=== PATIENT | male | born 1945 | race Caucasian/White ===

== ENCOUNTER 2016-12-13 11:37 | Emergency (ER) | payer MEDICARE, OTHER ==
[~2016-12-13] VITALS: Ht 180.3 cm; Wt 103.0 kg
[~2016-12-13 11:37] MED LIST: ACHD5005 PO; ASCO-262 PO; ASCO1TAB36 PO; ASCO2000; ASP325T PO; ASP325TEC PO; ASP81TEC PO; ASPI-875 PO; ASPI-892; ASPI-983 PO; BPR150TCR; BUPR-168 PO; BUPR-45 PO; BUPR150T14 PO; BUPR150T20; C250T PO; CALC-660 PO; CALC1TAB PO; CALC1TAB97; CALC625T66 PO; CALCIUM CITRATE; CALCIUM CITRATE PO; CHOL2000; CHOL200012 PO; CHOL40002 PO; CINN1CAP PO; CINN500C2 PO; CINNAMON; CITRACAL; CLON1TAB3 PO; DCS100C; DCS100C PO; DESV100T; DESV100T PO; DILT-1 PO; DILT240C87; DIPH50LI PO; DOXY100T2 PO; ENAL20TA; ENAL20TA PO; ENAL20TA76 PO; FISH1200; FISH400C PO; FLT05NA16; FLUT16SP22; FNT100TD; GABA600T2; GABA600T2 PO; GBPN600T PO; HYDR-3583 PO; HYDR-3812 PO; HYDR-89 PO; HYDR1CAP2; HYDR1TAB66 PO; INSASP10V; INSU100V16 SQ; INSULIN PUMP; KRIL1CAP18 PO; LACT20SO2 PO; LACTULOSE; LUTE20TA PO; MELA10TA2 PO; MELA1TAB16 PO; METH500T5 PO; METO-354 PO; METO10TA3; MS15TCR PO; MULT-850 PO; MULT-963 PO; MULTIVITAMIN; NAPR-243 PO; NOVOLOG; OMEGA COMPLEX; OMEGA COMPLEX PO; OXYC-12 PO; OXYC-197 PO; PEG250PW PO; PNT40TEC PO; POLY119P; PYRI50CA PO; Pristiq PO; SENOKOT; SIMV80TA3 PO; THM100T; TRAZ150T42 PO; TRAZ50TA67; TRZ50T; VENL75TA6 PO; VITA1TAB30; VITAMIN B PO; VNL75T PO
--- OUTSIDE RECORDS SUMMARY | 2016-12-13 11:44 | XMS REPORT | Continuity of Care Document ---
Author Author [facility] Organization [facility] Address Unknown Phone Unavailable Allergies Active Description Code Type Severity Reaction Onset Reported/Identified Relationship to Patient Clinical Status Yes No Known Drug Allergies [id number] Drug Allergy Mild N/A 04/19/2009 Yes No Known Drug Allergies [id number] Drug Allergy Unknown N/ A 04/16/2016 Medications Problems Date Dx Coded Attending Type Code Diagnosis Diagnosed By 04/19/2016 NITO ALLISON DO Ot A41.01 SEPSIS DUE TO METHICILLIN SUSCEPTIBLE ST 04/19/2016 MARK ALLISON DOI Ot D64.9 ANEMIA, UNSPECIFIED 04/19/2016 MARK ALLISON DOI Ot E11.65 TYPE 2 DIABETES MELLITUS WITH HYPERGLYCE 04/19/2016 MARK ALLISON DOI Ot E86.0 DEHYDRATION 04/19/2016 KEEGAN PENNINGTON NITO Ot F03.90 UNSPECIFIED DEMENTIA WITHOUT BEHAVIORAL 04/19/2016 MARK ALLISON DOI Ot F32.9 MAJOR DEPRESSIVE DISORDER, SINGLE EPISOD 04/19/2016 KEEGAN PENNINGTON NITO Ot G47.33 OBSTRUCTIVE SLEEP APNEA (ADULT) (PEDIATR 04/19/2016 KEEGAN PENNINGTON NITO Ot I10 ESSENTIAL (PRIMARY) HYPERTENSION 04/19/2016 MARK ALLISON DOI Ot J15.211 PNEUMONIA DUE TO METHICILLIN SUSCEP STAP 04/19/2016 MARK ALLISON DOI Ot M19.90 UNSPECIFIED OSTEOARTHRITIS, UNSPECIFIED 04/19/2016 KEEGAN PENNINGTON NITO Ot N17.9 ACUTE KIDNEY FAILURE, UNSPECIFIED 04/19/2016 MARK ALLISON DOI Ot R09.02 HYPOXEMIA 04/19/2016 MARK ALLISON DOI Ot 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 04/19/2016 MARK ALLISON DOI Ot Z87.891 PERSONAL HISTORY OF NICOTINE DEPENDENCE 05/22/2016 EDEL GUTIERREZ MD Ot Z91.81 HISTORY OF FALLING 06/12/2016 EDEL GUTIERREZ MD Ot Z91.81 HISTORY OF FALLING 08/03/2016 GIOVANA MORTENSEN Ot E11.9 TYPE 2 DIABETES MELLITUS WITHOUT COMPLIC 08/03/2016 GIOVANA MORTENSEN Ot F03.90 UNSPECIFIED DEMENTIA WITHOUT BEHAVIORAL 08/03/2016 GIOVANA MORTENSEN Ot I10 ESSENTIAL (PRIMARY) HYPERTENSION 08/03/2016 GIOVANA MORTENSEN Ot S00.81XA ABRASION OF OTHER PART OF HEAD, INITIAL 08/03/2016 GIOVANA MORTENSEN Ot S42.035A NONDISP FX OF LATERAL END OF LEFT CLAVIC 08/03/2016 GIOVANA MORTENSEN Ot S49.92XA UNSP INJURY OF LEFT SHOULDER AND UPPER A 08/03/2016 GIOVANA MORTENSEN Ot S50.812A ABRASION OF LEFT FOREARM, INITIAL ENCOUN 08/03/2016 GIOVANA MORTENSEN Ot W01.0XXA FALL SAME LEV FROM SLIP/TRIP W/O STRIKE 08/03/2016 GIOVANA MORTENSEN Ot Y92.[address] IN [facility] NON-INSTITUT ( PRIVATE 08/03/2016 GIOVANA MORTENSEN Ot Y93.89 ACTIVITY, OTHER SPECIFIED 08/03/2016 GIOVANA MORTENSEN Ot Y99.8 OTHER EXTERNAL CAUSE STATUS 08/03/2016 GIOVANA MORTENSEN Ot 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 08/03/2016 GIOVANA MORTENSEN Ot Z79.82 JAIL (CURRENT) USE OF ASPIRIN 08/03/2016 GIOVANA MORTENSEN Ot Z79.899 OTHER TOOL DESIGN DRAFTSPERSON (CURRENT) DRUG THERAPY 08/05/2016 GIOVANA MORTENSEN Ot E11.9 TYPE 2 DIABETES MELLITUS WITHOUT COMPLIC 08/05/2016 GIOVANA MORTENSEN Ot F03.90 UNSPECIFIED DEMENTIA WITHOUT BEHAVIORAL 08/05/2016 GIOVANA MORTENSEN Ot I10 ESSENTIAL (PRIMARY) HYPERTENSION 08/05/2016 GIOVANA MORTENSEN Ot S00.81XA ABRASION OF OTHER PART OF HEAD, INITIAL 08/05/2016 GIOVANA MORTENSEN Ot S42.035A NONDISP FX OF LATERAL END OF LEFT CLAVIC 08/05/2016 GIOVANA MORTENSEN Ot S49.92XA UNSP INJURY OF LEFT SHOULDER AND UPPER A 08/05/2016 GIOVANA MORTENSEN Ot S50.812A ABRASION OF LEFT FOREARM, INITIAL ENCOUN 08/05/2016 GIOVANA MORTENSEN Ot W01.0XXA FALL SAME LEV FROM SLIP/TRIP W/O STRIKE 08/05/2016 GIOVANA MORTENSEN Ot Y92.[address] IN [facility] NON-INSTITUT ( PRIVATE 08/05/2016 GIOVANA MORTENSEN Ot Y93.89 ACTIVITY, OTHER SPECIFIED 08/05/2016 GIOVANA MORTENSEN Ot Y99.8 OTHER EXTERNAL CAUSE STATUS 08/05/2016 GIOVANA MORTENSEN Ot Z79.4 JAIL (CURRENT) USE OF INSULIN 08/05/2016 GIOVANA MORTENSEN Ot Z79.82 JAIL (CURRENT) USE OF ASPIRIN 08/05/2016 GIOVANA MORTENSEN Ot Z79.899 OTHER TOOL DESIGN DRAFTSPERSON (CURRENT) DRUG THERAPY Procedures Results Encounters ACCT No. Visit Date/Time Discharge Status Pt. Type Provider Facility Loc./Unit Complaint [id number] 08/03/2016 17:28:00 2015 19:02:00 DIS Emergency GIOVANA MORTENSEN [facility] ER FALL [id number] 06/12/2016 11:12:00 2015 13:18:00 DIS Outpatient EDEL GUTIERREZ MD [facility] REHAB DECONDITIONING AND FREQUENT FALLS [id number] 04/16/2016 12:03:00 2015 10:23:00 DIS Inpatient NITO ALLISON DO [facility] 4TH [id number] 02/09/2015 14:46:00 2014 23:59:59 CLS Outpatient RENEE GOETZ DO [facility] QUICK [id number] 01/09/2014 20:23:00 2013 06:30:00 DIS Outpatient [id number] 11/23/2013 12:44:00 2013 13:31:00 DIS Outpatient [id number] 10/10/2013 06:00:00 2012 12:00:00 DIS Inpatient [id number] 09/27/2013 08:51:00 2012 23:59:59 CLS Outpatient [id number] 03/23/2013 10:25:00 2012 15:51:00 DIS Outpatient [id number] 02/22/2013 10:00:00 2012 18:50:00 DIS Inpatient [id number] 12/13/2016 11:40:00 ACT Emergency GOLDIE SCHMID, MARCO ANTONIO Paredes [facility] ER UPPER BACK PAIN [id number] 04/16/2016 12:50:00 Document Registration
[2016-12-13] MEDS ORDERED: morphine INJ 10 MG/ML 1ML (SYR OR VIAL) IM STA ×2 (12:54→14:12)
[2016-12-13] MEDS ORDERED: KETOROLAC 30 MG/ML VIAL IM STA (12:54)
--- NOTE | 2016-12-13 13:10 | ED Back Pain ---
General Chief Complaint: Back Problems Stated Complaint: UPPER BACK PAIN Nursing Triage Note: AMBULATED TO ROOM 09 WITH A CANE. COMPLAINS OF LEFT MID BACK PAIN THAT STARTED LAST WEEK WHEN HE FELL ONTO THE CONCRETE FLOOR. FELT FINE AFTER BUT YESTERDAY WAS HELPING TO TURN A MATRESS AND HE SNEEZED AND FELT A HORRIBLE PAIN IN HIS BACK THAT WILL NOT GO AWAY. COMPLAINS OF SOA YESTERDAY. Nursing Sepsis Screen: No Definite Risk Source of Information: Patient, Family Exam Limitations: No Limitations History of Present Illness Time Seen by Provider: 12:50 Initial Comments Here with report of left upper back pain. Onset last week after falling while walking on a sidewalk [place]. He was able to catch himself somewhat but landed on the left shoulder. He was hurting for about 2 days but then was better. Last night he was assisting turning a mattress and sneezed when he was bent over and had no significant left upper back pain near the area of the shoulder blade that has persisted since. Does have a mild cough. Denies fever or chills. Denies nausea or vomiting. Denies other injury or concerns. He did not hit his head and he did not lose consciousness. Location: Paraspinous Muscles, T-Spine Timing/Duration: 12-24 Hours, 1 Week Severity: Moderate Pain/Injury Location: Chest Modifying Factors: Improves With Immobilization, Worse With Movement Associated Symptoms: muscle spasmsNo fever, No weakness Allergies and Home Medications Allergies Coded Allergies: No Known Drug Allergies (Unverified , 04/16/16) Home Medications Ascorbate Calcium/Bioflavonoid 1 Each Tablet 1,000 MG PO DAILY (Reported) Aspirin 81 Mg Tablet.dr 81 MG PO DAILY (Reported) Bupropion HCl 150 Mg Tablet.er 150 MG PO BID (Reported) Calcium Carbonate/Vitamin D3 1 Each Tablet 1 TAB PO DAILY (Reported) Cholecalciferol (Vitamin D3) 2,000 Unit Capsule 2,000 UNIT PO DAILY (Reported) Clonazepam 1 Mg Tablet 1 MG PO HS (Reported) Diphenhydramine HCl 50 Mg/30 Ml Liquid 50 MG PO HS (Reported) Docusate Sodium 100 Mg Cap 200 MG PO BID (Reported) TAKES 2 (100MG) CAPSULES TWICE DAILY Doxycycline Hyclate 100 Mg Tablet #10 100 MG PO BID@,17 Prescribed by: NITO ALLISON on 04/19/16 0923 Enalapril Maleate 20 Mg Tablet 20 MG PO BID (Reported) Fluticasone Propionate 16 Gm [place].susp 2 SPRAYS NA HS (Reported) Gabapentin 600 Mg Tablet 600 MG PO TID (Reported) Hydrocodone/Acetaminophen 1 Each Tablet 1-2 TAB PO Q6H PRN PRN PAIN (Reported) Insulin Aspart 100 Unit/1 Ml Susp SQ PER INSULIN PUMP (Reported) 7 CARBS FOR 1 INSULIN UNIT BASAL RATE 1.7 UNITS PER HOUR Krill/Om-3/Dha/Epa/Phospho/Ast 1 Each Capsule 1,000 MG PO DAILY (Reported) Lactulose 20 Gm/30 Ml Solution 3 TBS PO DAILY PRN PRN CONSTIPATION (Reported) Lutein 20 Mg Tablet 20 MG PO DAILY (Reported) Melatonin 10 Mg Tablet 10 MG PO HS (Reported) Methylcellulose 500 Mg Cplt 500 MG PO BID (Reported) Multivitamin 1 Each Tablet 1 TAB PO DAILY (Reported) Oxycodone HCl/Acetaminophen 1 Each Tablet #30 1 EACH PO Q4H PRN PRN PAIN Prescribed by: GIOVANA LUX on 08/03/16 183 Polyethylene Glycol 1 Ea Pack 17 GM PO DAILY PRN PRN CONSTIPATION (Reported) Venlafaxine HCl 75 Mg Tab 150 MG PO BID (Reported) TAKES 2 (75MG) TABLETS Constitutional: see HPINo chills, No fever Respiratory: coughNo short of breath Cardiovascular: chest painNo edema Gastrointestinal: No abdominal pain, No nausea, No vomiting Genitourinary: no symptoms reported Musculoskeletal: see HPI back pain joint pain (left shoulder) Skin: no symptoms reported All Other Systems Reviewed Negative Unless Noted: Yes Past Sqkkscw-Gfuwrp-Jiofat Hx Patient Social History Alcohol Use: Rarely Uses Recreational Drug Use: No Smoking Status: Former Smoker Former Smoker/When Quit: Nov 02, 1982 Recent Foreign Travel: No Contact w/Someone Who Travel: No Recent Infectious Disease Expo: No Recent Hopitalizations: Yes Immunizations Up To Date Tetanus Booster (TDap): Less than 5yrs Date of Pneumonia Vaccine: Nov 02, 2008 Date of Influenza Vaccine: Sep 02, 2013 Surgeries HX Surgeries: No (BILAT CARPAL TUNNEL, BILA KNEE REPLACE, COLON RESECTION, BILAT KNEE SCOPE, ) Surgeries: Orthopedic Respiratory Hx Respiratory Disorders: Yes (CPAP AT NOC) Respiratory Disorders: Sleep Apnea Cardiovascular Hx Cardiac Disorders: Yes Cardiac Disorders: Hypertension Neurological Hx Neurological Disorders: Yes (CONFUSION W/ ILLNESSES) Neurological Disorders: Dementia Reproductive System Hx Reproductive Disorders: Yes (ERECTILE DYSFUNCTION) Sexually Transmitted Disease: No Genitourinary Hx Genitourinary Disorders: No Gastrointestinal Hx Gastrointestinal Disorders: Yes (COLON RESSECTION) Musculoskeletal Hx Musculoskeletal Disorders: Yes (ARTHRITIS) Musculoskeletal Disorders: Back Injury Endocrine Hx Endocrine Disorders: Yes Endocrine Disorders: Diabetes, Insulin dep HEENT HX ENT Disorders: Yes HEENT Disorders: Cataract 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, Hearing Aide Left Cancer Hx Cancer: Yes Cancer: Skin Psychosocial Hx Psychiatric Problems: Yes Behavioral Health Disorders: Depression Integumentary HX Skin/Integumentary Disorder: Yes (SKIN REAL THIN/EASILY BRUISES) Blood Transfusions Hx Blood Disorders: No Reviewed Nursing Assessment Reviewed/Agree w Nursing PMH: Yes Family Medical History Significant Family History: No Pertinent Family Hx Family Medial History: Cancer 09 SISTER (BREAST) Hypertension 03 FATHER 03 MOTHER Parkinson's disease 03 MOTHER Seizure disorder 09 BROTHER Physical Exam Vital Signs Vital Sign - Last 12Hours 12/13/16 12:23 Temp 98.0 Pulse 92 Resp 16 B/P 122/65 Pulse Ox 92 Capillary Refill : Less Than 3 Seconds General Appearance: No Apparent Distress WD/WN Neck: Non Tender Supple Cardiovascular: Regular Rate, Rhythm No Murmur Respiratory: No Accessory Muscle Use Other (course sounds with breathing and cough.) Gastrointestinal: Non Tender Soft Extremity: Non Tender No Calf Tenderness Neurologic/Psychiatric: Alert Oriented x3 Skin: Normal Color Warm/Dry Progress/Results/Core Measures Results/Orders My Orders Orders-MARCO ANTONIO AMEZCUA MD Ribs/Unilateral With Chest (12/13/16 12:54) Ketorolac Injection (Toradol Injection) (12/13/16 12:54) Morphine Injection (Morphine Injection (12/13/16 12:54) Morphine Injection (Morphine Injection (12/13/16 14:12) Vital Signs/I&O Vital Sign - Last 12Hours 12/13/16 12:23 Temp 98.0 Pulse 92 Resp 16 B/P 122/65 Pulse Ox 92 Blood Pressure Mean: 84 Progress Note : Progress Note Seen and evaluated. X-ray of chest and left ribs. Toradol 30 mg IM and morphine 5 mg IM ordered. Monitor patient. 1355: I did discuss the case with Dr. Jacobo. Patient has some continued pain. We did note clavicle fracture and rib fractures. There appears to be at least 1 fracture in the area of concern of the seventh rib.. 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 There could be other fractures of the ribs in the area. All the findings were discussed with the patient. He does have some continued pain so we did repeat morphine [address] Jacobo's recommendation, I will prescribe Duragesic 25 g patches and he will follow-up with Dr. Jacobo on Thursday or Thursday. Patient family agree. Discharged home with return precautions. Patient family verbalized understanding instructions and agreement with plan. Diagnostic Imaging Diagonstic Imaging: Xray Plain Films/CT/US/NM/MRI: chest Comments [facility]. [place], [place] NAME: YOSVANY MOSLEY JR [facility] REC#: [id number] PT STATUS: REG ER : 1945 PHYSICIAN: MARCO ANTONIO AMEZCUA MD ADMIT DATE: 12/13/16/ER Draft Date of Exam:12/13/16 RIBS/UNILATERAL WITH CHEST INDICATION: Left mid back pain, started last week. Fell on concrete. Sneezing, felt horrible pain on the left. Shortness of air. EXAMINATION: Chest and rib series 12/13/2016. COMPARISON: Chest dated 08/03/2016. FINDINGS: Frontal chest with 3 views of the left ribs. There is a fracture of the distal aspect of the left clavicle stable with some callus formation noted at this time compared to previous imaging. There are left posterior lateral rib fractures in the upper chest stable. There is no pneumothorax, mild irregularity along the anterolateral aspect of the left likely seventh rib likely due to a nondisplaced acute fracture. The visualized upper abdomen demonstrates findings of marked constipation. IMPRESSION: 1. Chronic changes throughout the lungs with no acute infiltrates and no pneumothorax. 2. Fractures in the left clavicle and proximal left posterior ribs. 3. Suspected more acute appearing fracture along the anterolateral aspect of the left seventh rib nondisplaced in nature. Correlate for point tenderness, other findings as above. Dictated on workstation # [id number] Dict: 12/13/16 1329 Trans: 12/13/[address] [place] [address] [id number] Interpreted by: ANA MARTINEZ MD Departure Impression Impression: Primary Impression: Left rib fracture Qualified Code: S22.42XA - Multiple fractures of ribs, left side, initial encounter for closed fracture Additional Impression: Clavicle fracture, sternal end Qualified Code: S42.018K - Nondisplaced fracture of sternal end of left clavicle, subsequent encounter for fracture with nonunion Disposition: HOME, SELF-CARE Condition: Stable Departure-Patient Inst. Decision time for Depature: 14:21 Referrals: EDEL JACOBO MD (PCP/Family) Primary Care Physician Patient Instructions: Clavicle Fracture (DC), Rib Fracture (DC) Add. Discharge Instructions: All discharge instructions reviewed with patient and/or family. Voiced understanding. Continue home medications as directed. Use Duragesic patch as prescribed. Follow-up with Dr. Jacobo on Thursday or Thursday. Call his office Thursday morning for recheck. Return for worse pain, fever, vomiting, breathing problems or other concerns as needed. Use incentive spirometer several times per hour while awake. Scripts Fentanyl (Duragesic Patch 25MCG)1 Each Patch.[id number] Mcg TD Q72H #5 PATCH Ref 0 Prov:MARCO ANTONIO AMEZCUA MD 12/13/16 MARCO ANTONIO AMEZCUA MD Dec 13, 2016 13:10
--- NOTE | 2016-12-13 13:41 | Diagnostic Imaging Report ---
INDICATION: Left mid back pain, started last week. Fell on concrete. Sneezing, felt horrible pain on the left. Shortness of air. EXAMINATION: Chest and rib series 12/13/2016. COMPARISON: Chest dated 08/03/2016. FINDINGS: Frontal chest with 3 views of the left ribs. There is a fracture of the distal aspect of the left clavicle stable with some callus formation noted at this time compared to previous imaging. There are left posterior lateral rib fractures in the upper chest stable. There is no pneumothorax, mild irregularity along the anterolateral aspect of the left likely seventh rib likely due to a nondisplaced acute fracture. The visualized upper abdomen demonstrates findings of marked constipation. IMPRESSION: 1. Chronic changes throughout the lungs with no acute infiltrates and no pneumothorax. 2. Fractures in the left clavicle and proximal left posterior ribs. 3. Suspected more acute appearing fracture along the anterolateral aspect of the left seventh rib nondisplaced in nature. Correlate for point tenderness, other findings as above. Dictated by: Dictated on workstation # [id number]
[2016-12-13] MEDS ORDERED: FENT1PAT57 TD (14:24)
[2016-12-13 14:28] VITALS: BP 120/68
== END 2016-12-13 14:28 | disposition home or self-care (01) ==
LOC: EDUNIT# 11:37 → ER 11:40
DX: S22.42XA Multiple fractures of ribs, left side, initial encounter for closed fracture (principal); S42.022K Displaced fracture of shaft of left clavicle, subsequent encounter for fracture with nonunion; I10 Essential (primary) hypertension; E11.9 Type 2 diabetes mellitus without complications; Z79.82 Long term (current) use of aspirin; Z79.4 Long term (current) use of insulin; Z79.899 Other long term (current) drug therapy; W01.0XXA Fall on same level from slipping, tripping and stumbling without subsequent striking against object, initial encounter; Y92.480 Sidewalk as the place of occurrence of the external cause; Y99.8 Other external cause status
CPT/HCPCS: 71101; 96372; 99281

== ENCOUNTER 2017-01-30 10:36 | Inpatient (IN) | payer MEDICARE, OTHER ==
[~2017-01-30] VITALS: Ht 180.3 cm; Wt 98.9 kg
[~2017-01-30 10:36] MED LIST changes: +FENT1PAT57 TD
--- NOTE | 2017-01-30 10:57 | ED Abdominal Pain ---
General Stated Complaint: ABD PAIN Source of Information: Patient, Family Exam Limitations: No Limitations History of Present Illness Time Seen By Provider: 10:55 Initial Comments Brought to ER by his with reports of crampy left lower quadrant abdominal pain for 4 days. No nausea or vomiting. He did pass gas last night but has had no bowel movement for 4 days. History of resection and reanastomosis of the sigmoid/descending colon secondary to a fecalith that by the 's history sounds to have caused some sort of ischemic bowel wall in that region many years ago. Surgery was performed by Dr. Barnes. He is on hydrocodone for a back injury but typically has bowel movements everyday. No fevers or chills. Is also diabetic with insulin pump and states his sugars a been running slightly higher than average in the 200 range for the past few days Timing/Duration: 3-4 Days Severity/Quality: Moderate Location: LUQ, Suprapubic Radiation: No Radiation Activities at Onset: None Associated Symptoms: No Fever/Chills, No Nausea/Vomiting Allergies and Home Medications Allergies Coded Allergies: No Known Drug Allergies (Unverified , 04/16/16) Home Medications Ascorbate Calcium/Bioflavonoid 1 Each Tablet, 1,000 MG PO DAILY, (Reported) Aspirin 81 Mg Tablet.dr, 81 MG PO DAILY, (Reported) Bupropion HCl 150 Mg Tablet.er, 150 MG PO BID, (Reported) Calcium Carbonate/Vitamin D3 1 Each Tablet, 1 TAB PO DAILY, (Reported) Cholecalciferol (Vitamin D3) 2,000 Unit Capsule, 2,000 UNIT PO DAILY, (Reported) Clonazepam 1 Mg Tablet, 1 MG PO HS, (Reported) Diphenhydramine HCl 50 Mg/30 Ml Liquid, 50 MG PO HS, (Reported) Docusate Sodium 100 Mg Cap, 200 MG PO BID, (Reported) TAKES 2 (100MG) CAPSULES TWICE DAILY Doxycycline Hyclate 100 Mg Tablet, 100 MG PO BID@, #10 Prescribed by: NITO ALLISON on 04/19/16 0923 Enalapril Maleate 20 Mg Tablet, 20 MG PO BID, (Reported) Fentanyl 1 Each Patch.td72, 25 MCG TD Q72H, #5 Ref 0 Prescribed by: MARCO ANTONIO AMEZCUA on 12/13/16 1424 Fluticasone Propionate 16 Gm [place].susp, 2 SPRAYS NA HS, (Reported) Gabapentin 600 Mg Tablet, 600 MG PO TID, (Reported) Hydrocodone/Acetaminophen 1 Each Tablet, 1-2 TAB PO Q6H PRN for PAIN, (Reported) Insulin Aspart 100 Unit/1 Ml Susp, SQ PER INSULIN PUMP, (Reported) 7 CARBS FOR 1 INSULIN UNIT BASAL RATE 1.7 UNITS PER HOUR Krill/Om-3/Dha/Epa/Phospho/Ast 1 Each Capsule, 1,000 MG PO DAILY, (Reported) Lactulose 20 Gm/30 Ml Solution, 3 TBS PO DAILY PRN for CONSTIPATION, (Reported) Lutein 20 Mg Tablet, 20 MG PO DAILY, (Reported) Melatonin 10 Mg Tablet, 10 MG PO HS, (Reported) Methylcellulose 500 Mg Cplt, 500 MG PO BID, (Reported) Multivitamin 1 Each Tablet, 1 TAB PO DAILY, (Reported) Oxycodone HCl/Acetaminophen 1 Each Tablet, 1 EACH PO Q4H PRN for PAIN, #30 Ref 0 Prescribed by: GIOVANA LUX on 08/03/16 522 Polyethylene Glycol 1 Ea Pack, 17 GM PO DAILY PRN for CONSTIPATION, (Reported) Venlafaxine HCl 75 Mg Tab, 150 MG PO BID, (Reported) TAKES 2 (75MG) TABLETS Review of Systems Constitutional: see HPI EENTM: No Symptoms Reported Respiratory: No Symptoms Reported Cardiovascular: No Symptoms Reported Gastrointestinal: See HPI, Abdominal Pain, Constipated, Denies Diarrhea, Denies Nausea Genitourinary: No Symptoms Reported Musculoskeletal: no symptoms reported Skin: no symptoms reported Psychiatric/Neurological: No Symptoms Reported Endocrine: No Symptoms Reported Past Rgmwjwy-Oktkhu-Jzanax Hx Patient Social History Former Smoker/When Quit: Nov 02, 1982 Recent Foreign Travel: No Contact w/Someone Who Travel: No Recent Hopitalizations: Yes Immunizations Up To Date Tetanus Booster (TDap): Less than 5yrs Date of Pneumonia Vaccine: Nov 02, 2008 Date of Influenza Vaccine: Sep 02, 2013 Surgeries HX Surgeries: No (BILAT CARPAL TUNNEL, BILA KNEE REPLACE, COLON RESECTION, BILAT KNEE SCOPE, ) Surgeries: Orthopedic Respiratory Hx Respiratory Disorders: Yes (CPAP AT NOC) Respiratory Disorders: Sleep Apnea Cardiovascular Hx Cardiac Disorders: Yes Cardiac Disorders: Hypertension Neurological Hx Neurological Disorders: Yes (CONFUSION W/ ILLNESSES) Neurological Disorders: Dementia Reproductive System Hx Reproductive Disorders: Yes (ERECTILE DYSFUNCTION) Sexually Transmitted Disease: No Genitourinary Hx Genitourinary Disorders: No Gastrointestinal Hx Gastrointestinal Disorders: Yes (COLON RESSECTION) Musculoskeletal Hx Musculoskeletal Disorders: Yes (ARTHRITIS) Musculoskeletal Disorders: Back Injury Endocrine Hx Endocrine Disorders: Yes Endocrine Disorders: Diabetes, Insulin dep HEENT HX ENT Disorders: Yes HEENT Disorders: Cataract 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, Hearing Aide Left Cancer Hx Cancer: Yes Cancer: Skin Psychosocial Hx Psychiatric Problems: Yes Behavioral Health Disorders: Depression Integumentary HX Skin/Integumentary Disorder: Yes (SKIN REAL THIN/EASILY BRUISES) Blood Transfusions Hx Blood Disorders: No Family Medical History Significant Family History: No Pertinent Family Hx Family Medial History: Cancer 09 SISTER (BREAST) Hypertension 03 FATHER 03 MOTHER Parkinson's disease 03 MOTHER Seizure disorder 09 BROTHER Physical Exam Vital Signs VS - Last 72 Hours, by Label 01/30/17 10:59 Temp 98.6 Pulse 100 Resp 16 B/P (MAP) 128/84 Pulse Ox 98 O2 Delivery Room Air Capillary Refill : General Appearance: WD/WN, no apparent distress HEENT: PERRL/EOMI, normal ENT inspection Neck: non-tender, full range of motion Respiratory: no respiratory distress, no accessory muscle use Gastrointestinal: normal bowel sounds, soft, tenderness (left lower quadrant tenderness) Extremities: normal range of motion, non-tender Neurologic/Psychiatric: alert, normal mood/affect, oriented x 3 Skin: normal color, warm/dry Progress/Results/Core Measures Results/Orders Lab Results Laboratory Tests Test 01/30/17 10:54 01/30/17 12:30 Range/Units White Blood Count 13.8 H 4.3-11.0 10^3/uL Red Blood Count 4.23 L 4.35-5.85 10^6/uL Hemoglobin 13.4 13.3-17.7 G/DL Hematocrit 43 40-54 % Mean Corpuscular Volume 102 H 80-99 FL Mean Corpuscular Hemoglobin 32 25-34 PG Mean Corpuscular Hemoglobin Concent 31 L 32-36 G/DL Red Cell Distribution Width 15.9 H 10.0-14.5 % Platelet Count 289 130-400 10^3/uL Mean Platelet Volume 9.4 7.4-10.4 FL Neutrophils (%) (Auto) 47 42-75 % Lymphocytes (%) (Auto) 22 12-44 % Monocytes (%) (Auto) 17 H 0-12 % Eosinophils (%) (Auto) 11 H 0-10 % Basophils (%) (Auto) 2 0-10 % Neutrophils # (Auto) 6.5 1.8-7.8 X 10^3 Lymphocytes # (Auto) 3.1 1.0-4.0 X 10^3 Monocytes # (Auto) 2.4 H 0.0-1.0 X 10^3 Eosinophils # (Auto) 1.5 H 0.0-0.3 10^3/uL Basophils # (Auto) 0.3 H 0.0-0.1 10^3/uL Sodium Level 140 135-145 MMOL/L Potassium Level 4.5 3.6-5.0 MMOL/L Chloride Level 104 98-107 MMOL/L Carbon Dioxide Level 27 21-32 MMOL/L Anion Gap 9 5-14 MMOL/L Blood Urea Nitrogen 15 7-18 MG/DL Creatinine 1.10 0.60-1.30 MG/DL Estimat Glomerular Filtration Rate > 60 BUN/Creatinine Ratio 14 Glucose Level 162 H 70-105 MG/DL Calcium Level 9.8 8.5-10.1 MG/DL Total Bilirubin 0.6 0.1-1.0 MG/DL Aspartate Amino Transf (AST/SGOT) 13 5-34 U/L Alanine Aminotransferase (ALT/SGPT) 20 0-55 U/L Alkaline Phosphatase 95 40-136 U/L Total Protein 7.8 6.4-8.2 G/DL Albumin 4.2 3.2-4.5 G/DL Urine Color YELLOW Urine Clarity CLEAR Urine pH 6 5-9 Urine Specific [place] 1.010 L 1.016-1.022 Urine Protein NEGATIVE NEGATIVE Urine Glucose (UA) NEGATIVE NEGATIVE Urine Ketones NEGATIVE NEGATIVE Urine Nitrite NEGATIVE NEGATIVE Urine Bilirubin NEGATIVE NEGATIVE Urine Urobilinogen NORMAL NORMAL MG/DL Urine Leukocyte Esterase NEGATIVE NEGATIVE Urine RBC (Auto) NEGATIVE NEGATIVE Urine RBC 0-2 /HPF Urine WBC RARE /HPF Urine Squamous Epithelial Cells RARE /HPF Urine Crystals NONE /LPF Urine Bacteria NEGATIVE /HPF Urine Casts NONE /LPF Urine Mucus NEGATIVE /LPF Urine Culture Indicated NO My Orders Orders - MAGGIE TINEO CHIEF FUNDRAISING OFFICER Cbc With Automated Diff (01/30/17 10:48) Comprehensive Metabolic Panel (01/30/17 10:48) Ua Culture If Indicated (01/30/17 10:48) Saline Lock/Iv-Start (01/30/17 10:48) Ct Abdomen/Pelvis W (01/30/17 10:58) Medications Given in ED Current Medications Medications Dose Ordered Sig/Andrea Route Start Time Stop Time Status Last Admin Dose Admin Iohexol 100 ml ONCE ONCE IV 01/30/17 11:15 01/30/17 11:19 DC 01/30/17 11:51 100 ML Sodium Chloride 10 ml NEEDED PRN IV 01/30/17 11:15 01/30/17 11:51 10 ML Sodium Chloride 100 ml ONCE ONCE IV 01/30/17 11:15 01/30/17 11:19 DC 01/30/17 11:51 80 ML Vital Signs/I&O Vital Sign - Last 12Hours 01/30/17 10:59 Temp 98.6 Pulse 100 Resp 16 B/P (MAP) 128/84 Pulse Ox 98 O2 Delivery Room Air Diagnostic Imaging Diagonstic Imaging: CT Comments 1. Findings are consistent with high-grade obstruction of the colon at the anastomotic suture line in the rectosigmoid junction. No definite diverticulitis noted with diverticuli in the remaining sigmoid colon noted. 2. There are two small enhancing areas in the dome of the liver which appear to be stable when compared with previous exam consistent with hemangiomas. 3. Bilateral renal cysts which have increased in size and number since previous study. Dictated on workstation # [id number] Dict: 01/30/17 1205 Trans: 01/30/17 1244 [facility] [id number] Interpreted by: MORELIA BARRERA MD Electronically signed by: Departure Communication Time/Spoke to Admitting Phy: 14:09 Communication I discussed the case with Dr. Rasmussen. We will admit the patient to him, consult medicine. Soap suds enema, Cipro, Flagyl and clear liquid diet. Impression Impression: Primary Impression: Large bowel obstruction Disposition: ADMITTED INPATIENT Condition: Stable Decision to Admit Reason: Admit from ER (General) Decision to Admit/Date: Jan 30, 2017 Time/Decision to Admit Time: 12:53 Departure-Patient Inst. Referrals: EDEL GUTIERREZ MD (PCP/Family) Primary Care Physician MAGGIE TINEO APRN Jan 30, 2017 10:57
[2017-01-30] MEDS ORDERED: CATHETER FLUSH 10 ML SYR IV PRN (11:15)
[2017-01-30] MEDS ORDERED: NS 100 ML (IVPB) BAG IV ONE (11:15)
[2017-01-30] MEDS ORDERED: IOHEXOL 350 MG/ML 100 ML (OMNIPAQUE 350) VIAL IV ONE (11:15)
[2017-01-30 11:17] LABS: BASOPHILS # (AUTO) 0.3 10^3/uL (0.0-0.1); BASOPHILS % (AUTO) 2 % (0-10); EOSINOPHILS # (AUTO) 1.5 10^3/uL (0.0-0.3); EOSINOPHILS % (AUTO) 11 % (0-10); LYMPHOCYTES # (AUTO) 3.1 X 10^3 (1.0-4.0); LYMPHOCYTES % (AUTO) 22 % (12-44); MEAN CORPUSCULAR HEMOGLOBIN 32 PG (25-34); MEAN CORPUSCULAR HGB CONC 31 G/DL (32-36); MEAN CORPUSCULAR VOLUME 102 FL (80-99); MEAN PLATELET VOLUME 9.4 FL (7.4-10.4); MONOCYTES # (AUTO) 2.4 X 10^3 (0.0-1.0); MONOCYTES % (AUTO) 17 % (0-12); NEUTROPHILS # (AUTO) 6.5 X 10^3 (1.8-7.8); NEUTROPHILS % (AUTO) 47 % (42-75); PLATELET COUNT 289 10^3/uL (130-400); RED BLOOD COUNT 4.23 10^6/uL (4.35-5.85); RED CELL DISTRIBUTION WIDTH 15.9 % (10.0-14.5); WHITE BLOOD COUNT 13.8 10^3/uL (4.3-11.0)
[2017-01-30 11:32] LABS: ALANINE AMINOTRANSFERASE 20 U/L (0-55); ALBUMIN 4.2 G/DL (3.2-4.5); ANION GAP 9 MMOL/L (5-14); ASPARTATE AMINO TRANSFERASE 13 U/L (5-34); BILIRUBIN,TOTAL 0.6 MG/DL (0.1-1.0); BLOOD UREA NITROGEN 15 MG/DL (7-18); BUN/CREATININE RATIO 14; CALCIUM 9.8 MG/DL (8.5-10.1); CARBON DIOXIDE 27 MMOL/L (21-32); CHLORIDE 104 MMOL/L (98-107); GFR ESTIMATED > 60; GLUCOSE 162 MG/DL (70-105); POTASSIUM 4.5 MMOL/L (3.6-5.0); SODIUM 140 MMOL/L (135-145); TOTAL PROTEIN 7.8 G/DL (6.4-8.2)
[2017-01-30 12:35] LABS: BILIRUBIN,URINE NEGATIVE (NEGATIVE); KETONES,URINE NEGATIVE (NEGATIVE); LEUKOCYTE ESTERASE ,URINE NEGATIVE (NEGATIVE); NITRITE,URINE NEGATIVE (NEGATIVE); PH,URINE 6 (5-9); PROTEIN,URINE NEGATIVE (NEGATIVE); UROBILINOGEN,URINE NORMAL (NORMAL)
[2017-01-30 12:43] LABS: SQUAMOUS EPITHELIAL CELL,UR RARE /HPF; WBC,URINE RARE /HPF
--- NOTE | 2017-01-30 12:45 | Diagnostic Imaging Report ---
PROCEDURE: CT abdomen and pelvis with contrast. TECHNIQUE: Multiple contiguous axial images were obtained through the abdomen and pelvis after administration of intravenous contrast. INDICATION: Low abdominal pain x4 days. History of previous colon resection and appendectomy. Comparison with 11/08/2012. FINDINGS: There is a large amount of stool throughout the colon from the cecum to the anastomosis at the rectosigmoid junction. There is diverticulosis with no definite diverticulitis seen in the remaining sigmoid colon. There is no stool in the sigmoid colon or rectum. Small bowel is not distended. The stomach is not dilated. Liver shows two small area of increased enhancement in the right lobe superiorly along segment 8 and 4B. In retrospect, these were probably present on 11/08/2012 exam though due to the contrast timing were less prominent. No other liver lesions are seen. Gallbladder is absent. Bile ducts are not dilated. Pancreas is atrophic. Spleen appears normal. The adrenal glands are not enlarged. Kidneys show benign cyst on the right measuring 3.8 cm which has increased considerably since previous exam when it measured 1.8 cm. Additional smaller cyst inferiorly in the right kidney and the left kidney, which has only increased slightly in size. There is no hydronephrosis. No solid ureteral masses. No calculi. Aorta is well opacified and appear normal with mild atherosclerosis. There is no free air or free fluid. No intra-abdominal adenopathy of pathologic size. The lung bases are clear. IMPRESSION: 1. Findings are consistent with high-grade obstruction of the colon at the anastomotic suture line in the rectosigmoid junction. No definite diverticulitis noted with diverticuli in the remaining sigmoid colon noted. 2. There are two small enhancing areas in the dome of the liver which appear to be stable when compared with previous exam consistent with hemangiomas. 3. Bilateral renal cysts which have increased in size and number since previous study. Dictated by: Dictated on workstation # [id number]
[2017-01-30 14:45] VITALS: BP 125/80
[2017-01-30 15:25] VITALS: BP 125/80
[2017-01-30] MEDS ORDERED: ONDANSETRON 4 MG/2 ML (SDV) Z0FRAN IV PRN (15:30)
[2017-01-30] MEDS ORDERED: FLEET ENEMA ADULT 1 EA BTL PR NR (15:30)
[2017-01-30] MEDS: NS IV 1000 ML 1,000 ML IV SCH (15:40)
[2017-01-30] MEDS: metroNIDAZOLE 500MG/100ML IVPB 100 ML IV SCH ×2 (15:40→22:08)
[2017-01-30] MEDS ORDERED: HYDROcodone/APAP 7.5 MG/325 MG (LORTAB, LORCET PLUS) TABLET PO PRN (15:45)
[2017-01-30] MEDS ORDERED: fentaNYL INJECTION 100 MCG/2 ML AMP IVP PRN (15:45)
[2017-01-30] MEDS ORDERED: INSULIN VIAL ASPART for PUMP 100 UNIT/ML VIAL SQ SCH (16:00)
[2017-01-30] MEDS: CIPROFLOXACIN 400 MG/D5W 200 ML (PRE-MIX) IV SCH (16:29)
[2017-01-30] MEDS ORDERED: CINN500C2 PO (16:45)
[2017-01-30] MEDS ORDERED: CLON1TAB3 PO (16:45)
[2017-01-30] MEDS ORDERED: RX-HYDROCODONE/APAP 5/325 MG #4 TAB PK PO PRN (20:15)
[2017-01-30] MEDS ORDERED: HYDROcodone/APAP 5 MG/325 MG (LORTAB) TAB PO PRN (20:15)
[2017-01-30] MEDS ORDERED: LACTULOSE SYRUP 10GM/15ML (ENULOSE) 30ML UDC PO PRN (20:15)
[2017-01-30] MEDS ORDERED: inSUlin ASPART (NovoLOG) 1 UNIT/0.01 ML (CHARGE PER UNIT) SQ SCH (20:15)
[2017-01-30] MEDS ORDERED: POLYETHYLENE GLYCOL 17 GM PO PRN (20:15)
[2017-01-30] MEDS ORDERED: MELATONIN 3 MG TABLET PO PRN (20:30)
[2017-01-30] MEDS ORDERED: POLYETHYLENE GLYCOL 17 GM (MIRALAX) PACK PO PRN (20:30)
[2017-01-30] MEDS: GABAPENTIN 600 MG (NEURONTIN) TAB PO SCH (20:50)
[2017-01-30] MEDS: DOCUSATE SODIUM 100 MG (COLACE) CAP PO SCH (20:50)
[2017-01-30] MEDS: ENALAPRIL 10 MG (VASOTEC) TAB PO SCH (20:50)
[2017-01-30] MEDS: FLEET ENEMA ADULT 1 EA BTL PR SCH (20:51)
[2017-01-30] MEDS ORDERED: VENlafaxine 75 MG (EFFEXOR) TAB PO SCH (21:00)
[2017-01-30] MEDS ORDERED: FLUTICASONE NASAL SPRAY (FLONASE) 16 GM BTL NS SCH (21:00)
[2017-01-30] MEDS ORDERED: NON-FORMULARY MEDICATION 1 EA EA (Enalapril Maleate 20 MG) PO SCH (21:00)
[2017-01-30] MEDS ORDERED: NON-FORMULARY MEDICATION 1 EA EA (Melatonin 10 MG) PO SCH (21:00)
[2017-01-30] MEDS ORDERED: clonazePAM 1 MG (KlonoPIN) TAB PO SCH (21:00)
[2017-01-30] MEDS ORDERED: MELATONIN 3 MG TABLET PO SCH (21:00)
[2017-01-30] MEDS ORDERED: DIPHENHYDRAMINE HCL 50 MG PO SCH (21:00)
[2017-01-30 21:20] VITALS: BP 127/78
[2017-01-31] VITALS: BP 151/88
[2017-01-31 04:00] VITALS: BP 133/84
[2017-01-31] MEDS: NS IV 1000 ML 1,000 ML IV SCH ×2 (05:44→11:30)
[2017-01-31] MEDS: CIPROFLOXACIN 400 MG/D5W 200 ML (PRE-MIX) IV SCH (05:44)
[2017-01-31 06:00] LABS: BASOPHILS # (AUTO) 0.2 10^3/uL (0.0-0.1); BASOPHILS % (AUTO) 2 % (0-10); EOSINOPHILS # (AUTO) 1.1 10^3/uL (0.0-0.3); EOSINOPHILS % (AUTO) 11 % (0-10); LYMPHOCYTES # (AUTO) 3.1 X 10^3 (1.0-4.0); LYMPHOCYTES % (AUTO) 32 % (12-44); MEAN CORPUSCULAR HEMOGLOBIN 32 PG (25-34); MEAN CORPUSCULAR HGB CONC 31 G/DL (32-36); MEAN CORPUSCULAR VOLUME 102 FL (80-99); MEAN PLATELET VOLUME 9.6 FL (7.4-10.4); MONOCYTES # (AUTO) 1.5 X 10^3 (0.0-1.0); MONOCYTES % (AUTO) 15 % (0-12); NEUTROPHILS # (AUTO) 3.9 X 10^3 (1.8-7.8); NEUTROPHILS % (AUTO) 40 % (42-75); PLATELET COUNT 290 10^3/uL (130-400); RED BLOOD COUNT 4.11 10^6/uL (4.35-5.85); RED CELL DISTRIBUTION WIDTH 15.8 % (10.0-14.5); WHITE BLOOD COUNT 9.6 10^3/uL (4.3-11.0)
[2017-01-31 06:48] LABS: ANION GAP 10 MMOL/L (5-14); BLOOD UREA NITROGEN 11 MG/DL (7-18); BUN/CREATININE RATIO 11; CALCIUM 9.5 MG/DL (8.5-10.1); CARBON DIOXIDE 28 MMOL/L (21-32); CHLORIDE 105 MMOL/L (98-107); CREATININE SERUM 0.97 MG/DL (0.60-1.30); GFR ESTIMATED > 60; GLUCOSE 82 MG/DL (70-105); POTASSIUM 3.9 MMOL/L (3.6-5.0); SODIUM 143 MMOL/L (135-145)
[2017-01-31] MEDS: metroNIDAZOLE 500MG/100ML IVPB 100 ML IV SCH (06:53)
[2017-01-31] MEDS ORDERED: buPROPion SR 150 MG (WELLBUTRIN SR) TAB PO SCH (07:00)
[2017-01-31] MEDS ORDERED: VENlafaxine 75 MG (EFFEXOR) TAB PO SCH (07:00)
[2017-01-31 08:00] VITALS: BP 133/86
[2017-01-31] MEDS ORDERED: CALCIUM CARB + VIT D 600 MG (CALCARB + D) TAB PO SCH (08:00)
[2017-01-31] MEDS ORDERED: ASCORBIC ACID (VIT C) 500 MG TABLET PO SCH ×2 (08:00)
[2017-01-31] MEDS: GABAPENTIN 600 MG (NEURONTIN) TAB PO SCH ×2 (08:26→13:39)
[2017-01-31] MEDS: DOCUSATE SODIUM 100 MG (COLACE) CAP PO SCH (08:26)
[2017-01-31] MEDS: FLEET ENEMA ADULT 1 EA BTL PR SCH (08:27)
[2017-01-31] MEDS: ENALAPRIL 10 MG (VASOTEC) TAB PO SCH (08:30)
[2017-01-31] MEDS ORDERED: VITAMIN D3 1,000 UNITS (CHOLECALCIFEROL) TABLET PO SCH (09:00)
[2017-01-31] MEDS ORDERED: ASCORBATE CALCIUM PO SCH (09:00)
[2017-01-31] MEDS ORDERED: NON-FORMULARY MEDICATION 1 EA EA (Calcium Carbonate/Vitamin D3 (Caltrate 600 + D Tablet) 1 PO SCH (09:00)
[2017-01-31] MEDS ORDERED: NON-FORMULARY MEDICATION 1 EA EA (Lutein 20 MG) PO SCH (09:00)
[2017-01-31] MEDS ORDERED: BIOFLAVONOID PO SCH (09:00)
[2017-01-31] MEDS ORDERED: [UNRECOGNIZED DRUG - OTHER] PO SCH (09:00)
[2017-01-31] MEDS ORDERED: CHOLECALCIFEROL 2000 UNIT PO SCH (09:00)
--- NOTE | 2017-01-31 11:32 | Progress Note (SOAP) ---
Subjective Subjective/Events-last exam Patient seen with Dr. Rasmussen. Patient reports that he is doing well. No abdominal pain, N/V. Reports that he has been having BMs. Ambulating and tolerating diet. No fever/chills. Review of Systems General: No Chills, No Night Sweats Gastrointestinal: No: Abdominal Pain, Nausea, Vomiting Objective Exam Vital Signs Date Time Temp Pulse Resp B/P (MAP) Pulse Ox O2 Delivery O2 Flow Rate FiO2 01/31/17 08:00 97.7 85 18 133/86 97 NIV/CPAP 01/31/17 04:00 97.7 69 20 133/84 97 NIV/CPAP 01/31/17 00:00 98.6 82 18 151/88 97 NIV/CPAP 01/30/17 21:20 98.2 83 18 127/78 97 Room Air 01/30/17 15:25 98.1 83 20 125/80 96 Room Air 01/30/17 14:50 98.1 78 18 96 01/30/17 14:45 98.1 83 20 125/80 96 Room Air I & O 01/31/17 07:00 Intake Total 2850 ml Output Total 1400 ml Balance 1450 ml Capillary Refill : Less Than 3 Seconds General Appearance: No Apparent Distress, WD/WN HEENT: PERRL/EOMI Neck: Full Range of Motion, Normal Inspection, Non Tender, Supple Respiratory: Lungs Clear, Normal Breath Sounds, No Accessory Muscle Use, No Respiratory Distress Cardiovascular: Regular Rate, Rhythm, No Edema Gastrointestinal: normal bowel sounds, non tender, soft Extremity: Normal Capillary Refill, Normal Inspection, Normal Range of Motion, Non Tender, No Calf Tenderness, No Pedal Edema Neurologic/Psychiatric: Alert, Oriented x3 Skin: Normal Color, Warm/Dry Results Lab Laboratory Tests 01/30/17 12:30: Urine Color YELLOW, Urine Clarity CLEAR, Urine pH 6, Urine Specific [place] 1.010L, Urine Protein NEGATIVE, Urine Glucose (UA) NEGATIVE, Urine Ketones NEGATIVE, Urine Nitrite NEGATIVE, Urine Bilirubin NEGATIVE, Urine Urobilinogen NORMAL, Urine Leukocyte Esterase NEGATIVE, Urine RBC (Auto) NEGATIVE, Urine RBC 0-2, Urine WBC RARE, Urine Squamous Epithelial Cells RARE, Urine Crystals NONE, Urine Bacteria NEGATIVE, Urine Casts NONE, Urine Mucus NEGATIVE, Urine Culture Indicated NO 01/31/17 05:00: White Blood Count 9.6, Red Blood Count 4.11L, Hemoglobin 13.2L, Hematocrit 42, Mean Corpuscular Volume 102H, Mean Corpuscular Hemoglobin 32, Mean Corpuscular Hemoglobin Concent 31L, Red Cell Distribution Width 15.8H, Platelet Count 290, Mean Platelet Volume 9.6, Neutrophils (%) (Auto) 40L, Lymphocytes (%) (Auto) 32 , Monocytes (%) (Auto) 15H, Eosinophils (%) (Auto) 11H, Basophils (%) (Auto) 2, Neutrophils # (Auto) 3.9, Lymphocytes # (Auto) 3.1, Monocytes # (Auto) 1.5H, Eosinophils # (Auto) 1.1H, Basophils # (Auto) 0.2H, Sodium Level 143, Potassium Level 3.9, Chloride Level 105, Carbon Dioxide Level 28, Anion Gap 10, Blood Urea Nitrogen 11, Creatinine 0.97, Estimat Glomerular Filtration Rate > 60, BUN/ Creatinine Ratio 11, Glucose Level 82, Calcium Level 9.5 Assessment/Plan Assessment/Plan Assess & Plan/Chief Complaint partial large bowel obstruction secondary to anastomotic stricture exacerbated by severe constipation. Advance diet to DYS3. Will discharge soon. Clinical Quality Measures DVT/VTE Risk/Contraindication: Risk Factor Score Per Nursin RFS Level Per Nursing on Admit: 4+=Very High ALEXI MARTINEZ TURN OUT WORKER Jan 31, 2017 11:32 am
--- NOTE | 2017-01-31 12:31 | Discharge Inst-Surgical ---
D/C Lap Instructions-KIDO New, Converted, or Re-Newed RX: Other Follow Up with Dr. Jacobo 1 week for outpatient colonoscopy. Activity as tolerated No driving while on pain medications High Fiber Diet 25g or more per day Drink 64 fluid oz or more of fluids per day. Symptoms to Report: Fever over 101 degree F, Nausea/Vomiting If any problems/questions: Contact your physician or go to Emergency Room ALEXI MARTINEZ APRN Jan 31, 2017 12:31 pm
--- NOTE | 2017-02-04 11:36 | Physician Query-Final Dx ---
BETHANY WEISS 02/04/17 1136: Final Diagnosis Give Final Diagnosis Please give Final Diagnosis LILIAN BARRETT MD 02/04/17 1201: Final Diagnosis Give Final Diagnosis constipation with mild colonic stricture. BETHANY WEISS Feb 04, 2017 11:36 LILIAN BARRETT MD Feb 04, 2017 12:01
--- OUTSIDE RECORDS SUMMARY | 2017-02-22 08:05 | XMS REPORT | Continuity of Care Document ---
Author Author [facility] Organization [facility] Address Unknown Phone Unavailable Allergies Active Description Code Type Severity Reaction Onset Reported/Identified Relationship to Patient Clinical Status Yes No Known Drug Allergies [id number] Drug Allergy Mild N/A 04/19/2009 Yes No Known Drug Allergies [id number] Drug Allergy Unknown N/ A 01/30/2017 Medications Problems Date Dx Coded Attending Type [...] MARK ALLISON DOI Ot R09.02 HYPOXEMIA 04/19/2016 NITO ALLISON DO Ot Z79.4 CHARTERED ACCOUNTANT (CURRENT) USE OF INSULIN 04/19/2016 MARK ALLISON [...] GIOVANA MORTENSEN Ot Y92.[address] IN [facility] NON-INSTITUT ( PRIVATE 08/03/2016 GIOVANA MORTENSEN Ot Y93.89 ACTIVITY, OTHER SPECIFIED 08/03/2016 GIOVANA MORTENSEN Ot Y99.8 OTHER EXTERNAL CAUSE STATUS 08/03/2016 GIOVANA MORTENSEN Ot Z79.4 CHARTERED ACCOUNTANT (CURRENT) USE OF INSULIN 08/03/2016 GIOVANA MORTENSEN Ot Z79.82 NURSING HOME (CURRENT) USE OF ASPIRIN 08/03/2016 GIOVANA MORTENSEN Ot Z79.899 OTHER CHARTERED ACCOUNTANT (CURRENT) DRUG THERAPY 08/05/2016 GIOVANA MORTENSEN Ot [...] GIOVANA MORTENSEN Ot Y92.[address] IN [facility] NON-INSTITUT ( PRIVATE 08/05/2016 GIOVANA MORTENSEN Ot Y93.89 ACTIVITY, OTHER SPECIFIED 08/05/2016 GIOVANA MORTENSEN Ot Y99.8 OTHER EXTERNAL CAUSE STATUS 08/05/2016 GIOVANA MORTENSEN Ot Z79.4 NURSING HOME (CURRENT) USE OF INSULIN 08/05/2016 GIOVANA MORTENSEN Ot Z79.82 NURSING HOME (CURRENT) USE OF ASPIRIN 08/05/2016 GIOVANA MORTENSEN Ot Z79.899 OTHER CHARTERED ACCOUNTANT (CURRENT) DRUG THERAPY 12/13/2016 MARCO ANTONIO AMEZCUA MD, Ot E11.9 TYPE 2 DIABETES MELLITUS WITHOUT COMPLIC 12/13/2016 MARCO ANTONIO AMEZCUA MD, Ot I10 ESSENTIAL (PRIMARY) HYPERTENSION 12/13/2016 MARCO ANTONIO AMEZCUA MD, Ot S22.42XA MULTIPLE FRACTURES OF RIBS, LEFT SIDE, I 12/13/2016 MARCO ANTONIO AMEZCUA MD, Ot S29.9XXA UNSPECIFIED INJURY OF THORAX, INITIAL EN 12/13/2016 MARCO ANTONIO AMEZCUA MD, Ot S42.022K DISP FX OF SHAFT OF LEFT CLAVICLE, SUBS 12/13/2016 MARCO ANTONIO AMEZCUA MD, Ot W01.0XXA FALL SAME LEV FROM SLIP/TRIP W/O STRIKE 12/13/2016 MARCO ANTONIO AMEZCUA MD, Ot Y92.[address] OF OCCURRENCE OF T 12/13/2016 MARCO ANTONIO AMEZCUA MD, Ot Y99.8 OTHER EXTERNAL CAUSE STATUS 12/13/2016 MARCO ANTONIO AMEZCUA MD, Ot Z79.4 NURSING HOME (CURRENT) USE OF INSULIN 12/13/2016 MARCO ANTONIO AMEZCUA MD, Ot Z79.82 NURSING HOME (CURRENT) USE OF ASPIRIN 12/13/2016 MARCO ANTONIO AMEZCUA MD, Ot Z79.899 OTHER CHARTERED ACCOUNTANT (CURRENT) DRUG THERAPY 12/16/2016 MARCO ANTONIO AMEZCUA MD, Ot E11.9 TYPE 2 DIABETES MELLITUS WITHOUT COMPLIC 12/16/2016 MARCO ANTONIO AMEZCUA MD, Ot I10 ESSENTIAL (PRIMARY) HYPERTENSION 12/16/2016 MARCO ANTONIO AMEZCUA MD, Ot S22.42XA MULTIPLE FRACTURES OF RIBS, LEFT SIDE, I 12/16/2016 MARCO ANTONIO AMEZCUA MD, Ot S29.9XXA UNSPECIFIED INJURY OF THORAX, INITIAL EN 12/16/2016 MARCO ANTONIO AMEZCUA MD, Ot S42.022K DISP FX OF SHAFT OF LEFT CLAVICLE, SUBS 12/16/2016 MARCO ANTONIO AMEZCUA MD, Ot W01.0XXA FALL SAME LEV FROM SLIP/TRIP W/O STRIKE 12/16/2016 MARCO ANTONIO AMEZCUA MD, Ot Y92.[address] OF OCCURRENCE OF T 12/16/2016 MARCO ANTONIO AMEZCUA MD, Ot Y99.8 OTHER EXTERNAL CAUSE STATUS 12/16/2016 MARCO ANTONIO AMEZCUA MD, Ot Z79.4 CHARTERED ACCOUNTANT (CURRENT) USE OF INSULIN 12/16/2016 MARCO ANTONIO AMEZCUA MD, Ot Z79.82 CHARTERED ACCOUNTANT (CURRENT) USE OF ASPIRIN 12/16/2016 MARCO ANTONIO AMEZCUA MD, Ot Z79.899 OTHER CHARTERED ACCOUNTANT (CURRENT) DRUG THERAPY 01/31/2017 LILIAN BARRETT MD, Ot E11.9 TYPE 2 DIABETES MELLITUS WITHOUT COMPLIC 01/31/2017 LILIAN BARRETT MD, Ot F32.9 MAJOR DEPRESSIVE DISORDER, SINGLE EPISOD 01/31/2017 LILIAN BARRETT MD, Ot G47.30 SLEEP APNEA, UNSPECIFIED 01/31/2017 LILIAN BARRETT MD, Ot I10 ESSENTIAL (PRIMARY) HYPERTENSION 01/31/2017 LILIAN BARRETT MD, Ot K56.69 OTHER INTESTINAL OBSTRUCTION 01/31/2017 LILIAN BARRETT MD, Ot K91.3 POSTPROCEDURAL INTESTINAL OBSTRUCTION 01/31/2017 LILIAN BARRETT MD, Ot M19.90 UNSPECIFIED OSTEOARTHRITIS, UNSPECIFIED 01/31/2017 LILIAN BARRETT MD, Ot Z79.4 CHARTERED ACCOUNTANT (CURRENT) USE OF INSULIN 01/31/2017 LILIAN BARRETT MD, Ot Z87.891 PERSONAL HISTORY OF NICOTINE DEPENDENCE 01/31/2017 LILIAN BARRETT MD, Ot Z96.651 PRESENCE OF RIGHT ARTIFICIAL KNEE JOINT 01/31/2017 NENA SCHMID, LILIAN Ot Z96.652 PRESENCE OF LEFT ARTIFICIAL KNEE JOINT Procedures Results Test Result Range Complete blood count (CBC) with automated white blood cell (WBC) differential - 01/30/17 10:54 Blood leukocytes automated count (number/volume) 13.8 10*3/ uL 4.3-11.0 Blood erythrocytes automated count (number/volume) 4.23 10*6 /uL 4.35-5.85 Venous blood hemoglobin measurement (mass/volume) 13.4 g/dL 13.3-17.7 Blood hematocrit (volume fraction) 43 % 40-54 Automated erythrocyte mean corpuscular volume 102 [foz_us] 80-99 Automated erythrocyte mean corpuscular hemoglobin (mass per erythrocyte) 32 pg 25-34 Automated erythrocyte mean corpuscular hemoglobin concentration measurement ( mass/volume) 31 g/dL 32-36 Automated erythrocyte distribution width ratio 15.9 % 10.0-14.5 Automated blood platelet count (count/volume) 289 10*3/uL 130-400 Automated blood platelet mean volume measurement 9.4 [foz_us ] 7.4-10.4 Automated blood neutrophils/100 leukocytes 47 % 42-75 Automated blood lymphocytes/100 leukocytes 22 % 12-44 Blood monocytes/100 leukocytes 17 % 0-12 Automated blood eosinophils/100 leukocytes 11 % 0-10 Automated blood basophils/100 leukocytes 2 % 0-10 Blood neutrophils automated count (number/volume) 6.5 10*3 1.8-7.8 Blood lymphocytes automated count (number/volume) 3.1 10*3 1.0-4.0 Blood monocytes automated count (number/volume) 2.4 10*3 0.0-1.0 Automated eosinophil count 1.5 10*3/uL 0.0-0.3 Automated blood basophil count (count/volume) 0.3 10*3/uL 0.0-0.1 Comprehensive metabolic panel - 01/30/17 10:54 Serum or plasma sodium measurement (moles/volume) 140 mmol/ L 135-145 Serum or plasma potassium measurement (moles/volume) 4.5 mmol/L 3.6-5.0 Serum or plasma chloride measurement (moles/volume) 104 mmol /L 98-107 Carbon dioxide 27 mmol/L 21-32 Serum or plasma anion gap determination (moles/volume) 9 mmol/L 5-14 Serum or plasma urea nitrogen measurement (mass/volume) 15 mg/dL 7-18 Serum or plasma creatinine measurement (mass/volume) 1.10 mg /dL 0.60-1.30 Serum or plasma urea nitrogen/creatinine mass ratio 14 NRG Serum or plasma creatinine measurement with calculation of estimated glomerular filtration rate > NRG Serum or plasma glucose measurement (mass/volume) 162 mg/dL 70-105 Serum or plasma calcium measurement (mass/volume) 9.8 mg/dL 8.5-10.1 Serum or plasma total bilirubin measurement (mass/volume) 0.6 mg/dL 0.1-1.0 Serum or plasma alkaline phosphatase measurement (enzymatic activity/volume) 95 U/L 40-136 Serum or plasma aspartate aminotransferase measurement (enzymatic activity/ volume) 13 U/L 5-34 Serum or plasma alanine aminotransferase measurement (enzymatic activity/volume ) 20 U/L 0-55 Serum or plasma protein measurement (mass/volume) 7.8 g/dL 6.4-8.2 Serum or plasma albumin measurement (mass/volume) 4.2 g/dL 3.2-4.5 Complete urinalysis with reflex to culture - 01/30/17 12:30 Urine color determination YELLOW NRG Urine clarity determination CLEAR NRG Urine pH measurement by test strip 6 5- 9 Specific gravity of urine by test strip 1.010 1.016-1.022 Urine protein assay by test strip, semi-quantitative NEGATIVE NEGATIVE Urine glucose detection by automated test strip NEGATIVE NEGATIVE Erythrocytes detection in urine sediment by light microscopy NEGATIVE NEGATIVE Urine ketones detection by automated test strip NEGATIVE NEGATIVE Urine nitrite detection by test strip NEGATIVE NEGATIVE Urine total bilirubin detection by test strip NEGATIVE NEGATIVE Urine urobilinogen measurement by automated test strip (mass/volume) NORMAL NORMAL Urine leukocyte esterase detection by dipstick NEGATIVE NEGATIVE Automated urine sediment erythrocyte count by microscopy (number/high power field) [HPF] NRG Automated urine sediment leukocyte count by microscopy (number/high power field ) RARE NRG Bacteria detection in urine sediment by light microscopy NEGATIVE NRG Squamous epithelial cells detection in urine sediment by light microscopy RARE NRG Crystals detection in urine sediment by light microscopy NONE NRG Casts detection in urine sediment by light microscopy NONE NRG Mucus detection in urine sediment by light microscopy NEGATIVE NRG Complete urinalysis with reflex to culture NO NRG Complete blood count (CBC) with automated white blood cell (WBC) differential - 01/31/17 05:00 Blood leukocytes automated count (number/volume) 9.6 10*3/ uL 4.3-11.0 Blood erythrocytes automated count (number/volume) 4.11 10*6 /uL 4.35-5.85 Venous blood hemoglobin measurement (mass/volume) 13.2 g/dL 13.3-17.7 Blood hematocrit (volume fraction) 42 % 40-54 Automated erythrocyte mean corpuscular volume 102 [foz_us] 80-99 Automated erythrocyte mean corpuscular hemoglobin (mass per erythrocyte) 32 pg 25-34 Automated erythrocyte mean corpuscular hemoglobin concentration measurement ( mass/volume) 31 g/dL 32-36 Automated erythrocyte distribution width ratio 15.8 % 10.0-14.5 Automated blood platelet count (count/volume) 290 10*3/uL 130-400 Automated blood platelet mean volume measurement 9.6 [foz_us ] 7.4-10.4 Automated blood neutrophils/100 leukocytes 40 % 42-75 Automated blood lymphocytes/100 leukocytes 32 % 12-44 Blood monocytes/100 leukocytes 15 % 0-12 Automated blood eosinophils/100 leukocytes 11 % 0-10 Automated blood basophils/100 leukocytes 2 % 0-10 Blood neutrophils automated count (number/volume) 3.9 10*3 1.8-7.8 Blood lymphocytes automated count (number/volume) 3.1 10*3 1.0-4.0 Blood monocytes automated count (number/volume) 1.5 10*3 0.0-1.0 Automated eosinophil count 1.1 10*3/uL 0.0-0.3 Automated blood basophil count (count/volume) 0.2 10*3/uL 0.0-0.1 Whole blood basic metabolic panel - 01/31/17 05:00 Serum or plasma sodium measurement (moles/volume) 143 mmol/ L 135-145 Serum or plasma potassium measurement (moles/volume) 3.9 mmol/L 3.6-5.0 Serum or plasma chloride measurement (moles/volume) 105 mmol /L 98-107 Carbon dioxide 28 mmol/L 21-32 Serum or plasma anion gap determination (moles/volume) 10 mmol/L 5-14 Serum or plasma urea nitrogen measurement (mass/volume) 11 mg/dL 7-18 Serum or plasma creatinine measurement (mass/volume) 0.97 mg /dL 0.60-1.30 Serum or plasma urea nitrogen/creatinine mass ratio 11 NRG Serum or plasma creatinine measurement with calculation of estimated glomerular filtration rate > NRG Serum or plasma glucose measurement (mass/volume) 82 mg/dL 70-105 Serum or plasma calcium measurement (mass/volume) 9.5 mg/dL 8.5-10.1 Capillary blood glucose measurement by glucometer (mass/volume) - 02/20/17 07: 55 Capillary blood glucose measurement by glucometer (mass/volume) 230 mg/dL 70-110 Encounters ACCT No. Visit Date/Time Discharge Status Pt. Type Provider Facility Loc./Unit Complaint [id number] 01/30/2017 14:07:00 2016 14:15:00 DIS Inpatient NENA SCHMID, LILIAN [facility] 4TH LARGE BOWEL OBSTRUCTION [id number] 12/13/2016 11:40:00 2016 14:28:00 DIS Emergency MARCO ANTONIO AMEZCUA MD [facility] ER UPPER BACK PAIN [id number] 08/03/2016 17:28:00 2015 19:02:00 DIS Emergency GIOVANA MORTENSEN [facility] ER FALL [id number] 06/12/2016 11:12:00 2015 13:18:00 DIS Outpatient EDEL GUTIERREZ MD [facility] REHAB DECONDITIONING AND FREQUENT FALLS [id number] 04/16/2016 12:03:00 2015 10:23:00 DIS Inpatient NITO ALLISON DO [facility] 4TH [id number] 02/09/2015 14:46:00 2014 23:59:59 CLS Outpatient RENEE GOETZ DO [facility] QUICK [id number] 01/09/2014 20:23:00 2013 06:30:00 DIS Outpatient [id number] 11/23/2013 12:44:00 2013 13:31:00 DIS Outpatient [id number] 10/10/2013 06:00:00 2012 12:00:00 DIS Inpatient [id number] 09/27/2013 08:51:00 2012 23:59:59 CLS Outpatient [id number] 03/23/2013 10:25:00 2012 15:51:00 DIS Outpatient [id number] 02/22/2013 10:00:00 2012 18:50:00 DIS Inpatient [id number] 02/20/2017 08:02:00 Document Registration [id number] 04/16/2016 12:50:00 Document Registration
--- OUTSIDE RECORDS SUMMARY | 2017-02-22 08:06 | XMS REPORT | Continuity of Care Document ---
Author Author [facility] Organization [facility] Address Unknown Phone Unavailable Care Team Providers Care Whitesmith Name Role Phone KRISTITRANG CORDON III PP Insurance Providers Payer Name Policy Number Subscriber Name Relationship Comm Crossover Enter Ins Name [id number] Yosvany Mosley 01 Self / Same As Patient Wps Medicare [id number] Yosvany Mosley 01 Self / Same As Patient Advance Directives Directive Response Recorded Date Advance Directives Y 02/22/13 5:00pm Health Care Power of Payroll Tax Analyst N 02/22/13 5:00pm Organ Donor Y 02/22/13 5:00pm Problems No Known Problems or Medical conditions. Family History History Response Recorded Date/Time Hx Family Cancer Y grandmother leukemia 02/22/13 5:00pm Hx Family Breast Cancer Y sister 5:00pm Hx Family Colorectal Cancer grandfather 02/22/13 5:00pm Social History History Response Recorded Date/Time Alcohol Use Denies Use 02/22/13 5:00pm Recreational Drug Use N has been on narcotics for the past 3 years 02/22/13 5:00pm Recent Foreign Travel N 02/22/13 5:00pm Recent Infectious Disease Exposure N 5:00pm Hospitalization with Isolation Denies 8:00pm Allergies, Adverse Reactions, Alerts Allergen Type Severity Reaction Last Updated No Known Drug Allergies 04/19/09 Medications Medication Dose Units Route Sig Qty Days Oxycodone Hcl/Acetaminophen (Percocet 5-325 Mg Tablet) 1 - 2 Tab PO q 4hr prn 90 Aspirin (Aspirin 325 Mg Tab) 650 Mg PO BID Morphine Sulfate (Ms Contin 15 Mg) 1 Each PO Q12HR 30 Insulin Aspart (Novolog) Methylcellulose (Citrucel Caplet) 500 Mg PO BID Multivitamin (Multi-Vitamin Daily) 1 Tab PO DAILY [Vitamin B 100MG] 100 Mg PO HS [Calcium Citrate 630] 630 Mg PO HS Ascorbate Calcium (Vitamin C) 3000 Mg PO DAILY Bupropion Hcl (Bupropion Hcl Er) 150 Mg PO BID Melatonin/Pyridoxine Hcl (B6) (Melatonin 5 Mg Tablet) 10 Mg PO HS Fluticasone Propionate (Flonase 0.05% Nasal [place]) 2 Sprays NSEACH HS Lactulose 3 Tbs PO DAILY PRN Polyethylene Glycol (Miralax Pkt) 17 Gm PO DAILY PRN Cholecalciferol (Vitamin D3) (Vitamin D3) 4000 Unit PO DAILY Docusate Sodium (Colace Cap) 200 Mg PO BID Venlafaxine HCl (Effexor Tab) 150 Mg PO DAILY Clonazepam 1 Mg PO HS Gabapentin (Neurontin) 600 Mg PO TID Enalapril Maleate (Vasotec) 20 Mg PO BID Hydrocodone Bit/Acetaminophen (Hydrocodon-Acetaminophen 5-500) 1 Tab PO Q4H PRN Aspirin (Aspirin Ec 81 Mg) 81 Mg PO HS Fish Oil/Borage/Flax/Om3,6,9#1 ([place] 3-6-9 Complex Softgel) 1 Tab PO HS [[place] Complex] 1 Tab PO HS Hydrocodone Bit/Acetaminophen (Hydrocodon-Acetaminophen 5-325) 1 - 2 Each PO Q6H PRN 14 Pantoprazole Sodium (Protonix) 1 Tab PO DAILY 30 Cinnamon Bark/Chromium Picolin (Cinnamon Plus Chromium Capsule) 1 Each PO HS Pyridoxine Hcl (Vitamin B-6) 100 Mg PO HS Calcium Citrate/Vitamin D3 (Calcium Cit-Vit D 315-200 Tab) 2 Each PO HS Ascorbic Acid (Vitamin C) 3000 Mg PO DAILY Calcium Polycarbophil (Fiber-Tabs) 625 Mg PO BID Multivitamins W-Minerals/Lut (Centrum Silver Ultra Men's Tab) 1 Each PO DAILY Insulin Pump Metoclopramide HCl (Reglan 10 Mg Tab) 1 Each PO ACHS PRN [Pristiq] 150 Mg PO DAILY Hydrocodone Bit/Acetaminophen (Hydrocodon-Acetaminophen 5-325) 1 Each PO q4 Trazodone Hcl 75 Mg PO HS Venlafaxine Hcl 75 Mg PO HS Simvastatin 80 Mg PO DAILY Gabapentin (Neurontin) 600 Mg PO DAILY@09,13,21 Acetaminophen/Hydrocodone Bitart (Lorcet Plus 7.5-650 Mg) 1 - 2 Each PO Q4-6HR PRN 40 Desvenlafaxine Succinate (Pristiq) 100 Mg PO DAILY Fluticasone Propionate (Flonase 0.05% Nasal [place]) Aspirin (Ecotrin) Ascorbic Acid (Vitamin C) Cholecalciferol (Vitamin D) Docusate Sodium (Colace) Diltiazem HCl (Dilacor Xr) 240 Mg PO DAILY Bupropion Hcl (Bupropion Hcl Sr) Desvenlafaxine Succinate (Pristiq) 100 Mg PO DAILY Gabapentin (Neurontin) Immunizations Name Given Type Date of Pneumonia Vaccine 11/02/11 H Date of Influenza Vaccine 07/05/12 H Response Recorded Date/Time Status not known Unknown Results Test Date Result Interp. Ref. Range Activated Partial Thromboplast Time February 16, 2013 10:30am 30 SEC N 24-35 Alanine Aminotransferase (ALT/SGPT) December 14, 2012 5: 08pm 47 U/L N 30-65 Albumin December 14, 2012 5:08pm 3.9 G/ DL N 3.4-5.0 Alkaline Phosphatase December 14, 2012 5:08pm 116 U/L N 50-136 Amylase Level November 08, 2012 7:15am 83 U/L N 25-115 Anisocytosis July 29, 2009 6:10am SLIGHT - Aspartate Amino Transf (AST/SGOT) December 14, 2012 5:08pm 12 U/L L 15-37 BUN/Creatinine Ratio February 24, 2013 5:45am 7 - Band Neutrophils November 08, 2012 7:15am 2 % - Basophils # (Auto) February 15, 2013 11:06am 0.1 10^3/uL N 0.0-0.1 Basophils % (Manual) November 08, 2012 7:15am 0 % - Basophils (%) (Auto) February 15, 2013 11:06am 1 % N 0-10 Blood Urea Nitrogen February 24, 2013 5:45am 10 MG/DL N 7-18 C-Reactive Protein February 15, 2013 11:06am 0.8 MG/DL N 0.2-0.9 Calcium Level February 24, 2013 5:45am 8.3 MG/DL L 8.5-10.1 Carbon Dioxide Level February 24, 2013 5:45am 30 MMOL/L N 21-32 Carcinoembryonic Antigen July 25, 2009 6:30am 1.3 NG/ML - Chloride Level February 24, 2013 5:45am 98 MMOL/L L 101-110 Cholesterol Level April 15, 2012 9:30am 166 MG/DL N -200 Creatine Kinase MB July 30, 2009 10:55am 3.2 NG/ML N 0.0-3.6 Creatine Kinase MB Relative Index July 30, 2009 10: 55am 2.5 % N 0.0-2.5 Creatinine February 24, 2013 5:45am 1.4 MG/ DL H 0.6-1.3 Eosinophils # (Auto) February 15, 2013 11:06am 0.4 10^3/uL H 0.0-0.3 Eosinophils % (Manual) November 08, 2012 7:15am 1 % - Eosinophils (%) (Auto) February 15, 2013 11:06am 4 % N 0-10 Erythrocyte Sedimentation Rate February 15, 2013 11:06am 14 MM/HR N 0-30 Glucose Level February 24, 2013 5:45am 234 MG/DL H 74-106 HDL Cholesterol April 15, 2012 9:30am 58 MG/DL N 35-60 Hematocrit February 24, 2013 5:45am 35 % L 40-54 Hemoglobin February 24, 2013 5:45am 11.3 G/ DL L 13.3-17.7 Hemoglobin A1c April 15, 2012 9:30am 6.4 % H 4.5-6.2 LDL Cholesterol April 15, 2012 9:30am 96 MG/DL N 0-129 Lipase December 14, 2012 5:08pm 72 U/L L 73-393 Lymphocytes # (Auto) February 15, 2013 11:06am 3.0 X 10^3 N 1.0-4.0 Lymphocytes % (Manual) November 08, 2012 7:15am 17 % - Lymphocytes (%) (Auto) February 15, 2013 11:06am 33 % N 12-44 Magnesium Level March 03, 2010 6:42am 2.2 MG/DL N 1.8-2.4 Mean Corpuscular Hemoglobin February 24, 2013 5:45am 30 PG N 25-34 Mean Corpuscular Hemoglobin Concent February 24, 2013 5:45am 33 G/DL N 32-36 Mean Corpuscular Volume February 24, 2013 5:45am 93 FL N 80-99 Mean Platelet Volume February 24, 2013 5:45am 10.1 FL N 7.4-10.4 Microcytosis July 29, 2009 6:10am SLIGHT - Monocytes # (Auto) February 15, 2013 11:06am 1.0 X 10^3 N 0.0-1.0 Monocytes % (Manual) November 08, 2012 7:15am 4 % - Monocytes (%) (Auto) February 15, 2013 11:06am 11 % N 0-12 Neutrophils # (Auto) February 15, 2013 11:06am 4.8 X 10^3 N 1.8-7.8 Neutrophils % (Manual) November 08, 2012 7:15am 76 % - Neutrophils (%) (Auto) February 15, 2013 11:06am 52 % N 42-75 Phosphorus Level July 31, 2009 6:05am 3.1 MG/DL N 2.5-4.9 Platelet Count February 24, 2013 5:45am 240 10^3/uL N 130-400 Polychromasia July 29, 2009 6:10am SLIGHT - Potassium Level February 24, 2013 5:45am 4.0 MMOL/L N 3.6-5.0 Prealbumin July 27, 2009 6:00am 10.9 MG/DL L 18.0-35.7 Prostate Specific Antigen September 04, 2009 10:10am 3.85 H NG/ML - Prothromb Time International Ratio February 20, 2010 8:35am 0.9 N 0.8-1.4 Prothrombin Time February 16, 2013 10:30am 11.9 SEC L 12.2-14.7 Reactive Lymphocytes July 24, 2009 1:00pm 7 % - Red Blood Count February 24, 2013 5:45am 3.75 10^6/uL L 4.35-5.85 Red Cell Distribution Width February 24, 2013 5:45am 13.6 % N 10.0-14.5 Sodium Level February 24, 2013 5:45am 134 MMOL/L L 135-145 Thyroid Stimulating Hormone (TSH) April 02, 2009 4:03pm 2.15 UIU/ML N 0.34-5.60 Total Bilirubin December 14, 2012 5:08pm 0.4 MG/DL N 0.0-1.0 Total Protein December 14, 2012 5:08pm 8.6 G/DL H 6.4-8.2 Triglycerides Level April 15, 2012 9:30am 62 MG/DL N 30.0-150.0 Troponin I July 30, 2009 11:00pm 0.40 MG/ML H 0.00-0.10 Urine Bacteria February 25, 2013 2:45am NEGATIVE /HPF - Urine Bilirubin February 25, 2013 2:45am NEGATIVE - Urine Casts February 25, 2013 2:45am NONE / LPF - Urine Clarity February 25, 2013 2:45am CLEAR - Urine Color February 25, 2013 2:45am YELLOW - Urine Crystals February 25, 2013 2:45am NONE /LPF - Urine Culture Indicated February 25, 2013 2:45am NO - Urine Glucose (UA) February 25, 2013 2:45am 3+ H - Urine Ketones February 25, 2013 2:45am 3+ H - Urine Leukocyte Esterase February 25, 2013 2:45am NEGATIVE - Urine Mucus February 25, 2013 2:45am NEGATIVE /LPF - Urine Nitrite February 25, 2013 2:45am NEGATIVE - Urine Protein February 25, 2013 2:45am 1+ H - Urine RBC February 25, 2013 2:45am 5-10 / HPF H - Urine Specific [place] February 25, 2013 2:45am 1.015 L - Urine Squamous Epithelial Cells February 25, 2013 2:45am RARE /HPF - Urine Urobilinogen February 25, 2013 2:45am NORMAL MG/DL - Urine WBC February 25, 2013 2:45am NONE / HPF - Urine pH February 25, 2013 2:45am 5 - VLDL Cholesterol April 15, 2012 9:30am 12 MG/DL N 5-40 Vitamin D 25-Hydroxy September 18, 2008 9:40am 55 NG/ML - White Blood Count February 24, 2013 5:45am 17.6 10^3/uL H 4.3-11.0 Glucometer February 24, 2013 7:17am 318 MG/ DL H 70-110 Lab Scanned Report September 06, 2009 4:43pm Transfusion Reaction Form [id number] - Estimat Glomerular Filtration Rate February 16, 2013 10:30am 51 - Blood Morphology Comment November 08, 2012 7:15am NORMAL - Creatine Kinase July 30, 2009 11:00pm 90 mg/dl N 21-170 Cardiac Panel Pathologist Review July 30, 2009 10:55am SEE CARDIAC PATH REV - Urine RBC (Auto) February 25, 2013 2:45am 4 + H - INR Comment February 16, 2013 10:30am 0.9 N 0.8-1.4 Procedures Procedure Code Date CARPAL TUNNEL SURGERY 69270 02/04/06 REVISE ULNAR NERVE AT ELBOW 67280 MUSCLE BIOPSY 02/04/06 KNEE ARTHROSCOPY/SURGERY 75675 06/13/09 OPEN AND OTHER LEFT HEMICOLECTOMY 45.75 07/26/09 LG-TO-LG BOWEL ANASTOM 45.94 07/26/09 VENOUS CATHETERIZATION NEC 38.93 CLOSED ENDOSCOPIC BIOPSY OF LARGE INTESTINE 45.25 07/24/09 DIAGNOSTIC COLONOSCOPY 08140 10/05/09 TOTAL KNEE REPLACEMENT 81.54 02/27/10 KNEE ARTHROSCOPY/SURGERY 69439 03/19/11 ESOPHAGOGASTRODUODENOSCOPY [EGD] W/CLOSED BIOPSY 45.16 11/10/12 LAPAROSCOPIC CHOLECYSTECTOMY 34213 COLTEN OF KNEE REPLACEMENT, TIBIAL COMPONENT 00.81 02/22/13 COLTEN OF KNEE REPLACEMENT, FEMORAL COMPONENT 00.82 02/22/13 Blood Culture 02/25/13 MRSA Screen 02/16/13 Gram Stain 02/22/13 Encounters Encounter Location Date/Time Discharged Inpatient [facility] 10:00am Departed Emergency Room [facility] 10/14 4:18pm
--- OUTSIDE RECORDS SUMMARY | 2017-02-22 08:07 | XMS REPORT | Continuity of Care Document ---
Author Author [facility] Organization [facility] Address Unknown Phone Unavailable Care Team Providers Care Diesel Automotive Technician Name Role Phone KRISTITRANG CORDON III PP Insurance Providers Payer Name Policy Number Subscriber Name Relationship Comm Crossover Enter Ins Name [id number] Yosvany Mosley 01 Self / Same As Patient Wps Medicare [id number] Yosvany Mosley 01 Self / Same As Patient Advance Directives Directive Response Recorded Date Advance Directives Y 02/22/13 5:00pm Health Care Power of Property Assessment Monitor N 02/22/13 5:00pm Organ Donor Y 02/22/13 [...] PO HS Fluticasone Propionate (Flonase 0.05% Nasal [place]) 2 Sprays NSEACH HS Lactulose 3 Tbs [...] Mg) 81 Mg PO HS Fish Oil/Borage/Flax/Om3,6,9#1 ([place] 3-6-9 Complex Softgel) 1 Tab PO HS [[place] Complex] 1 Tab PO HS Hydrocodone Bit/Acetaminophen [...] PO DAILY Fluticasone Propionate (Flonase 0.05% Nasal [place]) Aspirin (Ecotrin) Ascorbic Acid (Vitamin C) Cholecalciferol [...] 5-10 / HPF H - Urine Specific [place] February 25, 2013 2:45am 1.015 L - [...] September 06, 2009 4:43pm Transfusion Reaction Form [id number] - Estimat Glomerular Filtration Rate February 16, [...] Procedures Procedure Code Date CARPAL TUNNEL SURGERY 27668 02/04/06 REVISE ULNAR NERVE AT ELBOW 44865 MUSCLE BIOPSY 02/04/06 KNEE ARTHROSCOPY/SURGERY 78102 06/13/09 OPEN AND OTHER LEFT HEMICOLECTOMY 45.75 07/26/09 LG-TO-LG BOWEL ANASTOM 45.94 07/26/09 VENOUS CATHETERIZATION NEC 38.93 CLOSED ENDOSCOPIC BIOPSY OF LARGE INTESTINE 45.25 07/24/09 DIAGNOSTIC COLONOSCOPY 21664 10/05/09 TOTAL KNEE REPLACEMENT 81.54 02/27/10 KNEE ARTHROSCOPY/SURGERY 41273 03/19/11 ESOPHAGOGASTRODUODENOSCOPY [EGD] W/CLOSED BIOPSY 45.16 11/10/12 LAPAROSCOPIC CHOLECYSTECTOMY 66753 COLTEN OF KNEE REPLACEMENT, TIBIAL COMPONENT 00.81 02/22/13 COLTEN OF KNEE REPLACEMENT, FEMORAL COMPONENT 00.82 02/22/13 Blood Culture 02/25/13 MRSA Screen 02/16/13 Gram Stain 02/22/13 Encounters Encounter Location Date/Time Discharged Inpatient [facility] 10:00am Departed Emergency Room [facility] 10/14 4:18pm
--- OUTSIDE RECORDS SUMMARY | 2017-02-22 08:43 | XMS REPORT | Continuity of Care Document ---
Author Author [facility] Organization [facility] Address Unknown Phone Unavailable Allergies Active Description Code Type Severity Reaction Onset Reported/Identified Relationship to Patient Clinical Status Yes No Known Drug Allergies [id number] Drug Allergy Mild N/A 04/19/2009 Yes No Known Drug Allergies [id number] Drug Allergy Unknown N/ A 01/30/2017 Medications [...] HYPOXEMIA 04/19/2016 NITO ALLISON DO Ot Z79.4 KNITTING TESTER (CURRENT) USE OF INSULIN 04/19/2016 MARK ALLISON [...] GIOVANA MORTENSEN Ot Y92.[address] [facility] ( PRIVATE 08/03/2016 GIOVANA MORTENSEN Ot Y93.89 ACTIVITY, OTHER SPECIFIED 08/03/2016 GIOVANA MORTENSEN Ot Y99.8 OTHER EXTERNAL CAUSE STATUS 08/03/2016 GIOVANA MORTENSEN Ot Z79.4 KNITTING TESTER (CURRENT) USE OF INSULIN 08/03/2016 GIOVANA MORTENSEN Ot Z79.82 CUSTODIAL (CURRENT) USE OF ASPIRIN 08/03/2016 GIOVANA MORTENSEN Ot Z79.899 OTHER KNITTING TESTER (CURRENT) DRUG THERAPY 08/05/2016 GIOVANA MORTENSEN Ot [...] GIOVANA MORTENSEN Ot Y92.[address] [facility] ( PRIVATE 08/05/2016 GIOVANA MORTENSEN Ot Y93.89 ACTIVITY, OTHER SPECIFIED 08/05/2016 GIOVANA MORTENSEN Ot Y99.8 OTHER EXTERNAL CAUSE STATUS 08/05/2016 GIOVANA MORTENSEN Ot Z79.4 CUSTODIAL (CURRENT) USE OF INSULIN 08/05/2016 GIOVANA MORTENSEN Ot Z79.82 CUSTODIAL (CURRENT) USE OF ASPIRIN 08/05/2016 GIOVANA MORTENSEN Ot Z79.899 OTHER KNITTING TESTER (CURRENT) DRUG THERAPY 12/13/2016 MARCO ANTONIO AMEZCUA [...] 12/13/2016 MARCO ANTONIO AMEZCUA MD, Ot Z79.4 CUSTODIAL (CURRENT) USE OF INSULIN 12/13/2016 MARCO ANTONIO AMEZCUA MD, Ot Z79.82 CUSTODIAL (CURRENT) USE OF ASPIRIN 12/13/2016 MARCO ANTONIO AMEZCUA MD, Ot Z79.899 OTHER KNITTING TESTER (CURRENT) DRUG THERAPY 12/16/2016 MARCO ANTONIO AMEZCUA [...] 12/16/2016 MARCO ANTONIO AMEZCUA MD, Ot Z79.4 KNITTING TESTER (CURRENT) USE OF INSULIN 12/16/2016 MARCO ANTONIO AMEZCUA MD, Ot Z79.82 KNITTING TESTER (CURRENT) USE OF ASPIRIN 12/16/2016 MARCO ANTONIO AMEZCUA MD, Ot Z79.899 OTHER KNITTING TESTER (CURRENT) DRUG THERAPY 01/31/2017 LILIAN BARRETT MD, [...] UNSPECIFIED 01/31/2017 LILIAN BARRETT MD, Ot Z79.4 KNITTING TESTER (CURRENT) USE OF INSULIN 01/31/2017 LILIAN BARRETT [...] Status Pt. Type Provider Facility Loc./Unit Complaint [id number] 01/30/2017 14:07:00 2016 14:15:00 DIS Inpatient NENA SCHMID, LILIAN [facility] 4TH LARGE BOWEL OBSTRUCTION [id number] 12/13/2016 11:40:00 2016 14:28:00 DIS Emergency MARCO ANTONIO AMEZCUA MD [facility] ER UPPER BACK PAIN [id number] 08/03/2016 17:28:00 2015 19:02:00 DIS Emergency GIOVANA MORTENSEN [facility] ER FALL [id number] 06/12/2016 11:12:00 2015 13:18:00 DIS Outpatient EDEL GUTIERREZ MD [facility] REHAB DECONDITIONING AND FREQUENT FALLS [id number] 04/16/2016 12:03:00 2015 10:23:00 DIS Inpatient NITO ALLISON DO [facility] 4TH [id number] 02/09/2015 14:46:00 2014 23:59:59 CLS Outpatient RENEE GOETZ DO [facility] QUICK [id number] 01/09/2014 20:23:00 2013 06:30:00 DIS Outpatient [id number] 11/23/2013 12:44:00 2013 13:31:00 DIS Outpatient [id number] 10/10/2013 06:00:00 2012 12:00:00 DIS Inpatient [id number] 09/27/2013 08:51:00 2012 23:59:59 CLS Outpatient [id number] 03/23/2013 10:25:00 2012 15:51:00 DIS Outpatient [id number] 02/22/2013 10:00:00 2012 18:50:00 DIS Inpatient [id number] 02/20/2017 08:02:00 Document Registration [id number] 04/16/2016 12:50:00 Document Registration
== END 2017-01-31 14:15 | disposition home or self-care (01) | DRG 395 ==
LOC: DELPENDDIS → EDUNIT# 10:36 → ER 10:39 → 4TH 14:07
PROVIDERS: ADMIT Surgery Pediatric Surgery; ATTEND Surgery Pediatric Surgery
DX: K91.3 Postprocedural intestinal obstruction (principal); E11.9 Type 2 diabetes mellitus without complications; I10 Essential (primary) hypertension; G47.30 Sleep apnea, unspecified; M19.90 Unspecified osteoarthritis, unspecified site; F32.9 Major depressive disorder, single episode, unspecified; Z79.4 Long term (current) use of insulin; Z87.891 Personal history of nicotine dependence; Z96.651 Presence of right artificial knee joint; Z96.652 Presence of left artificial knee joint
CPT/HCPCS: 36415; 74177; 80048; 80053; 81000; 85025

== ENCOUNTER 2017-02-17 05:43 | Outpatient (CLI) | payer MEDICARE, OTHER ==
[~2017-02-17] VITALS: Ht 180.3 cm; Wt 98.9 kg
== END 2017-02-17 12:12 ==
LOC: PREOP 05:43
PROVIDERS: ATTEND Internal Medicine
DX: Z01.818 Encounter for other preprocedural examination (principal); Z85.038 Personal history of other malignant neoplasm of large intestine

== ENCOUNTER 2017-02-20 07:27 | Day surgery (SDC) | payer MEDICARE, OTHER ==
[~2017-02-20] VITALS: Ht 180.3 cm; Wt 98.9 kg
[2017-02-20] MEDS ORDERED: 1/2 NS IV SOLUTION 1,000 ML IV STA (07:43)
[2017-02-20] MEDS ORDERED: LIDOCAINE JELLY 2% (XYLOCAINE) 5 ML TUBE MM PRN (07:45)
[2017-02-20] MEDS ORDERED: FLUMAZENIL (ROMAZICON) 0.1 MG/ML 5 ML VIAL INJ PRN (07:45)
[2017-02-20] MEDS ORDERED: NALOXONE 0.4 MG/ML 1 ML (NARCAN) VIAL IVP PRN (07:45)
--- NOTE | 2017-02-20 08:02 | HISTORY AND PHYSICAL ---
DATE OF ADMISSION: 02/20/2017 DICTATING PHYSICIAN: Dr. Jacobo Mr. Chacon is a 71-year-old white male who presented to the emergency room on the 30 of January reporting a 4 day history of left lower quadrant abdominal pain. He had not had a bowel movement for days at that time, but had been passing a small amount of gas. PAST MEDICAL HISTORY: Significant for left hemicolectomy for bowel obstruction due to diverticular disease and a thecal lift [place] [address] scanning in the emergency room revealed fecal impaction at the anastomotic site in the distal sigmoid colon. He was admitted for bowel cleansing which occurred. He has not had a colonoscopy since 2008. On MiraLAX his bowels have been moving and he denies current abdominal pain and has not noted any bright red blood per rectum. He has had several falls in the yard, one yesterday and one today. Yesterday it was gravel and he did have several skin tears on his right forearm very superficial. His is a nurse and she had cleaned them with soap and water and applied triple antibiotic and Band-Aids. He does have a history of long-standing poorly controlled type 2 diabetes mellitus. He is on insulin pump and does have known peripheral neuropathy. He has a history of depression. He has history of chronic insomnia. MEDICATIONS: On admission included: 1. 81 mg aspirin daily. 2. Bupropion 150 mg b.i.d. 3. 2000 units of vitamin D 3 daily. 4. Enalapril 20 mg b.i.d. 5. Gabapentin 600 mg t.i.d. 6. Venlafaxine 150 mg b.i.d. 7. His insulin is via insulin pump. 8. He is also taking lactulose 30 mL b.i.d. 9. Flonase nasal spray 2 sprays both sides daily. 10. He is on hydrocodone 1 to 2 tabs q.6 p.r.n. pain. 11. MiraLAX 17 grams daily. PAST SURGICAL HISTORY: Significant for: 1. Bilateral carpal tunnel release. 2. He has had bilateral knee replacements. 3. The above-mentioned colon resection. 4. He also wears CPAP at night for obstructive sleep apnea. SOCIAL HISTORY: He is retired and with no past drinking history. He has a past 20 pack-year smoking history but quit in 11/1982. PHYSICAL EXAMINATION: Reveals a white male, who appears to be in no acute distress VITAL SIGNS: His blood pressure was 118/70 without an orthostatic drop upon standing. Heart rate was 72 and regular. Weight at 229 pounds is stable. NECK: Revealed no JVD, adenopathy or bruits. CHEST: Clear. CV: Revealed a regular rate and rhythm without murmur, S3 or S4. ABDOMEN: Soft, supple without masses, organomegaly or tenderness. EXTREMITIES: Reveal trace edema without cyanosis or clubbing. He had several shallow skin tears without any surrounding erythema around the right elbow. No significant swelling was noted. There is normal range of motion of the right elbow. LABORATORY: His electronic medical record was reviewed including labs and x-ray evaluation. His discharge hemoglobin was 13.2 with an MCV 102. His white count was 9.6 thousand on discharge. On admission he was 13.8 thousand. Chemistry panel was unremarkable with a creatinine of 0.97 and a calcium level of 9.5. Normal electrolytes. ASSESSMENT: 1. For further evaluation of constipation and a past history of hemicolectomy for bowel obstruction, the patient is set-up for colonoscopy. Bowel prep with split dose Colyte was given and questions were answered. 2. Debility aggravated by peripheral neuropathy strongly advised to use cane, especially when he is in the yard on irregular surfaces. 3. Balance exercises were described in the office. Job ID: [id number] Dictated Date: 02/15/2017 07:29:00 Solid Waste Landfill Technician Date: 02/16/2017 12:13:24/kae
[2017-02-20 08:03] VITALS: BP 117/63
--- NOTE | 2017-02-20 08:09 | Pre-Op Note & Conscious Sedat ---
Pre-Operative Progress Note H&P Reviewed The H&P was reviewed, patient examined and no changes noted. Date H&P Reviewed: Feb 20, 2017 Time H&P Reviewed: 08:08 Conscious Sedation Pre-Proced ASA Class: 3 Airway Mallampati Classification: ([place] appropriate class) I. II. III, IV Lungs Heart ASA score ASA 1: a normal healthy patient ASA 2: a patient with a mild systemic disease (mid diabetes, controlled hypertension, obesity ASA 3: a patient with a severe systemic disease that limits activity (angina , COPD, prior Myocardial infarction) ASA 4: a patient with an incapacitating disease that is a constant threat to life (CHF, renal failure) ASA 5: a moribund patient not expected to survive 24 hrs. (ruptured aneurysm) ASA 6: a declared brain patient whose organs are being harvested. For emergent operations, add the letter E after the classification Grade 2 Sedation Plan: Analgesia, Amnesia, Plan communicated to team members, Discussed options with patient/fam, Discussed risks with patient/fam Note The patient is an appropriate candidate to undergo the planned procedure, sedation, and anesthesia. The patient immediately re-assessed prior to indication. EDEL GUTIERREZ MD Feb 20, 2017 08:09
[2017-02-20] MEDS ORDERED: LIDOCAINE JELLY 2% (XYLOCAINE) 5 ML TUBE ONE (08:21)
[2017-02-20] MEDS ORDERED: MIDAZOLAM 2 MG/2 ML (VERSED) VIAL ONE ×2 (08:21→09:04)
[2017-02-20] MEDS ORDERED: fentaNYL INJECTION 100 MCG/2 ML AMP ONE (08:21)
[2017-02-20] MEDS: fentaNYL INJECTION 100 MCG/2 ML AMP IVP PRN ×2 (09:00→09:07)
[2017-02-20] MEDS: MIDAZOLAM 2 MG/2 ML (VERSED) VIAL IVP PRN ×2 (09:03→09:05)
[2017-02-20 09:40] VITALS: BP 127/85
[2017-02-20 10:10] VITALS: BP 137/85
[2017-02-20 10:15] VITALS: BP 137/85
--- NOTE | 2017-02-20 15:40 | OPERATIVE REPORT ---
DATE OF SERVICE: PROCEDURE: Colonoscopy. Colonoscopy is performed for evaluation for constipation with a past history of bowel obstruction due to benign stricture status post left hemicolectomy. The patient was placed in the left lateral decubitus position. Prior to undergoing colonoscopy a genitorectal evaluation was performed. Anal sphincter tone was normal and the perianal reflex is intact. Normal evaluation of the digital inspection of the anal canal or rectal vault except for a moderately enlarged prostate. No nodularity was noted. No tenderness was reported. The colonoscope was then inserted into the rectum under direct visualization, advanced to the cecum. Careful inspection was made as the colonoscope was withdrawn. FINDINGS: There is no evidence of internal or external hemorrhoids. The rectum was unremarkable. The anastomotic margin is widely patent in the distal sigmoid colon. It appears that hemicolectomy has been performed. A few left-sided colon diverticula were present without evidence for diverticulitis. No evidence for neoplasia was noted throughout the remainder of the colon. No evidence for inflammation was noted. Caliber of the colon was slightly enlarged. The ileocecal valve was unremarkable. ASSESSMENT: There is no evidence for obstruction today with an intact anastomotic margin, widely patent. No evidence for neoplasia was noted. A few remaining diverticula were noted without evidence for diverticulitis in the left colon. Moderate BPH is noted on digital evaluation of the prostate without evidence for nodularity. Job ID: [id number] DocumentID: [id number] Dictated Date: 02/20/2017 13:03:46 Cow Tester Date: 02/20/2017 15:40:49 Dictated By: EDEL GUTIERREZ MD
== END 2017-02-20 10:20 | disposition home or self-care (01) ==
LOC: ENDO 07:27
PROVIDERS: ATTEND Internal Medicine
DX: K59.00 Constipation, unspecified (principal); K57.30 Diverticulosis of large intestine without perforation or abscess without bleeding; N40.0 Benign prostatic hyperplasia without lower urinary tract symptoms; E11.40 Type 2 diabetes mellitus with diabetic neuropathy, unspecified; Z79.4 Long term (current) use of insulin
CPT/HCPCS: 82962

== ENCOUNTER 2017-08-26 10:28 | Emergency (ER) | payer MEDICARE, OTHER ==
[~2017-08-26] VITALS: Ht 180.3 cm; Wt 95.3 kg
[2017-08-26] MEDS ORDERED: ONDANSETRON 4 MG/2 ML (SDV) Z0FRAN ONE (10:50)
[2017-08-26] MEDS ORDERED: ONDANSETRON 4 MG/2 ML (SDV) Z0FRAN IVP ONE (11:00)
[2017-08-26] MEDS ORDERED: NS IV 1000 ML 1,000 ML IV ONE (11:04)
--- NOTE | 2017-08-26 11:09 | ED GI ---
General Stated Complaint: DIARRHEA/VOMITING DIZZY LIGHTHEADED Source of Information: Patient, Family (son) Exam Limitations: No Limitations History of Present Illness Time Seen By Provider: 10:58 Initial Comments Patient presents to ER by private conveyance with a chief complaint of mild abdominal epigastric pain and nausea and vomiting starting yesterday progressive getting worse. He also has anorexia. No fevers, chills, rash, recent travel outside the state, sick contacts, blood in the vomitus. He has no diarrhea but he does have constipation and had a hard pellets this morning. No changes in his medications. Denies chest pain, shortness of breath, history of coronary disease. He is a diabetic and uses insulin. He denies dysuria or discharge. Patient is had his gallbladder out and he thinks she's had his appendix out as well. He had a partial colon resection secondary to a bowel obstruction many years ago. Allergies and Home Medications Allergies Coded Allergies: No Known Drug Allergies (Verified , 02/20/17) Home Medications Ascorbate Calcium/Bioflavonoid 1 Each Tablet, 1,000 MG PO DAILY, (Reported) Aspirin 81 Mg Tablet.dr, 81 MG PO DAILY, (Reported) Bupropion HCl 150 Mg Tablet.er, 150 MG PO BID, (Reported) Cinnamon Bark 500 Mg Capsule, 1,000 MG PO HS, (Reported) TAKES 2 (500 MG) CAPSULES Clonazepam 1 Mg Tablet, 1 MG PO HS, (Reported) Enalapril Maleate 20 Mg Tablet, 20 MG PO BID, (Reported) Fluticasone Propionate 16 Gm [place].susp, 2 SPRAYS NA HS, (Reported) Gabapentin 600 Mg Tablet, 600 MG PO TID, (Reported) Hydrocodone/Acetaminophen 1 Each Tablet, 1 TAB PO TID PRN for MODERATE PAIN, ( Reported) Insulin Aspart 100 Unit/1 Ml Susp, SQ PER INSULIN PUMP, (Reported) 7 CARBS FOR 1 INSULIN UNIT BASAL RATE 1.7 UNITS PER HOUR Melatonin 10 Mg Tablet, 10 MG PO HS, (Reported) Polyethylene Glycol 1 Ea Pack, 17 GM PO DAILY PRN for CONSTIPATION, (Reported) Venlafaxine HCl 75 Mg Tab, 150 MG PO BID, (Reported) TAKES 2 (75MG) TABLETS Review of Systems Constitutional: No chills, No diaphoresis, No fever, malaise EENTM: No Eye Pain, No Ear Pain Respiratory: Denies Cough, Denies Shortness of Air Cardiovascular: Denies Chest Pain, Denies Lightheadedness Gastrointestinal: See HPI, Denies Abdomen Distended, Abdominal Pain (epigastric ), Constipated, Denies Diarrhea, Nausea, Vomiting (nonbloody) Genitourinary: Denies Burning, Denies Discharge Musculoskeletal: No back pain, No joint pain Skin: No pruritus, No rash Psychiatric/Neurological: Denies Headache, Denies Numbness, Denies Paresthesia Past Jsurmnx-Ptyiwx-Vyjnvo Hx Patient Social History Alcohol Use: Denies Use Smoking Status: Current Everyday Smoker Type Used: Cigarettes Former Smoker, Quit: Nov 02, 1959 Recent Foreign Travel: No Contact w/Someone Who Travel: No Recent Hopitalizations: Yes Immunizations Up To Date Tetanus Booster (TDap): Less than 5yrs Date of Pneumonia Vaccine: Nov 02, 2008 Date of Influenza Vaccine: Jul 03, 2016 Seasonal Allergies Seasonal Allergies: No Surgeries History of Surgeries: No (BILAT CARPAL TUNNEL, BILA KNEE REPLACE, COLON RESECTION, BILAT KNEE SCOPE, ) Surgeries: Orthopedic Respiratory History of Respiratory Disorde: Yes (CPAP AT [facility]) Respiratory Disorders: Sleep Apnea Currently Using CPAP: Yes Currently Using BIPAP: No Cardiovascular History of Cardiac Disorders: Yes Cardiac Disorders: Hypertension Neurological History of Neurological Disord: Yes (CONFUSION W/ ILLNESSES) Neurological Disorders: Dementia Reproductive System Hx Reproductive Disorders: Yes Sexually Transmitted Disease: No Genitourinary History of Genitourinary Disor: No Gastrointestinal History of Gastrointestinal Di: Yes (COLON RESSECTION) Gastrointestinal Disorders: Obstructive Bowel, Chronic Constipation Musculoskeletal History of Musculoskeletal Dis: Yes (ARTHRITIS) Musculoskeletal Disorders: Back Injury Endocrine History of Endocrine Disorders: Yes Endocrine Disorders: Diabetes, Insulin dep HEENT History of HEENT Disorders: Yes HEENT Disorders: Cataract 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, Hearing Aide Left Cancer History of Cancer: Yes Cancer: Skin Psychosocial History of Psychiatric Problem: Yes Behavioral Health Disorders: Depression Integumentary History of Skin or Integumenta: Yes (SKIN REAL THIN/EASILY BRUISES) Blood Transfusions History of Blood Disorders: No Family Medical History Significant Family History: No Pertinent Family Hx Family Medial History: Cancer 09 SISTER (BREAST) Hypertension 03 FATHER 03 MOTHER Parkinson's disease 03 MOTHER Seizure disorder 09 BROTHER Physical Exam Vital Signs VS - Last 72 Hours, by Label 08/26/17 11:00 Temp 97.3 Pulse 80 Resp 18 B/P (MAP) 142/83 Pulse Ox 95 Capillary Refill : General Appearance: WD/WN, moderate distress HEENT: PERRL/EOMI, other (dry oropharyngeal mucosa) Neck: non-tender, supple, normal inspection Respiratory: chest non-tender, lungs clear, normal breath sounds, no respiratory distress, no accessory muscle use, other (no coughs noted) Cardiovascular: normal peripheral pulses, regular rate, rhythm, no edema Gastrointestinal: normal bowel sounds, soft, No distended, No guarding, No rebound, tenderness (epigastric), hernia (umbilical), No mass Extremities: non-tender, normal inspection, no pedal edema, no calf tenderness , normal capillary refill Neurologic/Psychiatric: alert, normal mood/affect, oriented x 3 Skin: normal color, warm/dry Progress/Results/Core Measures Results/Orders Lab Results Laboratory Tests Test 08/26/17 11:00 08/26/17 13:10 Range/Units White Blood Count 10.0 4.3-11.0 10^3/uL Red Blood Count 4.48 4.35-5.85 10^6/uL Hemoglobin 14.1 13.3-17.7 G/DL Hematocrit 44 40-54 % Mean Corpuscular Volume 98 80-99 FL Mean Corpuscular Hemoglobin 32 25-34 PG Mean Corpuscular Hemoglobin Concent 32 32-36 G/DL Red Cell Distribution Width 14.6 H 10.0-14.5 % Platelet Count 411 H 130-400 10^3/uL Mean Platelet Volume 9.9 7.4-10.4 FL Neutrophils (%) (Auto) 58 42-75 % Lymphocytes (%) (Auto) 29 12-44 % Monocytes (%) (Auto) 5 0-12 % Eosinophils (%) (Auto) 5 0-10 % Basophils (%) (Auto) 3 0-10 % Neutrophils # (Auto) 5.8 1.8-7.8 X 10^3 Lymphocytes # (Auto) 2.9 1.0-4.0 X 10^3 Monocytes # (Auto) 0.5 0.0-1.0 X 10^3 Eosinophils # (Auto) 0.5 H 0.0-0.3 10^3/uL Basophils # (Auto) 0.3 H 0.0-0.1 10^3/uL Neutrophils % (Manual) 59 % Lymphocytes % (Manual) 27 % Monocytes % (Manual) 3 % Eosinophils % (Manual) 9 % Basophils % (Manual) 2 % Stomatocytes SLIGHT Sodium Level 139 135-145 MMOL/L Potassium Level 4.0 3.6-5.0 MMOL/L Chloride Level 103 98-107 MMOL/L Carbon Dioxide Level 25 21-32 MMOL/L Anion Gap 11 5-14 MMOL/L Blood Urea Nitrogen 12 7-18 MG/DL Creatinine 1.02 0.60-1.30 MG/DL Estimat Glomerular Filtration Rate > 60 BUN/Creatinine Ratio 12 Glucose Level 219 H 70-105 MG/DL Calcium Level 9.7 8.5-10.1 MG/DL Magnesium Level 1.9 1.8-2.4 MG/DL Total Bilirubin 0.6 0.1-1.0 MG/DL Aspartate Amino Transf (AST/SGOT) 10 5-34 U/L Alanine Aminotransferase (ALT/SGPT) 16 0-55 U/L Alkaline Phosphatase 89 40-136 U/L Total Protein 8.1 6.4-8.2 GM/DL Albumin 4.1 3.2-4.5 GM/DL Lipase < 4 L 8-78 U/L My Orders Orders - RODRIGUEZ DAVILA Ondansetron Injection (Zofran Injectio (08/26/17 11:00) Ondansetron Injection (Zofran Injectio (08/26/17 10:50) Ct Abdomen/Pelvis W (08/26/17 11:04) Saline Lock/Iv-Start (08/26/17 11:04) Cbc With Automated Diff (08/26/17 11:04) Comprehensive Metabolic Panel (08/26/17 11:04) Lactic Acid Analyzer (08/26/17 11:04) Lipase (08/26/17 11:04) Magnesium (08/26/17 11:04) Ua Culture If Indicated (08/26/17 11:04) Ns Iv 1000 Ml (Sodium Chloride 0.9%) (08/26/17 11:04) Manual Differential (08/26/17 11:00) Fentanyl Injection (Sublimaze Injection (08/26/17 11:30) Iohexol Injection (Omnipaque 350 Mg/Ml 1 (08/26/17 11:30) Ns (Ivpb) (Sodium Chloride 0.9% Ivpb Bag (08/26/17 11:30) Ns Iv 500 Ml (Sodium Chloride 0.9%) (08/26/17 12:09) Medications Given in ED Current Medications Medications Dose Ordered Sig/Andrea Route Start Time Stop Time Status Last Admin Dose Admin Fentanyl Citrate 25 mcg ONCE ONCE IVP 08/26/17 11:30 08/26/17 11:31 DC 08/26/17 11:27 25 MCG Iohexol 100 ml ONCE ONCE IV 08/26/17 11:30 08/26/17 11:31 DC 08/26/17 12:12 100 ML Ondansetron HCl 4 mg ONCE ONCE IVP 08/26/17 11:00 08/26/17 11:01 DC 08/26/17 11:05 4 MG Sodium Chloride 100 ml ONCE ONCE IV 08/26/17 11:30 08/26/17 11:31 DC 08/26/17 12:13 80 ML Sodium Chloride 500 ml @ 0 mls/hr Q0M ONCE IV 08/26/17 12:09 08/26/17 12:11 DC 08/26/17 13:10 0 MLS/HR Sodium Chloride 1,000 ml @ 0 mls/hr Q0M ONCE IV 08/26/17 11:04 08/26/17 11:07 DC 08/26/17 11:27 0 MLS/HR Vital Signs/I&O Vital Sign - Last 12Hours 08/26/17 11:00 Temp 97.3 Pulse 80 Resp 18 B/P (MAP) 142/83 Pulse Ox 95 Progress Note : Time: 13:27 Progress Note Patient is now nausea free and his pain is much improved. He feels much better after the fluid boluses and feels that he would be willing to go home and try outpatient antibiotic therapy for colitis. The infiltrate versus atelectasis seen on CT scan in the right base is mild and since he is not having a productive cough, white count or fever it is less likely to be pneumonia. Colitis however would explain all of his symptoms much better. We discussed this differential with the patient and will have him follow-up in one week with his primary care physician. We also discussed the incidental findings of liver nodules that were stable from previous CT, fat containing umbilical hernia and renal cysts. No further workup is merited at this time. Diagnostic Imaging Diagonstic Imaging: CT Plain Films/CT/US/NM/MRI: abdomen, pelvis (with) Comments Normal bowel gas pattern with mild colonic thickening around the area of anastomosis. Nodules unchanged seen in the liver. Renal cyst bilaterally without any stones seen. Small nonincarcerated fat-containing hernia of the umbilicus. Right lung base with small infiltrate versus atelectasis. NAME: YOSVANY MOSLEY JR [facility] REC#: [id number] PT STATUS: REG ER : 1945 PHYSICIAN: RODRIGUEZ DAVILA MD ADMIT DATE: 08/26/17/ER Draft Date of Exam:08/26/17 CT ABDOMEN/PELVIS W PROCEDURE: CT abdomen and pelvis with contrast. TECHNIQUE: Multiple contiguous axial images were obtained through the abdomen and pelvis after administration of intravenous contrast. INDICATION: Vomiting and diarrhea. History of prior colon resection and cholecystectomy. CONTRAST: 100 mL of Omnipaque 350 was administered intravenously. COMPARISON: 01/30/2017. FINDINGS: The lung bases demonstrate patchy groundglass opacification in the right lower lobe. This could relate to atelectasis or mild or atypical pneumonia. The liver demonstrates hyperenhancing nodules in the right dome up to 1.4 cm in size. They are isodense to the rest of the liver on the delayed phase images. These are nonspecific and could represent flash filling hemangiomas or vascular shunts. These appear unchanged from 01/30/2017. Cholecystectomy clips are seen. The spleen is not enlarged. The adrenal glands and pancreas appear unremarkable. The kidneys demonstrate symmetric enhancement and contrast excretion. Multiple bilateral simple cysts are seen. The urinary bladder is mildly dilated with lobulations of its contour seen. No bladder mass is identified. The abdominal aorta is normal in caliber. No agustin-aortic significantly enlarged lymph nodes are seen. The prostate is 5.3 cm in transverse dimension, enlarged and asymmetric being more prominent on the left side. This is similar to the previous exam. There is a ventral hernia in the upper abdomen to the right of the midline with the defect measuring 1.1 cm in transverse dimension. Also, a tiny fat-containing umbilical hernia is present. There is diverticulosis. No diverticulitis. There is no bowel obstruction. There is, however, a short segment of colon demonstrating prominent wall thickening around the colonic anastomosis in the mid descending colon level. No significant free fluid or fluid collection in the abdomen or pelvis is seen. Degenerative changes of the osseous structures and fusion changes at the SI joints are noted. IMPRESSION: 1. Colonic wall thickening in a short segment around the area of anastomosis in the descending colon is seen and may relate to colitis. 2. Small fat-containing upper abdominal ventral hernia to the right of the midline and a tiny fat-containing umbilical hernia is also seen. Dictated on workstation # [id number] Dict: 08/26/17 1232 Trans: 08/26/17 1310 [id number] Interpreted by: NANCY OLIVER MD Electronically signed by: Reviewed: Reviewed by Me Departure Impression Impression: Primary Impression: Colitis Disposition: 01 HOME, SELF-CARE Condition: Stable Departure-Patient Inst. Decision time for Depature: 13:30 Referrals: EDEL GUTIERREZ MD (PCP/Family) Primary Care Physician Patient Instructions: Viral Gastroenteritis, Adult (DC) Add. Discharge Instructions: You have what looks to be a colon infection around the site of your reanastomosis. If you have nausea you can take one tablet of Zofran and place under your tongue and allowed to absorb every 6 hours as needed. If you are having pain I recommend Tylenol 1000 mg every 8 hours as needed. Start the antibiotics as prescribed twice a day by mouth with something to drink or eat. Start with a clear liquid diet and slowly advance that diet day by day as you feel you can tolerate towards your normal diet. Plan to follow up with your primary care physician next week. If you begin to have new or worrisome symptoms such as fevers, intractable nausea and vomiting despite the Zofran or chest pain or shortness of breath you should return to the ER for further evaluation. Scripts Ondansetron (Ondansetron Odt) 4 Mg Tab.rapdis 4 MG PO Q6H Y for NAUSEA/VOMITING, #10 TAB 0 Refills Prov: RODRIGUEZ DAVILA 08/26/17 Metronidazole (Metronidazole) 500 Mg Tablet 500 MG PO BID for 7 Days, #14 TAB 0 Refills Prov: RODRIGUEZ DAVILA 08/26/17 Ciprofloxacin HCl (Ciprofloxacin HCl) 500 Mg Tablet 500 MG PO BID for 7 Days, #14 TAB 0 Refills Prov: RODRIGUEZ DAVILA 08/26/17 Copy Copies To 1: EDEL GUTIERREZ MD, TITUS J Aug 26, 2017 11:09
[2017-08-26 11:11] LABS: BASOPHILS # (AUTO) 0.3 10^3/uL (0.0-0.1); BASOPHILS % (AUTO) 3 % (0-10); EOSINOPHILS # (AUTO) 0.5 10^3/uL (0.0-0.3); EOSINOPHILS % (AUTO) 5 % (0-10); LYMPHOCYTES # (AUTO) 2.9 X 10^3 (1.0-4.0); LYMPHOCYTES % (AUTO) 29 % (12-44); MEAN CORPUSCULAR HEMOGLOBIN 32 PG (25-34); MEAN CORPUSCULAR HGB CONC 32 G/DL (32-36); MEAN CORPUSCULAR VOLUME 98 FL (80-99); MEAN PLATELET VOLUME 9.9 FL (7.4-10.4); MONOCYTES # (AUTO) 0.5 X 10^3 (0.0-1.0); MONOCYTES % (AUTO) 5 % (0-12); NEUTROPHILS # (AUTO) 5.8 X 10^3 (1.8-7.8); NEUTROPHILS % (AUTO) 58 % (42-75); PLATELET COUNT 411 10^3/uL (130-400); RED BLOOD COUNT 4.48 10^6/uL (4.35-5.85); RED CELL DISTRIBUTION WIDTH 14.6 % (10.0-14.5)
[2017-08-26 11:30] LABS: ALANINE AMINOTRANSFERASE 16 U/L (0-55); ALBUMIN 4.1 GM/DL (3.2-4.5); ANION GAP 11 MMOL/L (5-14); ASPARTATE AMINO TRANSFERASE 10 U/L (5-34); BILIRUBIN,TOTAL 0.6 MG/DL (0.1-1.0); BLOOD UREA NITROGEN 12 MG/DL (7-18); BUN/CREATININE RATIO 12; CALCIUM 9.7 MG/DL (8.5-10.1); CARBON DIOXIDE 25 MMOL/L (21-32); CHLORIDE 103 MMOL/L (98-107); CREATININE SERUM 1.02 MG/DL (0.60-1.30); GFR ESTIMATED > 60; GLUCOSE 219 MG/DL (70-105); LIPASE < 4 U/L (8-78); MAGNESIUM 1.9 MG/DL (1.8-2.4); SODIUM 139 MMOL/L (135-145); TOTAL PROTEIN 8.1 GM/DL (6.4-8.2)
[2017-08-26] MEDS ORDERED: NS 100 ML (IVPB) BAG IV ONE (11:30)
[2017-08-26] MEDS ORDERED: IOHEXOL 350 MG/ML 100 ML (OMNIPAQUE 350) VIAL IV ONE (11:30)
[2017-08-26] MEDS ORDERED: fentaNYL INJECTION 100 MCG/2 ML AMP IVP ONE (11:30)
[2017-08-26 11:32] LABS: BASOPHILS % (MANUAL) 2 %; EOSINOPHILS % (MANUAL) 9 %; LYMPHOCYTES % (MANUAL) 27 %; NEUTROPHILS % (MANUAL) 59 %; STOMATOCYTES SLIGHT
[2017-08-26] MEDS ORDERED: NS IV 500 ML 500 ML IV ONE (12:09)
--- NOTE | 2017-08-26 13:11 | Diagnostic Imaging Report ---
PROCEDURE: CT abdomen and pelvis with contrast. TECHNIQUE: Multiple contiguous axial images were obtained through the abdomen and pelvis after administration of intravenous contrast. INDICATION: Vomiting and diarrhea. History of prior colon resection and cholecystectomy. CONTRAST: 100 mL of Omnipaque 350 was administered intravenously. COMPARISON: 01/30/2017. FINDINGS: The lung bases demonstrate patchy groundglass opacification in the right lower lobe. This could relate to atelectasis or mild or atypical pneumonia. The liver demonstrates hyperenhancing nodules in the right dome up to 1.4 cm in size. They are isodense to the rest of the liver on the delayed phase images. These are nonspecific and could represent flash filling hemangiomas or vascular shunts. These appear unchanged from 01/30/2017. Cholecystectomy clips are seen. The spleen is not enlarged. The adrenal glands and pancreas appear unremarkable. The kidneys demonstrate symmetric enhancement and contrast excretion. Multiple bilateral simple cysts are seen. The urinary bladder is mildly dilated with lobulations of its contour seen. No bladder mass is identified. The abdominal aorta is normal in caliber. No agustin-aortic significantly enlarged lymph nodes are seen. The prostate is 5.3 cm in transverse dimension, enlarged and asymmetric being more prominent on the left side. This is similar to the previous exam. There is a ventral hernia in the upper abdomen to the right of the midline with the defect measuring 1.1 cm in transverse dimension. Also, a tiny fat-containing umbilical hernia is present. There is diverticulosis. No diverticulitis. There is no bowel obstruction. There is, however, a short segment of colon demonstrating prominent wall thickening around the colonic anastomosis in the mid descending colon level. No significant free fluid or fluid collection in the abdomen or pelvis is seen. Degenerative changes of the osseous structures and fusion changes at the SI joints are noted. IMPRESSION: 1. Colonic wall thickening in a short segment around the area of anastomosis in the descending colon is seen and may relate to colitis. 2. Small fat-containing upper abdominal ventral hernia to the right of the midline and a tiny fat-containing umbilical hernia is also seen. Dictated by: Dictated on workstation # [id number]
[2017-08-26 13:17] LABS: BILIRUBIN,URINE NEGATIVE (NEGATIVE); KETONES,URINE 1+ (NEGATIVE); LEUKOCYTE ESTERASE ,URINE 2+ (NEGATIVE); NITRITE,URINE NEGATIVE (NEGATIVE); PH,URINE 8 (5-9); PROTEIN,URINE 1+ (NEGATIVE); UROBILINOGEN,URINE 1 MG/DL (NORMAL)
[2017-08-26] MEDS ORDERED: CIPR500T4 PO (13:36)
[2017-08-26] MEDS ORDERED: ONDA4TAB11 PO (13:36)
[2017-08-26] MEDS ORDERED: METR500T21 PO (13:36)
[2017-08-26 14:03] VITALS: BP 142/83
== END 2017-08-26 14:09 | disposition home or self-care (01) ==
LOC: EDUNIT# 10:28 → ER 10:31
DX: K52.9 Noninfective gastroenteritis and colitis, unspecified (principal); F32.9 Major depressive disorder, single episode, unspecified; I10 Essential (primary) hypertension; G47.30 Sleep apnea, unspecified; E11.9 Type 2 diabetes mellitus without complications; F03.90 Unspecified dementia, unspecified severity, without behavioral disturbance, psychotic disturbance, mood disturbance, and anxiety; F17.210 Nicotine dependence, cigarettes, uncomplicated; Z79.82 Long term (current) use of aspirin; Z87.828 Personal history of other (healed) physical injury and trauma
CPT/HCPCS: 36415; 74177; 80053; 81000; 83690; 83735; 85007; 85027; 96361; 96374; 96375

== ENCOUNTER 2017-09-22 11:54 | Emergency (ER) | payer MEDICARE, OTHER ==
[~2017-09-22] VITALS: Ht 180.3 cm; Wt 95.3 kg
[~2017-09-22 11:54] MED LIST changes: +CIPR500T4 PO; +METR500T21 PO; +ONDA4TAB11 PO
[2017-09-22] MEDS ORDERED: LORazepam INJ 2 MG/ML (ATIVAN) VIAL IVP ONE (12:00)
[2017-09-22 12:31] LABS: BASOPHILS # (AUTO) 0.2 10^3/uL (0.0-0.1); BASOPHILS % (AUTO) 2 % (0-10); EOSINOPHILS # (AUTO) 0.5 10^3/uL (0.0-0.3); EOSINOPHILS % (AUTO) 4 % (0-10); LYMPHOCYTES # (AUTO) 1.8 X 10^3 (1.0-4.0); LYMPHOCYTES % (AUTO) 14 % (12-44); MEAN CORPUSCULAR HEMOGLOBIN 31 PG (25-34); MEAN CORPUSCULAR HGB CONC 32 G/DL (32-36); MEAN CORPUSCULAR VOLUME 99 FL (80-99); MONOCYTES # (AUTO) 0.5 X 10^3 (0.0-1.0); MONOCYTES % (AUTO) 4 % (0-12); NEUTROPHILS # (AUTO) 10.3 X 10^3 (1.8-7.8); NEUTROPHILS % (AUTO) 77 % (42-75); PLATELET COUNT 275 10^3/uL (130-400); RED BLOOD COUNT 4.46 10^6/uL (4.35-5.85); RED CELL DISTRIBUTION WIDTH 14.2 % (10.0-14.5); WHITE BLOOD COUNT 13.5 10^3/uL (4.3-11.0)
[2017-09-22 12:48] LABS: ALANINE AMINOTRANSFERASE 22 U/L (0-55); ALBUMIN 3.9 GM/DL (3.2-4.5); ANION GAP 19 MMOL/L (5-14); ASPARTATE AMINO TRANSFERASE 14 U/L (5-34); BILIRUBIN,TOTAL 0.9 MG/DL (0.1-1.0); BLOOD UREA NITROGEN 16 MG/DL (7-18); BUN/CREATININE RATIO 15; CALCIUM 9.4 MG/DL (8.5-10.1); CARBON DIOXIDE 16 MMOL/L (21-32); CHLORIDE 104 MMOL/L (98-107); CREATININE SERUM 1.05 MG/DL (0.60-1.30); GFR ESTIMATED > 60; GLUCOSE 310 MG/DL (70-105); POTASSIUM 4.2 MMOL/L (3.6-5.0); SODIUM 139 MMOL/L (135-145); TOTAL PROTEIN 7.6 GM/DL (6.4-8.2)
[2017-09-22 13:41] LABS: BILIRUBIN,URINE NEGATIVE (NEGATIVE); KETONES,URINE 3+ (NEGATIVE); LEUKOCYTE ESTERASE ,URINE NEGATIVE (NEGATIVE); NITRITE,URINE NEGATIVE (NEGATIVE); PH,URINE 7 (5-9); PROTEIN,URINE 1+ (NEGATIVE); UROBILINOGEN,URINE NORMAL (NORMAL)
[2017-09-22 13:50] LABS: SQUAMOUS EPITHELIAL CELL,UR RARE /HPF; WBC,URINE RARE /HPF
[2017-09-22] MEDS ORDERED: ALPR0.25 PO (14:00)
--- NOTE | 2017-09-22 14:01 | ED General ---
General Chief Complaint: General Problems/Pain Stated Complaint: AMS Nursing Triage Note: EMS called for patient 'not acting himself' patient reports is blood sugar was high today, patient reports he feels anxious and SOA, patient hyperventilating Nursing Sepsis Screen: No Definite Risk Source of Information: Patient Exam Limitations: No Limitations History of Present Illness Time Seen by Provider: 11:55 Initial Comments This 78-year-old gentleman presents to the emergency room via EMS with agitation and hyperventilation. His family reports that this happens when his blood sugars get high. He forgot to put his insulin pump on when he got out of the shower this morning if his blood sugars are consequently high. His blood sugar for EMS was 314 after 10 units of insulin. He had sinus tachycardia with no arrhythmias. Vital signs were otherwise normal. Patient denied any pain. He was alert and oriented but agitated and hyperventilating on arrival. Allergies and Home Medications Allergies Coded Allergies: No Known Drug Allergies (Verified , 02/20/17) Home Medications Alprazolam 0.25 Mg Tablet, 0.25 MG PO TID, #5 Prescribed by: NAKIA PARKINSON on 09/22/17 1400 Aspirin 81 Mg Tablet.dr, 81 MG PO DAILY, (Reported) Bupropion HCl 150 Mg Tablet.er, 150 MG PO BID, (Reported) Cinnamon Bark 500 Mg Capsule, 1,000 MG PO HS, (Reported) TAKES 2 (500 MG) CAPSULES Clonazepam 1 Mg Tablet, 1 MG PO HS, (Reported) Enalapril Maleate 20 Mg Tablet, 20 MG PO BID, (Reported) Fluticasone Propionate 16 Gm Bellerose.susp, 2 SPRAYS NA HS, (Reported) Gabapentin 600 Mg Tablet, 600 MG PO TID, (Reported) Hydrocodone/Acetaminophen 1 Each Tablet, 1 TAB PO TID PRN for MODERATE PAIN, ( Reported) Insulin Aspart 100 Unit/1 Ml Susp, SQ PER INSULIN PUMP, (Reported) 7 CARBS FOR 1 INSULIN UNIT BASAL RATE 1.7 UNITS PER HOUR Melatonin 10 Mg Tablet, 10 MG PO HS, (Reported) Polyethylene Glycol 1 Ea Pack, 17 GM PO DAILY PRN for CONSTIPATION, (Reported) Venlafaxine HCl 75 Mg Tab, 150 MG PO BID, (Reported) TAKES 2 (75MG) TABLETS Constitutional: see HPI EENTM: no symptoms reported Respiratory: no symptoms reported Cardiovascular: see HPI Gastrointestinal: no symptoms reported Genitourinary: no symptoms reported Musculoskeletal: no symptoms reported Skin: no symptoms reported Psychiatric/Neurological: See HPI Hematologic/Lymphatic: No Symptoms Reported Immunological/Allergic: no symptoms reported Past Joudysv-[id number] Hx Patient Social History Alcohol Use: Denies Use Recreational Drug Use: No Smoking Status: Former Smoker Type Used: Cigarettes Former Smoker, Quit: Nov 02, 1959 Recent Foreign Travel: No Contact w/Someone Who Travel: No Recent Infectious Disease Expo: No Recent Hopitalizations: No Physical Abuse: No Sexual Abuse: No Immunizations Up To Date Tetanus Booster (TDap): Less than 5yrs Date of Pneumonia Vaccine: Nov 02, 2008 Date of Influenza Vaccine: Jul 03, 2016 Seasonal Allergies Seasonal Allergies: No Surgeries History of Surgeries: Yes (BILAT CARPAL TUNNEL, BILA KNEE REPLACE, COLON RESECTION, BILAT KNEE SCOPE, ) Surgeries: Orthopedic Respiratory History of Respiratory Disorde: Yes (CPAP AT [facility]) Respiratory Disorders: Sleep Apnea Currently Using CPAP: Yes Currently Using BIPAP: No Cardiovascular History of Cardiac Disorders: Yes Cardiac Disorders: Hypertension Neurological History of Neurological Disord: Yes (CONFUSION W/ ILLNESSES) Neurological Disorders: Dementia Reproductive System Hx Reproductive Disorders: Yes Sexually Transmitted Disease: No Genitourinary History of Genitourinary Disor: No Gastrointestinal History of Gastrointestinal Di: Yes (COLON RESSECTION) Gastrointestinal Disorders: Obstructive Bowel, Chronic Constipation Musculoskeletal History of Musculoskeletal Dis: Yes (ARTHRITIS) Musculoskeletal Disorders: Back Injury Endocrine History of Endocrine Disorders: Yes Endocrine Disorders: Diabetes, Insulin dep HEENT History of HEENT Disorders: Yes HEENT Disorders: Cataract 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, Hearing Aide Left Cancer History of Cancer: Yes Cancer: Skin Psychosocial History of Psychiatric Problem: Yes Behavioral Health Disorders: Depression Suicide Risk Score: 0 Integumentary History of Skin or Integumenta: Yes (SKIN REAL THIN/EASILY BRUISES) Blood Transfusions History of Blood Disorders: No Family Medical History Significant Family History: No Pertinent Family Hx Family Medial History: Cancer 09 SISTER (BREAST) Hypertension 03 FATHER 03 MOTHER Parkinson's disease 03 MOTHER Seizure disorder 09 BROTHER Physical Exam Vital Signs Vital Sign - Last 12Hours 09/22/17 11:57 Pulse 97 Resp 33 B/P (MAP) 136/81 Pulse Ox 100 Capillary Refill : Less Than 3 Seconds General Appearance: WD/WN, Moderate Distress HEENT: PERRL/EOMI, Normal ENT Inspection, Pharynx Normal Neck: Normal Inspection Respiratory: Lungs Clear, Normal Breath Sounds, No Accessory Muscle Use, No Respiratory Distress Cardiovascular: No Edema, No Murmur, Tachycardia Gastrointestinal: Normal Bowel Sounds, Soft, Tenderness (minimal on the left lower quadrant) Extremity: Normal Inspection, No Pedal Edema Neurologic/Psychiatric: Alert, Oriented x3, No Motor/Sensory Deficits, leasing assistant II- XII Norm as Tested, Other (anxious, hyperventilating) Skin: Normal Color, Warm/Dry Progress/Results/Core Measures Suspected Sepsis Recent Fever Within 48 Hours: No Infection Criteria Present: None New/Unexplained Altered Menta: No Sepsis Screen: No Definite Risk Sepsis Diagnosis: SIRS Temperature: Pulse: 97 Respiratory Rate: 33 Laboratory Tests 09/22/17 12:20: White Blood Count 13.5H Blood Pressure 136 /81 Mean: 99 Laboratory Tests 09/22/17 12:20: Creatinine 1.05, Platelet Count 275, Total Bilirubin 0.9 Results/Orders Lab Results Laboratory Tests Test 09/22/17 12:20 09/22/17 13:25 Range/Units White Blood Count 13.5 H 4.3-11.0 10^3/uL Red Blood Count 4.46 4.35-5.85 10^6/uL Hemoglobin 14.0 13.3-17.7 G/DL Hematocrit 44 40-54 % Mean Corpuscular Volume 99 80-99 FL Mean Corpuscular Hemoglobin 31 25-34 PG Mean Corpuscular Hemoglobin Concent 32 32-36 G/DL Red Cell Distribution Width 14.2 10.0-14.5 % Platelet Count 275 130-400 10^3/uL Mean Platelet Volume 11.0 H 7.4-10.4 FL Neutrophils (%) (Auto) 77 H 42-75 % Lymphocytes (%) (Auto) 14 12-44 % Monocytes (%) (Auto) 4 0-12 % Eosinophils (%) (Auto) 4 0-10 % Basophils (%) (Auto) 2 0-10 % Neutrophils # (Auto) 10.3 H 1.8-7.8 X 10^3 Lymphocytes # (Auto) 1.8 1.0-4.0 X 10^3 Monocytes # (Auto) 0.5 0.0-1.0 X 10^3 Eosinophils # (Auto) 0.5 H 0.0-0.3 10^3/uL Basophils # (Auto) 0.2 H 0.0-0.1 10^3/uL Sodium Level 139 135-145 MMOL/L Potassium Level 4.2 3.6-5.0 MMOL/L Chloride Level 104 98-107 MMOL/L Carbon Dioxide Level 16 L 21-32 MMOL/L Anion Gap 19 H 5-14 MMOL/L Blood Urea Nitrogen 16 7-18 MG/DL Creatinine 1.05 0.60-1.30 MG/DL Estimat Glomerular Filtration Rate > 60 BUN/Creatinine Ratio 15 Glucose Level 310 H 70-105 MG/DL Calcium Level 9.4 8.5-10.1 MG/DL Total Bilirubin 0.9 0.1-1.0 MG/DL Aspartate Amino Transf (AST/SGOT) 14 5-34 U/L Alanine Aminotransferase (ALT/SGPT) 22 0-55 U/L Alkaline Phosphatase 76 40-136 U/L Total Protein 7.6 6.4-8.2 GM/DL Albumin 3.9 3.2-4.5 GM/DL Urine Color YELLOW Urine Clarity CLEAR Urine pH 7 5-9 Urine Specific [place] 1.010 L 1.016-1.022 Urine Protein 1+ H NEGATIVE Urine Glucose (UA) 4+ H NEGATIVE Urine Ketones 3+ H NEGATIVE Urine Nitrite NEGATIVE NEGATIVE Urine Bilirubin NEGATIVE NEGATIVE Urine Urobilinogen NORMAL NORMAL MG/DL Urine Leukocyte Esterase NEGATIVE NEGATIVE Urine RBC (Auto) NEGATIVE NEGATIVE Urine RBC NONE /HPF Urine WBC RARE /HPF Urine Squamous Epithelial Cells RARE /HPF Urine Crystals NONE /LPF Urine Bacteria TRACE /HPF Urine Casts NONE /LPF Urine Mucus NEGATIVE /LPF Urine Culture Indicated NO My Orders Orders - NAKIA ANTHONY MD Cbc With Automated Diff (09/22/17 11:59) Comprehensive Metabolic Panel (09/22/17 11:59) Ua Culture If Indicated (09/22/17 11:59) Saline Lock/Iv-Start (09/22/17 11:59) Lorazepam Injection (Ativan Injection) (09/22/17 12:00) Medications Given in ED Current Medications Medications Dose Ordered Sig/Andrea Route Start Time Stop Time Status Last Admin Dose Admin Lorazepam 0.5 mg ONCE ONCE IVP 09/22/17 12:00 09/22/17 12:01 DC 09/22/17 12:18 0.5 MG Vital Signs/I&O Vital Sign - Last 12Hours 09/22/17 11:57 Pulse 97 Resp 33 B/P (MAP) 136/81 Pulse Ox 100 Capillary Refill : Less Than 3 Seconds Blood Pressure Mean: 99 Progress Note : Progress Note Patient received 0.5 mg of Ativan by IV route for his anxiety. His demeanor then return to normal and he felt better. Patient also initially had a little bit of tenderness in the left lower quadrant. He had a significant bowel movement in the ER and pain had resolved on repeat examination. He was given a liter of IV fluids. Blood sugar was 310 on the blood draw. Patient had just received insulin prior to arrival. He will place his insulin pump upon returning home and give himself the appropriate bolus. He was advised to drink plenty of water. He did have a mild leukocytosis but no source was known. He is to follow-up with his primary care provider to have this evaluated further. Patient's family confirms that he is back to baseline prior to dismissal. A small prescription of Xanax was given to hopefully prevent further visits to the ER for anxiety attack. Departure Impression Impression: Primary Impression: Hyperventilation Additional Impressions: Agitation Hyperglycemia Leukocytosis Qualified Codes: D72.829 - Elevated white blood cell count, unspecified Disposition: HOME, SELF-CARE Condition: Improved Departure-Patient Inst. Decision time for Depature: 13:57 Referrals: EDEL GUTIERREZ MD (PCP/Family) Primary Care Physician Patient Instructions: Hyperventilation Add. Discharge Instructions: Follow-up with your primary care provider soon as possible. Monitor your blood sugars closely. If agitation and hyperventilation recur, use Xanax as prescribed. You should have your blood work rechecked to follow-up on the elevated white blood cell count you had in the emergency room. Return to the ER if symptoms worsen. All discharge instructions reviewed with patient and/or family. Voiced understanding. Scripts Alprazolam (Xanax) 0.25 Mg Tablet 0.25 MG PO TID, #5 TAB Prov: NAKIA ANTHONY MD 09/22/17 Copy Copies To 1: EDEL GUTIERREZ MD, JOSHUA T MD Sep 22, 2017 14:01
[2017-09-22 14:15] VITALS: BP 126/69
== END 2017-09-22 14:15 | disposition home or self-care (01) ==
LOC: EDUNIT# 11:54 → ER 11:55
DX: R06.4 Hyperventilation (principal); R45.1 Restlessness and agitation; E11.65 Type 2 diabetes mellitus with hyperglycemia; D72.829 Elevated white blood cell count, unspecified; G47.30 Sleep apnea, unspecified; I10 Essential (primary) hypertension; F03.90 Unspecified dementia, unspecified severity, without behavioral disturbance, psychotic disturbance, mood disturbance, and anxiety; M19.90 Unspecified osteoarthritis, unspecified site; F32.9 Major depressive disorder, single episode, unspecified; Z85.828 Personal history of other malignant neoplasm of skin; Z87.19 Personal history of other diseases of the digestive system; Z79.4 Long term (current) use of insulin; Z79.82 Long term (current) use of aspirin; Z87.891 Personal history of nicotine dependence; Z96.653 Presence of artificial knee joint, bilateral
CPT/HCPCS: 36415; 80053; 81000; 85025; 96374

== ENCOUNTER 2017-10-21 13:42 | Inpatient (IN) | payer MEDICARE, OTHER ==
[2017-10-21] VITALS (8 sets, daily range): BP systolic 89–103; BP diastolic 16–48
[~2017-10-21] VITALS: Ht 180.3 cm; Wt 99.8 kg
[~2017-10-21 13:42] MED LIST changes: +ALPR0.25 PO; -FLUT16SP22; +FLUT16SP22 NS
[2017-10-21] MEDS ORDERED: NS IV 1000 ML 1,000 ML IV ONE ×3 (13:52→15:59)
[2017-10-21] MEDS ORDERED: inSUlin (REGULAR) HUMAN 1 UNIT/0.01 ML (CHARGE PER UNIT) IV STA (13:52)
[2017-10-21] MEDS ORDERED: morphine INJ 10 MG/ML 1ML (SYR OR VIAL) IVP STA (13:54)
[2017-10-21 13:58] LABS: BASOPHILS # (AUTO) 0.4 10^3/uL (0.0-0.1); BASOPHILS % (AUTO) 2 % (0-10); EOSINOPHILS % (AUTO) 0 % (0-10); LYMPHOCYTES # (AUTO) 0.7 X 10^3 (1.0-4.0); LYMPHOCYTES % (AUTO) 4 % (12-44); MEAN CORPUSCULAR HEMOGLOBIN 32 PG (25-34); MEAN CORPUSCULAR HGB CONC 30 G/DL (32-36); MEAN CORPUSCULAR VOLUME 106 FL (80-99); MEAN PLATELET VOLUME 11.7 FL (7.4-10.4); MONOCYTES # (AUTO) 1.1 X 10^3 (0.0-1.0); MONOCYTES % (AUTO) 6 % (0-12); NEUTROPHILS % (AUTO) 88 % (42-75); PLATELET COUNT 354 10^3/uL (130-400); RED CELL DISTRIBUTION WIDTH 14.6 % (10.0-14.5); WHITE BLOOD COUNT 18.2 10^3/uL (4.3-11.0)
[2017-10-21] MEDS ORDERED: ASPIRIN 81 MG CHEW (CHILDREN'S ASA) PO ONE (14:00)
[2017-10-21] MEDS ORDERED: ONDANSETRON 4 MG/2 ML (SDV) Z0FRAN IVP ONE (14:00)
[2017-10-21 14:04] LABS: INR 1.2 (0.8-1.4); PROTHROMBIN TIME PATIENT 14.9 SEC (12.2-14.7)
[2017-10-21] MEDS ORDERED: CALCIUM GLUC. 10% 4.65 MEQ/10 ML VIAL IV ONE ×2 (14:15)
--- NOTE | 2017-10-21 14:20 | ED General ---
General Chief Complaint: Glucose Problems Stated Complaint: HYPERGLYCEMIA Source of Information: Patient Exam Limitations: Other (clinical condition) History of Present Illness Time Seen by Provider: 13:46 Initial Comments Here with report of blood sugar being high and altered mental status. EMS brought him here per patient's request as this is his typical hospital. Patient has history of diabetes. EMS noted blood sugar high with ketones. His a few months ago and he has had difficulty since. Patient states that he is hurting in the right shoulder and is moving about but otherwise doesn 't answer questions well. States that he feels anxious. Denies vomiting but is experiencing nausea. Son states the patient is experiencing significant anxiety and depression around the of each month since his mother a few months ago. Timing/Duration: 1-2 Days, Getting Worse Severity: Moderate Associated Systoms: Chest Pain, No Fever/Chills, No Shortness of Air, Weakness Allergies and Home Medications Allergies Coded Allergies: No Known Drug Allergies (Verified , 02/20/17) Home Medications Alprazolam 0.25 Mg Tablet, 0.25 MG PO TID, #5 Prescribed by: NAKIA PARKINSON on 09/22/17 1400 Aspirin 81 Mg Tablet.dr, 81 MG PO DAILY, (Reported) Bupropion HCl 150 Mg Tablet.er, 150 MG PO BID, (Reported) Cinnamon Bark 500 Mg Capsule, 1,000 MG PO HS, (Reported) TAKES 2 (500 MG) CAPSULES Clonazepam 1 Mg Tablet, 1 MG PO HS, (Reported) Enalapril Maleate 20 Mg Tablet, 20 MG PO BID, (Reported) Fluticasone Propionate 16 Gm [place].susp, 2 SPRAYS NA HS, (Reported) Gabapentin 600 Mg Tablet, 600 MG PO TID, (Reported) Hydrocodone/Acetaminophen 1 Each Tablet, 1 TAB PO TID PRN for MODERATE PAIN, ( Reported) Insulin Aspart 100 Unit/1 Ml Susp, SQ PER INSULIN PUMP, (Reported) 7 CARBS FOR 1 INSULIN UNIT BASAL RATE 1.7 UNITS PER HOUR Melatonin 10 Mg Tablet, 10 MG PO HS, (Reported) Polyethylene Glycol 1 Ea Pack, 17 GM PO DAILY PRN for CONSTIPATION, (Reported) Venlafaxine HCl 75 Mg Tab, 150 MG PO BID, (Reported) TAKES 2 (75MG) TABLETS Constitutional: see HPI, No chills, No fever EENTM: no symptoms reported Respiratory: No short of breath, No wheezing Cardiovascular: chest pain, No edema Gastrointestinal: No abdominal pain, nausea, No vomiting Genitourinary: no symptoms reported Musculoskeletal: joint pain, No muscle pain Skin: no symptoms reported Psychiatric/Neurological: Anxiety, Denies Tremors, Denies Weakness All Other Systems Reviewed Negative Unless Noted: Yes Past Wizgfar-Zazerh-Abfgve Hx Patient Social History Recreational Drug Use: No Smoking Status: Former Smoker Type Used: Cigarettes Former Smoker, Quit: Nov 02, 1959 Recent Hopitalizations: No Immunizations Up To Date Tetanus Booster (TDap): Less than 5yrs Date of Pneumonia Vaccine: Nov 02, 2008 Date of Influenza Vaccine: Jul 03, 2016 Seasonal Allergies Seasonal Allergies: No Surgeries History of Surgeries: Yes (BILAT CARPAL TUNNEL, BILA KNEE REPLACE, COLON RESECTION, BILAT KNEE SCOPE, ) Surgeries: Orthopedic Respiratory History of Respiratory Disorde: Yes (CPAP AT [facility]) Respiratory Disorders: Sleep Apnea Currently Using CPAP: Yes Currently Using BIPAP: No Cardiovascular History of Cardiac Disorders: Yes Cardiac Disorders: Hypertension Neurological History of Neurological Disord: Yes (CONFUSION W/ ILLNESSES) Neurological Disorders: Dementia Reproductive System Hx Reproductive Disorders: Yes Sexually Transmitted Disease: No Genitourinary History of Genitourinary Disor: No Gastrointestinal History of Gastrointestinal Di: Yes (COLON RESSECTION) Gastrointestinal Disorders: Obstructive Bowel, Chronic Constipation Musculoskeletal History of Musculoskeletal Dis: Yes (ARTHRITIS) Musculoskeletal Disorders: Back Injury Endocrine History of Endocrine Disorders: Yes Endocrine Disorders: Diabetes, Insulin dep HEENT History of HEENT Disorders: Yes HEENT Disorders: Cataract 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, Hearing Aide Left Cancer History of Cancer: Yes Cancer: Skin Psychosocial History of Psychiatric Problem: Yes Behavioral Health Disorders: Depression Integumentary History of Skin or Integumenta: Yes (SKIN REAL THIN/EASILY BRUISES) Blood Transfusions History of Blood Disorders: No Reviewed Nursing Assessment Reviewed/Agree w Nursing PMH: Yes Family Medical History Significant Family History: No Pertinent Family Hx Family Medial History: Cancer 09 SISTER (BREAST) Hypertension 03 FATHER 03 MOTHER Parkinson's disease 03 MOTHER Seizure disorder 09 BROTHER Physical Exam Vital Signs Vital Sign - Last 12Hours 10/21/17 14:37 Temp 98.1 Pulse 150 Resp 20 B/P (MAP) 100/45 (63) Pulse Ox 98 O2 Delivery Nasal Cannula O2 Flow Rate 2.00 Capillary Refill : General Appearance: No Apparent Distress, WD/WN HEENT: PERRL/EOMI, Pharynx Normal Neck: Non Tender, Supple Respiratory: Lungs Clear, Normal Breath Sounds Cardiovascular: Regular Rate, Rhythm, No Murmur Gastrointestinal: Non Tender, Soft Back: Normal Inspection, No CVA Tenderness, No Vertebral Tenderness Extremity: Normal Range of Motion, Non Tender Neurologic/Psychiatric: Depressed Affect, Other (moving about the bed and moaning. Is redirectable with verbal. Somewhat disoriented to time.) Skin: Normal Color, Warm/Dry Progress/Results/Core Measures Suspected Sepsis SIRS Temperature: Pulse: Respiratory Rate: Laboratory Tests 10/21/17 13:46: White Blood Count 18.2H Blood Pressure / Mean: Laboratory Tests 10/21/17 13:46: INR Comment 1.2, Platelet Count 354 10/21/17 14:14: Creatinine 2.46H, Total Bilirubin 0.6 10/21/17 16:30: Creatinine 2.34H Results/Orders Lab Results Laboratory Tests Test 10/21/17 13:46 10/21/17 14:14 10/21/17 14:53 10/21/17 15:10 Range/Units White Blood Count 18.2 H 4.3-11.0 10^3/uL Red Blood Count 3.80 L 4.35-5.85 10^6/uL Hemoglobin 12.0 L 13.3-17.7 G/DL Hematocrit 40 40-54 % Mean Corpuscular Volume 106 H 80-99 FL Mean Corpuscular Hemoglobin 32 25-34 PG Mean Corpuscular Hemoglobin Concent 30 L 32-36 G/DL Red Cell Distribution Width 14.6 H 10.0-14.5 % Platelet Count 354 130-400 10^3/uL Mean Platelet Volume 11.7 H 7.4-10.4 FL Neutrophils (%) (Auto) 88 H 42-75 % Lymphocytes (%) (Auto) 4 L 12-44 % Monocytes (%) (Auto) 6 0-12 % Eosinophils (%) (Auto) 0 0-10 % Basophils (%) (Auto) 2 0-10 % Neutrophils # (Auto) 16.0 H 1.8-7.8 X 10^3 Lymphocytes # (Auto) 0.7 L 1.0-4.0 X 10^3 Monocytes # (Auto) 1.1 H 0.0-1.0 X 10^3 Eosinophils # (Auto) 0.0 0.0-0.3 10^3/uL Basophils # (Auto) 0.4 H 0.0-0.1 10^3/uL Neutrophils % (Manual) 90 % Lymphocytes % (Manual) 3 % Monocytes % (Manual) 4 % Band Neutrophils 3 % Blood Morphology Comment NORMAL Prothrombin Time 14.9 H 12.2-14.7 SEC INR Comment 1.2 0.8-1.4 Activated Partial Thromboplast Time 27 24-35 SEC Glucometer > 600 *H > 600 *H 70-110 MG/DL Sodium Level 124 *L 135-145 MMOL/L Potassium Level 6.8 #*H 3.6-5.0 MMOL/L Chloride Level 87 L 98-107 MMOL/L Carbon Dioxide Level 7 *L 21-32 MMOL/L Anion Gap 30 H 5-14 MMOL/L Blood Urea Nitrogen 39 H 7-18 MG/DL Creatinine 2.46 H 0.60-1.30 MG/DL Estimat Glomerular Filtration Rate 26 BUN/Creatinine Ratio 16 Glucose Level 932 *H 70-105 MG/DL Calcium Level 8.5 8.5-10.1 MG/DL Magnesium Level 2.2 1.8-2.4 MG/DL Total Bilirubin 0.6 0.1-1.0 MG/DL Aspartate Amino Transf (AST/SGOT) 9 5-34 U/L Alanine Aminotransferase (ALT/SGPT) 18 0-55 U/L Alkaline Phosphatase 90 40-136 U/L Myoglobin 1101.3 H 10.0-92.0 NG/ML Troponin I < 0.30 <0.30 NG/ML Total Protein 6.7 6.4-8.2 GM/DL Albumin 3.7 3.2-4.5 GM/DL Amylase Level 55 25-125 U/L Lipase 95 H 8-78 U/L Blood Gas Puncture Site RT BRACH Blood Gas Patient Temperature 97.2 Arterial Blood pH 6.99 *L 7.37-7.43 Arterial Blood Partial Pressure CO2 15 *L 35-45 MMHG Arterial Blood Partial Pressure O2 132 H 79-93 MMHG Arterial Blood HCO3 4 *L 23-27 MMOL/L Arterial Blood Total CO2 4.1 L 21.0-31.0 MMOL/L Arterial Blood Oxygen Saturation 98 94-100 % Arterial Blood Base Excess -25.8 L -2.5-2.5 MMOL/L Adalberto Test YES-POS Blood Gas Ventilator Setting NO Blood Gas Inspired Oxygen 2L Test 10/21/17 15:45 10/21/17 16:30 Range/Units Urine Color YELLOW Urine Clarity CLEAR Urine pH 5 5-9 Urine Specific [place] 1.015 L 1.016-1.022 Urine Protein 2+ H NEGATIVE Urine Glucose (UA) 4+ H NEGATIVE Urine Ketones 4+ H NEGATIVE Urine Nitrite NEGATIVE NEGATIVE Urine Bilirubin NEGATIVE NEGATIVE Urine Urobilinogen NORMAL NORMAL MG/DL Urine Leukocyte Esterase NEGATIVE NEGATIVE Urine RBC (Auto) 1+ H NEGATIVE Urine RBC 0-2 /HPF Urine WBC NONE /HPF Urine Crystals PRESENT H /LPF Urine Amorphous Sediment FEW ADRIA URATES H /LPF Urine Bacteria NONE /HPF Urine Casts NONE /LPF Urine Mucus NEGATIVE /LPF Urine Culture Indicated NO Sodium Level 129 L 135-145 MMOL/L Potassium Level 5.6 H 3.6-5.0 MMOL/L Chloride Level 95 L 98-107 MMOL/L Carbon Dioxide Level 7 *L 21-32 MMOL/L Anion Gap 27 H 5-14 MMOL/L Blood Urea Nitrogen 39 H 7-18 MG/DL Creatinine 2.34 H 0.60-1.30 MG/DL Estimat Glomerular Filtration Rate 28 BUN/Creatinine Ratio 17 Glucose Level 681 *H 70-105 MG/DL Hemoglobin A1c 7.7 H 4.5-6.2 % Calcium Level 8.3 L 8.5-10.1 MG/DL My Orders Orders - MARCO ANTONIO AMEZCUA MD Cbc With Automated Diff (10/21/17 13:52) Magnesium (10/21/17 13:52) Chest 1 View, Ap/Pa Only (10/21/17 13:52) Ekg Tracing (10/21/17 13:52) Cardiac Profile 1 (10/21/17 13:52) Comprehensive Metabolic Panel (10/21/17 13:52) Myoglobin Serum (10/21/17 13:52) Protime With Inr (10/21/17 13:52) Partial Thromboplastin Time (10/21/17 13:52) O2 (10/21/17 13:52) Monitor-Rhythm Ecg Trace Only (10/21/17 13:52) Lipid Panel (10/22/17 06:00) Aspirin Chewable Tablet (Baby Aspirin Ch (10/21/17 14:00) Saline Lock/Iv-Start (10/21/17 13:52) Lipase (10/21/17 13:52) Amylase (10/21/17 13:52) Saline Lock/Iv-Start (10/21/17 13:52) Ns Iv 1000 Ml (Sodium Chloride 0.9%) (10/21/17 13:52) Insulin (Regular) Human (Humulin R (Per (10/21/17 13:52) Ua Culture If Indicated (10/21/17 13:54) Morphine Injection (Morphine Injection (10/21/17 13:54) Ondansetron Injection (Zofran Injectio (10/21/17 14:00) Manual Differential (10/21/17 13:46) Calcium Gluconate 10% Inj (Calcium Gluco (10/21/17 14:15) Calcium Gluconate 10% Inj (Calcium Gluco (10/21/17 14:15) Lorazepam Injection (Ativan Injection) (10/21/17 14:30) Ns Iv 1000 Ml (Sodium Chloride 0.9%) (10/21/17 14:59) Insulin Regular Tpn/Drip Only (Humulin R (10/21/17 15:00) Arterial Blood Gas (10/21/17 15:10) Catheter(Urinary) Insert & Ass 03,15 (10/21/17 15:16) Sodium Bicarbonate 8.4% Syr (Sodium Bica (10/21/17 15:30) Medications Given in ED Current Medications Medications Dose Ordered Sig/Andrea Route Start Time Stop Time Status Last Admin Dose Admin Aspirin 324 mg ONCE ONCE PO 10/21/17 14:00 10/21/17 14:01 DC 10/21/17 14:01 324 MG Calcium Gluconate 4.65 meq ONCE ONCE IV 10/21/17 14:15 10/21/17 14:16 DC 10/21/17 14:27 4.65 MEQ Calcium Gluconate 4.65 meq ONCE ONCE IV 10/21/17 14:15 10/21/17 14:16 DC 10/21/17 14:27 4.65 MEQ Lorazepam 1 mg ONCE ONCE IVP 10/21/17 14:30 10/21/17 14:31 DC 10/21/17 14:27 1 MG Ondansetron HCl 4 mg ONCE ONCE IVP 10/21/17 14:00 10/21/17 14:01 DC 10/21/17 14:04 4 MG Sodium Bicarbonate 50 meq ONCE ONCE IV 10/21/17 15:30 10/21/17 15:31 DC 10/21/17 15:56 50 MEQ Sodium Chloride 1,000 ml @ 0 mls/hr Q0M ONCE IV 10/21/17 13:52 10/21/17 13:54 DC 10/21/17 14:02 0 MLS/HR Sodium Chloride 1,000 ml @ 0 mls/hr Q0M ONCE IV 10/21/17 14:59 10/21/17 15:01 DC 10/21/17 15:06 0 MLS/HR Vital Signs/I&O Vital Sign - Last 12Hours 10/21/17 10/21/17 10/21/17 10/21/17 14:37 14:37 16:00 16:04 Temp 98.1 98.1 Pulse 150 107 105 Resp 20 15 20 B/P (MAP) 100/45 (63) 101/39 (59) Pulse Ox 98 100 100 100 O2 Delivery Nasal Cannula Nasal Cannula Nasal Cannula O2 Flow Rate 2.00 2.00 2.00 2.00 10/21/17 17:00 Pulse 97 Resp 19 B/P (MAP) 90/46 (61) Pulse Ox 100 O2 Delivery Nasal Cannula O2 Flow Rate 2.00 Capillary Refill : Progress Note : Progress Note Seen and evaluated. IV by EMS. Blood sugar high. Second IV established by ED staff. EMS normal saline 1 L bolus running. Repeat normal saline 1 L bolus. Labs, EKG, chest x-ray and UA ordered. Insulin 10 units IV ordered. EKG ordered for concerns of widening QRS. On EKG, QRS is significantly widened and it appears almost sine wave in appearance consistent with hyperkalemia. Labs are delayed due to hemolyzation. Due to EKG concerns, calcium gluconate 2 ampules given (4.65 mEq each). We'll continue to monitor. Pending lab assessment. Patient did receive Zofran 4 mg IV and morphine 4 mg IV for nausea and pain. 1425: Ativan 1 mg IV for persistent anxiety. 1500: Much better after Ativan. Blood sugar in the 900s. Creatinine is elevated in the mid twos with potassium elevated. This should come down nicely with insulin drip. Third liter of normal saline IV bolus ordered. We will initiate insulin drip and continued hydration with admission to the ICU. I did talk with his DPOA, Isa Patiño, and informed her that he would be staying. ICU admission, inpatient status, critical condition. 1510: Case discussed with Dr. Curry who accepts patient for admission. I also updated Dr. Jacobo. 1525: I did discuss the case with Dr. Lainez accepts patient in consult. Recommending sodium bicarbonate 1 amp IV. This was ordered. ECG Initial ECG Impression Date: Oct 21, 2017 Initial ECG Impression Time: 13:50 Initial ECG Rate: 75 Comment sinus rhythm with grossly widened QRS complex with peak T waves in the appearance of sinusoidal waveform concerning for hyperkalemia. Changed from previous of 24 November 2012. No evidence of ST elevation CO. Interpreted by me. Departure Impression Impression: Primary Impression: Diabetic ketoacidosis Qualified Codes: E11.10 - Type 2 diabetes mellitus with ketoacidosis without coma Additional Impressions: Acute renal failure Qualified Codes: N17.9 - Acute kidney failure, unspecified Hyperkalemia Dehydration Disposition: ADMITTED INPATIENT Condition: Critical Admissions Decision to Admit Reason: Admit from ER (General) Decision to Admit/Date: Oct 21, 2017 Time/Decision to Admit Time: 15:10 Departure-Patient Inst. Referrals: EDEL JACOBO MD (PCP/Family) Primary Care Physician MARCO ANTONIO AMEZCUA MD Oct 21, 2017 14:20
[2017-10-21 14:29] LABS: BAND NEUTROPHILS 3 %; LYMPHOCYTES % (MANUAL) 3 %; NEUTROPHILS % (MANUAL) 90 %
[2017-10-21] MEDS ORDERED: LORazepam INJ 2 MG/ML (ATIVAN) VIAL IVP ONE (14:30)
[2017-10-21 14:38] LABS: ALANINE AMINOTRANSFERASE 18 U/L (0-55); ALBUMIN 3.7 GM/DL (3.2-4.5); AMYLASE 55 U/L (25-125); ASPARTATE AMINO TRANSFERASE 9 U/L (5-34); BILIRUBIN,TOTAL 0.6 MG/DL (0.1-1.0); BLOOD UREA NITROGEN 39 MG/DL (7-18); BUN/CREATININE RATIO 16; CALCIUM 8.5 MG/DL (8.5-10.1); CHLORIDE 87 MMOL/L (98-107); CREATININE SERUM 2.46 MG/DL (0.60-1.30); GFR ESTIMATED 26; LIPASE 95 U/L (8-78); MAGNESIUM 2.2 MG/DL (1.8-2.4); TOTAL PROTEIN 6.7 GM/DL (6.4-8.2)
[2017-10-21 14:43] LABS: ANION GAP 30 MMOL/L (5-14); POTASSIUM 6.8 MMOL/L (3.6-5.0); SODIUM 124 MMOL/L (135-145)
[2017-10-21 14:44] LABS: CARBON DIOXIDE 7 MMOL/L (21-32); MYOGLOBIN SERUM 1101.3 NG/ML (10.0-92.0)
[2017-10-21 14:50] LABS: GLUCOSE 932 MG/DL (70-105)
--- NOTE | 2017-10-21 14:51 | Diagnostic Imaging Report ---
INDICATION: Altered mental status and elevated glucose. TECHNIQUE: A frontal chest was obtained at 2:41 PM. COMPARISON: 12/13/2016. FINDINGS: The heart is borderline in size. There is mild central vascular prominence. There are chronic appearing increased basilar markings. There is no acute consolidation, pneumothorax, or pleural fluid. IMPRESSION: Borderline heart size with mild central vascular prominence and chronic appearing increased markings. No acute consolidation or pleural fluid. Dictated by: Dictated on workstation # [id number]
[2017-10-21] MEDS ORDERED: inSUlin REGULAR TPN/DRIP ONLY 250 UNITS in NORMAL SALINE 250 ML IV SCH ×2 (15:00→16:00)
[2017-10-21 15:19] LABS: ABG BASE EXCESS -25.8 MMOL/L (-2.5-2.5); ABG OXYGEN SATURATION 98 % (94-100); ABG PO2 132 MMHG (79-93); ABG TCO2 4.1 MMOL/L (21.0-31.0)
[2017-10-21 15:22] LABS: ABG HCO3 4 MMOL/L (23-27); ABG PCO2 15 MMHG (35-45); ABG PH 6.99 (7.37-7.43)
[2017-10-21 15:23] LABS: ALLENS TEST YES-POS; PATIENT TEMP 97.2
[2017-10-21] MEDS ORDERED: SODIUM BICARB 8.4% 50 MEQ/50 ML (ABBOTT) SYR IV ONE (15:30)
--- NOTE | 2017-10-21 15:49 | History & Physical-Hospitalist ---
HPI History of Present Illness: HPI/Chief Complaint Pt is a 72yoCM with a PMH of IDDMI and HTN who presented to the ER for confusion via EMS. During my exam his is unable to provide ROS. His daughter in law is at bedside who lives with him and he does not recognize her at this time. She states that he was completely normal yesterday but when she got home from work at noon today he was not making any sense. She check his blood sugar which read as "high" so she called EMS. When EMS check his BS is only read as "high" as well. He wears an insulin pump and she is unsure if he has been refilling his insulin or if it was not working. Of note his pump fell off during transport with EMS. Source: family, old records Date Seen 10/21/17 Time Seen by Provider: 15:45 Attending Physician Viri Matthews MD PCP Dhruv Jacobo MD Referring Physician Date of Admission Oct 21, 2017 at 15:34 Home Medications & Allergies Home Medications Reviewed patient Home Medication Reconciliation Form Allergies Allergies Coded Allergies No Known Drug Allergies (Verified02/20/17) Past Qppmeru-Tuhcfx-Roaavt Hx Patient Social History Marrital Status: Alcohol Use: Rarely Uses Recreational Drug Use: No Smoking Status: Former Smoker Former Smoker, Quit: Nov 02, 1959 Type Used: Cigarettes Recent Foreign Travel: No Contact w/other who traveled: No Recent Hopitalizations: No Recent Infectious Disease Expo: No Immunizations Up To Date Tetanus Booster (TDap): Less than 5yrs Date of Pneumonia Vaccine: Nov 02, 2008 Date of Influenza Vaccine: Jul 03, 2016 Seasonal Allergies Seasonal Allergies: No Surgeries Yes (BILAT CARPAL TUNNEL, BILA KNEE REPLACE, COLON RESECTION, BILAT KNEE SCOPE, ) Orthopedic Respiratory Yes (CPAP AT [facility]) Sleep Apnea Currently Using CPAP: Yes Currently Using BIPAP: No Cardiovascular Yes Hypertension Neurological Yes (CONFUSION W/ ILLNESSES) Dementia Reproductive System Hx Reproductive Disorders: Yes Sexually Transmitted Disease: No Genitourinary No Gastrointestinal Yes (COLON RESSECTION) Obstructive Bowel, Chronic Constipation Musculoskeletal Yes (ARTHRITIS) Back Injury Endocrine History of Endocrine Disorders: Yes Endocrine Disorders: Diabetes, Insulin dep HEENT History of HEENT Disorders: Yes HEENT Disorders: Cataract 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, Hearing Aide Left Cancer Yes Skin Psychosocial History of Psychiatric Problem: Yes Behavioral Health Disorders: Depression Integumentary History of Skin or Integumenta: Yes (SKIN REAL THIN/EASILY BRUISES) Blood Transfusions History of Blood Disorders: No Reviewed Nursing Assessment Reviewed/Agree w Nursing PMH: Yes Family Medical History Family Hx: Cancer 09 SISTER (BREAST) Hypertension 03 FATHER 03 MOTHER Parkinson's disease 03 MOTHER Seizure disorder 09 BROTHER Review of Systems ROS-Unable to Obtain: Unable to obtain from patient due to confusion Constitutional: see HPI Physical Exam Physical Exam Vital Signs Vital Sign - Last 12Hours 10/21/17 14:37 Temp 98.1 Pulse 150 Resp 20 B/P (MAP) 100/45 (63) Pulse Ox 98 O2 Delivery Nasal Cannula O2 Flow Rate 2.00 Capillary Refill : Less Than 3 Seconds General Appearance: WD/WN, Mild Distress HEENT: No Moist Mucous Membranes Neck: Non Tender, Supple Respiratory: Lungs Clear, No Accessory Muscle Use, Other (tachypneic) Cardiovascular: Regular Rate, Rhythm, No JVD, No Murmur Gastrointestinal: Normal Bowel Sounds, Non Tender, Soft, Other Extremity: Non Tender, No Calf Tenderness, No Pedal Edema Neurologic/Psychiatric: Alert, No Aphasia, Disoriented x3, No Facial Droop Skin: Normal Color, Warm/Dry Results Results/Procedures Lab Laboratory Tests 10/21/17 16:30 10/21/17 18:03 10/21/17 20:18 10/22/17 00:05 10/22/17 04:50 10/22/17 08:30 10/22/17 23:10 10/23/17 04:40 10/23/17 08:02 10/23/17 12:19 Assessment/Plan Admission Diagnosis DKA Diagnosis/Problems Diagnosis/Problems (1) Diabetic ketoacidosis Status: Acute Assessment & Plan: Insulin gtt IVF per protocol s/p 3 L in ER [employer] consulted, appreciate recs pH 6.9 Serial BMPs until gap closed Na corrects to 137 Qualifiers: Qualified Codes: E10.10 - Type 1 diabetes mellitus with ketoacidosis without coma (2) Acute renal failure Status: Acute Assessment & Plan: Likely due to dehydration IVF Doan for accurate I/Os Qualifiers: Qualified Codes: N17.9 - Acute kidney failure, unspecified (3) Hyperkalemia Status: Acute Assessment & Plan: Given insulin and Ca due to EKG changes Will repeat BMP trend monitor on tele (4) Essential (primary) hypertension Assessment & Plan: Hold home antihypertensives for hypotension (5) Normocytic anemia Assessment & Plan: 12.0 with baseline of mild anemia trend, anticipate drop with fluid resuscitation (6) Leukocytosis Assessment & Plan: No signs of infection, likely reactive Not sepsis UA negative for signs of infection Will get blood cultures and check rapid flu as potential etioogy of DKA VIRI MATTHEWS MD Oct 21, 2017 15:49
[2017-10-21 15:51] LABS: BILIRUBIN,URINE NEGATIVE (NEGATIVE); KETONES,URINE 4+ (NEGATIVE); LEUKOCYTE ESTERASE ,URINE NEGATIVE (NEGATIVE); NITRITE,URINE NEGATIVE (NEGATIVE); PH,URINE 5 (5-9); PROTEIN,URINE 2+ (NEGATIVE); UROBILINOGEN,URINE NORMAL (NORMAL)
[2017-10-21] MEDS ORDERED: 1/2 NS W/KCL 20 MEQ/L 1,000 ML IV SCH (15:59)
[2017-10-21] MEDS ORDERED: 1/2 NS IV SOLUTION 1,000 ML IV SCH (15:59)
[2017-10-21] MEDS ORDERED: D5 1/2 NS 1000 ML IV SOLUTION 1,000 ML IV SCH (16:00)
[2017-10-21] MEDS: POTASSIUM CL 10MEQ/50ML IVPB 50 ML IV SCH ×4 (16:34→18:42)
[2017-10-21 16:57] LABS: CALCIUM 8.3 MG/DL (8.5-10.1); CREATININE SERUM 2.34 MG/DL (0.60-1.30); POTASSIUM 5.6 MMOL/L (3.6-5.0)
[2017-10-21] MEDS: D5 1/2 NS W/KCL 20 MEQ/L 1,000 ML IV SCH ×2 (17:03→20:27)
[2017-10-21] MEDS: DEXTROSE 10% IV SOLUTION 1,000 ML IV SCH (17:03)
--- NOTE | 2017-10-21 17:10 | Pulmonary Consultation ---
History of Present Illness History of Present Illness Date of Consultation 10/21/17 17:04 Time Seen by Provider: 17:04 Date of Admission History of Present Illness 72yo with hx of IDDM presented to ED secondary to worsening confusion and was found to be in DKA upon ED admission. BS was reading "high" upon EMS arrival. Pt uses a subq insulin pump. Pt is not sure if he has been refilling his insulin. Pt was also found to have a wide QRS complex and an elevated potassium. Pt was placed on DKA protocol and give HC03 for hyperkalemia. He was also given Ca Gluconate. Unable to obtain ROS secondary to lethargy. I am consulted for ICU management. Allergies and Home Medications Allergies Coded Allergies: No Known Drug Allergies (Verified , 02/20/17) Home Medications Alprazolam 0.25 Mg Tablet, 0.25 MG PO TID, #5 Prescribed by: NAKIA PARKINSON on 09/22/17 1400 Aspirin 81 Mg Tablet.dr, 81 MG PO DAILY, (Reported) Bupropion HCl 150 Mg Tablet.er, 150 MG PO BID, (Reported) Cinnamon Bark 500 Mg Capsule, 1,000 MG PO HS, (Reported) TAKES 2 (500 MG) CAPSULES Clonazepam 1 Mg Tablet, 1 MG PO HS, (Reported) Enalapril Maleate 20 Mg Tablet, 20 MG PO BID, (Reported) Fluticasone Propionate 16 Gm [place].susp, 2 SPRAYS NA HS, (Reported) Gabapentin 600 Mg Tablet, 600 MG PO TID, (Reported) Hydrocodone/Acetaminophen 1 Each Tablet, 1 TAB PO TID PRN for MODERATE PAIN, ( Reported) Insulin Aspart 100 Unit/1 Ml Susp, SQ PER INSULIN PUMP, (Reported) 7 CARBS FOR 1 INSULIN UNIT BASAL RATE 1.7 UNITS PER HOUR Melatonin 10 Mg Tablet, 10 MG PO HS, (Reported) Polyethylene Glycol 1 Ea Pack, 17 GM PO DAILY PRN for CONSTIPATION, (Reported) Venlafaxine HCl 75 Mg Tab, 150 MG PO BID, (Reported) TAKES 2 (75MG) TABLETS Past Qvvggqg-Yjzqch-Yyhudg Hx Patient Social History Alcohol Use: Rarely Uses Recreational Drug Use: No Smoking Status: Former Smoker Type Used: Cigarettes Former Smoker, Quit: Nov 02, 1959 Recent Foreign Travel: No Contact w/Someone Who Travel: No Recent Infectious Disease Expo: No Recent Hopitalizations: No Physical Abuse: No Sexual Abuse: No Mistreated: No Fear: No Immunizations Up To Date Tetanus Booster (TDap): Less than 5yrs Date of Pneumonia Vaccine: Nov 02, 2008 Date of Influenza Vaccine: Jul 03, 2016 Seasonal Allergies Seasonal Allergies: No Surgeries History of Surgeries: Yes (BILAT CARPAL TUNNEL, BILA KNEE REPLACE, COLON RESECTION, BILAT KNEE SCOPE, ) Surgeries: Orthopedic Respiratory History of Respiratory Disorde: Yes (CPAP AT [facility]) Respiratory Disorders: Sleep Apnea Currently Using CPAP: Yes Currently Using BIPAP: No Cardiovascular History of Cardiac Disorders: Yes Cardiac Disorders: Hypertension Neurological History of Neurological Disord: Yes (CONFUSION W/ ILLNESSES) Neurological Disorders: Dementia Reproductive System Hx Reproductive Disorders: Yes Sexually Transmitted Disease: No Genitourinary History of Genitourinary Disor: No Gastrointestinal History of Gastrointestinal Di: Yes (COLON RESSECTION) Gastrointestinal Disorders: Obstructive Bowel, Chronic Constipation Musculoskeletal History of Musculoskeletal Dis: Yes (ARTHRITIS) Musculoskeletal Disorders: Back Injury Endocrine History of Endocrine Disorders: Yes Endocrine Disorders: Diabetes, Insulin dep HEENT History of HEENT Disorders: Yes HEENT Disorders: Cataract 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, Hearing Aide Left Cancer History of Cancer: Yes Cancer: Skin Psychosocial History of Psychiatric Problem: Yes Behavioral Health Disorders: Depression Suicide Risk Score: 0 Integumentary History of Skin or Integumenta: Yes (SKIN REAL THIN/EASILY BRUISES) Blood Transfusions History of Blood Disorders: No Reviewed Nursing Assessment Reviewed/Agree w Nursing PMH: Yes Family Medical History Family Medial History: Cancer 09 SISTER (BREAST) Hypertension 03 FATHER 03 MOTHER Parkinson's disease 03 MOTHER Seizure disorder 09 BROTHER Review of Systems Time Seen by Provider: 17:26 Exam Exam Vital Signs Date Time Temp Pulse Resp B/P (MAP) Pulse Ox O2 Delivery O2 Flow Rate FiO2 10/21/17 14:37 98.1 150 20 100/45 (63) 100 Nasal Cannula 2.00 General Appearance: WD/WN, Mild Distress HEENT: No Moist Mucous Membranes Neck: Non Tender, Supple Respiratory: Lungs Clear, No Accessory Muscle Use, Other (tachypneic) Cardiovascular: Regular Rate, Rhythm, No JVD, No Murmur Capillary Refill: Less Than 3 Seconds Extremity: Non Tender, No Calf Tenderness, No Pedal Edema Neurologic/Psychiatric: Alert, No Aphasia, Disoriented x3, No Facial Droop Skin: Normal Color, Warm/Dry Results Lab Laboratory Tests 10/21/17 13:46 10/21/17 14:14 10/21/17 16:30 Assessment/Plan Assessment/Plan Acute DKA -Continue DKA protocol ARF with Hyperkalemia -IVF -insulin gtt Hypotension - probably secondary to dehydration -Aggressive IVF leukocytosis -winters cultures 255 MANSOOR ZABALA DO Oct 21, 2017 17:10
[2017-10-21] MEDS ORDERED: NS IV 1000 ML 1,000 ML IV PRN (18:00)
[2017-10-21] MEDS: NS W/KCL 20 MEQ/L 1,000 ML IV SCH ×3 (18:02→23:16)
[2017-10-21 18:28] LABS: CREATININE SERUM 2.28 MG/DL (0.60-1.30); POTASSIUM 5.1 MMOL/L (3.6-5.0)
[2017-10-21] MEDS: NS IV 1000 ML 1,000 ML IV SCH ×2 (18:35→23:16)
[2017-10-21] MEDS ORDERED: INFLUENZA TRIvalent 2017-2018 0.5 ML/45 MCG SYR IM ONE (20:30)
[2017-10-21 20:42] LABS: CALCIUM 8.6 MG/DL (8.5-10.1); CREATININE SERUM 2.45 MG/DL (0.60-1.30); POTASSIUM 5.1 MMOL/L (3.6-5.0)
[2017-10-22] VITALS (23 sets, daily range): BP systolic 84–145; BP diastolic 34–89
[2017-10-22] MEDS: D5 1/2 NS W/KCL 20 MEQ/L 1,000 ML IV SCH ×7 (00:26→21:35)
[2017-10-22 00:43] LABS: CALCIUM 8.2 MG/DL (8.5-10.1); CREATININE SERUM 2.17 MG/DL (0.60-1.30); POTASSIUM 4.8 MMOL/L (3.6-5.0)
[2017-10-22] MEDS: NS IV 1000 ML 1,000 ML IV SCH ×6 (02:07→21:44)
[2017-10-22] MEDS: DEXTROSE 10% IV SOLUTION 1,000 ML IV SCH ×3 (02:07→22:12)
[2017-10-22] MEDS: NS W/KCL 20 MEQ/L 1,000 ML IV SCH ×6 (02:07→21:50)
[2017-10-22 05:19] LABS: BASOPHILS # (AUTO) 0.1 10^3/uL (0.0-0.1); BASOPHILS % (AUTO) 0 % (0-10); EOSINOPHILS # (AUTO) 0.1 10^3/uL (0.0-0.3); EOSINOPHILS % (AUTO) 1 % (0-10); LYMPHOCYTES # (AUTO) 2.3 X 10^3 (1.0-4.0); LYMPHOCYTES % (AUTO) 12 % (12-44); MEAN CORPUSCULAR HEMOGLOBIN 31 PG (25-34); MEAN CORPUSCULAR HGB CONC 32 G/DL (32-36); MEAN CORPUSCULAR VOLUME 98 FL (80-99); MEAN PLATELET VOLUME 10.8 FL (7.4-10.4); MONOCYTES # (AUTO) 1.1 X 10^3 (0.0-1.0); MONOCYTES % (AUTO) 5 % (0-12); NEUTROPHILS # (AUTO) 16.7 X 10^3 (1.8-7.8); NEUTROPHILS % (AUTO) 83 % (42-75); PLATELET COUNT 268 10^3/uL (130-400); RED CELL DISTRIBUTION WIDTH 13.9 % (10.0-14.5); WHITE BLOOD COUNT 20.3 10^3/uL (4.3-11.0)
[2017-10-22 05:41] LABS: CALCIUM 8.3 MG/DL (8.5-10.1); CREATININE SERUM 1.79 MG/DL (0.60-1.30); MAGNESIUM 1.8 MG/DL (1.8-2.4); PHOSPHORUS 1.4 MG/DL (2.3-4.7); POTASSIUM 4.2 MMOL/L (3.6-5.0)
[2017-10-22] MEDS: KCL 20 MEQ TAB (K-DUR) PO SCH (06:34)
[2017-10-22] MEDS: POTASSIUM CL 10MEQ/50ML IVPB 50 ML IV SCH (06:34)
[2017-10-22] MEDS: MAGNESIUM 1 GM/100 ML IVPB 100 ML IV SCH (06:34)
--- NOTE | 2017-10-22 08:49 | Progress Note-Hospitalist ---
Subjective HPI/CC On Admission Date Seen by Provider: Oct 22, 2017 Time Seen by Provider: 08:00 Pt is a 72yoCM with a PMH of IDDMI and HTN who presented to the ER for confusion via EMS. During my exam his is unable to provide ROS. His daughter in law is at bedside who lives with him and he does not recognize her at this time. She states that he was completely normal yesterday but when she got home from work at noon today he was not making any sense. She check his blood sugar which read as "high" so she called EMS. When EMS check his BS is only read as "high" as well. He wears an insulin pump and she is unsure if he has been refilling his insulin or if it was not working. Of note his pump fell off during transport with EMS. Subjective/Events-last exam Mr. Chacon was awake and alert this morning. He was oriented times person only. He was able to tell me that he was having difficulty with his insulin pump with a high likelihood that he had not received insulin for at least 24 hours. Prior that he notes some depression over the holiday season but Axid been feeling a little better since his daughter came to stay with him 2 days ago. Per her history he had been pretty much at baseline and did not appeared ill until she found him unresponsive yesterday around noon time when she came back to the house. Mr. Chacon is a long-standing history of diabetes insulin requiring and had been cared for by his who did a lot of his diabetic management. She tragically this summer of ruptured brain aneurysm. Objective Exam Vital Signs Vital Sign - Last 12Hours 10/21/ 14:37 Temp 98.1 Pulse 150 Resp 20 B/P (MAP) 100/45 (63) Pulse Ox 98 O2 Delivery Nasal Cannula O2 Flow Rate 2.00 Capillary Refill : Less Than 3 Seconds General Appearance: No Apparent Distress, Chronically ill Neck: Full Range of Motion, Normal Inspection, Non Tender Respiratory: Chest Non Tender, Lungs Clear, Normal Breath Sounds, No Accessory Muscle Use, No Respiratory Distress Cardiovascular: Regular Rate, Rhythm, No Edema, No Gallop, No JVD, No Murmur, Normal Peripheral Pulses Gastrointestinal: Normal Bowel Sounds, No Organomegaly, No Pulsatile Mass, Non Tender, Soft Extremity: Normal Inspection, Normal Range of Motion, Non Tender, No Calf Tenderness, No Pedal Edema Results/Procedures Lab Assessment/Plan Assessment and Plan Assess & Plan/Chief Complaint 1. DKA secondary to lack of insulin improving with normalizing blood sugars and raising bicarbonate level. Considering profound acidosis will continue IV insulin today with likely returned a basal bolus therapy tomorrow. 2. Likely baseline mild vascular related dementia. 3. Premorbid depression we'll continue antidepressant therapy. 4. Acute kidney injury due to number 1. Copy Copies To 2: EDEL GUTIERREZ MD, MARK D MD Oct 22, 2017 08:49
[2017-10-22] MEDS ORDERED: VENlafaxine 37.5 MG (EFFEXOR) TAB PO NR (09:06)
[2017-10-22] MEDS ORDERED: VENlafaxine 75 MG (EFFEXOR) TAB PO NR (09:08)
[2017-10-22 09:13] LABS: CALCIUM 8.3 MG/DL (8.5-10.1); CREATININE SERUM 1.51 MG/DL (0.60-1.30); POTASSIUM 3.9 MMOL/L (3.6-5.0)
--- OUTSIDE RECORDS SUMMARY | 2017-10-22 09:47 | XMS REPORT | Continuity of Care Document ---
Author Author [facility] Organization [facility] Address Unknown Phone Unavailable Allergies Active Description Code Type Severity Reaction Onset Reported/Identified Relationship to Patient Clinical Status Yes No Known Drug Allergies [id number] Drug Allergy Mild N/A 04/19/2009 Yes No Known Drug Allergies [id number] Drug Allergy Unknown N/A 02/20/2017 Medications There is no data. Problems Date Dx Coded Attending Type Code Diagnosis Diagnosed By 04/04/2013 TRANG CADENA DO, Ot 719.46 JOINT PAIN-L/LEG 04/04/2013 TRANG CADENA DO, Ot V43.65 KNEE JOINT REPLACEMENT STATUS 04/04/2013 TRANG CADENA DO, Ot V57.1 PHYSICAL THERAPY NEC 10/13/2013 TRANG CADENA DO Ot 250.00 DIAB TANVIR WO COMPL, TYPE II OR UNSPEC TY 10/13/2013 TRANG CADENA DO Ot 304.90 DRUG DEPEND NOS-UNSPEC 10/13/2013 TRANG CADENA DO Ot 311 DEPRESSIVE DISORDER NEC 10/13/2013 TRANG CADENA DO Ot 401.9 HYPERTENSION NOS 10/13/2013 TRANG CADENA DO Ot 715.36 LOC OSTEOARTH NOS-L/LEG 10/13/2013 TRANG CADENA DO Ot 724.00 SPINAL STENOSIS NOS 10/13/2013 TRANG CADENA DO, Ot V12.29 PERSONAL HX OF [facility] ENDOCRINE, METABOLIC 10/13/2013 TRANG CADENA DO, Ot V43.65 KNEE JOINT REPLACEMENT STATUS 10/13/2013 TRANG CADENA DO, Ot V58.67 LONG-TERM (CURRENT) USE OF INSULIN 11/28/2013 TRANG CADENA DO, Ot V43.65 KNEE JOINT REPLACEMENT STATUS 11/28/2013 TRANG CADENA DO Ot V54.81 AFTERCARE FOLLOWING JOINT REPLACEMENT 11/28/2013 TRANG CADENA DO, Ot V57.1 PHYSICAL THERAPY NEC 01/10/2014 HUGO SCHMID, BRAULIO Ruggiero Ot 327.23 OBSTRUCTIVE SLEEP APNEA (ADULT) (PEDIATR 04/19/2016 ALLISON DO, NITO Ot A41.01 SEPSIS DUE TO METHICILLIN SUSCEPTIBLE ST 04/19/2016 ALLISON DO, NITO Ot D64.9 ANEMIA, UNSPECIFIED 04/19/2016 ALLISON DO, NITO Ot E11.65 TYPE 2 DIABETES MELLITUS WITH HYPERGLYCE 04/19/2016 KEEGAN DO NITO Ot E86.0 DEHYDRATION 04/19/2016 KEEGAN DO NITO Ot F03.90 UNSPECIFIED DEMENTIA WITHOUT BEHAVIORAL 04/19/2016 KEEGAN DO NITO Ot F32.9 MAJOR DEPRESSIVE DISORDER, SINGLE EPISOD 04/19/2016 KEEGAN DO NITO Ot G47.33 OBSTRUCTIVE SLEEP APNEA (ADULT) (PEDIATR 04/19/2016 ALLISON DO, NITO Ot I10 ESSENTIAL (PRIMARY) HYPERTENSION 04/19/2016 KEEGAN DO NITO Ot J15.211 PNEUMONIA DUE TO METHICILLIN SUSCEP STAP 04/19/2016 KEEGAN DO NITO Ot M19.90 UNSPECIFIED OSTEOARTHRITIS, UNSPECIFIED 04/19/2016 KEEGAN [place] NITO Ot N17.9 ACUTE KIDNEY FAILURE, UNSPECIFIED 04/19/2016 KEEGAN [place] NITO Ot R09.02 HYPOXEMIA 04/19/2016 KEEGAN [place] NITO Ot Z79.4 PRISON (CURRENT) USE OF INSULIN 04/19/2016 KEEGAN [place] NITO Ot Z87.891 PERSONAL HISTORY OF NICOTINE DEPENDENCE 05/22/2016 MATT SCHMID, EDEL Paredes Ot Z91.81 HISTORY OF FALLING 06/12/2016 EDEL [...] GIOVANA MORTENSEN Ot Y92.[address] 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 08/03/2016 GIOVANA MORTENSEN Ot Z79.82 PACKING AND STAMPING MACHINE OPERATOR (CURRENT) USE OF ASPIRIN 08/03/2016 GIOVANA MORTENSEN Ot Z79.899 OTHER PACKING AND STAMPING MACHINE OPERATOR (CURRENT) DRUG THERAPY 08/05/2016 GIOVANA MORTENSEN Ot [...] GIOVANA MORTENSEN Ot Y92.[address] IN [facility] (PRIVATE 08/05/2016 GIOVANA MORTENSEN Ot Y93.89 ACTIVITY, OTHER SPECIFIED 08/05/2016 GIOVANA MORTENSEN Ot Y99.8 OTHER EXTERNAL CAUSE STATUS 08/05/2016 GIOVANA MORTENSEN Ot Z79.4 PACKING AND STAMPING MACHINE OPERATOR (CURRENT) USE OF INSULIN 08/05/2016 GIOVANA MORTENSEN Ot Z79.82 PRISON (CURRENT) USE OF ASPIRIN 08/05/2016 GIOVANA MORTENSEN Ot Z79.899 OTHER PACKING AND STAMPING MACHINE OPERATOR (CURRENT) DRUG THERAPY 12/13/2016 MARCO ANTONIO AMEZCUA [...] 12/13/2016 MARCO ANTONIO AMEZCUA MD, Ot Z79.4 PACKING AND STAMPING MACHINE OPERATOR (CURRENT) USE OF INSULIN 12/13/2016 MARCO ANTONIO AMEZCUA MD Ot Z79.82 PRISON (CURRENT) USE OF ASPIRIN 12/13/2016 MARCO ANTONIO AMEZCUA MD, Ot Z79.899 OTHER PACKING AND STAMPING MACHINE OPERATOR (CURRENT) DRUG THERAPY 12/16/2016 MARCO ANTONIO AMEZCUA [...] 12/16/2016 MARCO ANTONIO AMEZCUA MD, Ot Z79.4 PACKING AND STAMPING MACHINE OPERATOR (CURRENT) USE OF INSULIN 12/16/2016 MARCO ANTONIO AMEZCUA MD, Ot Z79.82 PACKING AND STAMPING MACHINE OPERATOR (CURRENT) USE OF ASPIRIN 12/16/2016 MARCO ANTONIO AMEZCUA MD, Ot Z79.899 OTHER PRISON (CURRENT) DRUG THERAPY 01/31/2017 LILIAN BARRETT MD Ot E11.9 TYPE 2 DIABETES MELLITUS WITHOUT COMPLIC 01/31/2017 LILIAN BARRETT MD, Ot F32.9 MAJOR DEPRESSIVE DISORDER, SINGLE EPISOD 01/31/2017 LILIAN BARRETT MD, Ot G47.30 SLEEP APNEA, UNSPECIFIED 01/31/2017 LILIAN BARRETT MD Ot I10 ESSENTIAL (PRIMARY) HYPERTENSION 01/31/2017 LILIAN BARRETT MD Ot K56.69 OTHER INTESTINAL OBSTRUCTION 01/31/2017 LILIAN BARRETT MD Ot K91.3 POSTPROCEDURAL INTESTINAL OBSTRUCTION 01/31/2017 LILIAN BARRETT MD Ot M19.90 UNSPECIFIED OSTEOARTHRITIS, UNSPECIFIED 01/31/2017 LILIAN BARRETT MD Ot Z79.4 PRISON (CURRENT) USE OF INSULIN 01/31/2017 LILIAN BARRETT MD, Ot Z87.891 PERSONAL HISTORY OF NICOTINE DEPENDENCE 01/31/2017 LILIAN BARRETT MD Ot Z96.651 PRESENCE OF RIGHT ARTIFICIAL KNEE JOINT 01/31/2017 LILIAN BARRETT MD, Ot Z96.652 PRESENCE OF LEFT ARTIFICIAL KNEE JOINT 02/17/2017 EDEL GUTIERREZ MD Ot Z01.818 ENCOUNTER FOR OTHER PREPROCEDURAL EXAMIN 02/17/2017 EDEL GUTIERREZ MD Ot Z85.038 PERSONAL HISTORY OF MALIGNANT NEOPLASM O 02/18/2017 EDEL GUTIERREZ MD Ot Z01.818 ENCOUNTER FOR OTHER PREPROCEDURAL EXAMIN 02/18/2017 EDEL GUTIERREZ MD Ot Z85.038 PERSONAL HISTORY OF MALIGNANT NEOPLASM O 02/20/2017 EDEL GUTIERREZ MD Ot E11.40 TYPE 2 DIABETES MELLITUS WITH DIABETIC N 02/20/2017 EDEL GUTIERREZ MD Ot K57.30 DVRTCLOS OF LG INT W/O PERFORATION OR AB 02/20/2017 EDEL GUTIERRZE MD Ot K59.00 CONSTIPATION, UNSPECIFIED 02/20/2017 EDEL GUTIERREZ MD Ot N40.0 BENIGN PROSTATIC HYPERPLASIA WITHOUT LOW 02/20/2017 EDEL GUTIERREZ MD Ot Z79.4 PRISON (CURRENT) USE OF INSULIN 02/27/2017 EDEL GUTIERREZ MD Ot Z01.818 ENCOUNTER FOR OTHER PREPROCEDURAL EXAMIN 02/27/2017 EDEL GUTIERREZ MD Ot Z85.038 PERSONAL HISTORY OF MALIGNANT NEOPLASM O 08/26/2017 Ot 250.01 DIAB TANVIR WO COMPL, TYPE I [JUVENILE TYP 08/26/2017 Ot 327.23 OBSTRUCTIVE SLEEP APNEA (ADULT) (PEDIATR 08/26/2017 Ot 356.9 IDIO PERIPH NEURPTHY NOS 08/26/2017 Ot 401.9 HYPERTENSION NOS 08/26/2017 TRANG CADENA DO Ot 715.36 LOC OSTEOARTH NOS-L/LEG 08/26/2017 TRANG CADENA DO Ot 791.9 ABN URINE FINDINGS NEC 08/26/2017 TRANG CADENA DO Ot V72.63 PRE-PROCEDURAL LABORATORY EXAMINATION 08/26/2017 TRANG CADENA DO Ot V74.8 SCREEN-BACTERIAL DIS NEC 08/26/2017 RODRIGUEZ DAVILA MD Ot E11.9 TYPE 2 DIABETES MELLITUS WITHOUT COMPLIC 08/26/2017 RODRIGUEZ DAVILA MD Ot F03.90 UNSPECIFIED DEMENTIA WITHOUT BEHAVIORAL 08/26/2017 RODRIGUEZ DAVILA MD Ot F17.210 NICOTINE DEPENDENCE, CIGARETTES, UNCOMPL 08/26/2017 RODRIGUEZ DAVILA MD Ot F32.9 MAJOR DEPRESSIVE DISORDER, SINGLE EPISOD 08/26/2017 RODRIGUEZ DAVILA MD Ot G47.30 SLEEP APNEA, UNSPECIFIED 08/26/2017 RODRIGUEZ DAVILA MD Ot I10 ESSENTIAL (PRIMARY) HYPERTENSION 08/26/2017 RODRIGUEZ DAVILA MD Ot K52.9 NONINFECTIVE GASTROENTERITIS AND COLITIS 08/26/2017 RODRIGUEZ DAVILA MD Ot R10.13 EPIGASTRIC PAIN 08/26/2017 RODRIGUEZ DAVILA MD Ot Z79.82 PRISON (CURRENT) USE OF ASPIRIN 08/26/2017 RODRIGUEZ DAVILA MD Ot Z87.828 PERSONAL HISTORY OF OTH (HEALED) PHYSICA 08/28/2017 RODRIGUEZ DAVILA MD Ot E11.9 TYPE 2 DIABETES MELLITUS WITHOUT COMPLIC 08/28/2017 RODRIGUEZ DAVILA MD Ot F03.90 UNSPECIFIED DEMENTIA WITHOUT BEHAVIORAL 08/28/2017 RODRIGUEZ DAVILA MD Ot F17.210 NICOTINE DEPENDENCE, CIGARETTES, UNCOMPL 08/28/2017 RODRIGUEZ DAVILA MD Ot F32.9 MAJOR DEPRESSIVE DISORDER, SINGLE EPISOD 08/28/2017 RODRIGUEZ DAVILA MD Ot G47.30 SLEEP APNEA, UNSPECIFIED 08/28/2017 RODRIGUEZ DAVILA MD Ot I10 ESSENTIAL (PRIMARY) HYPERTENSION 08/28/2017 RODRIGUEZ DAVILA MD Ot K52.9 NONINFECTIVE GASTROENTERITIS AND COLITIS 08/28/2017 RODRIGUEZ DAVILA MD Ot R10.13 EPIGASTRIC PAIN 08/28/2017 RODRIGUEZ DAVILA MD Ot Z79.82 PACKING AND STAMPING MACHINE OPERATOR (CURRENT) USE OF ASPIRIN 08/28/2017 RODRIGUEZ DAVILA MD Ot Z87.828 PERSONAL HISTORY OF OTH (HEALED) PHYSICA 09/22/2017 NAKIA ANTHONY MD Ot D72.829 ELEVATED WHITE BLOOD CELL COUNT, UNSPECI 09/22/2017 NAKIA ANTHONY MD Ot E11.65 TYPE 2 DIABETES MELLITUS WITH HYPERGLYCE 09/22/2017 NAKIA ANTHONY MD Ot F03.90 UNSPECIFIED DEMENTIA WITHOUT BEHAVIORAL 09/22/2017 NAKIA ANTHONY MD Ot F32.9 MAJOR DEPRESSIVE DISORDER, SINGLE EPISOD 09/22/2017 NAKIA ANTHONY MD Ot G47.30 SLEEP APNEA, UNSPECIFIED 09/22/2017 NAKIA ANTHONY MD Ot I10 ESSENTIAL (PRIMARY) HYPERTENSION 09/22/2017 NAKIA ANTHONY MD Ot M19.90 UNSPECIFIED OSTEOARTHRITIS, UNSPECIFIED 09/22/2017 NAKIA ANTHONY MD Ot R06.4 HYPERVENTILATION 09/22/2017 NAKIA ANTHONY MD Ot R45.1 RESTLESSNESS AND AGITATION 09/22/2017 NAKIA ANTHONY MD, Ot Z79.4 PRISON (CURRENT) USE OF INSULIN 09/22/2017 NAKIA ANTHONY MD, Ot Z79.82 PACKING AND STAMPING MACHINE OPERATOR (CURRENT) USE OF ASPIRIN 09/22/2017 NAKIA ANTHONY MD, Ot Z85.828 PERSONAL HISTORY OF OTHER MALIGNANT NEOP 09/22/2017 NAKIA ANTHONY MD, Ot Z87.19 PERSONAL HISTORY OF OTHER DISEASES OF TH 09/22/2017 NAKIA ANTHONY MD, Ot Z87.891 PERSONAL HISTORY OF NICOTINE DEPENDENCE 09/22/2017 NAKIA ANTHONY MD, Ot Z96.653 PRESENCE OF ARTIFICIAL KNEE JOINT, BILAT Procedures Code Description Performed By Performed On 81.54 TOTAL KNEE REPLACEMENT 10/10/2013 Results Test Result Range Complete blood count (CBC) with automated white blood cell (WBC) differential - 01/30/17 10:54 Blood leukocytes automated count (number/volume) 13.8 10*3/uL 4.3-11.0 Blood erythrocytes automated count (number/volume) 4.23 10*6/uL 4.35-5.85 Venous blood hemoglobin measurement (mass/volume) 13.4 [...] Automated blood platelet mean volume measurement 9.4 [foz_us] 7.4-10.4 Automated blood neutrophils/100 leukocytes 47 % [...] Serum or plasma sodium measurement (moles/volume) 140 mmol/L 135-145 Serum or plasma potassium measurement (moles/volume) 4.5 mmol/L 3.6-5.0 Serum or plasma chloride measurement (moles/volume) 104 mmol/L 98-107 Carbon dioxide 27 mmol/L 21-32 Serum or plasma anion gap determination (moles/volume) 9 mmol/L 5-14 Serum or plasma urea nitrogen measurement (mass/volume) 15 mg/dL 7-18 Serum or plasma creatinine measurement (mass/volume) 1.10 mg/dL 0.60-1.30 Serum or plasma urea nitrogen/creatinine mass [...] Urine pH measurement by test strip 6 5-9 Specific gravity of urine by test strip 1.010 1.016- 1.022 Urine protein assay by test strip, semi-quantitative [...] 05:00 Blood leukocytes automated count (number/volume) 9.6 10*3/uL 4.3-11.0 Blood erythrocytes automated count (number/volume) 4.11 10*6/uL 4.35-5.85 Venous blood hemoglobin measurement (mass/volume) 13.2 [...] Automated blood platelet mean volume measurement 9.6 [foz_us] 7.4-10.4 Automated blood neutrophils/100 leukocytes 40 % [...] Serum or plasma sodium measurement (moles/volume) 143 mmol/L 135-145 Serum or plasma potassium measurement (moles/volume) 3.9 mmol/L 3.6-5.0 Serum or plasma chloride measurement (moles/volume) 105 mmol/L 98-107 Carbon dioxide 28 mmol/L 21-32 Serum or plasma anion gap determination (moles/volume) 10 mmol/L 5-14 Serum or plasma urea nitrogen measurement (mass/volume) 11 mg/dL 7-18 Serum or plasma creatinine measurement (mass/volume) 0.97 mg/dL 0.60-1.30 Serum or plasma urea nitrogen/creatinine mass ratio 11 NRG Serum or plasma creatinine measurement with calculation of estimated glomerular filtration rate > NRG Serum or plasma glucose measurement (mass/volume) 82 mg/dL 70-105 Serum or plasma calcium measurement (mass/volume) 9.5 mg/dL 8.5-10.1 Capillary blood glucose measurement by glucometer (mass/volume) - 02/20/17 07: 55 Capillary blood glucose measurement by glucometer (mass/volume) 230 mg/dL 70-110 Complete blood count (CBC) with automated white blood cell (WBC) differential - 08/26/17 11:00 Blood leukocytes automated count (number/volume) 10.0 10*3/uL 4.3-11.0 Blood erythrocytes automated count (number/volume) 4.48 10*6/uL 4.35-5.85 Venous blood hemoglobin measurement (mass/volume) 14.1 g/dL 13.3-17.7 Blood hematocrit (volume fraction) 44 % 40-54 Automated erythrocyte mean corpuscular volume 98 [foz_us] 80-99 Automated erythrocyte mean corpuscular hemoglobin (mass per erythrocyte) 32 pg 25-34 Automated erythrocyte mean corpuscular hemoglobin concentration measurement ( mass/volume) 32 g/dL 32-36 Automated erythrocyte distribution width ratio 14.6 % 10.0-14.5 Automated blood platelet count (count/volume) 411 10*3/uL 130-400 Automated blood platelet mean volume measurement 9.9 [foz_us] 7.4-10.4 Automated blood neutrophils/100 leukocytes 58 % 42-75 Automated blood lymphocytes/100 leukocytes 29 % 12-44 Blood monocytes/100 leukocytes 5 % 0-12 Automated blood eosinophils/100 leukocytes 5 % 0-10 Automated blood basophils/100 leukocytes 3 % 0-10 Blood neutrophils automated count (number/volume) 5.8 10*3 1.8-7.8 Blood lymphocytes automated count (number/volume) 2.9 10*3 1.0-4.0 Blood monocytes automated count (number/volume) 0.5 10*3 0.0-1.0 Automated eosinophil count 0.5 10*3/uL 0.0-0.3 Automated blood basophil count (count/volume) 0.3 10*3/uL 0.0-0.1 Comprehensive metabolic panel - 08/26/17 11:00 Serum or plasma sodium measurement (moles/volume) 139 mmol/L 135-145 Serum or plasma potassium measurement (moles/volume) 4.0 mmol/L 3.6-5.0 Serum or plasma chloride measurement (moles/volume) 103 mmol/L 98-107 Carbon dioxide 25 mmol/L 21-32 Serum or plasma anion gap determination (moles/volume) 11 mmol/L 5-14 Serum or plasma urea nitrogen measurement (mass/volume) 12 mg/dL 7-18 Serum or plasma creatinine measurement (mass/volume) 1.02 mg/dL 0.60-1.30 Serum or plasma urea nitrogen/creatinine mass ratio 12 NRG Serum or plasma creatinine measurement with calculation of estimated glomerular filtration rate > NRG Serum or plasma glucose measurement (mass/volume) 219 mg/dL 70-105 Serum or plasma calcium measurement (mass/volume) 9.7 mg/dL 8.5-10.1 Serum or plasma total bilirubin measurement (mass/volume) 0.6 mg/dL 0.1-1.0 Serum or plasma alkaline phosphatase measurement (enzymatic activity/volume) 89 U/L 40-136 Serum or plasma aspartate aminotransferase measurement (enzymatic activity/ volume) 10 U/L 5-34 Serum or plasma alanine aminotransferase measurement (enzymatic activity/volume ) 16 U/L 0-55 Serum or plasma protein measurement (mass/volume) 8.1 g/dL 6.4-8.2 Serum or plasma albumin measurement (mass/volume) 4.1 g/dL 3.2-4.5 Magnesium - 08/26/17 11:00 Magnesium 1.9 mg/dL 1.8-2.4 Lipase - 08/26/17 11:00 Lipase < U/L 8-78 Blood manual differential performed detection - 08/26/17 11:00 Blood monocytes/100 leukocytes 3 % NRG Manual blood segmented neutrophils/100 leukocytes 59 % NRG Manual blood lymphocytes/100 leukocytes 27 % NRG Manual eosinophils/100 leukocytes in nose 9 % NRG Manual blood basophils/100 leukocytes 2 % NRG Blood stomatocytes detection by light microscopy SLIGHT NRG Complete urinalysis with reflex to culture - 08/26/17 13:10 Urine color determination YELLOW NRG Urine clarity determination CLEAR NRG Urine pH measurement by test strip 8 5-9 Specific gravity of urine by test strip 1.010 1.016- 1.022 Urine protein assay by test strip, semi-quantitative 1+ NEGATIVE Urine glucose detection by automated test strip 2+ NEGATIVE Erythrocytes detection in urine sediment by light microscopy NEGATIVE NEGATIVE Urine ketones detection by automated test strip 1+ NEGATIVE Urine nitrite detection by test strip NEGATIVE NEGATIVE Urine total bilirubin detection by test strip NEGATIVE NEGATIVE Urine urobilinogen measurement by automated test strip (mass/volume) 1 mg/dL NORMAL Urine leukocyte esterase detection by dipstick 2+ NEGATIVE Automated urine sediment erythrocyte count by microscopy (number/high power field) NONE NRG Automated urine sediment leukocyte count by microscopy (number/high power field ) NONE NRG Bacteria detection in urine sediment by light microscopy NEGATIVE NRG Crystals detection in urine sediment by light microscopy PRESENT NRG Casts detection in urine sediment by light microscopy NONE NRG Mucus detection in urine sediment by light microscopy NEGATIVE NRG Complete urinalysis with reflex to culture NO NRG Amorphous sediment detection in urine sediment by light microscopy FEW ADRIA PHOSPHATE NRG Complete blood count (CBC) with automated white blood cell (WBC) differential - 09/22/17 12:20 Blood leukocytes automated count (number/volume) 13.5 10*3/uL 4.3-11.0 Blood erythrocytes automated count (number/volume) 4.46 10*6/uL 4.35-5.85 Venous blood hemoglobin measurement (mass/volume) 14.0 g/dL 13.3-17.7 Blood hematocrit (volume fraction) 44 % 40-54 Automated erythrocyte mean corpuscular volume 99 [foz_us] 80-99 Automated erythrocyte mean corpuscular hemoglobin (mass per erythrocyte) 31 pg 25-34 Automated erythrocyte mean corpuscular hemoglobin concentration measurement ( mass/volume) 32 g/dL 32-36 Automated erythrocyte distribution width ratio 14.2 % 10.0-14.5 Automated blood platelet count (count/volume) 275 10*3/uL 130-400 Automated blood platelet mean volume measurement 11.0 [foz_us] 7.4-10.4 Automated blood neutrophils/100 leukocytes 77 % 42-75 Automated blood lymphocytes/100 leukocytes 14 % 12-44 Blood monocytes/100 leukocytes 4 % 0-12 Automated blood eosinophils/100 leukocytes 4 % 0-10 Automated blood basophils/100 leukocytes 2 % 0-10 Blood neutrophils automated count (number/volume) 10.3 10*3 1.8-7.8 Blood lymphocytes automated count (number/volume) 1.8 10*3 1.0-4.0 Blood monocytes automated count (number/volume) 0.5 10*3 0.0-1.0 Automated eosinophil count 0.5 10*3/uL 0.0-0.3 Automated blood basophil count (count/volume) 0.2 10*3/uL 0.0-0.1 Comprehensive metabolic panel - 09/22/17 12:20 Serum or plasma sodium measurement (moles/volume) 139 mmol/L 135-145 Serum or plasma potassium measurement (moles/volume) 4.2 mmol/L 3.6-5.0 Serum or plasma chloride measurement (moles/volume) 104 mmol/L 98-107 Carbon dioxide 16 mmol/L 21-32 Serum or plasma anion gap determination (moles/volume) 19 mmol/L 5-14 Serum or plasma urea nitrogen measurement (mass/volume) 16 mg/dL 7-18 Serum or plasma creatinine measurement (mass/volume) 1.05 mg/dL 0.60-1.30 Serum or plasma urea nitrogen/creatinine mass ratio 15 NRG Serum or plasma creatinine measurement with calculation of estimated glomerular filtration rate > NRG Serum or plasma glucose measurement (mass/volume) 310 mg/dL 70-105 Serum or plasma calcium measurement (mass/volume) 9.4 mg/dL 8.5-10.1 Serum or plasma total bilirubin measurement (mass/volume) 0.9 mg/dL 0.1-1.0 Serum or plasma alkaline phosphatase measurement (enzymatic activity/volume) 76 U/L 40-136 Serum or plasma aspartate aminotransferase measurement (enzymatic activity/ volume) 14 U/L 5-34 Serum or plasma alanine aminotransferase measurement (enzymatic activity/volume ) 22 U/L 0-55 Serum or plasma protein measurement (mass/volume) 7.6 g/dL 6.4-8.2 Serum or plasma albumin measurement (mass/volume) 3.9 g/dL 3.2-4.5 Complete urinalysis with reflex to culture - 09/22/17 13:25 Urine color determination YELLOW NRG Urine clarity determination CLEAR NRG Urine pH measurement by test strip 7 5-9 Specific gravity of urine by test strip 1.010 1.016- 1.022 Urine protein assay by test strip, semi-quantitative 1+ NEGATIVE Urine glucose detection by automated test strip 4+ NEGATIVE Erythrocytes detection in urine sediment by light microscopy NEGATIVE NEGATIVE Urine ketones detection by automated test strip 3+ NEGATIVE Urine nitrite detection by test strip NEGATIVE NEGATIVE Urine total bilirubin detection by test strip NEGATIVE NEGATIVE Urine urobilinogen measurement by automated test strip (mass/volume) NORMAL NORMAL Urine leukocyte esterase detection by dipstick NEGATIVE NEGATIVE Automated urine sediment erythrocyte count by microscopy (number/high power field) NONE NRG Automated urine sediment leukocyte count by microscopy (number/high power field ) RARE NRG Bacteria detection in urine sediment by light microscopy TRACE NRG Squamous epithelial cells detection in urine sediment by light microscopy RARE NRG Crystals detection in urine sediment by light microscopy NONE NRG Casts detection in urine sediment by light microscopy NONE NRG Mucus detection in urine sediment by light microscopy NEGATIVE NRG Complete urinalysis with reflex to culture NO NRG Complete blood count (CBC) with automated white blood cell (WBC) differential - 10/21/17 13:46 Blood leukocytes automated count (number/volume) 18.2 10*3/uL 4.3-11.0 Blood erythrocytes automated count (number/volume) 3.80 10*6/uL 4.35-5.85 Venous blood hemoglobin measurement (mass/volume) 12.0 g/dL 13.3-17.7 Blood hematocrit (volume fraction) 40 % 40-54 Automated erythrocyte mean corpuscular volume 106 [foz_us] 80-99 Automated erythrocyte mean corpuscular hemoglobin (mass per erythrocyte) 32 pg 25-34 Automated erythrocyte mean corpuscular hemoglobin concentration measurement ( mass/volume) 30 g/dL 32-36 Automated erythrocyte distribution width ratio 14.6 % 10.0-14.5 Automated blood platelet count (count/volume) 354 10*3/uL 130-400 Automated blood platelet mean volume measurement 11.7 [foz_us] 7.4-10.4 Automated blood neutrophils/100 leukocytes 88 % 42-75 Automated blood lymphocytes/100 leukocytes 4 % 12-44 Blood monocytes/100 leukocytes 6 % 0-12 Automated blood eosinophils/100 leukocytes 0 % 0-10 Automated blood basophils/100 leukocytes 2 % 0-10 Blood neutrophils automated count (number/volume) 16.0 10*3 1.8-7.8 Blood lymphocytes automated count (number/volume) 0.7 10*3 1.0-4.0 Blood monocytes automated count (number/volume) 1.1 10*3 0.0-1.0 Automated eosinophil count 0.0 10*3/uL 0.0-0.3 Automated blood basophil count (count/volume) 0.4 10*3/uL 0.0-0.1 Capillary blood glucose measurement by glucometer (mass/volume) - 10/21/17 13: 46 Capillary blood glucose measurement by glucometer (mass/volume) > mg /dL 70-110 PT panel in platelet poor plasma by coagulation assay - 10/21/17 13:46 Prothrombin time (PT) in platelet poor plasma by coagulation assay 14.9 s 12.2-14.7 INR in platelet poor plasma or blood by coagulation assay 1.2 0.8-1.4 Activated partial thromboplastin time (aPTT) in platelet poor plasma bycoagulation assay - 10/21/17 13:46 Activated partial thromboplastin time (aPTT) in platelet poor plasma bycoagulation assay 27 s 24-35 Blood manual differential performed detection - 10/21/17 13:46 Blood monocytes/100 leukocytes 4 % NRG Manual blood segmented neutrophils/100 leukocytes 90 % NRG Blood band neutrophils/100 leukocytes 3 % NRG Manual blood lymphocytes/100 leukocytes 3 % NRG Blood erythrocyte morphology finding identification [facility] Comprehensive metabolic panel - 10/21/17 14:14 Serum or plasma sodium measurement (moles/volume) 124 mmol/L 135-145 Serum or plasma potassium measurement (moles/volume) 6.8 mmol/L 3.6-5.0 Serum or plasma chloride measurement (moles/volume) 87 mmol/L 98-107 Carbon dioxide 7 mmol/L 21-32 Serum or plasma anion gap determination (moles/volume) 30 mmol/L 5-14 Serum or plasma urea nitrogen measurement (mass/volume) 39 mg/dL 7-18 Serum or plasma creatinine measurement (mass/volume) 2.46 mg/dL 0.60-1.30 Serum or plasma urea nitrogen/creatinine mass ratio 16 NRG Serum or plasma creatinine measurement with calculation of estimated glomerular filtration rate 26 NRG Serum or plasma glucose measurement (mass/volume) 932 mg/dL 70-105 Serum or plasma calcium measurement (mass/volume) 8.5 mg/dL 8.5-10.1 Serum or plasma total bilirubin measurement (mass/volume) 0.6 mg/dL 0.1-1.0 Serum or plasma alkaline phosphatase measurement (enzymatic activity/volume) 90 U/L 40-136 Serum or plasma aspartate aminotransferase measurement (enzymatic activity/ volume) 9 U/L 5-34 Serum or plasma alanine aminotransferase measurement (enzymatic activity/volume ) 18 U/L 0-55 Serum or plasma protein measurement (mass/volume) 6.7 g/dL 6.4-8.2 Serum or plasma albumin measurement (mass/volume) 3.7 g/dL 3.2-4.5 Magnesium - 10/21/17 14:14 Magnesium 2.2 mg/dL 1.8-2.4 Serum or plasma troponin i.cardiac measurement (mass/volume) - 10/21/17 14:14 Serum or plasma troponin i.cardiac measurement (mass/volume) < ng/ mL <0.30 Myoglobin, serum - 10/21/17 14:14 Myoglobin, serum 1101.3 ng/mL 10.0-92.0 Serum or plasma amylase measurement (enzymatic activity/volume) - 10/21/17 14: 14 Serum or plasma amylase measurement (enzymatic activity/volume) 55 U /L 25-125 Lipase - 10/21/17 14:14 Lipase 95 U/L 8-78 Capillary blood glucose measurement by glucometer (mass/volume) - 10/21/17 14: 53 Capillary blood glucose measurement by glucometer (mass/volume) > mg /dL 70-110 Arterial blood gas measurement - 10/21/17 15:10 Blood pCO2 15 mm[Hg] 35-45 Blood pO2 132 mm[Hg] 79-93 Arterial blood bicarbonate measurement (moles/volume) 4 mmol/L 23-27 Arterial blood base excess by calculation -25.8 mmol/L - 2.5-2.5 Arterial blood oxygen saturation measurement 98 % 94-100 * Inhaled oxygen flow rate 2L NRG Arterial blood pH measurement with patient temperature correction 6.99 7.37-7.43 Arterial blood carbon dioxide, total measurement (moles/volume) 4.1 mmol/L 21.0-31.0 Body site RT BRACH NRG Assessment of wrist artery patency prior to arterial puncture YES- POS NRG Setting of ventilation mode NO NRG Measurement of body temperature 97.2 NRG Complete urinalysis with reflex to culture - 10/21/17 15:45 Urine color determination YELLOW NRG Urine clarity determination CLEAR NRG Urine pH measurement by test strip 5 5-9 Specific gravity of urine by test strip 1.015 1.016- 1.022 Urine protein assay by test strip, semi-quantitative 2+ NEGATIVE Urine glucose detection by automated test strip 4+ NEGATIVE Erythrocytes detection in urine sediment by light microscopy 1+ NEGATIVE Urine ketones detection by automated test strip 4+ NEGATIVE Urine nitrite detection by test strip NEGATIVE NEGATIVE Urine total bilirubin detection by test strip NEGATIVE NEGATIVE Urine urobilinogen measurement by automated test strip (mass/volume) NORMAL NORMAL Urine leukocyte esterase detection by dipstick NEGATIVE NEGATIVE Automated urine sediment erythrocyte count by microscopy (number/high power field) [HPF] NRG Automated urine sediment leukocyte count by microscopy (number/high power field ) NONE NRG Bacteria detection in urine sediment by light microscopy NONE NRG Crystals detection in urine sediment by light microscopy PRESENT NRG Casts detection in urine sediment by light microscopy NONE NRG Mucus detection in urine sediment by light microscopy NEGATIVE NRG Complete urinalysis with reflex to culture NO NRG Amorphous sediment detection in urine sediment by light microscopy FEW ADRIA URATES NRG Whole blood basic metabolic panel - 10/21/17 16:30 Serum or plasma sodium measurement (moles/volume) 129 mmol/L 135-145 Serum or plasma potassium measurement (moles/volume) 5.6 mmol/L 3.6-5.0 Serum or plasma chloride measurement (moles/volume) 95 mmol/L 98-107 Carbon dioxide 7 mmol/L 21-32 Serum or plasma anion gap determination (moles/volume) 27 mmol/L 5-14 Serum or plasma urea nitrogen measurement (mass/volume) 39 mg/dL 7-18 Serum or plasma creatinine measurement (mass/volume) 2.34 mg/dL 0.60-1.30 Serum or plasma urea nitrogen/creatinine mass ratio 17 NRG Serum or plasma creatinine measurement with calculation of estimated glomerular filtration rate 28 NRG Serum or plasma glucose measurement (mass/volume) 681 mg/dL 70-105 Serum or plasma calcium measurement (mass/volume) 8.3 mg/dL 8.5-10.1 Hemoglobin A1c - 10/21/17 16:30 Hemoglobin A1c 7.7 % 4.5-6.2 Whole blood basic metabolic panel - 10/21/17 18:03 Serum or plasma sodium measurement (moles/volume) 129 mmol/L 135-145 Serum or plasma potassium measurement (moles/volume) 5.1 mmol/L 3.6-5.0 Serum or plasma chloride measurement (moles/volume) 98 mmol/L 98-107 Carbon dioxide 7 mmol/L 21-32 Serum or plasma anion gap determination (moles/volume) 24 mmol/L 5-14 Serum or plasma urea nitrogen measurement (mass/volume) 39 mg/dL 7-18 Serum or plasma creatinine measurement (mass/volume) 2.28 mg/dL 0.60-1.30 Serum or plasma urea nitrogen/creatinine mass ratio 17 NRG Serum or plasma creatinine measurement with calculation of estimated glomerular filtration rate 28 NRG Serum or plasma glucose measurement (mass/volume) 660 mg/dL 70-105 Serum or plasma calcium measurement (mass/volume) 8.0 mg/dL 8.5-10.1 Capillary blood glucose measurement by glucometer (mass/volume) - 10/21/17 18: 11 Capillary blood glucose measurement by glucometer (mass/volume) 599 mg/dL 70-110 Capillary blood glucose measurement by glucometer (mass/volume) - 10/21/17 20: 18 Capillary blood glucose measurement by glucometer (mass/volume) 433 mg/dL 70-110 Whole blood basic metabolic panel - 10/21/17 20:18 Serum or plasma sodium measurement (moles/volume) 131 mmol/L 135-145 Serum or plasma potassium measurement (moles/volume) 5.1 mmol/L 3.6-5.0 Serum or plasma chloride measurement (moles/volume) 100 mmol/L 98-107 Carbon dioxide 9 mmol/L 21-32 Serum or plasma anion gap determination (moles/volume) 22 mmol/L 5-14 Serum or plasma urea nitrogen measurement (mass/volume) 39 mg/dL 7-18 Serum or plasma creatinine measurement (mass/volume) 2.45 mg/dL 0.60-1.30 Serum or plasma urea nitrogen/creatinine mass ratio 16 NRG Serum or plasma creatinine measurement with calculation of estimated glomerular filtration rate 26 NRG Serum or plasma glucose measurement (mass/volume) 509 mg/dL 70-105 Serum or plasma calcium measurement (mass/volume) 8.6 mg/dL 8.5-10.1 Capillary blood glucose measurement by glucometer (mass/volume) - 10/21/17 21: 14 Capillary blood glucose measurement by glucometer (mass/volume) 427 mg/dL 70-110 Capillary blood glucose measurement by glucometer (mass/volume) - 10/21/17 22: 06 Capillary blood glucose measurement by glucometer (mass/volume) 370 mg/dL 70-110 Capillary blood glucose measurement by glucometer (mass/volume) - 10/21/17 22: 57 Capillary blood glucose measurement by glucometer (mass/volume) 397 mg/dL 70-110 Whole blood basic metabolic panel - 10/22/17 00:05 Serum or plasma sodium measurement (moles/volume) 132 mmol/L 135-145 Serum or plasma potassium measurement (moles/volume) 4.8 mmol/L 3.6-5.0 Serum or plasma chloride measurement (moles/volume) 102 mmol/L 98-107 Carbon dioxide 16 mmol/L 21-32 Serum or plasma anion gap determination (moles/volume) 14 mmol/L 5-14 Serum or plasma urea nitrogen measurement (mass/volume) 38 mg/dL 7-18 Serum or plasma creatinine measurement (mass/volume) 2.17 mg/dL 0.60-1.30 Serum or plasma urea nitrogen/creatinine mass ratio 18 NRG Serum or plasma creatinine measurement with calculation of estimated glomerular filtration rate 30 NRG Serum or plasma glucose measurement (mass/volume) 395 mg/dL 70-105 Serum or plasma calcium measurement (mass/volume) 8.2 mg/dL 8.5-10.1 Capillary blood glucose measurement by glucometer (mass/volume) - 10/22/17 00: 07 Capillary blood glucose measurement by glucometer (mass/volume) 346 mg/dL 70-110 Capillary blood glucose measurement by glucometer (mass/volume) - 10/22/17 01: 04 Capillary blood glucose measurement by glucometer (mass/volume) 397 mg/dL 70-110 Capillary blood glucose measurement by glucometer (mass/volume) - 10/22/17 01: 59 Capillary blood glucose measurement by glucometer (mass/volume) 362 mg/dL 70-110 Capillary blood glucose measurement by glucometer (mass/volume) - 10/22/17 02: 57 Capillary blood glucose measurement by glucometer (mass/volume) 256 mg/dL 70-110 Capillary blood glucose measurement by glucometer (mass/volume) - 10/22/17 03: 52 Capillary blood glucose measurement by glucometer (mass/volume) 221 mg/dL 70-110 Capillary blood glucose measurement by glucometer (mass/volume) - 10/22/17 04: 47 Capillary blood glucose measurement by glucometer (mass/volume) 187 mg/dL 70-110 Complete blood count (CBC) with automated white blood cell (WBC) differential - 10/22/17 04:50 Blood leukocytes automated count (number/volume) 20.3 10*3/uL 4.3-11.0 Blood erythrocytes automated count (number/volume) 3.50 10*6/uL 4.35-5.85 Venous blood hemoglobin measurement (mass/volume) 10.9 g/dL 13.3-17.7 Blood hematocrit (volume fraction) 34 % 40-54 Automated erythrocyte mean corpuscular volume 98 [foz_us] 80-99 Automated erythrocyte mean corpuscular hemoglobin (mass per erythrocyte) 31 pg 25-34 Automated erythrocyte mean corpuscular hemoglobin concentration measurement ( mass/volume) 32 g/dL 32-36 Automated erythrocyte distribution width ratio 13.9 % 10.0-14.5 Automated blood platelet count (count/volume) 268 10*3/uL 130-400 Automated blood platelet mean volume measurement 10.8 [foz_us] 7.4-10.4 Automated blood neutrophils/100 leukocytes 83 % 42-75 Automated blood lymphocytes/100 leukocytes 12 % 12-44 Blood monocytes/100 leukocytes 5 % 0-12 Automated blood eosinophils/100 leukocytes 1 % 0-10 Automated blood basophils/100 leukocytes 0 % 0-10 Blood neutrophils automated count (number/volume) 16.7 10*3 1.8-7.8 Blood lymphocytes automated count (number/volume) 2.3 10*3 1.0-4.0 Blood monocytes automated count (number/volume) 1.1 10*3 0.0-1.0 Automated eosinophil count 0.1 10*3/uL 0.0-0.3 Automated blood basophil count (count/volume) 0.1 10*3/uL 0.0-0.1 Whole blood basic metabolic panel - 10/22/17 04:50 Serum or plasma sodium measurement (moles/volume) 135 mmol/L 135-145 Serum or plasma potassium measurement (moles/volume) 4.2 mmol/L 3.6-5.0 Serum or plasma chloride measurement (moles/volume) 106 mmol/L 98-107 Carbon dioxide 18 mmol/L 21-32 Serum or plasma anion gap determination (moles/volume) 11 mmol/L 5-14 Serum or plasma urea nitrogen measurement (mass/volume) 34 mg/dL 7-18 Serum or plasma creatinine measurement (mass/volume) 1.79 mg/dL 0.60-1.30 Serum or plasma urea nitrogen/creatinine mass ratio 19 NRG Serum or plasma creatinine measurement with calculation of estimated glomerular filtration rate 38 NRG Serum or plasma glucose measurement (mass/volume) 204 mg/dL 70-105 Serum or plasma calcium measurement (mass/volume) 8.3 mg/dL 8.5-10.1 Serum or plasma phosphate measurement (mass/volume) - 10/22/17 04:50 Serum or plasma phosphate measurement (mass/volume) 1.4 mg/dL 2.3-4.7 Magnesium - 10/22/17 04:50 Magnesium 1.8 mg/dL 1.8-2.4 Lipid 1996 panel - 10/22/17 04:50 Serum or plasma triglyceride measurement (mass/volume) 73 mg/dL <150 Serum or plasma cholesterol measurement (mass/volume) 148 mg/dL < 200 Serum or plasma cholesterol in HDL measurement (mass/volume) 54 mg/ dL 40-60 Cholesterol in LDL [mass/volume] in serum or plasma by direct assay 79 mg/dL 1-129 Serum or plasma cholesterol in VLDL measurement (mass/volume) 15 mg/ dL 5-40 Capillary blood glucose measurement by glucometer (mass/volume) - 10/22/17 05: 53 Capillary blood glucose measurement by glucometer (mass/volume) 157 mg/dL 70-110 Capillary blood glucose measurement by glucometer (mass/volume) - 10/22/17 06: 59 Capillary blood glucose measurement by glucometer (mass/volume) 132 mg/dL 70-110 Capillary blood glucose measurement by glucometer (mass/volume) - 10/22/17 07: 59 Capillary blood glucose measurement by glucometer (mass/volume) 127 mg/dL 70-110 Capillary blood glucose measurement by glucometer (mass/volume) - 10/22/17 08: 30 Capillary blood glucose measurement by glucometer (mass/volume) 97 mg/dL 70-110 Whole blood basic metabolic panel - 10/22/17 08:30 Serum or plasma sodium measurement (moles/volume) 136 mmol/L 135-145 Serum or plasma potassium measurement (moles/volume) 3.9 mmol/L 3.6-5.0 Serum or plasma chloride measurement (moles/volume) 109 mmol/L 98-107 Carbon dioxide 18 mmol/L 21-32 Serum or plasma anion gap determination (moles/volume) 9 mmol/L 5-14 Serum or plasma urea nitrogen measurement (mass/volume) 29 mg/dL 7-18 Serum or plasma creatinine measurement (mass/volume) 1.51 mg/dL 0.60-1.30 Serum or plasma urea nitrogen/creatinine mass ratio 19 NRG Serum or plasma creatinine measurement with calculation of estimated glomerular filtration rate 46 NRG Serum or plasma glucose measurement (mass/volume) 110 mg/dL 70-105 Serum or plasma calcium measurement (mass/volume) 8.3 mg/dL 8.5-10.1 Capillary blood glucose measurement by glucometer (mass/volume) - 10/22/17 09: 01 Capillary blood glucose measurement by glucometer (mass/volume) 131 mg/dL 70-110 Encounters ACCT No. Visit Date/Time Discharge Status Pt. Type Provider Facility Loc./Unit Complaint [id number] 09/22/2017 11:55:00 09/22/2017 14:15:00 DIS Emergency GABRIELLE SCHMID, NAKIA Alvarado [facility] ER AMS [id number] 08/26/2017 10:31:00 08/26/2017 14:09:00 DIS Emergency RODRIGUEZ DAVILA MD [facility] ER DIARRHEA/VOMITING DIZZY LIGHTHEADED [id number] 02/20/2017 07:27:00 02/20/2017 10:20:00 DIS Outpatient EDEL GUTIERREZ MD [facility] ENDO HISTORY OF COLON CANCER [id number] 02/17/2017 05:43:00 02/17/2017 12:12:00 DIS Outpatient EDEL GUTIERREZ MD [facility] PREOP HISTORY OF COLON CANCER [id number] 01/30/2017 14:07:00 01/31/2017 14:15:00 DIS Inpatient LILIAN BARRETT MD [facility] 4TH LARGE BOWEL OBSTRUCTION [id number] 12/13/2016 11:40:00 12/13/2016 14:28:00 DIS Emergency MARCO ANTONIO AMEZCUA MD [facility] ER UPPER BACK PAIN [id number] 08/03/2016 17:28:00 08/03/2016 19:02:00 DIS Emergency GIOVANA MORTENSEN [facility] ER FALL [id number] 06/12/2016 11:12:00 06/12/2016 13:18:00 DIS Outpatient EDEL GUTIERREZ MD [facility] REHAB DECONDITIONING AND FREQUENT FALLS [id number] 04/16/2016 12:03:00 04/19/2016 10:23:00 DIS Inpatient NITO ALLISON DO [facility] 4TH PNEUMONIA SEPSIS [id number] 02/09/2015 14:46:00 02/09/2015 23:59:59 CLS Outpatient COLTHARP RENEE PENNINGTON A [facility] QUICK [id number] 01/09/2014 20:23:00 01/10/2014 06:30:00 DIS Outpatient BRAULIO ARIAS MD [facility] SLEEP SLEEP APENA [id number] 11/23/2013 12:44:00 11/28/2013 13:31:00 DIS Outpatient KRISTITERTRANG MONSALVE DO [facility] REHAB S/P R TKR [id number] 10/10/2013 06:00:00 10/13/2013 12:00:00 DIS Inpatient KRISTITERTRANG MONSALVE DO [facility] SURGICAL RIGHT KNEE DJD [id number] 09/27/2013 08:51:00 09/27/2013 23:59:59 CLS Outpatient TRANG CADENA DO [facility] PREOP RIGHT KNEE DJD [id number] 03/23/2013 10:25:00 04/04/2013 15:51:00 DIS Outpatient TRANG CADENA DO [facility] REHAB LT KNEE PAIN S/P REVISION TOTAL KNEE [id number] 02/22/2013 10:00:00 02/25/2013 18:50:00 DIS Inpatient [id number] 10/21/2017 15:34:00 ACT Inpatient BYRON SCHMID, SHAZIA Chacon [facility] ICU DKA [id number] 04/16/2016 12:50:00 Document Registration [id number] 04/15/2012 09:10:00 Document Registration
[2017-10-22] MEDS ORDERED: [UNRECOGNIZED DRUG - OTHER] PO (09:57)
[2017-10-22] MEDS ORDERED: ONDA4TAB11 PO (09:57)
[2017-10-22] MEDS ORDERED: [UNRECOGNIZED DRUG - OTHER] PO (09:57)
[2017-10-22] MEDS ORDERED: ESCI10TA55 PO (09:57)
[2017-10-22] MEDS ORDERED: CHOL500044 PO (09:57)
[2017-10-22] MEDS ORDERED: DOCU-143 PO (09:57)
[2017-10-22] MEDS ORDERED: DIPH50LI PO (09:57)
[2017-10-22] MEDS ORDERED: MELA5TAB14 PO (09:57)
[2017-10-22] MEDS ORDERED: POLY17PO6 PO (09:57)
[2017-10-22] MEDS ORDERED: MULT-35 PO (10:01)
--- OUTSIDE RECORDS SUMMARY | 2017-10-22 10:02 | XMS REPORT | Continuity of Care Document ---
Author Author [facility] Organization [facility] Address Unknown Phone Unavailable Allergies Active Description Code Type Severity Reaction Onset Reported/Identified Relationship to Patient Clinical Status Yes No Known Drug Allergies [id number] Drug Allergy Mild N/A 04/19/2009 Yes No Known Drug Allergies [id number] Drug Allergy Unknown N/A 02/20/2017 Medications There [...] TYPE II OR UNSPEC TY 10/13/2013 TRANG CAEDNA DO Ot 304.90 DRUG DEPEND NOS-UNSPEC 10/13/2013 TRANG CADENA DO Ot 311 DEPRESSIVE DISORDER NEC 10/13/2013 TRANG CADENA DO Ot 401.9 HYPERTENSION NOS 10/13/2013 TRANG CADENA DO Ot 715.36 LOC OSTEOARTH NOS-L/LEG 10/13/2013 TRANG CADENA DO Ot 724.00 SPINAL STENOSIS NOS 10/13/2013 TRANG CADENA DO, Ot V12.29 PERSONAL HX OF [facility], METABOLIC 10/13/2013 TRANG CADENA DO, [...] HYPOXEMIA 04/19/2016 KEEGAN PENNINGTON NITO Ot Z79.4 ALF (CURRENT) USE OF INSULIN 04/19/2016 KEEGAN PENNINGTON [...] GIOVANA MORTENSEN Ot Y92.[address] IN [facility] (PRIVATE 08/03/2016 GIOVANA MORTENSEN Ot Y93.89 ACTIVITY, OTHER SPECIFIED 08/03/2016 GIOVANA MORTENSEN Ot Y99.8 OTHER EXTERNAL CAUSE STATUS 08/03/2016 GIOVANA MORTENSEN Ot 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 08/03/2016 GIOVANA MORTENSEN Ot Z79.82 FOUNDRY WORKER GENERAL (CURRENT) USE OF ASPIRIN 08/03/2016 GIOVANA MORTENSEN Ot Z79.899 OTHER FOUNDRY WORKER GENERAL (CURRENT) DRUG THERAPY 08/05/2016 GIOVANA MORTENSEN Ot [...] GIOVANA MORTENSEN Ot Y92.[address] IN [facility] NONINSTIT[facility] (PRIVATE 08/05/2016 GIOVANA MORTENSEN Ot Y93.89 ACTIVITY, OTHER SPECIFIED 08/05/2016 GIOVANA MORTENSEN Ot Y99.8 OTHER EXTERNAL CAUSE STATUS 08/05/2016 GIOVANA MORTENSEN Ot 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 08/05/2016 GIOVANA MORTENSEN Ot Z79.82 ALF (CURRENT) USE OF ASPIRIN 08/05/2016 GIOVANA MORTENSEN Ot Z79.899 OTHER FOUNDRY WORKER GENERAL (CURRENT) DRUG THERAPY 12/13/2016 MARCO ANTONIO AMEZCUA [...] 12/13/2016 MARCO ANTONIO AMEZCUA MD, Ot 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 12/13/2016 MARCO ANTONIO AMEZCUA MD Ot Z79.82 ALF (CURRENT) USE OF ASPIRIN 12/13/2016 MARCO ANTONIO AMEZCUA MD, Ot Z79.899 OTHER FOUNDRY WORKER GENERAL (CURRENT) DRUG THERAPY 12/16/2016 MARCO ANTONIO AMEZCUA [...] 12/16/2016 MARCO ANTONIO AMEZCUA MD, Ot 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 12/16/2016 MARCO ANTONIO AMEZCUA MD, Ot Z79.82 FOUNDRY WORKER GENERAL (CURRENT) USE OF ASPIRIN 12/16/2016 MARCO ANTONIO AMEZCUA MD, Ot Z79.899 OTHER ALF (CURRENT) DRUG THERAPY 01/31/2017 LILIAN BARRETT MD [...] UNSPECIFIED 01/31/2017 LILIAN BARRETT MD Ot Z79.4 ALF (CURRENT) USE OF INSULIN 01/31/2017 ILLIAN BARRETT MD, Ot Z87.891 PERSONAL HISTORY OF NICOTINE DEPENDENCE 01/31/2017 LILIAN BARRETT MD Ot Z96.651 PRESENCE OF RIGHT ARTIFICIAL KNEE JOINT 01/31/2017 LILIAN BARRETT MD, Ot Z96.652 PRESENCE OF LEFT ARTIFICIAL KNEE JOINT 02/17/2017 EDLE GUTIERREZ MD Ot Z01.818 ENCOUNTER FOR OTHER [...] INT W/O PERFORATION OR AB 02/20/2017 EDEL GUTIERREZ MD Ot K59.00 CONSTIPATION, UNSPECIFIED 02/20/2017 EDEL GUTIERREZ MD Ot N40.0 BENIGN PROSTATIC HYPERPLASIA WITHOUT LOW 02/20/2017 EDEL GUTIERREZ MD Ot Z79.4 ALF (CURRENT) USE OF INSULIN 02/27/2017 EDEL GUTIERREZ [...] PAIN 08/26/2017 RODRIGUEZ DAVILA MD Ot Z79.82 ALF (CURRENT) USE OF ASPIRIN 08/26/2017 RODRIGUEZ DAVILA [...] Ot G47.30 SLEEP APNEA, UNSPECIFIED 08/28/2017 RODRIGUEZ DAIVLA MD Ot I10 ESSENTIAL (PRIMARY) HYPERTENSION 08/28/2017 RODRIGUEZ DAVILA MD Ot K52.9 NONINFECTIVE GASTROENTERITIS AND COLITIS 08/28/2017 RODRIGUEZ DAVILA MD Ot R10.13 EPIGASTRIC PAIN 08/28/2017 RODRIGUEZ DAVILA MD Ot Z79.82 FOUNDRY WORKER GENERAL (CURRENT) USE OF ASPIRIN 08/28/2017 RODRIGUEZ DAVILA [...] AGITATION 09/22/2017 NAKIA ANTHONY MD, Ot Z79.4 ALF (CURRENT) USE OF INSULIN 09/22/2017 NAKIA ANTHONY MD, Ot Z79.82 FOUNDRY WORKER GENERAL (CURRENT) USE OF ASPIRIN 09/22/2017 NAKIA ANTHONY [...] NRG Blood erythrocyte morphology finding identification NORMAL [facility] Comprehensive metabolic panel - 10/21/17 14:14 Serum [...] Status Pt. Type Provider Facility Loc./Unit Complaint [id number] 09/22/2017 11:55:00 09/22/2017 14:15:00 DIS Emergency GABRIELLE SCHMID, NAKIA Alvarado [facility] ER AMS [id number] 08/26/2017 10:31:00 08/26/2017 14:09:00 DIS Emergency RODRIGUEZ DAVILA MD [facility] ER DIARRHEA/VOMITING DIZZY LIGHTHEADED [id number] 02/20/2017 07:27:00 02/20/2017 10:20:00 DIS Outpatient EDEL GUTIERREZ MD [facility] ENDO HISTORY OF COLON CANCER [id number] 02/17/2017 05:43:00 02/17/2017 12:12:00 DIS Outpatient EDEL GUTIERREZ MD [facility] PREOP HISTORY OF COLON CANCER [id number] 01/30/2017 14:07:00 01/31/2017 14:15:00 DIS Inpatient LILIAN BARRETT MD [facility] 4TH LARGE BOWEL OBSTRUCTION [id number] 12/13/2016 11:40:00 12/13/2016 14:28:00 DIS Emergency MARCO ANTONIO AMEZCUA MD [facility] ER UPPER BACK PAIN [id number] 08/03/2016 17:28:00 08/03/2016 19:02:00 DIS Emergency GIOVANA MORTENSEN [facility] ER FALL [id number] 06/12/2016 11:12:00 06/12/2016 13:18:00 DIS Outpatient EDEL GUTIERREZ MD [facility] REHAB DECONDITIONING AND FREQUENT FALLS [id number] 04/16/2016 12:03:00 04/19/2016 10:23:00 DIS Inpatient NITO ALLISON DO [facility] 4TH PNEUMONIA SEPSIS [id number] 02/09/2015 14:46:00 02/09/2015 23:59:59 CLS Outpatient COLTHARP RENEE PENNINGTON A [facility] QUICK [id number] 01/09/2014 20:23:00 01/10/2014 06:30:00 DIS Outpatient BRAULIO ARIAS MD [facility] SLEEP SLEEP APENA [id number] 11/23/2013 12:44:00 11/28/2013 13:31:00 DIS Outpatient KRISTITERTRANG MONSALVE DO [facility] REHAB S/P R TKR [id number] 10/10/2013 06:00:00 10/13/2013 12:00:00 DIS Inpatient KRISTITERTRANG MONSALVE DO [facility] SURGICAL RIGHT KNEE DJD [id number] 09/27/2013 08:51:00 09/27/2013 23:59:59 CLS Outpatient TRANG CADENA DO [facility] PREOP RIGHT KNEE DJD [id number] 03/23/2013 10:25:00 04/04/2013 15:51:00 DIS Outpatient TRANG CADENA DO [facility] REHAB LT KNEE PAIN S/P REVISION TOTAL KNEE [id number] 02/22/2013 10:00:00 02/25/2013 18:50:00 DIS Inpatient [id number] 10/21/2017 15:34:00 ACT Inpatient BYRON SCHMID, SHAZIA Chacon [facility] ICU DKA [id number] 04/16/2016 12:50:00 Document Registration [id number] 04/15/2012 09:10:00 Document Registration
[2017-10-22] MEDS ORDERED: INSU100V (10:04)
[2017-10-22] MEDS ORDERED: ZINC OXIDE 40% OINT (DESITIN) 28 GM TOP PRN (12:30)
[2017-10-22] MEDS: HYDROcodone/APAP 5 MG/325 MG (LORTAB) TAB PO PRN ×2 (12:58→20:39)
[2017-10-22] MEDS: ONDANSETRON 4 MG/2 ML (SDV) Z0FRAN IVP PRN ×2 (14:14→20:56)
--- NOTE | 2017-10-22 15:42 | Pulmonary Progress Note ---
Subjective Time Seen by Provider: 15:41 Subjective/Events-last exam BP is improved with IVF. Exam Exam Vital Signs Date Time Temp Pulse Resp B/P (MAP) Pulse Ox O2 Delivery O2 Flow Rate FiO2 10/22/17 11:00 98 21 108/38 (61) 96 Room Air 10/22/17 10:00 90 17 94/61 (72) 97 Room Air 10/22/17 09:00 94 12 96/43 (60) 99 Room Air 10/22/17 08:41 99.0 10/22/17 08:00 91 19 96/46 (63) 96 Room Air 10/22/17 07:01 91 10/22/17 07:00 91 12 97/70 (79) 97 Room Air 10/22/17 06:00 92 17 91/40 (57) 97 Room Air 10/22/17 05:00 100.0 10/22/17 05:00 91 18 97/49 (65) 98 Room Air 10/22/17 04:00 95 20 84/53 (63) 95 Room Air 10/22/17 04:00 100 Room Air 10/22/17 03:00 19 19 94/42 (59) 97 Room Air 10/22/17 02:00 94 21 100/61 (74) 97 10/22/17 01:00 93 17 95/34 (54) 97 10/22/17 01:00 93 10/22/17 00:00 100 Room Air 10/22/17 00:00 93 16 95/43 (60) 99 10/22/17 00:00 99.0 10/21/17 23:00 94 16 99/45 (63) 99 Room Air 10/21/17 22:00 98 20 89/40 (56) 98 Room Air 10/21/17 22:00 100.0 10/21/17 21:00 97 12 93/38 (56) 97 Room Air 10/21/17 20:00 100 Room Air 10/21/17 20:00 96 16 103/16 (45) 98 Room Air 10/21/17 20:00 99.0 Room Air 10/21/17 19:05 Room Air 10/21/17 19:00 97 17 96/48 (64) 100 Room Air 10/21/17 19:00 98 10/21/17 18:00 98 26 102/47 (65) 100 Nasal Cannula 2.00 10/21/17 17:00 97 19 90/46 (61) 100 Nasal Cannula 2.00 10/21/17 16:22 105 10/21/17 16:20 Nasal Cannula 2.00 10/21/17 16:15 97.2 10/21/17 16:04 98.1 105 20 100 2.00 10/21/17 16:00 107 15 101/39 (59) 100 Nasal Cannula 2.00 I & O 10/22/17 07:00 Intake Total 5000 ml Output Total 1625 ml Balance 3375 ml General Appearance: No Apparent Distress, Chronically ill HEENT: PERRL/EOMI, Pharynx Normal Neck: Full Range of Motion, Normal Inspection, Non Tender Respiratory: Chest Non Tender, Lungs Clear, Normal Breath Sounds, No Accessory Muscle Use, No Respiratory Distress Cardiovascular: Regular Rate, Rhythm, No Edema, No Gallop, No JVD, No Murmur, Normal Peripheral Pulses Capillary Refill: Less Than 3 Seconds Extremity: Normal Inspection, Normal Range of Motion, Non Tender, No Calf Tenderness, No Pedal Edema Neurologic/Psychiatric: Depressed Affect, Other (moving about the bed and moaning. Is redirectable with verbal. Somewhat disoriented to time.) Skin: Normal Color, Warm/Dry Results Lab Laboratory Tests 10/21/17 13:46 10/21/17 14:14 10/21/17 16:30 10/21/17 18:03 10/21/17 20:18 10/22/17 00:05 10/22/17 04:50 10/22/17 08:30 Assessment/Plan Assessment/Plan Acute DKA -Continue DKA protocol ARF with Hyperkalemia -IVF -insulin gtt Hypotension - improved with IVF -IVF leukocytosis -winters cultures pending -start Zosyn 233 Clinical Quality Measures DVT/VTE Risk/Contraindication: Risk Factor Score Per Nursin RFS Level Per Nursing on Admit: 4+=Very High MANSOOR ZABALA DO Oct 22, 2017 15:42
[2017-10-22] MEDS ORDERED: PIPERACILLIN/TAZOBACTAM 4.5 GM/NS 100 ML IV NR ×2 (16:15)
--- NOTE | 2017-10-22 16:28 | Diagnostic Imaging Report ---
INDICATION: Sepsis. Portable chest at 3:43 PM FINDINGS: Heart size and pulmonary vascularity are normal. Lungs are clear. There are no effusions or pneumothoraces. IMPRESSION: Negative chest. Dictated by: Dictated on workstation # [id number]
[2017-10-22] MEDS: VENlafaxine 75 MG (EFFEXOR) TAB PO SCH (17:43)
[2017-10-22] MEDS: PIPERACILLIN SODIUM/TAZOBACTAM 4.5 GM in NS (IVPB) 100 ML IV SCH (21:50)
[2017-10-22 23:35] LABS: ANION GAP 9 MMOL/L (5-14); BLOOD UREA NITROGEN 16 MG/DL (7-18); BUN/CREATININE RATIO 16; CALCIUM 8.2 MG/DL (8.5-10.1); CARBON DIOXIDE 19 MMOL/L (21-32); CHLORIDE 109 MMOL/L (98-107); CREATININE SERUM 1.03 MG/DL (0.60-1.30); GFR ESTIMATED > 60; GLUCOSE 152 MG/DL (70-105); POTASSIUM 4.5 MMOL/L (3.6-5.0); SODIUM 137 MMOL/L (135-145)
[2017-10-23] VITALS (24 sets, daily range): BP systolic 102–162; BP diastolic 51–123
[2017-10-23] MEDS: HYDROcodone/APAP 5 MG/325 MG (LORTAB) TAB PO PRN ×2 (00:21→15:23)
[2017-10-23] MEDS ORDERED: CATHETER FLUSH 10 ML SYR IV PRN (01:45)
[2017-10-23] MEDS: NS IV 1000 ML 1,000 ML IV SCH (01:45)
[2017-10-23] MEDS: NS W/KCL 20 MEQ/L 1,000 ML IV SCH ×5 (01:46→23:19)
[2017-10-23] MEDS: D5 1/2 NS W/KCL 20 MEQ/L 1,000 ML IV SCH (04:14)
[2017-10-23 05:26] LABS: BASOPHILS # (AUTO) 0.1 10^3/uL (0.0-0.1); BASOPHILS % (AUTO) 0 % (0-10); EOSINOPHILS # (AUTO) 0.2 10^3/uL (0.0-0.3); EOSINOPHILS % (AUTO) 2 % (0-10); LYMPHOCYTES # (AUTO) 1.2 X 10^3 (1.0-4.0); LYMPHOCYTES % (AUTO) 10 % (12-44); MEAN CORPUSCULAR HEMOGLOBIN 31 PG (25-34); MEAN CORPUSCULAR HGB CONC 31 G/DL (32-36); MEAN CORPUSCULAR VOLUME 100 FL (80-99); MEAN PLATELET VOLUME 10.9 FL (7.4-10.4); MONOCYTES # (AUTO) 0.5 X 10^3 (0.0-1.0); MONOCYTES % (AUTO) 4 % (0-12); NEUTROPHILS # (AUTO) 10.7 X 10^3 (1.8-7.8); NEUTROPHILS % (AUTO) 84 % (42-75); PLATELET COUNT 227 10^3/uL (130-400); RED BLOOD COUNT 3.48 10^6/uL (4.35-5.85); RED CELL DISTRIBUTION WIDTH 14.3 % (10.0-14.5); WHITE BLOOD COUNT 12.7 10^3/uL (4.3-11.0)
[2017-10-23 05:45] LABS: ANION GAP 16 MMOL/L (5-14); BLOOD UREA NITROGEN 18 MG/DL (7-18); BUN/CREATININE RATIO 15; CALCIUM 8.3 MG/DL (8.5-10.1); CARBON DIOXIDE 12 MMOL/L (21-32); CHLORIDE 104 MMOL/L (98-107); CREATININE SERUM 1.18 MG/DL (0.60-1.30); GFR ESTIMATED > 60; MAGNESIUM 1.8 MG/DL (1.8-2.4); PHOSPHORUS 1.7 MG/DL (2.3-4.7); POTASSIUM 5.4 MMOL/L (3.6-5.0); SODIUM 132 MMOL/L (135-145)
[2017-10-23 05:48] LABS: GLUCOSE 555 MG/DL (70-105)
[2017-10-23] MEDS ORDERED: inSUlin (REGULAR) HUMAN 1 UNIT/0.01 ML (CHARGE PER UNIT) SC SCH ×3 (06:00→11:00)
[2017-10-23] MEDS: KCL 20 MEQ TAB (K-DUR) PO SCH (06:05)
[2017-10-23] MEDS: MAGNESIUM 1 GM/100 ML IVPB 100 ML IV SCH (06:05)
[2017-10-23] MEDS: POTASSIUM CL 10MEQ/50ML IVPB 50 ML IV SCH (06:05)
[2017-10-23] MEDS: PIPERACILLIN SODIUM/TAZOBACTAM 4.5 GM in NS (IVPB) 100 ML IV SCH ×3 (06:18→23:02)
[2017-10-23] MEDS ORDERED: NS W/KCL 20 MEQ/L 1,000 ML IV ONE (06:37)
--- NOTE | 2017-10-23 06:40 | Pulmonary Progress Note ---
Subjective Time Seen by Provider: 06:40 Subjective/Events-last exam PT is back in DKA Exam Exam Vital Signs Date Time Temp Pulse Resp B/P (MAP) Pulse Ox O2 Delivery O2 Flow Rate FiO2 10/23/17 06:00 96 14 147/103 (118) 95 Nasal Cannula 2.00 10/23/17 05:00 98 11 162/76 (104) 96 Nasal Cannula 2.00 10/23/17 04:00 99 Room Air 10/23/17 04:00 96 28 111/62 (78) 97 Nasal Cannula 2.00 10/23/17 04:00 97.6 10/23/17 03:00 93 13 135/87 (103) 97 Nasal Cannula 2.00 10/23/17 02:00 104 11 117/90 (99) 95 Nasal Cannula 2.00 10/23/17 01:00 99 10/23/17 01:00 100 13 161/81 (107) 96 Nasal Cannula 2.00 10/23/17 00:00 99 Room Air 10/23/17 00:00 96.9 10/23/17 00:00 97 11 147/123 (131) 98 Nasal Cannula 2.00 10/22/17 23:00 89 26 145/53 (83) 100 Nasal Cannula 2.00 10/22/17 22:00 84 14 129/79 (96) 98 Nasal Cannula 2.00 10/22/17 21:00 83 20 133/57 (82) 100 Nasal Cannula 2.00 10/22/17 20:00 97.7 10/22/17 20:00 84 17 124/68 (86) 100 Nasal Cannula 2.00 10/22/17 20:00 99 Room Air 10/22/17 19:01 89 10/22/17 19:00 87 17 114/61 (78) 100 Nasal Cannula 2.00 10/22/17 18:00 86 13 115/61 (79) 98 Nasal Cannula 2.00 10/22/17 17:00 85 10 135/69 (91) 99 Nasal Cannula 2.00 10/22/17 16:45 99 Room Air 10/22/17 16:00 89 17 128/89 (102) 98 Nasal Cannula 2.00 10/22/17 15:00 86 19 109/62 (78) 99 Room Air 10/22/17 14:00 89 14 97 Room Air 10/22/17 13:00 86 8 134/65 (88) 98 Room Air 10/22/17 12:59 88 10/22/17 12:15 99 Room Air 10/22/17 12:00 87 11 112/72 (85) 100 Room Air 10/22/17 11:00 98 21 108/38 (61) 96 Room Air 10/22/17 10:00 90 17 94/61 (72) 97 Room Air 10/22/17 09:00 94 12 96/43 (60) 99 Room Air 10/22/17 08:41 99.0 10/22/17 08:30 99 Room Air 10/22/17 08:00 91 19 96/46 (63) 96 Room Air 10/22/17 07:01 91 10/22/17 07:00 91 12 97/70 (79) 97 Room Air I & O 10/23/17 07:00 Intake Total 3410 ml Output Total 4900 ml Balance -1490 ml General Appearance: No Apparent Distress, Chronically ill HEENT: PERRL/EOMI, Pharynx Normal Neck: Full Range of Motion, Normal Inspection, Non Tender Respiratory: Chest Non Tender, Lungs Clear, Normal Breath Sounds, No Accessory Muscle Use, No Respiratory Distress Cardiovascular: Regular Rate, Rhythm, No Edema, No Gallop, No JVD, No Murmur, Normal Peripheral Pulses Capillary Refill: Less Than 3 Seconds Extremity: Normal Inspection, Normal Range of Motion, Non Tender, No Calf Tenderness, No Pedal Edema Neurologic/Psychiatric: Depressed Affect, Other (moving about the bed and moaning. Is redirectable with verbal. Somewhat disoriented to time.) Skin: Normal Color, Warm/Dry Results Lab Laboratory Tests 10/21/17 13:46 10/21/17 14:14 10/21/17 16:30 10/21/17 18:03 10/21/17 20:18 10/22/17 00:05 10/22/17 04:50 10/22/17 08:30 10/22/17 23:10 10/23/17 04:40 Assessment/Plan Assessment/Plan Acute DKA -Insulin gtt was turned off last night per EICU. I did tell nursing staff not to D/C DKA protocol until C02 is >20. Long acting insulin was not ordered when DKA protocol was d/c'd Pt is now back in DKA. -restart DKA protocol. pt will need long acting insulin 2hrs prior to d/ cing insulin gtt. ARF with Hyperkalemia -IVF -insulin gtt leukocytosis -winters cultures pending -start Zosyn 233 Clinical Quality Measures DVT/VTE Risk/Contraindication: Risk Factor Score Per Nursin RFS Level Per Nursing on Admit: 4+=Very High MASNOOR ZABALA DO Oct 23, 2017 06:40
[2017-10-23] MEDS ORDERED: SODIUM PHOSPHATE INJ 30 MM in NS (IVPB) 250 ML IV NR (06:45)
[2017-10-23] MEDS: VENlafaxine 75 MG (EFFEXOR) TAB PO SCH ×2 (06:45→17:00)
[2017-10-23] MEDS ORDERED: 1/2 NS IV SOLUTION 1,000 ML IV SCH (07:14)
[2017-10-23] MEDS ORDERED: NS IV 1000 ML 1,000 ML IV ONE (07:14)
[2017-10-23] MEDS ORDERED: inSUlin REGULAR TPN/DRIP ONLY 250 UNITS in NORMAL SALINE 250 ML IV SCH (07:15)
[2017-10-23 08:26] LABS: ANION GAP 15 MMOL/L (5-14); BLOOD UREA NITROGEN 19 MG/DL (7-18); BUN/CREATININE RATIO 17; CALCIUM 8.2 MG/DL (8.5-10.1); CARBON DIOXIDE 12 MMOL/L (21-32); CHLORIDE 102 MMOL/L (98-107); CREATININE SERUM 1.13 MG/DL (0.60-1.30); GFR ESTIMATED > 60; POTASSIUM 4.9 MMOL/L (3.6-5.0); SODIUM 129 MMOL/L (135-145)
[2017-10-23 08:33] LABS: GLUCOSE 507 MG/DL (70-105)
[2017-10-23] MEDS: inSUlin REGULAR TPN/DRIP ONLY 250 UNITS in NORMAL SALINE 250 ML IV SCH (09:08)
--- NOTE | 2017-10-23 10:31 | Diagnostic Imaging Report ---
EXAMINATION: Portable upright radiograph of the chest. COMPARISON: 10/22/17. INDICATION: Diabetic ketoacidosis. FINDINGS: The lungs demonstrate interstitial prominence with no focal infiltrate. The heart size is normal. No effusion or pneumothorax. The mediastinum and kulwant appear unremarkable. IMPRESSION: Chronic appearing interstitial thickening. No focal infiltrate. Dictated by: Dictated on workstation # [id number]
--- NOTE | 2017-10-23 10:56 | Progress Note-Hospitalist ---
Subjective HPI/CC On Admission Date Seen by Provider: Oct 23, 2017 Time Seen by Provider: 10:52 Pt is a 72yoCM with a PMH of IDDMI and HTN who presented to the ER for confusion via EMS. During my exam his is unable to provide ROS. His daughter in law is at bedside who lives with him and he does not recognize her at this time. She states that he was completely normal yesterday but when she got home from work at noon today he was not making any sense. She check his blood sugar which read as "high" so she called EMS. When EMS check his BS is only read as "high" as well. He wears an insulin pump and she is unsure if he has been refilling his insulin or if it was not working. Of note his pump fell off during transport with EMS. Objective Exam Vital Signs Vital Sign - Last 12Hours 10/21/17 14:37 Temp 98.1 Pulse 150 Resp 20 B/P (MAP) 100/45 (63) Pulse Ox 98 O2 Delivery Nasal Cannula O2 Flow Rate 2.00 Capillary Refill : Less Than 3 Seconds General Appearance: No Apparent Distress, Chronically ill Respiratory: Chest Non Tender, Lungs Clear, Normal Breath Sounds, No Accessory Muscle Use, No Respiratory Distress Cardiovascular: Regular Rate, Rhythm, No Edema, No Gallop, No JVD, No Murmur, Normal Peripheral Pulses Gastrointestinal: Normal Bowel Sounds, No Organomegaly, No Pulsatile Mass, Non Tender, Soft Extremity: Normal Inspection, Normal Range of Motion, Non Tender, No Pedal Edema Results/Procedures Lab Laboratory Tests 10/22/17 23:10 10/23/17 04:40 10/23/17 08:02 Assessment/Plan Assessment and Plan Assess & Plan/Chief Complaint 1. DKA secondary to lack of insulin for a setback last night as insulin drip was discontinued without resumption of basal bolus therapy resulting in recurrent DKA. Patient is improving again on insulin drip which the patient will need to be on through the rest of the day. Likely resumption of basal bolus therapy referral bleedthrough this patient's pump if possible tomorrow morning.. 2. Likely baseline mild vascular related dementia. 3. Premorbid depression we'll continue antidepressant therapy. EDEL GUTIERREZ MD Oct 23, 2017 10:56
[2017-10-23] MEDS ORDERED: SENNA W/DOCUSATE (SENOKOT S) TABLET PO NR (11:00)
[2017-10-23] MEDS: ONDANSETRON 4 MG/2 ML (SDV) Z0FRAN IVP PRN ×2 (12:21→21:12)
[2017-10-23 12:46] LABS: ANION GAP 13 MMOL/L (5-14); BLOOD UREA NITROGEN 16 MG/DL (7-18); BUN/CREATININE RATIO 16; CALCIUM 8.3 MG/DL (8.5-10.1); CARBON DIOXIDE 15 MMOL/L (21-32); CHLORIDE 102 MMOL/L (98-107); GFR ESTIMATED > 60; GLUCOSE 369 MG/DL (70-105); POTASSIUM 4.7 MMOL/L (3.6-5.0); SODIUM 130 MMOL/L (135-145)
[2017-10-23] MEDS: CATHETER FLUSH 10 ML SYR IV SCH ×2 (14:34→23:03)
[2017-10-23 18:17] LABS: BILIRUBIN,URINE NEGATIVE (NEGATIVE); KETONES,URINE 2+ (NEGATIVE); LEUKOCYTE ESTERASE ,URINE 1+ (NEGATIVE); NITRITE,URINE NEGATIVE (NEGATIVE); PH,URINE 5 (5-9); PROTEIN,URINE 1+ (NEGATIVE); UROBILINOGEN,URINE NORMAL (NORMAL)
[2017-10-23] MEDS ORDERED: risperiDONE 0.25 MG (RisperDAL) TAB PO PRN (21:00)
[2017-10-23 21:32] LABS: CHLORIDE 99 MMOL/L (98-107); SODIUM 130 MMOL/L (135-145)
[2017-10-23 21:33] LABS: ANION GAP 20 MMOL/L (5-14); BLOOD UREA NITROGEN 15 MG/DL (7-18); BUN/CREATININE RATIO 15; CARBON DIOXIDE 11 MMOL/L (21-32); CREATININE SERUM 1.02 MG/DL (0.60-1.30); GFR ESTIMATED > 60
[2017-10-23 21:34] LABS: CALCIUM 8.5 MG/DL (8.5-10.1)
[2017-10-23 21:36] LABS: GLUCOSE 454 MG/DL (70-105); POTASSIUM 4.5 MMOL/L (3.6-5.0)
[2017-10-23] MEDS: SENNA W/DOCUSATE (SENOKOT S) TABLET PO SCH (23:09)
[2017-10-24] VITALS (22 sets, daily range): BP systolic 108–174; BP diastolic 52–94
[2017-10-24] MEDS: NS W/KCL 20 MEQ/L 1,000 ML IV SCH ×6 (03:50→23:25)
[2017-10-24 04:13] LABS: BASOPHILS % (AUTO) 1 % (0-10); EOSINOPHILS % (AUTO) 1 % (0-10); LYMPHOCYTES # (AUTO) 1.3 X 10^3 (1.0-4.0); LYMPHOCYTES % (AUTO) 15 % (12-44); MEAN CORPUSCULAR HEMOGLOBIN 31 PG (25-34); MEAN CORPUSCULAR HGB CONC 32 G/DL (32-36); MEAN CORPUSCULAR VOLUME 97 FL (80-99); MEAN PLATELET VOLUME 11.4 FL (7.4-10.4); MONOCYTES # (AUTO) 0.4 X 10^3 (0.0-1.0); MONOCYTES % (AUTO) 5 % (0-12); NEUTROPHILS # (AUTO) 6.9 X 10^3 (1.8-7.8); NEUTROPHILS % (AUTO) 79 % (42-75); PLATELET COUNT 209 10^3/uL (130-400); RED BLOOD COUNT 3.13 10^6/uL (4.35-5.85); RED CELL DISTRIBUTION WIDTH 13.9 % (10.0-14.5); WHITE BLOOD COUNT 8.8 10^3/uL (4.3-11.0)
[2017-10-24] MEDS: ONDANSETRON 4 MG/2 ML (SDV) Z0FRAN IVP PRN ×2 (04:38→13:07)
[2017-10-24] MEDS: CATHETER FLUSH 10 ML SYR IV SCH ×3 (04:38→20:56)
[2017-10-24 04:39] LABS: ANION GAP 15 MMOL/L (5-14); BLOOD UREA NITROGEN 13 MG/DL (7-18); BUN/CREATININE RATIO 15; CALCIUM 8.2 MG/DL (8.5-10.1); CARBON DIOXIDE 14 MMOL/L (21-32); CHLORIDE 105 MMOL/L (98-107); CREATININE SERUM 0.88 MG/DL (0.60-1.30); GFR ESTIMATED > 60; GLUCOSE 258 MG/DL (70-105); MAGNESIUM 1.5 MG/DL (1.8-2.4); PHOSPHORUS 1.9 MG/DL (2.3-4.7); POTASSIUM 3.9 MMOL/L (3.6-5.0); SODIUM 134 MMOL/L (135-145)
[2017-10-24] MEDS: POTASSIUM CL 10MEQ/50ML IVPB 50 ML IV SCH (05:04)
[2017-10-24] MEDS: KCL 20 MEQ TAB (K-DUR) PO SCH (05:05)
[2017-10-24] MEDS: MAGNESIUM 1 GM/100 ML IVPB 100 ML IV SCH ×3 (05:05→06:59)
[2017-10-24] MEDS: PIPERACILLIN SODIUM/TAZOBACTAM 4.5 GM in NS (IVPB) 100 ML IV SCH ×3 (05:38→20:56)
--- NOTE | 2017-10-24 07:17 | Progress Note-Hospitalist ---
Subjective HPI/CC On Admission Date Seen by Provider: Oct 24, 2017 Time Seen by Provider: 06:45 Pt is a 72yoCM with a PMH of IDDMI and HTN who presented to the ER for confusion via EMS found to be in DKA. Subjective/Events-last exam Pt reports doing well. Seems confused but pleasantly so. Denies any concerns at this time. RN Reports some vomiting overnight with scant red streaking in it. Objective Exam Vital Signs Vital Sign - Last 12Hours 10/21/17 14:37 Temp 98.1 Pulse 150 Resp 20 B/P (MAP) 100/45 (63) Pulse Ox 98 O2 Delivery Nasal Cannula O2 Flow Rate 2.00 Capillary Refill : Less Than 3 Seconds General Appearance: WD/WN Respiratory: Lungs Clear, No Respiratory Distress Cardiovascular: Regular Rate, Rhythm, No Murmur Gastrointestinal: Normal Bowel Sounds, Non Tender, Soft, No Distended, No Guarding, No Rebound Extremity: Non Tender, No Calf Tenderness, No Pedal Edema Neurologic/Psychiatric: Alert, Other (oriented to self and place only) Results/Procedures Lab Laboratory Tests 10/23/17 08:02 10/23/17 12:19 10/23/17 20:55 10/24/17 03:28 Assessment/Plan Assessment and Plan Assess & Plan/Chief Complaint DKA Diagnosis/Problems Diagnosis/Problems (1) Diabetic ketoacidosis Status: Acute Assessment & Plan: Insulin gtt Remains acidotic with gap Serial BMPs until gap closed Will attempt to get equipment from daughter for insulin pump so transition can be to pump off gtt hopefully tomorrow Qualifiers: Qualified Codes: E10.10 - Type 1 diabetes mellitus with ketoacidosis without coma (2) Acute renal failure Status: Resolved Assessment & Plan: Resolved Qualifiers: Qualified Codes: N17.9 - Acute kidney failure, unspecified (3) Hyperkalemia Status: Resolved Assessment & Plan: Trend (4) Essential (primary) hypertension Assessment & Plan: Hold home antihypertensives for hypotension still (5) Normocytic anemia Assessment & Plan: Hgb 9.7 Did have reports of red streaking in vomit WIll monitor and start on PPI and carafate If recurs will consult surgery (6) Leukocytosis Assessment & Plan: No signs of infection, likely reactive Not sepsis UA negative for signs of infection Will get blood cultures and check rapid flu as potential etioogy of DKA Negative thus far SHAZIA MATTHEWS MD Oct 24, 2017 7:17 am
[2017-10-24] MEDS ORDERED: DEXTROSE 10% IV SOLUTION 1,000 ML IV ONE ×2 (08:08→22:32)
[2017-10-24] MEDS: SENNA W/DOCUSATE (SENOKOT S) TABLET PO SCH ×2 (08:47→20:56)
[2017-10-24] MEDS: VENlafaxine 75 MG (EFFEXOR) TAB PO SCH ×2 (08:54→17:03)
[2017-10-24] MEDS: inSUlin REGULAR TPN/DRIP ONLY 250 UNITS in NORMAL SALINE 250 ML IV SCH ×2 (09:13→10:09)
[2017-10-24] MEDS: SUCRALFATE 1 GM (CARAFATE) TAB PO SCH ×3 (12:09→20:56)
[2017-10-24] MEDS: HYDROcodone/APAP 5 MG/325 MG (LORTAB) TAB PO PRN (17:01)
[2017-10-24] MEDS: DEXTROSE 10% IV SOLUTION 1,000 ML IV SCH (22:51)
[2017-10-25] VITALS (17 sets, daily range): BP systolic 105–162; BP diastolic 59–93
[2017-10-25] MEDS: NS W/KCL 20 MEQ/L 1,000 ML IV SCH ×2 (03:07→10:24)
[2017-10-25 04:53] LABS: BASOPHILS # (AUTO) 0.1 10^3/uL (0.0-0.1); BASOPHILS % (AUTO) 2 % (0-10); EOSINOPHILS # (AUTO) 0.3 10^3/uL (0.0-0.3); EOSINOPHILS % (AUTO) 5 % (0-10); LYMPHOCYTES # (AUTO) 1.7 X 10^3 (1.0-4.0); LYMPHOCYTES % (AUTO) 25 % (12-44); MEAN CORPUSCULAR HEMOGLOBIN 31 PG (25-34); MEAN CORPUSCULAR HGB CONC 32 G/DL (32-36); MEAN CORPUSCULAR VOLUME 97 FL (80-99); MEAN PLATELET VOLUME 11.1 FL (7.4-10.4); MONOCYTES # (AUTO) 0.3 X 10^3 (0.0-1.0); MONOCYTES % (AUTO) 4 % (0-12); NEUTROPHILS # (AUTO) 4.4 X 10^3 (1.8-7.8); NEUTROPHILS % (AUTO) 65 % (42-75); PLATELET COUNT 219 10^3/uL (130-400); RED CELL DISTRIBUTION WIDTH 14.1 % (10.0-14.5); WHITE BLOOD COUNT 6.8 10^3/uL (4.3-11.0)
[2017-10-25 05:25] LABS: ANION GAP 11 MMOL/L (5-14); BLOOD UREA NITROGEN 5 MG/DL (7-18); BUN/CREATININE RATIO 7; CALCIUM 8.3 MG/DL (8.5-10.1); CARBON DIOXIDE 19 MMOL/L (21-32); CHLORIDE 106 MMOL/L (98-107); CREATININE SERUM 0.76 MG/DL (0.60-1.30); GFR ESTIMATED > 60; GLUCOSE 205 MG/DL (70-105); MAGNESIUM 1.8 MG/DL (1.8-2.4); PHOSPHORUS 1.6 MG/DL (2.3-4.7); SODIUM 136 MMOL/L (135-145)
[2017-10-25] MEDS: SUCRALFATE 1 GM (CARAFATE) TAB PO SCH ×2 (05:43→11:49)
[2017-10-25] MEDS: VENlafaxine 75 MG (EFFEXOR) TAB PO SCH (05:43)
[2017-10-25] MEDS: PIPERACILLIN SODIUM/TAZOBACTAM 4.5 GM in NS (IVPB) 100 ML IV SCH (05:44)
[2017-10-25] MEDS: MAGNESIUM 1 GM/100 ML IVPB 100 ML IV SCH (05:47)
[2017-10-25] MEDS: POTASSIUM CL 10MEQ/50ML IVPB 50 ML IV SCH (05:47)
[2017-10-25] MEDS: CATHETER FLUSH 10 ML SYR IV SCH (05:48)
[2017-10-25] MEDS: KCL 20 MEQ TAB (K-DUR) PO SCH (05:48)
[2017-10-25] MEDS ORDERED: PANTOPRAZOLE 40 MG (PROTONIX) TAB PO SCH (07:00)
--- NOTE | 2017-10-25 10:02 | Progress Note-Hospitalist ---
Subjective HPI/CC On Admission Date Seen by Provider: Oct 25, 2017 Time Seen by Provider: 09:30 Pt is a 72yoCM with a PMH of IDDMI and HTN who presented to the ER for confusion via EMS found to be in DKA. Subjective/Events-last exam patient is awake and alert and now has all of his insulin equipment. He is very interested in getting it restarted and getting ready to go home. Eating well and has no current complaints. he has all of his other medications at home and says that he has not received them since he's been here. Objective Exam Vital Signs Vital Sign - Last 12Hours 10/21/17 14:37 Temp 98.1 Pulse 150 Resp 20 B/P (MAP) 100/45 (63) Pulse Ox 98 O2 Delivery Nasal Cannula O2 Flow Rate 2.00 Capillary Refill : Less Than 3 Seconds General Appearance: No Apparent Distress, WD/WN HEENT: Normal ENT Inspection, Pharynx Normal Neck: Normal Inspection, Non Tender, Supple Respiratory: Lungs Clear, Normal Breath Sounds, No Accessory Muscle Use, No Respiratory Distress Cardiovascular: Regular Rate, Rhythm, No Gallop, No Murmur Gastrointestinal: Soft Extremity: Non Tender, No Calf Tenderness, No Pedal Edema Neurologic/Psychiatric: Alert, Oriented x3, Normal Mood/Affect Skin: Normal Color, Warm/Dry Results/Procedures Lab Laboratory Tests 10/25/17 04:13 Assessment/Plan Assessment and Plan Assess & Plan/Chief Complaint (1) Diabetic ketoacidosis Status: Acute Assessment & Plan: Insulin gtt bicarbonate is up to 19 Will restart insulin pump and follow sugars possible discharge this evening or in the morning Qualifiers: Qualified Codes: E10.10 - Type 1 diabetes mellitus with ketoacidosis without coma (2) Acute renal failure Status: Resolved Assessment & Plan: Resolved Qualifiers: Qualified Codes: N17.9 - Acute kidney failure, unspecified (3) Hyperkalemia Status: Resolved Assessment & Plan: Trend (4) Essential (primary) hypertension Assessment & Plan: Hold home antihypertensives for hypotension still (5) Normocytic anemia Assessment & Plan: Hgb up to 11.2 today no evidence of GI bleeding-DuoNeb was Hemoccult negative (6) Leukocytosis Assessment & Plan: No signs of infection, likely reactive-resolved Not sepsis UA negative for signs of infection-will DC antibiotics PACO LYON MD Oct 25, 2017 10:02
[2017-10-25] MEDS: SENNA W/DOCUSATE (SENOKOT S) TABLET PO SCH (10:24)
[2017-10-25] MEDS: DEXTROSE 10% IV SOLUTION 1,000 ML IV SCH (10:24)
[2017-10-25] MEDS ORDERED: RX-HYDROCODONE/APAP 5/325 MG #4 TAB PK PO PRN (10:30)
--- NOTE | 2017-10-25 10:58 | Diagnostic Imaging Report ---
INDICATION: Diabetes. Comparison is made with prior examination from 10/24/2017. FINDINGS: Heart size is normal. Mediastinum is unremarkable. There is no pleural effusion, pneumothorax or pneumonia. IMPRESSION: No acute cardiopulmonary abnormality Dictated by: Dictated on workstation # [id number]
[2017-10-25] MEDS ORDERED: buPROPion SR 150 MG (WELLBUTRIN SR) TAB PO SCH (21:00)
[2017-10-25] MEDS ORDERED: VENlafaxine 75 MG (EFFEXOR) TAB PO SCH (21:00)
[2017-10-25] MEDS ORDERED: ENALAPRIL 10 MG (VASOTEC) TAB PO SCH (21:00)
--- NOTE | 2017-10-26 05:47 | Diagnostic Imaging Report ---
INDICATION: Respiratory distress. COMPARISON is made to prior examination of 10/23/2017 FINDINGS: The heart size is normal. There is mild venous congestion. There is no pleural effusion or pneumothorax. The mediastinum is unremarkable. IMPRESSION: Mild central pulmonary venous congestion. Dictated by: Dictated on workstation # [id number]
[2017-10-26] MEDS ORDERED: ASPIRIN E.C. 81 MG (ECOTRIN) TAB PO SCH (09:00)
== END 2017-10-25 17:05 | disposition home health service (06) | DRG 638 ==
LOC: EDUNIT# 13:42 → ER 13:43 → ICU 15:34 → UNDOADMIN 15:34
PROVIDERS: ADMIT Family Medicine; ATTEND Family Medicine
DX: E11.10 Type 2 diabetes mellitus with ketoacidosis without coma (principal); Z79.4 Long term (current) use of insulin; N17.9 Acute kidney failure, unspecified; E86.0 Dehydration; I10 Essential (primary) hypertension; F03.90 Unspecified dementia, unspecified severity, without behavioral disturbance, psychotic disturbance, mood disturbance, and anxiety; G47.30 Sleep apnea, unspecified; F32.9 Major depressive disorder, single episode, unspecified; D64.9 Anemia, unspecified; Z87.891 Personal history of nicotine dependence
CPT/HCPCS: 36415; 51702; 71010; 80048; 80053; 80061; 81000; 82150; 82274; 82805; 82962; 83036; 83605; 83690; 83735; 83874; 84100; 84484; 85007; 85025; 85027; 85610; 85730; 87040; 87088; 93005; 93041; 96361; 96365; 96375

== ENCOUNTER 2018-02-27 14:36 | Emergency (ER) | payer MEDICARE, OTHER ==
[~2018-02-27] VITALS: Ht 180.3 cm; Wt 99.8 kg
[~2018-02-27 14:36] MED LIST changes: +CHOL500044 PO; +DOCU-143 PO; +ESCI10TA55 PO; -HYDR-3812 PO; +INSU100V; +MELA5TAB14 PO; +MULT-35 PO; +POLY17PO6 PO; +[UNRECOGNIZED DRUG - OTHER] PO; +[UNRECOGNIZED DRUG - OTHER] PO
[2018-02-27 15:07] LABS: BASOPHILS # (AUTO) 0.6 10^3/uL (0.0-0.1); BASOPHILS % (AUTO) 4 % (0-10); EOSINOPHILS # (AUTO) 0.8 10^3/uL (0.0-0.3); EOSINOPHILS % (AUTO) 6 % (0-10); HEMATOCRIT 46 % (40-54); HEMOGLOBIN 14.7 G/DL (13.3-17.7); LYMPHOCYTES # (AUTO) 2.9 X 10^3 (1.0-4.0); LYMPHOCYTES % (AUTO) 21 % (12-44); MEAN CORPUSCULAR HEMOGLOBIN 31 PG (25-34); MEAN CORPUSCULAR HGB CONC 32 G/DL (32-36); MEAN CORPUSCULAR VOLUME 95 FL (80-99); MEAN PLATELET VOLUME 10.2 FL (7.4-10.4); MONOCYTES # (AUTO) 0.7 X 10^3 (0.0-1.0); MONOCYTES % (AUTO) 5 % (0-12); NEUTROPHILS # (AUTO) 9.1 X 10^3 (1.8-7.8); NEUTROPHILS % (AUTO) 65 % (42-75); PLATELET COUNT 384 10^3/uL (130-400); RED BLOOD COUNT 4.82 10^6/uL (4.35-5.85); RED CELL DISTRIBUTION WIDTH 14.9 % (10.0-14.5); WHITE BLOOD COUNT 14.1 10^3/uL (4.3-11.0)
--- NOTE | 2018-02-27 15:08 | ED GI ---
General Chief Complaint: Abdominal/GI Problems Stated Complaint: NOT EATING PAST COUPLE DAYS,N/V/,INSULIN DEPENDENT Nursing Triage Note: C/O nausea and vomiting for the last 3 days. No fever. Has had only milk. Does have insulin pump and glucose has been 150-300 Sepsis Screen: No Definite Risk Source of Information: Patient, Other (friend) Exam Limitations: No Limitations History of Present Illness Date Seen by Provider: Feb 27, 2018 Time Seen by Provider: 15:08 Initial Comments 72-year-old male patient presents to the emergency department with complaints of nausea for 3 days. Patient reports symptoms worse today. Patient reports no appetite. He did have mild abdominal cramping earlier today, but improved at this time. Denies fevers or chills. Timing/Duration: 3-4 Days Severity/Quality: Cramping Location: Generalized Abdomen Radiation: No Radiation Activities at Onset: None Modifying Factors: Worsens With Eating Allergies and Home Medications Allergies Coded Allergies: No Known Drug Allergies (Verified , 02/27/18) Home Medications Aspirin 81 Mg Tablet.dr, 81 MG PO DAILY, (Reported) Bupropion HCl 150 Mg Tablet.er, 150 MG PO BID, (Reported) Cholecalciferol (Vitamin D3) 5,000 Unit Tablet, 5,000 UNIT PO DAILY, (Reported) Clonazepam 1 Mg Tablet, 1-2 MG PO HS PRN for ANXIETY, (Reported) LAST FILLED #180 05-29-17 Diphenhydramine HCl 50 Mg/30 Ml Liquid, 50 MG PO HS PRN for SLEEP, (Reported) Docusate Sodium 100 Mg Capsule, 100 MG PO DAILY PRN for CONSTIPATION-1ST LINE, ( Reported) Enalapril Maleate 20 Mg Tablet, 20 MG PO BID, (Reported) Escitalopram Oxalate 10 Mg Tablet, 10 MG PO HS, (Reported) Fluticasone Propionate 16 Gm [place].susp, 2 SPRAYS NS HS, (Reported) Gabapentin 600 Mg Tablet, 600 MG PO TID, (Reported) Hydrocodone Bit/Acetaminophen 1 Each Tablet, 1-2 TAB PO Q6H PRN for MODERATE PAIN, (Reported) Insulin Lispro 100 Unit/1 Ml Vial, PER INSULIN PUMP, (Reported) BASAL RATE 1.5/HOUR CARBS TO INSULIN 7:1 Melatonin 5 Mg Tablet, 5 MG PO HS, (Reported) Multivitamin 1 Each Tablet, 1 TAB PO DAILY, (Reported) Ondansetron 4 Mg Tab.rapdis, 4 MG PO Q6H PRN for NAUSEA/VOMITING-1ST LINE, ( Reported) Ondansetron 8 Mg Tab.rapdis, 4-8 MG PO Q6H PRN for NAUSEA/VOMITING-1ST LINE Prescribed by: GIOVANA LUX on 02/27/18 1740 Polyethylene Glycol 3350 17 Gm Powd.pack, 17 GM PO DAILY PRN for CONSTIPATION- 2ND LINE, (Reported) Venlafaxine HCl 75 Mg Tab, 150 MG PO BID, (Reported) TAKES 2 (75MG) TABLETS [Brain Enhancement] , 1 TAB PO DAILY, (Reported) [Focus Extra Strenght] , 1 TAB PO DAILY, (Reported) Patient Home Medication List Home Medication List Reviewed: Yes Review of Systems Constitutional: No chills, No diaphoresis, No fever, No malaise EENTM: No Symptoms Reported Respiratory: Denies Cough, Denies Shortness of Air Cardiovascular: Denies Chest Pain, Denies Edema, Denies Irregular Heart Rate, Denies Lightheadedness, Denies Palpitations Gastrointestinal: See HPI; Denies Abdomen Distended, Denies Abdominal Pain ( patient does report abdominal cramping earlier today, but resolved at this time. ), Denies Blood Streaked Stools, Denies Constipated, Denies Diarrhea; Nausea, Poor Appetite, Poor Fluid Intake; Denies Rectal Bleeding, Denies Vomiting Genitourinary: No Symptoms Reported Musculoskeletal: no symptoms reported Skin: no symptoms reported Psychiatric/Neurological: No Symptoms Reported All Other Systems Reviewed Negative Unless Noted: Yes (Negative excepted noted.) Past Zctgzzb-Vcmzxe-Exvkkv Hx Patient Social History Alcohol Use: Occasionally Uses Recreational Drug Use: No (has been on narcotics for the past 3 years) Smoking Status: Former Smoker Type Used: Cigarettes Former Smoker, Quit: Nov 02, 1959 Recent Foreign Travel: No Contact w/Someone Who Travel: No Recent Infectious Disease Expo: No Recent Hopitalizations: No Physical Abuse: No Sexual Abuse: No Mistreated: No Fear: No Immunizations Up To Date Tetanus Booster (TDap): Less than 5yrs Date of Pneumonia Vaccine: Nov 02, 2008 Date of Influenza Vaccine: Aug 14, 2017 Seasonal Allergies Seasonal Allergies: No Past Medical History Surgeries: Yes (BILAT CARPAL TUNNEL, BILA KNEE REPLACE, COLON RESECTION, BILAT KNEE SCOPE, ) Orthopedic Respiratory: Yes (CPAP AT [facility]) Sleep Apnea Currently Using CPAP: Yes Currently Using BIPAP: No Cardiac: Yes Hypertension Neurological: Yes (CONFUSION W/ ILLNESSES) Dementia Reproductive Disorders: Yes Sexually Transmitted Disease: No Genitourinary: No Gastrointestinal: Yes (COLON RESSECTION) Obstructive Bowel, Chronic Constipation Musculoskeletal: Yes (ARTHRITIS) Back Injury Endocrine: Yes Diabetes, Insulin dep HEENT: Yes (insulin pump) Cataract 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, Hearing Aide Left Cancer: Yes Skin Psychosocial: Yes Depression Nursing Suicide Risk Score: 0 Integumentary: Yes (SKIN REAL THIN/EASILY BRUISES) Blood Disorders: No Family Medical History Reviewed Nursing Family Hx Cancer 09 SISTER (BREAST) Hypertension 03 FATHER 03 MOTHER Parkinson's disease 03 MOTHER Seizure disorder 09 BROTHER No Pertinent Family Hx Physical Exam Vital Signs Vital Signs - First Documented 02/27/18 14:45 Pulse 94 Resp 18 B/P (MAP) 138/87 (104) Pulse Ox 98 Capillary Refill : Less Than 3 Seconds General Appearance: WD/WN, no apparent distress HEENT: PERRL/EOMI, pharynx normal Neck: supple, normal inspection Respiratory: lungs clear, normal breath sounds, no respiratory distress, no accessory muscle use Cardiovascular: normal peripheral pulses, regular rate, rhythm, no edema, no murmur Gastrointestinal: normal bowel sounds, soft, no organomegaly, no pulsatile mass ; No distended; guarding (mild upper abdominal guarding); No rebound; tenderness (generalized tenderness) Extremities: no pedal edema, normal capillary refill Back: normal inspection, no CVA tenderness Neurologic/Psychiatric: alert, normal mood/affect, oriented x 3 Skin: normal color, warm/dry Progress/Results/Core Measures Lab Results Laboratory Tests Test 02/27/18 14:57 02/27/18 16:35 02/27/18 17:28 Range/Units White Blood Count 14.1 H 4.3-11.0 10^3/uL Red Blood Count 4.82 4.35-5.85 10^6/uL Hemoglobin 14.7 13.3-17.7 G/DL Hematocrit 46 40-54 % Mean Corpuscular Volume 95 80-99 FL Mean Corpuscular Hemoglobin 31 25-34 PG Mean Corpuscular Hemoglobin Concent 32 32-36 G/DL Red Cell Distribution Width 14.9 H 10.0-14.5 % Platelet Count 384 130-400 10^3/uL Mean Platelet Volume 10.2 7.4-10.4 FL Neutrophils (%) (Auto) 65 42-75 % Lymphocytes (%) (Auto) 21 12-44 % Monocytes (%) (Auto) 5 0-12 % Eosinophils (%) (Auto) 6 0-10 % Basophils (%) (Auto) 4 0-10 % Neutrophils # (Auto) 9.1 H 1.8-7.8 X 10^3 Lymphocytes # (Auto) 2.9 1.0-4.0 X 10^3 Monocytes # (Auto) 0.7 0.0-1.0 X 10^3 Eosinophils # (Auto) 0.8 H 0.0-0.3 10^3/uL Basophils # (Auto) 0.6 H 0.0-0.1 10^3/uL Neutrophils % (Manual) 70 % Lymphocytes % (Manual) 22 % Monocytes % (Manual) 7 % Eosinophils % (Manual) 1 % Stomatocytes SLIGHT Sodium Level 139 135-145 MMOL/L Potassium Level 4.9 3.6-5.0 MMOL/L Chloride Level 104 98-107 MMOL/L Carbon Dioxide Level 21 21-32 MMOL/L Anion Gap 14 5-14 MMOL/L Blood Urea Nitrogen 21 H 7-18 MG/DL Creatinine 0.97 0.60-1.30 MG/DL Estimat Glomerular Filtration Rate > 60 BUN/Creatinine Ratio 22 Glucose Level 136 H 70-105 MG/DL Calcium Level 10.2 H 8.5-10.1 MG/DL Total Bilirubin 0.5 0.1-1.0 MG/DL Aspartate Amino Transf (AST/SGOT) 19 5-34 U/L Alanine Aminotransferase (ALT/SGPT) 25 0-55 U/L Alkaline Phosphatase 85 40-136 U/L C-Reactive Protein High Sensitivity 1.27 H 0.00-0.50 MG/DL Total Protein 8.4 H 6.4-8.2 GM/DL Albumin 4.4 3.2-4.5 GM/DL Lipase < 4 L 8-78 U/L Urine Color YELLOW Urine Clarity CLEAR Urine pH 5 5-9 Urine Specific [place] 1.010 L 1.016-1.022 Urine Protein 2+ H NEGATIVE Urine Glucose (UA) NEGATIVE NEGATIVE Urine Ketones 3+ H NEGATIVE Urine Nitrite NEGATIVE NEGATIVE Urine Bilirubin NEGATIVE NEGATIVE Urine Urobilinogen NORMAL NORMAL MG/DL Urine Leukocyte Esterase NEGATIVE NEGATIVE Urine RBC (Auto) 1+ H NEGATIVE Urine RBC NONE /HPF Urine WBC 0-2 /HPF Urine Crystals NONE /LPF Urine Bacteria NEGATIVE /HPF Urine Casts NONE /LPF Urine Mucus NEGATIVE /LPF Urine Culture Indicated NO Glucometer 111 H 70-110 MG/DL My Orders Orders - GIOVANA LUX Saline Lock/Iv-Start (02/27/18 14:44) Cbc With Automated Diff (02/27/18 14:44) Comprehensive Metabolic Panel (02/27/18 14:44) Hs C Reactive Protein (02/27/18 14:44) Lipase (02/27/18 14:44) Ua Culture If Indicated (02/27/18 14:44) Manual Differential (02/27/18 14:57) Ns Iv 1000 Ml (Sodium Chloride 0.9%) (02/27/18 15:24) Ondansetron Injection (Zofran Injectio (02/27/18 15:30) Ct Abdomen/Pelvis W (02/27/18 15:41) Iohexol Injection (Omnipaque 350 Mg/Ml 1 (02/27/18 16:00) Sodium Chloride Flush (Catheter Flush Sy (02/27/18 16:00) Ns (Ivpb) (Sodium Chloride 0.9%) (02/27/18 16:00) Pharmacy Communication (Pharmacy Communi (02/27/18 15:48) Ondansetron Injection (Zofran Injectio (02/27/18 17:30) Ondansetron Injection (Zofran Injectio (02/27/18 17:30) Accucheck Stat ONCE (02/27/18 17:25) Medications Given in ED Current Medications Medications Dose Ordered Sig/Andrea Route Start Time Stop Time Status Last Admin Dose Admin Iohexol 100 ml ONCE ONCE IV 02/27/18 16:00 02/27/18 16:01 DC 02/27/18 16:12 100 ML Ondansetron HCl 4 mg ONCE ONCE IVP 02/27/18 15:30 02/27/18 15:31 DC 02/27/18 15:33 4 MG Ondansetron HCl 4 mg ONCE ONCE IVP 4/28/18 17:30 02/27/18 17:31 DC 02/27/18 17:28 4 MG Sodium Chloride 10 ml NEEDED PRN IV 02/27/18 16:00 02/27/18 16:12 10 ML Sodium Chloride 250 ml ONCE ONCE IV 02/27/18 16:00 02/27/18 16:01 DC 02/27/18 16:12 80 ML Sodium Chloride 1,000 ml @ 0 mls/hr Q0M ONCE IV 02/27/18 15:24 02/27/18 15:26 DC 02/27/18 15:33 1,000 MLS/HR Vital Signs/I&O 02/27/18 14:45 Pulse 94 Resp 18 B/P (MAP) 138/87 (104) Pulse Ox 98 Blood Pressure Mean: 104 Diagonstic Imaging: CT Plain Films/CT/US/NM/MRI: abdomen, pelvis Comments CT ABDOMEN/PELVIS W PROCEDURE: CT abdomen and pelvis with contrast. TECHNIQUE: Multiple contiguous axial images were obtained through the abdomen and pelvis after administration of intravenous contrast. INDICATION: Nausea and vomiting. FINDINGS: The previous CT abdomen/pelvis exam of 08/26/2017 noted thickening of the wall of the descending colon in the region of the patient's prior anastomosis. On this study, that area is now distended by gas. There is no evidence for a mass in this area but if further study is desired, then endoscopy or a Gastrografin enema would be recommended. There are a few diverticula in the sigmoid colon but there is no sign of an acute diverticulitis. The appendix was not particularly well visualized but there are no indirect signs of acute appendicitis. There is a fair amount of fecal material in the hepatic flexure and ascending colon. The urinary bladder and prostate gland are grossly unremarkable. The prostate gland is mildly enlarged but stable in size when compared to the prior study. The liver is homogeneous and not enlarged. The liver is of lower density than usually seen. This does suggest fatty metamorphosis. The small suspected hemangioma in the right lobe of the liver, seen previously, is again evident and no different. The spleen, adrenals, aorta and inferior vena cava are unremarkable for an acute abnormality. As noted on the prior exam, the pancreas is atrophic. There are multiple cysts involving both kidneys. There is no sign of a solid renal mass and both kidneys do show excretion of the contrast. As noted previously, the gallbladder is surgically absent. The stomach is not well-distended and consequently difficult to assess. The lung bases are clear. IMPRESSION: 1. There is no acute abnormality of the abdomen or pelvis. 2. The area of thickening of the descending colon, seen previously, is now distended by gas. There is no sign of a mass in this area but if further study is desired, then either endoscopy or a Gastrografin enema would be recommended. 3. There are multiple cysts involving both kidneys. 4. The prostate gland is mildly enlarged but stable when compared to the prior study. 5. Bone window show no evidence for a fracture or for a destructive lesion. There is fairly severe degenerative disc and bony disease at L4-5. Dictated on workstation # [id number] Reviewed: Reviewed by Me (radiology report reviewed by me) Departure Communication (Admissions) All laboratory and diagnostic findings discussed with the patient. Patient reports feeling better with 2 doses of Zofran and 1 L of normal saline. Plan for discharge to home with follow-up as an outpatient with Dr. Gutierrez. I discussed possible need for an outpatient colonoscopy with the patient. Patient verbalize understanding and states he'll discuss this with Dr. Gutierrez. Impression Primary Impression: Nausea alone Additional Impression: Diabetes mellitus Disposition: HOME, SELF-CARE Condition: Improved Departure-Patient Inst. Decision time for Depature: 17:02 Referrals: EDEL GUTIERREZ MD (PCP/Family) Primary Care Physician Patient Instructions: Dehydration, Adult (DC), Nausea and Vomiting, Adult (DC) , Acute Abdomen (Belly Pain), Adult (DC) Add. Discharge Instructions: All discharge instructions reviewed with patient and/or family. Voiced understanding. Medications as instructed. Continue usual home medications. Drink plenty of fluids. Clear liquid diet until symptoms improve, then increase diet slowly to a low-fat, bland diet. Follow-up with Dr. Gutierrez for recheck and possible need for colonoscopy to further evaluate the left side of the colon. Call for appointment time Thursday. Return to the emergency department for worsened symptoms or any other concerns. Scripts Ondansetron (Ondansetron Odt) 8 Mg Tab.rapdis 4-8 MG PO Q6H PRN for NAUSEA/VOMITING-1ST LINE, #10 TAB 0 Refills Prov: GIOVANA LUX 4/28/18 Copy Copies To 1: EDEL GUTIERREZ MD, GRETCHEN L PA Feb 27, 2018 15:08
[2018-02-27] MEDS ORDERED: NS IV 1000 ML 1,000 ML IV ONE (15:24)
[2018-02-27 15:28] LABS: ALANINE AMINOTRANSFERASE 25 U/L (0-55); ALBUMIN 4.4 GM/DL (3.2-4.5); ALKALINE PHOSPHATASE 85 U/L (40-136); BILIRUBIN,TOTAL 0.5 MG/DL (0.1-1.0); BUN/CREATININE RATIO 22; CALCIUM 10.2 MG/DL (8.5-10.1); CARBON DIOXIDE 21 MMOL/L (21-32); CHLORIDE 104 MMOL/L (98-107); CREATININE SERUM 0.97 MG/DL (0.60-1.30); GFR ESTIMATED > 60; GLUCOSE 136 MG/DL (70-105); LIPASE < 4 U/L (8-78); POTASSIUM 4.9 MMOL/L (3.6-5.0); SODIUM 139 MMOL/L (135-145); TOTAL PROTEIN 8.4 GM/DL (6.4-8.2)
[2018-02-27] MEDS ORDERED: ONDANSETRON 4 MG/2 ML (SDV) Z0FRAN IVP ONE ×3 (15:30→17:30)
[2018-02-27 15:36] LABS: EOSINOPHILS % (MANUAL) 1 %; LYMPHOCYTES % (MANUAL) 22 %; MONOCYTES % (MANUAL) 7 %; NEUTROPHILS % (MANUAL) 70 %; STOMATOCYTES SLIGHT
[2018-02-27] MEDS ORDERED: NS 250 ML (IVPB) BAG IV ONE (16:00)
[2018-02-27] MEDS ORDERED: CATHETER FLUSH 10 ML SYR IV PRN (16:00)
[2018-02-27] MEDS ORDERED: IOHEXOL 350 MG/ML 100 ML (OMNIPAQUE 350) VIAL IV ONE (16:00)
[2018-02-27 16:48] LABS: BILIRUBIN,URINE NEGATIVE (NEGATIVE); CLARITY,URINE CLEAR; COLOR,URINE YELLOW; GLUCOSE, URINE (UA) NEGATIVE (NEGATIVE); KETONES,URINE 3+ (NEGATIVE); LEUKOCYTE ESTERASE ,URINE NEGATIVE (NEGATIVE); NITRITE,URINE NEGATIVE (NEGATIVE); PH,URINE 5 (5-9); PROTEIN,URINE 2+ (NEGATIVE); UROBILINOGEN,URINE NORMAL (NORMAL)
--- NOTE | 2018-02-27 16:50 | Diagnostic Imaging Report ---
PROCEDURE: CT abdomen and pelvis with contrast. TECHNIQUE: Multiple contiguous axial images were obtained through the abdomen and pelvis after administration of intravenous contrast. INDICATION: Nausea and vomiting. FINDINGS: The previous CT abdomen/pelvis exam of 08/26/2017 noted thickening of the wall of the descending colon in the region of the patient's prior anastomosis. On this study, that area is now distended by gas. There is no evidence for a mass in this area but if further study is desired, then endoscopy or a Gastrografin enema would be recommended. There are a few diverticula in the sigmoid colon but there is no sign of an acute diverticulitis. The appendix was not particularly well visualized but there are no indirect signs of acute appendicitis. There is a fair amount of fecal material in the hepatic flexure and ascending colon. The urinary bladder and prostate gland are grossly unremarkable. The prostate gland is mildly enlarged but stable in size when compared to the prior study. The liver is homogeneous and not enlarged. The liver is of lower density than usually seen. This does suggest fatty metamorphosis. The small suspected hemangioma in the right lobe of the liver, seen previously, is again evident and no different. The spleen, adrenals, aorta and inferior vena cava are unremarkable for an acute abnormality. As noted on the prior exam, the pancreas is atrophic. There are multiple cysts involving both kidneys. There is no sign of a solid renal mass and both kidneys do show excretion of the contrast. As noted previously, the gallbladder is surgically absent. The stomach is not well-distended and consequently difficult to assess. The lung bases are clear. The bone window shows for fracture or for destructive lesion. There is fairly severe degenerative disc and bony disease at L4-5. IMPRESSION: 1. There is no acute abnormality of the abdomen or pelvis. 2. The area of thickening of the descending colon, seen previously, is now distended by gas. There is no sign of a mass in this area but if further study is desired, then either endoscopy or a Gastrografin enema would be recommended. 3. There are multiple cysts involving both kidneys. 4. The prostate gland is mildly enlarged but stable when compared to the prior study. Dictated by: Dictated on workstation # [id number]
[2018-02-27 16:57] LABS: BACTERIA,URINE NEGATIVE /HPF; WBC,URINE 0-2 /HPF
[2018-02-27] MEDS ORDERED: ONDA8TAB13 PO (17:40)
[2018-02-27] MEDS ORDERED: RX-ONDANSETRON 4 MG ODT (ZOFRAN) PPK #4 ONE (18:06)
[2018-02-27] MEDS ORDERED: RX-ONDANSETRON 4 MG ODT (ZOFRAN) PPK #4 PO STA (18:07)
[2018-02-27 18:12] VITALS: BP 140/87
== END 2018-02-27 18:12 | disposition home or self-care (01) ==
LOC: EDUNIT# 14:36 → ER 14:39
DX: R11.2 Nausea with vomiting, unspecified (principal); E11.9 Type 2 diabetes mellitus without complications; F32.9 Major depressive disorder, single episode, unspecified; F03.90 Unspecified dementia, unspecified severity, without behavioral disturbance, psychotic disturbance, mood disturbance, and anxiety; I10 Essential (primary) hypertension; G47.30 Sleep apnea, unspecified; Z85.828 Personal history of other malignant neoplasm of skin; Z87.828 Personal history of other (healed) physical injury and trauma; Z90.49 Acquired absence of other specified parts of digestive tract; Z87.891 Personal history of nicotine dependence; Z96.41 Presence of insulin pump (external) (internal); Z79.82 Long term (current) use of aspirin
CPT/HCPCS: 36415; 74177; 80053; 81000; 82962; 83690; 85007; 85027; 86141; 96374; 96376

== ENCOUNTER 2018-03-01 18:57 | Inpatient (IN) | payer MEDICARE, OTHER ==
[~2018-03-01] VITALS: Ht 180.3 cm; Wt 97.7 kg
[~2018-03-01 18:57] MED LIST changes: +ONDA8TAB13 PO
[2018-03-01] MEDS ORDERED: NS IV 1000 ML 1,000 ML IV ONE (19:44)
[2018-03-01] MEDS ORDERED: raNItidine 50 MG/2 ML INJ (ZANTAC) IV SCH (19:45)
[2018-03-01] MEDS ORDERED: ONDANSETRON 4 MG/2 ML (SDV) Z0FRAN IVP ONE ×2 (19:45→21:35)
[2018-03-01 20:00] LABS: BILIRUBIN,URINE NEGATIVE (NEGATIVE); CLARITY,URINE CLEAR; COLOR,URINE YELLOW; GLUCOSE, URINE (UA) 4+ (NEGATIVE); KETONES,URINE 4+ (NEGATIVE); LEUKOCYTE ESTERASE ,URINE NEGATIVE (NEGATIVE); NITRITE,URINE NEGATIVE (NEGATIVE); PH,URINE 6 (5-9); PROTEIN,URINE 3+ (NEGATIVE); UROBILINOGEN,URINE NORMAL (NORMAL)
[2018-03-01 20:07] LABS: BACTERIA,URINE NEGATIVE /HPF; RBC,URINE RARE /HPF; WBC,URINE RARE /HPF
[2018-03-01 20:09] LABS: BASOPHILS # (AUTO) 0.5 10^3/uL (0.0-0.1); BASOPHILS % (AUTO) 3 % (0-10); EOSINOPHILS # (AUTO) 0.3 10^3/uL (0.0-0.3); EOSINOPHILS % (AUTO) 2 % (0-10); HEMATOCRIT 44 % (40-54); HEMOGLOBIN 14.3 G/DL (13.3-17.7); LYMPHOCYTES # (AUTO) 2.6 X 10^3 (1.0-4.0); LYMPHOCYTES % (AUTO) 16 % (12-44); MEAN CORPUSCULAR HEMOGLOBIN 31 PG (25-34); MEAN CORPUSCULAR HGB CONC 33 G/DL (32-36); MEAN CORPUSCULAR VOLUME 94 FL (80-99); MEAN PLATELET VOLUME 10.4 FL (7.4-10.4); MONOCYTES % (AUTO) 6 % (0-12); NEUTROPHILS % (AUTO) 73 % (42-75); PLATELET COUNT 382 10^3/uL (130-400); RED BLOOD COUNT 4.66 10^6/uL (4.35-5.85); RED CELL DISTRIBUTION WIDTH 14.5 % (10.0-14.5); WHITE BLOOD COUNT 16.3 10^3/uL (4.3-11.0)
--- NOTE | 2018-03-01 20:10 | ED Abdominal Pain ---
General Chief Complaint: Abdominal/GI Problems Stated Complaint: NAUSEA/VOMITING Nursing Triage Note: PT TO ED 10 W/ S.O. FOR C/O N/V ABD PAIN. PT REPORTS WAS SEEN IN THIS ED X2 DAYS AGO FOR N/V BUT REPORTS SYMPTOMS WORSE. NO OTHER C/O VOICED Sepsis Screen: No Definite Risk Source of Information: Patient Exam Limitations: No Limitations History of Present Illness Date Seen by Provider: Mar 01, 2018 Time Seen by Provider: 19:40 Initial Comments Here with persistent nausea. See a few days ago and had the same. Had some mild abdominal pain then. Reports some loose stools. States has not been able to eat or drink well since. Denies fevers. Does have history of diabetes and is on insulin pump. States overall is feeling worse. Complains of some right shoulder pain but has been and that for the last 3 days. Denies chest pain otherwise or breathing problems. Timing/Duration: 4-5 Days Severity/Quality: Mild, Cramping Location: Generalized Abdomen Radiation: No Radiation Activities at Onset: None Modifying Factors: Worsens With Eating; Improves With Resting Associated Symptoms: Back Pain; No Chest Pain, No Fever/Chills; Nausea/Vomiting ; No Shortness of Air; Weakness Allergies and Home Medications Allergies Coded Allergies: No Known Drug Allergies (Verified , 02/27/18) Home Medications Aspirin 81 Mg Tablet.dr, 81 MG PO DAILY, (Reported) Bupropion HCl 150 Mg Tablet.er, 150 MG PO BID, (Reported) Cholecalciferol (Vitamin D3) 5,000 Unit Tablet, 5,000 UNIT PO DAILY, (Reported) Clonazepam 1 Mg Tablet, 1-2 MG PO HS PRN for ANXIETY, (Reported) LAST FILLED #180 05-29-17 Diphenhydramine HCl 50 Mg/30 Ml Liquid, 50 MG PO HS PRN for SLEEP, (Reported) Docusate Sodium 100 Mg Capsule, 100 MG PO DAILY PRN for CONSTIPATION-1ST LINE, ( Reported) Enalapril Maleate 20 Mg Tablet, 20 MG PO BID, (Reported) Escitalopram Oxalate 10 Mg Tablet, 10 MG PO HS, (Reported) Fluticasone Propionate 16 Gm [place].susp, 2 SPRAYS NS HS, (Reported) Gabapentin 600 Mg Tablet, 600 MG PO TID, (Reported) Hydrocodone Bit/Acetaminophen 1 Each Tablet, 1-2 TAB PO Q6H PRN for MODERATE PAIN, (Reported) Insulin Lispro 100 Unit/1 Ml Vial, PER INSULIN PUMP, (Reported) BASAL RATE 1.5/HOUR CARBS TO INSULIN 7:1 Melatonin 5 Mg Tablet, 5 MG PO HS, (Reported) Multivitamin 1 Each Tablet, 1 TAB PO DAILY, (Reported) Ondansetron 4 Mg Tab.rapdis, 4 MG PO Q6H PRN for NAUSEA/VOMITING-1ST LINE, ( Reported) Ondansetron 8 Mg Tab.rapdis, 4-8 MG PO Q6H PRN for NAUSEA/VOMITING-1ST LINE Prescribed by: GIOVANA LUX on 02/27/18 1740 Polyethylene Glycol 3350 17 Gm Powd.pack, 17 GM PO DAILY PRN for CONSTIPATION- 2ND LINE, (Reported) Venlafaxine HCl 75 Mg Tab, 150 MG PO BID, (Reported) TAKES 2 (75MG) TABLETS [Brain Enhancement] , 1 TAB PO DAILY, (Reported) [Focus Extra Strenght] , 1 TAB PO DAILY, (Reported) Patient Home Medication List Home Medication List Reviewed: Yes Review of Systems Constitutional: see HPI; No chills, No fever EENTM: No Symptoms Reported Respiratory: No Symptoms Reported Cardiovascular: No Symptoms Reported Gastrointestinal: See HPI, Abdominal Pain, Nausea Genitourinary: No Symptoms Reported Musculoskeletal: see HPI, back pain, muscle pain All Other Systems Reviewed Negative Unless Noted: Yes Past Mgvfwup-Fgiwxw-Thrwas Hx Past Med/Social Hx: Reviewed Nursing Past Med/Soc Hx Patient Social History Alcohol Use: Rarely Uses Recreational Drug Use: No (has been on narcotics for the past 3 years) Smoking Status: Former Smoker Type Used: Cigarettes Former Smoker, Quit: Nov 02, 1959 Recent Foreign Travel: No Contact w/Someone Who Travel: No Recent Infectious Disease Expo: No Recent Hopitalizations: No Physical Abuse: No Sexual Abuse: No Mistreated: No Fear: No Immunizations Up To Date Tetanus Booster (TDap): Less than 5yrs Date of Pneumonia Vaccine: Nov 02, 2008 Date of Influenza Vaccine: Aug 14, 2017 Seasonal Allergies Seasonal Allergies: No Past Medical History Surgeries: Yes (BILAT CARPAL TUNNEL, BILA KNEE REPLACE, COLON RESECTION, BILAT KNEE SCOPE, ) Orthopedic Respiratory: Yes (CPAP AT [facility]) Sleep Apnea Currently Using CPAP: Yes Currently Using BIPAP: No Cardiac: Yes Hypertension Neurological: Yes (CONFUSION W/ ILLNESSES) Dementia Reproductive Disorders: Yes Sexually Transmitted Disease: No Genitourinary: No Gastrointestinal: Yes (COLON RESSECTION) Obstructive Bowel, Chronic Constipation Musculoskeletal: Yes (ARTHRITIS) Back Injury Endocrine: Yes Diabetes, Insulin dep HEENT: Yes (insulin pump) Cataract 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, Hearing Aide Left Cancer: Yes Skin Psychosocial: Yes Depression Nursing Suicide Risk Score: 0 Integumentary: Yes (SKIN REAL THIN/EASILY BRUISES) Blood Disorders: No Family Medical History Reviewed Nursing Family Hx Cancer 09 SISTER (BREAST) Hypertension 03 FATHER 03 MOTHER Parkinson's disease 03 MOTHER Seizure disorder 09 BROTHER No Pertinent Family Hx Physical Exam Vital Signs Vital Signs - First Documented 03/01/18 19:20 Temp 97.5 Pulse 97 Resp 18 B/P (MAP) 136/76 (96) Pulse Ox 99 O2 Delivery Room Air Capillary Refill : Less Than 3 Seconds General Appearance: WD/WN, no apparent distress HEENT: PERRL/EOMI, pharynx normal Neck: full range of motion, supple Respiratory: lungs clear, normal breath sounds Cardiovascular: no murmur, tachycardia Peripheral Pulses: 2+ Dorsalis Pedis (R), 2+ Left Dors-Pedis (L), 2+ Radial Pulses (R), 2+ Radial Pulses (L) Gastrointestinal: non tender, soft Extremities: non-tender, normal inspection Back: no CVA tenderness, no vertebral tenderness, other (mild tenderness paraspinous between the right shoulder blade and spine in the lower aspect. Point tender and tender to palpation.) Neurologic/Psychiatric: alert, oriented x 3 Skin: normal color, warm/dry Progress/Results/Core Measures Lab Results Laboratory Tests Test 03/01/18 19:51 Range/Units White Blood Count 16.3 H 4.3-11.0 10^3/uL Red Blood Count 4.66 4.35-5.85 10^6/uL Hemoglobin 14.3 13.3-17.7 G/DL Hematocrit 44 40-54 % Mean Corpuscular Volume 94 80-99 FL Mean Corpuscular Hemoglobin 31 25-34 PG Mean Corpuscular Hemoglobin Concent 33 32-36 G/DL Red Cell Distribution Width 14.5 10.0-14.5 % Platelet Count 382 130-400 10^3/uL Mean Platelet Volume 10.4 7.4-10.4 FL Neutrophils (%) (Auto) 73 42-75 % Lymphocytes (%) (Auto) 16 12-44 % Monocytes (%) (Auto) 6 0-12 % Eosinophils (%) (Auto) 2 0-10 % Basophils (%) (Auto) 3 0-10 % Neutrophils # (Auto) 12.0 H 1.8-7.8 X 10^3 Lymphocytes # (Auto) 2.6 1.0-4.0 X 10^3 Monocytes # (Auto) 1.0 0.0-1.0 X 10^3 Eosinophils # (Auto) 0.3 0.0-0.3 10^3/uL Basophils # (Auto) 0.5 H 0.0-0.1 10^3/uL Neutrophils % (Manual) 85 % Lymphocytes % (Manual) 13 % Monocytes % (Manual) 2 % Eosinophils % (Manual) 0 % Basophils % (Manual) 0 % Band Neutrophils 0 % Blood Morphology Comment NORMAL Urine Color YELLOW Urine Clarity CLEAR Urine pH 6 5-9 Urine Specific [place] 1.020 1.016-1.022 Urine Protein 3+ H NEGATIVE Urine Glucose (UA) 4+ H NEGATIVE Urine Ketones 4+ H NEGATIVE Urine Nitrite NEGATIVE NEGATIVE Urine Bilirubin NEGATIVE NEGATIVE Urine Urobilinogen NORMAL NORMAL MG/DL Urine Leukocyte Esterase NEGATIVE NEGATIVE Urine RBC (Auto) NEGATIVE NEGATIVE Urine RBC RARE /HPF Urine WBC RARE /HPF Urine Crystals NONE /LPF Urine Bacteria NEGATIVE /HPF Urine Casts PRESENT /LPF Urine Hyaline Casts 2-5 H /LPF Urine Mucus SMALL H /LPF Urine Culture Indicated NO Sodium Level 130 L 135-145 MMOL/L Potassium Level 4.8 3.6-5.0 MMOL/L Chloride Level 94 L 98-107 MMOL/L Carbon Dioxide Level 14 L 21-32 MMOL/L Anion Gap 22 H 5-14 MMOL/L Blood Urea Nitrogen 25 H 7-18 MG/DL Creatinine 1.41 H 0.60-1.30 MG/DL Estimat Glomerular Filtration Rate 49 BUN/Creatinine Ratio 18 Glucose Level 373 H 70-105 MG/DL Calcium Level 9.8 8.5-10.1 MG/DL Magnesium Level 1.9 1.8-2.4 MG/DL Total Bilirubin 0.9 0.1-1.0 MG/DL Aspartate Amino Transf (AST/SGOT) 15 5-34 U/L Alanine Aminotransferase (ALT/SGPT) 24 0-55 U/L Alkaline Phosphatase 82 40-136 U/L Total Protein 7.7 6.4-8.2 GM/DL Albumin 4.3 3.2-4.5 GM/DL My Orders Orders - MARCO ANTONIO AMEZCUA MD Cbc With Automated Diff (03/01/18 19:44) Comprehensive Metabolic Panel (03/01/18 19:44) Magnesium (03/01/18 19:44) Ua Culture If Indicated (03/01/18 19:44) Saline Lock/Iv-Start (03/01/18 19:44) Ns Iv 1000 Ml (Sodium Chloride 0.9%) (03/01/18 19:44) Ondansetron Injection (Zofran Injectio (03/01/18 19:45) Ranitidine Injection (Zantac Injection) (03/01/18 19:45) Manual Differential (03/01/18 19:51) Fentanyl Injection (Sublimaze Injection (03/01/18 20:37) Saline Lock/Iv-Start (03/01/18 20:37) Lactated Ringers (Lr 1000 Ml Iv Solution (03/01/18 20:37) Lactated Ringers (Lr 1000 Ml Iv Solution (03/01/18 20:34) Medications Given in ED Current Medications Medications Dose Ordered Sig/Andrea Route Start Time Stop Time Status Last Admin Dose Admin Lactated Ringer's 1,000 ml @ 0 mls/hr Q0M ONCE IV 03/01/18 20:37 03/01/18 20:38 DC 03/01/18 20:36 1,000 MLS/HR Ondansetron HCl 4 mg ONCE ONCE IVP 03/01/18 19:45 03/01/18 19:47 DC 03/01/18 20:01 4 MG Sodium Chloride 1,000 ml @ 0 mls/hr Q0M ONCE IV 03/01/18 19:44 03/01/18 19:47 DC 03/01/18 20:01 1,000 MLS/HR Vital Signs/I&O 03/01/18 19:20 Temp 97.5 Pulse 97 Resp 18 B/P (MAP) 136/76 (96) Pulse Ox 99 O2 Delivery Room Air Blood Pressure Mean: 96 Progress Note : Progress Note Seen and evaluated. IV, labs and UA ordered. Normal saline 1 L bolus. Zofran 4 mg IV ordered. Ranitidine 50 mg IV ordered. Monitor patient. 2032: Labs reviewed and does show acute renal insufficiency with creatinine worsening and or plus ketones in the urine with elevated blood sugar. I do believe the ketones are more related to volume depletion and less about diabetic ketoacidosis. Patient will require IV rehydration. Patient will require admission for the renal failure and dehydration in the setting of diabetes. Complaining of pain and would like something for pain. We will give fentanyl 50 g IV. Monitor patient. 2051: I discussed the case with Dr. MONGE and he accepts patient for admission, inpatient status. I did discuss this with the patient and he agrees. He also mentions that he is having some increased depression related to the loss of his of almost 50 years that he lost last year in April. Her birthday is coming up in a few days. This may be adding to his depression. He will discuss this with Dr. Jacobo tomorrow as well. Departure Communication (Admissions) Time/Spoke to Admitting Phy: 20:38 Impression Primary Impression: Acute renal failure Qualified Codes: N17.9 - Acute kidney failure, unspecified Additional Impressions: Dehydration Nausea and vomiting Qualified Codes: R11.2 - Nausea with vomiting, unspecified Normocytic anemia Disposition: ADMITTED INPATIENT Condition: Stable Admissions Decision to Admit Reason: Admit from ER (General) Decision to Admit/Date: Mar 01, 2018 Time/Decision to Admit Time: 20:38 Departure-Patient Inst. Referrals: EDEL JACOBO MD (PCP/Family) Primary Care Physician MARCO ANTONIO AMEZCUA MD Mar 01, 2018 20:10
[2018-03-01 20:20] LABS: ALBUMIN 4.3 GM/DL (3.2-4.5); BILIRUBIN,TOTAL 0.9 MG/DL (0.1-1.0); CALCIUM 9.8 MG/DL (8.5-10.1); CREATININE SERUM 1.41 MG/DL (0.60-1.30); MAGNESIUM 1.9 MG/DL (1.8-2.4); POTASSIUM 4.8 MMOL/L (3.6-5.0); TOTAL PROTEIN 7.7 GM/DL (6.4-8.2)
[2018-03-01 20:30] LABS: BAND NEUTROPHILS 0 %; NEUTROPHILS % (MANUAL) 85 %
[2018-03-01 20:31] LABS: BASOPHILS % (MANUAL) 0 %; EOSINOPHILS % (MANUAL) 0 %; LYMPHOCYTES % (MANUAL) 13 %; MONOCYTES % (MANUAL) 2 %; RBC MORPH NORMAL
[2018-03-01] MEDS ORDERED: LACTATED RINGERS 1,000 ML IV ONE ×2 (20:34→20:37)
[2018-03-01] MEDS ORDERED: fentaNYL INJECTION 100 MCG/2 ML AMP IVP STA (20:37)
[2018-03-01 21:25] VITALS: BP 159/82
[2018-03-01] MEDS ORDERED: ONDANSETRON 4 MG/2 ML (SDV) Z0FRAN IV PRN (22:00)
[2018-03-01] MEDS ORDERED: NS IV 1000 ML 1,000 ML IV SCH (22:00)
[2018-03-01] MEDS ORDERED: CATHETER FLUSH 10 ML SYR IV PRN (22:00)
[2018-03-01] MEDS: CATHETER FLUSH 10 ML SYR IV SCH (22:08)
[2018-03-01] MEDS: fentaNYL INJECTION 100 MCG/2 ML AMP IV PRN (23:35)
[2018-03-02] VITALS (37 sets, daily range): BP systolic 97–186; BP diastolic 40–110
[2018-03-02] MEDS: fentaNYL INJECTION 100 MCG/2 ML AMP IV PRN ×3 (01:47→13:04)
[2018-03-02] MEDS ORDERED: LORazepam INJ 2 MG/ML (ATIVAN) VIAL IVP ONE (03:15)
[2018-03-02] MEDS ORDERED: ZIPRASIDONE 20 MG INJ (GEODON) VIAL IM ONE (03:45)
[2018-03-02] MEDS ORDERED: WATER (STERILE) FOR INJECTION 20 ML ONE (03:49)
[2018-03-02 04:15] LABS: BASOPHILS # (AUTO) 0.6 10^3/uL (0.0-0.1); BASOPHILS % (AUTO) 2 % (0-10); EOSINOPHILS # (AUTO) 0.2 10^3/uL (0.0-0.3); EOSINOPHILS % (AUTO) 1 % (0-10); HEMATOCRIT 42 % (40-54); HEMOGLOBIN 13.3 G/DL (13.3-17.7); LYMPHOCYTES # (AUTO) 2.1 X 10^3 (1.0-4.0); LYMPHOCYTES % (AUTO) 7 % (12-44); MEAN CORPUSCULAR HEMOGLOBIN 31 PG (25-34); MEAN CORPUSCULAR HGB CONC 32 G/DL (32-36); MEAN CORPUSCULAR VOLUME 97 FL (80-99); MEAN PLATELET VOLUME 10.9 FL (7.4-10.4); MONOCYTES # (AUTO) 2.1 X 10^3 (0.0-1.0); MONOCYTES % (AUTO) 7 % (0-12); NEUTROPHILS # (AUTO) 25.5 X 10^3 (1.8-7.8); NEUTROPHILS % (AUTO) 84 % (42-75); PLATELET COUNT 375 10^3/uL (130-400); RED BLOOD COUNT 4.31 10^6/uL (4.35-5.85); RED CELL DISTRIBUTION WIDTH 14.4 % (10.0-14.5)
[2018-03-02 04:18] LABS: WHITE BLOOD COUNT 30.3 10^3/uL (4.3-11.0)
[2018-03-02 04:32] LABS: ALBUMIN 4.2 GM/DL (3.2-4.5); BILIRUBIN,TOTAL 0.7 MG/DL (0.1-1.0); CALCIUM 9.6 MG/DL (8.5-10.1); CREATININE SERUM 1.58 MG/DL (0.60-1.30); POTASSIUM 5.5 MMOL/L (3.6-5.0); TOTAL PROTEIN 7.5 GM/DL (6.4-8.2)
[2018-03-02 04:40] LABS: BAND NEUTROPHILS 4 %; NEUTROPHILS % (MANUAL) 79 %
[2018-03-02 04:41] LABS: LYMPHOCYTES % (MANUAL) 7 %; METAMYELOCYTES % 1 %; MONOCYTES % (MANUAL) 9 %; RBC MORPH NORMAL
[2018-03-02] MEDS ORDERED: PIPERACILLIN SODIUM/TAZOBACTAM 4.5 GM in NS (IVPB) 100 ML IV ONE (05:15)
[2018-03-02] MEDS ORDERED: NS IV 1000 ML 1,000 ML IV SCH ×2 (05:45→06:45)
[2018-03-02 05:50] LABS: ABG BASE EXCESS -26.4 MMOL/L (-2.5-2.5); ABG OXYGEN SATURATION 96 % (94-100); ABG TCO2 2.5 MMOL/L (21.0-31.0)
[2018-03-02 05:50] LABS: AMPHETAMINE SCREEN, URINE NEGATIVE (NEGATIVE); BARBITURATE SCREEN URINE NEGATIVE (NEGATIVE); BENZODIAZEPINES SCREEN URINE NEGATIVE (NEGATIVE); CANNABINOID SCREEN, URINE NEGATIVE (NEGATIVE); COCAINE SCREEN URINE NEGATIVE (NEGATIVE); METHADONE STAT NEGATIVE (NEGATIVE); METHAMPHETAMINE SCREEN URINE S NEGATIVE (NEGATIVE); OPIATE SCREEN URINE POSITIVE (NEGATIVE); OXYCODONE STAT NEGATIVE (NEGATIVE); PROPOXYPHENE STAT NEGATIVE (NEGATIVE); TRICYCLIC ANTIDEPRESSANTS SCRE NEGATIVE (NEGATIVE)
[2018-03-02 05:51] LABS: ABG PH 7.13 (7.37-7.43)
[2018-03-02 05:52] LABS: ABG PCO2 7 MMHG (35-45)
[2018-03-02 05:53] LABS: INSPIRED O2 ROOM AIR; PATIENT TEMP 98.2; VENTILATOR NO
[2018-03-02] MEDS ORDERED: SODIUM BICARB 8.4% 50 MEQ/50 ML (ABBOTT) SYR ONE (05:56)
[2018-03-02] MEDS ORDERED: inSUlin (REGULAR) HUMAN 1 UNIT/0.01 ML (CHARGE PER UNIT) ONE (05:59)
[2018-03-02] MEDS ORDERED: inSUlin ASPART (NovoLOG) 1 UNIT/0.01 ML (CHARGE PER UNIT) SC SCH ×2 (06:00)
--- NOTE | 2018-03-02 06:08 | Pulmonary Consultation ---
History of Present Illness History of Present Illness Date of Consultation 03/02/18 06:03 Time Seen by Provider: 06:03 Date of Admission History of Present Illness 72yo with hx of IDDM treated with a home insulin pump. presented to ED secondary to persistent nausea, decreased appetite and abdominal pain. Symptoms started a few days ago. Pt was dx with dehydration and admitted to 4th floor. through the night pt continued to worsen and developed extreme SOB. Pt was transferred to ICU and found to be in acute DKA. Currently pt is very anxious, respiratory distress, and confused. Unable to obtain accurate ROS. Pt has had prior episodes of DKA requiring hospitalization. I am consulted for ICU management. As soon as I arrived to ICU EICU asked to speak to me in regards to how unstable patient is and at this time I agreed to take over care. Allergies and Home Medications Allergies Coded Allergies: No Known Drug Allergies (Verified , 02/27/18) Home Medications Aspirin 81 Mg Tablet.dr, 81 MG PO DAILY, (Reported) Bupropion HCl 150 Mg Tablet.er, 150 MG PO BID, (Reported) Cholecalciferol (Vitamin D3) 5,000 Unit Tablet, 5,000 UNIT PO DAILY, (Reported) Clonazepam 1 Mg Tablet, 1-2 MG PO HS PRN for ANXIETY, (Reported) LAST FILLED #180 05-29-17 Diphenhydramine HCl 50 Mg/30 Ml Liquid, 50 MG PO HS PRN for SLEEP, (Reported) Docusate Sodium 100 Mg Capsule, 100 MG PO DAILY PRN for CONSTIPATION-1ST LINE, ( Reported) Enalapril Maleate 20 Mg Tablet, 20 MG PO BID, (Reported) Escitalopram Oxalate 10 Mg Tablet, 10 MG PO HS, (Reported) Fluticasone Propionate 16 Gm [place].susp, 2 SPRAYS NS HS, (Reported) Gabapentin 600 Mg Tablet, 600 MG PO TID, (Reported) Hydrocodone Bit/Acetaminophen 1 Each Tablet, 1-2 TAB PO Q6H PRN for MODERATE PAIN, (Reported) Insulin Lispro 100 Unit/1 Ml Vial, PER INSULIN PUMP, (Reported) BASAL RATE 1.5/HOUR CARBS TO INSULIN 7:1 Melatonin 5 Mg Tablet, 5 MG PO HS, (Reported) Multivitamin 1 Each Tablet, 1 TAB PO DAILY, (Reported) Ondansetron 4 Mg Tab.rapdis, 4 MG PO Q6H PRN for NAUSEA/VOMITING-1ST LINE, ( Reported) Ondansetron 8 Mg Tab.rapdis, 4-8 MG PO Q6H PRN for NAUSEA/VOMITING-1ST LINE Prescribed by: GIOVANA LUX on 02/27/18 1740 Polyethylene Glycol 3350 17 Gm Pow[place].pack, 17 GM PO DAILY PRN for CONSTIPATION- 2ND LINE, (Reported) Venlafaxine HCl 75 Mg Tab, 150 MG PO BID, (Reported) TAKES 2 (75MG) TABLETS [Brain Enhancement] , 1 TAB PO DAILY, (Reported) [Focus Extra Strenght] , 1 TAB PO DAILY, (Reported) Past Beafvms-Unmnjv-Stpgqm Hx Past Med/Social Hx: Reviewed Nursing Past Med/Soc Hx Patient Social History Alcohol Use: Rarely Uses Number of Drinks Today: 1 Recreational Drug Use: No (has been on narcotics for the past 3 years) Smoking Status: Former Smoker Type Used: Cigarettes Former Smoker, Quit: Nov 02, 1959 Recent Foreign Travel: No Contact w/Someone Who Travel: No Recent Infectious Disease Expo: No Recent Hopitalizations: No Physical Abuse: No Sexual Abuse: No Mistreated: No Fear: No Immunizations Up To Date Tetanus Booster (TDap): Less than 5yrs Date of Pneumonia Vaccine: Nov 02, 2008 Date of Influenza Vaccine: Aug 14, 2017 Seasonal Allergies Seasonal Allergies: No Past Medical History Surgeries: Yes (BILAT CARPAL TUNNEL, BILA KNEE REPLACE, COLON RESECTION, BILAT KNEE SCOPE, ) Orthopedic Respiratory: Yes (CPAP AT [facility]) Sleep Apnea Currently Using CPAP: Yes Currently Using BIPAP: No Cardiac: Yes Hypertension Neurological: Yes (CONFUSION W/ ILLNESSES) Dementia Reproductive Disorders: Yes Sexually Transmitted Disease: No Genitourinary: No Gastrointestinal: Yes (COLON RESSECTION) Obstructive Bowel, Chronic Constipation Musculoskeletal: Yes (ARTHRITIS) Back Injury Endocrine: Yes Diabetes, Insulin dep HEENT: Yes (insulin pump) Cataract 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, Hearing Aide Left Cancer: Yes Skin Psychosocial: Yes Depression Nursing Suicide Risk Score: 0 Integumentary: Yes (SKIN REAL THIN/EASILY BRUISES) Blood Disorders: No Family Medical History Reviewed Nursing Family Hx Cancer 09 SISTER (BREAST) Hypertension 03 FATHER 03 MOTHER Parkinson's disease 03 MOTHER Seizure disorder 09 BROTHER No Pertinent Family Hx Review of Systems Time Seen by Provider: 06:28 Exam Exam Vital Signs Date Time Temp Pulse Resp B/P (MAP) Pulse Ox O2 Delivery O2 Flow Rate FiO2 03/02/18 05:45 142 27 100 Nasal Cannula 2.00 03/02/18 05:30 146 28 152/82 (105) Room Air 03/02/18 05:15 146 44 165/110 (128) 100 Room Air 03/02/18 05:00 142 34 139/76 (97) 100 Room Air 03/02/18 04:53 146 03/02/18 04:45 151 140/93 (109) Room Air 03/02/18 04:33 98.5 147 24 186/78 (114) Room Air 03/02/18 00:49 98.2 114 18 116/56 (76) 96 Room Air 03/01/18 21:25 99 Room Air 03/01/18 21:25 100.2 93 20 159/82 (107) 99 Room Air 03/01/18 21:15 113 16 142/81 96 Room Air 03/01/18 19:20 97.5 97 18 136/76 (96) 99 Room Air I & O 03/02/18 07:00 Intake Total 2000 ml Output Total 0 ml Balance 2000 ml General Appearance: Anxious, Severe Distress HEENT: PERRL/EOMI, Normal ENT Inspection, Pharynx Normal Neck: Full Range of Motion, Normal Inspection, Non Tender, Supple Respiratory: Accessory Muscle Use, Decreased Breath Sounds Cardiovascular: Regular Rate, Rhythm, No Gallop Capillary Refill: Less Than 3 Seconds Peripheral Pulses: 2+ Dorsalis Pedis (R), 2+ Left Dors-Pedis (L), 2+ Radial Pulses (R), 2+ Radial Pulses (L) Gastrointestinal: non tender, soft Extremity: Normal Capillary Refill Neurologic/Psychiatric: Alert Skin: Normal Color, Warm/Dry Results Lab Laboratory Tests 03/01/18 19:51 03/02/18 04:00 Assessment/Plan Assessment/Plan Severe acute DKA with dehydration -DKA protocol -D/C patients home insulin pump and start IV insulin -aggressive IVF SIRS r/o sepsis -Dejesus cultures -Emperic Zosyn, Severe metabolic acidosis with HC03 of 2 -Give 2 amps of HCO3 Acute respiratory distress with Kussmauls respirations Sinus tachycardia -check EKG -Aggressive IVF Critical Care: Critically Ill Patient Time spent with patient (mins): 120 MANSOOR ZABALA DO March 02, 2018 06:08
[2018-03-02 06:15] LABS: BASOPHILS # (AUTO) 0.6 10^3/uL (0.0-0.1); BASOPHILS % (AUTO) 2 % (0-10); EOSINOPHILS # (AUTO) 0.2 10^3/uL (0.0-0.3); EOSINOPHILS % (AUTO) 1 % (0-10); HEMATOCRIT 41 % (40-54); HEMOGLOBIN 12.8 G/DL (13.3-17.7); LYMPHOCYTES # (AUTO) 1.6 X 10^3 (1.0-4.0); LYMPHOCYTES % (AUTO) 5 % (12-44); MEAN CORPUSCULAR HEMOGLOBIN 31 PG (25-34); MEAN CORPUSCULAR HGB CONC 31 G/DL (32-36); MEAN CORPUSCULAR VOLUME 98 FL (80-99); MEAN PLATELET VOLUME 10.7 FL (7.4-10.4); MONOCYTES # (AUTO) 2.5 X 10^3 (0.0-1.0); MONOCYTES % (AUTO) 7 % (0-12); NEUTROPHILS # (AUTO) 29.9 X 10^3 (1.8-7.8); NEUTROPHILS % (AUTO) 86 % (42-75); PLATELET COUNT 334 10^3/uL (130-400); RED BLOOD COUNT 4.17 10^6/uL (4.35-5.85); RED CELL DISTRIBUTION WIDTH 14.2 % (10.0-14.5)
[2018-03-02] MEDS ORDERED: SODIUM BICARB 8.4% 50 MEQ/50 ML (ABBOTT) SYR IV ONE (06:15)
[2018-03-02] MEDS ORDERED: inSUlin (REGULAR) HUMAN 1 UNIT/0.01 ML (CHARGE PER UNIT) IV ONE (06:15)
[2018-03-02 06:18] LABS: WHITE BLOOD COUNT 34.8 10^3/uL (4.3-11.0)
[2018-03-02 06:35] LABS: ALANINE AMINOTRANSFERASE 22 U/L (0-55); ALKALINE PHOSPHATASE 77 U/L (40-136); AMYLASE 32 U/L (25-125); BILIRUBIN,TOTAL 0.6 MG/DL (0.1-1.0); BUN/CREATININE RATIO 18; CALCIUM 9.2 MG/DL (8.5-10.1); CHLORIDE 98 MMOL/L (98-107); CREATININE SERUM 1.61 MG/DL (0.60-1.30); GFR ESTIMATED 42; LIPASE 25 U/L (8-78); MAGNESIUM 2.1 MG/DL (1.8-2.4); PHOSPHORUS 4.7 MG/DL (2.3-4.7); POTASSIUM 5.1 MMOL/L (3.6-5.0); SODIUM 129 MMOL/L (135-145); TOTAL PROTEIN 7.1 GM/DL (6.4-8.2)
[2018-03-02 06:37] LABS: CARBON DIOXIDE < 5 MMOL/L (21-32)
[2018-03-02 06:38] LABS: GLUCOSE 482 MG/DL (70-105)
[2018-03-02] MEDS ORDERED: DEXTROSE 50% INJ VIAL IV ONE (06:45)
[2018-03-02] MEDS ORDERED: NS IV 1000 ML X 1 WIDE OPEN IV ONE (06:45)
[2018-03-02] MEDS ORDERED: NS (IVPB) 250 ML ONE (06:58)
[2018-03-02] MEDS ORDERED: NOREPINEPHRINE 4 MG/4 ML (LEVOPHED) AMP IV ONE (06:59)
[2018-03-02] MEDS ORDERED: proPOfol 200 MG/20 ML (DIPRIVAN) VIAL IV ONE ×2 (07:01→08:00)
[2018-03-02] MEDS ORDERED: PROPOFOL DRIP (ICU) 100 ML IV ONE (07:01)
[2018-03-02] MEDS ORDERED: RT-ALBUTEROL SULF 2.5 MG/3 ML PRE-MIX VIAL INH PRN (07:30)
--- NOTE | 2018-03-02 07:38 | Pulmonary Procedures ---
Pulmonary Procedures Date of Procedure Date of Service: March 02, 2018 Reason for Intubation: ACUTE RESPIRATORY FAILURE Time of Intubation: 07:37 Intubation Method: orotracheal Medications: Propofol, Versed Positive End Tide CO2: Yes Breath Sounds after Intubation: bilateral-equal Intubation Complications: no complications Post Intubation Xray: Yes (PENDING) MANSOOR ZABALA DO March 02, 2018 07:38
[2018-03-02] MEDS ORDERED: fentaNYL INJECTION 100 MCG/2 ML AMP IVP PRN (08:00)
[2018-03-02] MEDS: REGULAR inSUlin DRIP 250 UNITS/NS 250 ML IV SCH ×2 (08:03)
[2018-03-02] MEDS: PROPOFOL DRIP (ICU) 100 ML IV SCH ×6 (08:07→22:22)
--- NOTE | 2018-03-02 08:29 | Pulmonary Procedures ---
Pulmonary Procedures Date of Procedure Date of Service: March 02, 2018 Lumen: triple (US guided ) Central Line Procedure: betadine prep, sterile drapes applied, sterile dressing applied Position: internal jugular (L) Anesthesia: Lidocaine Volume Anesthetic (ccs): 5 Complications: none Post Position: sutured, good blood return, position confirmed w/ CXR (CXR pending ) MANSOOR ZABALA DO March 02, 2018 08:29
[2018-03-02] MEDS: RT-ALBUTEROL SULF 2.5 MG/3 ML PRE-MIX VIAL INH SCH ×3 (08:43→20:05)
--- NOTE | 2018-03-02 08:58 | Diagnostic Imaging Report ---
INDICATION: ET tube placement. This film timed 7:18 a.m. An ET tube tip projects over the midthoracic trachea in good alignment. OG catheter goes beneath the diaphragm beyond the [id number]. Lung volumes symmetric. Old healed deformities to the left clavicle chronic. No focal consolidation, effusion or pneumothorax. IMPRESSION: Support apparatus projects in good alignment. No focal consolidation or acute pleural pathology. Dictated by: Dictated on workstation # [id number]
--- NOTE | 2018-03-02 09:04 | Diagnostic Imaging Report ---
Indication: Respiratory distress with central line placement. Findings: A catheter via left IJ has been placed, its tip projects near the midline along the expected level of the central left innominate vein approaching the innominate junction. The ET tube is in good position above the jim. OG catheter in the stomach. No focal pulmonary consolidation, effusion or pneumothorax. Impression: Left IJ catheter tip likely in the central left innominate approaching the innominate junction remaining support apparatus stable, no pneumothorax. Dictated by: Dictated on workstation # [id number]
[2018-03-02] MEDS: DEXTROSE 10% IV SOLUTION 1,000 ML IV SCH ×2 (09:09→16:03)
[2018-03-02] MEDS: D5 1/2 NS W/KCL 20 MEQ/L 1,000 ML IV SCH ×6 (09:09→23:49)
[2018-03-02] MEDS: D5 1/2 NS IV 1,000 ML IV SCH ×5 (09:10→22:48)
[2018-03-02] MEDS ORDERED: D5 1/2 NS W/KCL 20 MEQ/L 1,000 ML IV ONE (09:15)
[2018-03-02] MEDS ORDERED: ONDA8TAB9 SL (10:14)
[2018-03-02 10:25] LABS: CALCIUM 7.8 MG/DL (8.5-10.1); CREATININE SERUM 1.37 MG/DL (0.60-1.30); MAGNESIUM 1.9 MG/DL (1.8-2.4); PHOSPHORUS 1.4 MG/DL (2.3-4.7)
--- NOTE | 2018-03-02 10:31 | History & Physical-Hospitalist ---
History of Present Illness HPI/Chief Complaint Pt is a 72yoCM with a PMH of IDDMI who presented to the ER last night due to persistent nausea. Currently he is intubated and sedated and I am unable to obtain a history. All history is obtained from records. He was seen in the ER 3 days ago for nausea and vomiting and was discharged home. His symptoms continued to worsen and he returned for evaluation last night. He was found to be very dehydrated and was admitted to the 4th floor. He continued to worse and per RN he had increased with of breathing and was transferred to the ICU. Dr Lainez evaluated him and deemed intubation necessary and he was intubated early this AM. Source: patient Date Seen 03/02/18 Time Seen by Provider: 10:00 Attending Physician Dhruv Jacobo MD PCP Dhruv Jacobo MD Referring Physician Date of Admission March 02, 2018 at 4:45 am Home Medications & Allergies Home Medications Reviewed patient Home Medication Reconciliation performed by pharmacy medication reconciliations auto technician mechanic and/or nursing. Patients Allergies have been reviewed. Allergies Allergies Coded Allergies No Known Drug Allergies (Verified02/27/18) Past Hbpqvsg-Vsgunw-Ojysao Hx Past Med/Social Hx: Reviewed Nursing Past Med/Soc Hx Patient Social History Marrital Status: Alcohol Use: Rarely Uses Recreational Drug Use: No (has been on narcotics for the past 3 years) Smoking Status: Former Smoker Former Smoker, Quit: Nov 02, 1959 Type Used: Cigarettes Physical Abuse Screen: No Sexual Abuse: No Recent Foreign Travel: No Contact w/other who traveled: No Recent Hopitalizations: No Recent Infectious Disease Expo: No Immunizations Up To Date Tetanus Booster (TDap): Less than 5yrs Date of Pneumonia Vaccine: Nov 02, 2008 Date of Influenza Vaccine: Aug 14, 2017 Seasonal Allergies Seasonal Allergies: No Past Medical History Surgeries: Abdominal, Orthopedic Respiratory: Sleep Apnea Currently Using CPAP: Yes Currently Using BIPAP: No Cardiac: Hypertension Neurological: Dementia Reproductive: Yes Sexually Transmitted Disease: No Gastrointestinal: Obstructive Bowel, Chronic Constipation Musculoskeletal: Back Injury Endocrine: Diabetes, Insulin dep HEENT: Cataract 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, Hearing Aide Left Cancer: Skin Psychosocial: Depression History of Blood Disorders: No Family History Reviewed Nursing Family Hx Cancer 09 SISTER (BREAST) Hypertension 03 FATHER 03 MOTHER Parkinson's disease 03 MOTHER Seizure disorder 09 BROTHER Review of Systems ROS-Unable to Obtain: Due to intubated- short ROS from notes Constitutional: see HPI, weakness Gastrointestinal: abdominal pain, nausea, vomiting Physical Exam Physical Exam Vital Signs Vital Signs - First Documented 03/01/18 03/02/18 03/02/18 19:20 05:45 07:08 Temp 97.5 Pulse 97 Resp 18 B/P (MAP) 136/76 (96) Pulse Ox 99 O2 Delivery Room Air O2 Flow Rate 2.00 FiO2 50 Capillary Refill : Less Than 3 Seconds General Appearance: Other (ill appearing elderly male) HEENT: PERRL/EOMI; No Scleral Icterus (L), No Scleral Icterus (R) Neck: No JVD, No Thyromegaly Respiratory: Lungs Clear, Other (intubated) Cardiovascular: Regular Rate, Rhythm, No Murmur Gastrointestinal: Normal Bowel Sounds, Non Tender, Soft, Other Extremity: Normal Capillary Refill, No Calf Tenderness, No Pedal Edema Neurologic/Psychiatric: Other Skin: Normal Color, Warm/Dry Results Results/Procedures Labs Laboratory Tests 03/01/18 19:51 03/02/18 04:00 03/02/18 06:05 03/02/18 09:50 03/02/18 11:39 03/02/18 14:00 03/02/18 16:05 03/02/18 18:09 03/02/18 20:20 03/02/18 22:15 03/03/18 00:50 03/03/18 03:00 03/03/18 05:55 03/03/18 07:30 03/03/18 10:07 03/03/18 12:13 Patient resulted labs reviewed. Imaging: Reviewed Imaging Films, Reviewed Imaging Report Assessment/Plan Admission Diagnosis DKA Admission Status: Inpatient Order (span 2 midnights) Reason for Inpatient Admission: requiring intubation Diagnosis/Problems Diagnosis/Problems (1) DKA, type 1 Status: Acute Assessment & Plan: On insulin gtt per protocol Continue fluids per protocol Will get A1c s/p 2 amps of bicarb due to severe metabolic acidosis this AM lactic acidosis due to DKA Gap improving but bicarb still pending on most recent labs Qualifiers: Diabetes mellitus complication detail: with coma Qualified Codes: E10.11 - Type 1 diabetes mellitus with ketoacidosis with coma (2) Acute respiratory failure Status: Acute Assessment & Plan: Intubated this AM by Dr Lainez Qualifiers: Respiratory failure complication: unspecified whether with hypoxia or hypercapnia Qualified Codes: J96.00 - Acute respiratory failure, unspecified whether with hypoxia or hypercapnia (3) Acute renal failure Status: Resolved Assessment & Plan: Improving Continue IVF Doan for accurate I/Os Qualifiers: Acute renal failure type: unspecified Qualified Codes: N17.9 - Acute kidney failure, unspecified (4) Leukocytosis Status: Acute Assessment & Plan: No source of infection so SIRS not due to sepsis Will treat empirically with antibiotics but likely reactive due to DKA and nausea and vomiting Blood cultures ordered (5) Essential (primary) hypertension Assessment & Plan: Has been labile Monitor closely Clinical Quality Measures DVT/VTE Risk/Contraindication: Risk Factor Score Per Nursin RFS Level Per Nursing on Admit: 4+=Very High SHAZIA MATTHEWS MD March 02, 2018 10:31
[2018-03-02] MEDS ORDERED: PIPERACILLIN SODIUM/TAZOBACTAM 4.5 GM in NS (IVPB) 100 ML IV SCH (11:15)
[2018-03-02] MEDS ORDERED: NS W/KCL 20 MEQ/L 1,000 ML IV ONE ×2 (11:30→11:45)
[2018-03-02] MEDS ORDERED: NS IV 1000 ML 1,000 ML IV PRN (12:00)
[2018-03-02 12:01] LABS: CALCIUM 7.8 MG/DL (8.5-10.1); CREATININE SERUM 1.42 MG/DL (0.60-1.30); MAGNESIUM 1.8 MG/DL (1.8-2.4); PHOSPHORUS 1.2 MG/DL (2.3-4.7); POTASSIUM 4.1 MMOL/L (3.6-5.0)
--- NOTE | 2018-03-02 12:51 | Progress Note-Standard ---
Standard Progress Note Progress Notes/Assess & Plan Time Seen by Provider: 12:30 Final Diagnosis Consulted for A-line. 22 gauge to left radial x2 attempts per Erin LOPEZ . Woo well VSS report to TELEVISION NEWS VIDEO EDITOR care assumed. Focused Exam Lactate Level 03/02/18 06:05: Lactic Acid Level 4.85*H 03/02/18 09:50: Lactic Acid Level 1.52 Lactic Acid Level Laboratory Tests Test 03/02/18 09:50 Lactic Acid Level 1.52 MMOL/L (0.50-2.00) EFRAIN ALVARADO CRNA March 02, 2018 12:51
[2018-03-02] MEDS: NS W/KCL 20 MEQ/L 1,000 ML IV SCH ×3 (12:59→20:10)
[2018-03-02 13:39] LABS: ABG BASE EXCESS -8.6 MMOL/L (-2.5-2.5); ABG OXYGEN SATURATION 99 % (94-100); ABG PCO2 30 MMHG (35-45); ABG PH 7.35 (7.37-7.43); ABG PO2 107 MMHG (79-93); ABG TCO2 16.8 MMOL/L (21.0-31.0)
[2018-03-02 13:40] LABS: ALLENS TEST ART LINE; INSPIRED O2 21%
[2018-03-02 13:41] LABS: PATIENT TEMP 99.2; VENTILATOR YES
[2018-03-02] MEDS ORDERED: POT PHOS/NA PHOS (K-PHOS NEUTRAL) PO NR (13:45)
[2018-03-02] MEDS ORDERED: MIDAZOLAM 5 MG/5 ML (VERSED) VIAL INJ ONE (13:57)
[2018-03-02] MEDS ORDERED: fentaNYL INJECTION 100 MCG/2 ML AMP INJ ONE (13:57)
[2018-03-02] MEDS: CATHETER FLUSH 10 ML SYR IV SCH ×2 (14:12→21:55)
[2018-03-02 14:47] LABS: CALCIUM 7.7 MG/DL (8.5-10.1); CREATININE SERUM 1.29 MG/DL (0.60-1.30); MAGNESIUM 1.7 MG/DL (1.8-2.4); POTASSIUM 3.9 MMOL/L (3.6-5.0)
[2018-03-02] MEDS: PIPERACILLIN SODIUM/TAZOBACTAM 4.5 GM in NS (IVPB) 100 ML IV SCH ×2 (15:58→23:50)
[2018-03-02 16:32] LABS: CALCIUM 7.7 MG/DL (8.5-10.1); CREATININE SERUM 1.22 MG/DL (0.60-1.30); MAGNESIUM 1.7 MG/DL (1.8-2.4); POTASSIUM 3.6 MMOL/L (3.6-5.0)
[2018-03-02 16:35] LABS: PHOSPHORUS 0.9 MG/DL (2.3-4.7)
[2018-03-02] MEDS ORDERED: POTASSIUM PHOSPHATE INJ 30 MM in NS (IVPB) 250 ML IV ONE (17:00)
[2018-03-02] MEDS: raNItidine 50 MG/NS 100 ML IVP IV SCH ×4 (17:51→22:20)
[2018-03-02] MEDS: DEXTROSE 50% 50 ML (IMS) SYR IV PRN ×2 (18:04→22:09)
[2018-03-02 18:35] LABS: CALCIUM 7.4 MG/DL (8.5-10.1); CREATININE SERUM 1.23 MG/DL (0.60-1.30); MAGNESIUM 1.7 MG/DL (1.8-2.4); PHOSPHORUS 1.2 MG/DL (2.3-4.7); POTASSIUM 3.5 MMOL/L (3.6-5.0)
[2018-03-02 20:46] LABS: BUN/CREATININE RATIO 18; CALCIUM 7.6 MG/DL (8.5-10.1); CARBON DIOXIDE 15 MMOL/L (21-32); CHLORIDE 112 MMOL/L (98-107); CREATININE SERUM 1.17 MG/DL (0.60-1.30); GFR ESTIMATED > 60; GLUCOSE 168 MG/DL (70-105); MAGNESIUM 1.7 MG/DL (1.8-2.4); PHOSPHORUS 1.9 MG/DL (2.3-4.7); POTASSIUM 3.8 MMOL/L (3.6-5.0); SODIUM 135 MMOL/L (135-145)
[2018-03-02 22:38] LABS: BUN/CREATININE RATIO 17; CALCIUM 7.6 MG/DL (8.5-10.1); CARBON DIOXIDE 14 MMOL/L (21-32); CHLORIDE 113 MMOL/L (98-107); CREATININE SERUM 1.15 MG/DL (0.60-1.30); GFR ESTIMATED > 60; GLUCOSE 132 MG/DL (70-105); MAGNESIUM 1.8 MG/DL (1.8-2.4); PHOSPHORUS 2.1 MG/DL (2.3-4.7); POTASSIUM 3.7 MMOL/L (3.6-5.0); SODIUM 136 MMOL/L (135-145)
[2018-03-03] VITALS (29 sets, daily range): BP systolic 97–149; BP diastolic 40–84
[2018-03-03] MEDS: NS W/KCL 20 MEQ/L 1,000 ML IV SCH ×3 (00:24→07:42)
[2018-03-03] MEDS: PROPOFOL DRIP (ICU) 100 ML IV SCH ×2 (01:05→07:15)
[2018-03-03 01:10] LABS: BUN/CREATININE RATIO 19; CALCIUM 7.6 MG/DL (8.5-10.1); CARBON DIOXIDE 15 MMOL/L (21-32); CHLORIDE 114 MMOL/L (98-107); CREATININE SERUM 0.97 MG/DL (0.60-1.30); GFR ESTIMATED > 60; GLUCOSE 144 MG/DL (70-105); MAGNESIUM 1.8 MG/DL (1.8-2.4); PHOSPHORUS 1.5 MG/DL (2.3-4.7); POTASSIUM 3.4 MMOL/L (3.6-5.0); SODIUM 137 MMOL/L (135-145)
[2018-03-03] MEDS: D5 1/2 NS IV 1,000 ML IV SCH ×2 (01:48→07:00)
[2018-03-03] MEDS: DEXTROSE 10% IV SOLUTION 1,000 ML IV SCH ×2 (01:48→04:25)
[2018-03-03] MEDS: RT-ALBUTEROL SULF 2.5 MG/3 ML PRE-MIX VIAL INH SCH ×4 (02:00→22:25)
[2018-03-03 03:19] LABS: ABG BASE EXCESS -8.6 MMOL/L (-2.5-2.5); ABG OXYGEN SATURATION 99 % (94-100); ABG PCO2 31 MMHG (35-45); ABG PO2 120 MMHG (79-93); BASOPHILS # (AUTO) 0.1 10^3/uL (0.0-0.1); BASOPHILS % (AUTO) 1 % (0-10); EOSINOPHILS # (AUTO) 0.6 10^3/uL (0.0-0.3); EOSINOPHILS % (AUTO) 3 % (0-10); HEMATOCRIT 33 % (40-54); HEMOGLOBIN 10.6 G/DL (13.3-17.7); LYMPHOCYTES # (AUTO) 2.8 X 10^3 (1.0-4.0); LYMPHOCYTES % (AUTO) 14 % (12-44); MEAN CORPUSCULAR HEMOGLOBIN 30 PG (25-34); MEAN CORPUSCULAR HGB CONC 32 G/DL (32-36); MEAN CORPUSCULAR VOLUME 95 FL (80-99); MEAN PLATELET VOLUME 10.1 FL (7.4-10.4); MONOCYTES # (AUTO) 1.8 X 10^3 (0.0-1.0); MONOCYTES % (AUTO) 9 % (0-12); NEUTROPHILS # (AUTO) 14.3 X 10^3 (1.8-7.8); NEUTROPHILS % (AUTO) 73 % (42-75); PLATELET COUNT 267 10^3/uL (130-400); RED BLOOD COUNT 3.49 10^6/uL (4.35-5.85); RED CELL DISTRIBUTION WIDTH 14.8 % (10.0-14.5); WHITE BLOOD COUNT 19.6 10^3/uL (4.3-11.0)
[2018-03-03 03:28] LABS: ABG PH 7.34 (7.37-7.43); ALLENS TEST ART LINE; INSPIRED O2 21%; PATIENT TEMP 98.5; VENTILATOR YES
[2018-03-03] MEDS: D5 1/2 NS W/KCL 20 MEQ/L 1,000 ML IV SCH (03:51)
[2018-03-03 03:54] LABS: BUN/CREATININE RATIO 17; CALCIUM 7.6 MG/DL (8.5-10.1); CARBON DIOXIDE 16 MMOL/L (21-32); CHLORIDE 115 MMOL/L (98-107); CREATININE SERUM 0.96 MG/DL (0.60-1.30); GFR ESTIMATED > 60; GLUCOSE 133 MG/DL (70-105); MAGNESIUM 1.8 MG/DL (1.8-2.4); PHOSPHORUS 1.4 MG/DL (2.3-4.7); POTASSIUM 3.4 MMOL/L (3.6-5.0); SODIUM 138 MMOL/L (135-145)
[2018-03-03] MEDS ORDERED: SODIUM BICARB 8.4% 50 MEQ/50 ML (ABBOTT) SYR IV ONE ×2 (04:00→04:30)
[2018-03-03] MEDS ORDERED: SODIUM BICARB 8.4% 50 MEQ/50 ML (ABBOTT) SYR ONE (04:01)
[2018-03-03] MEDS: POTASSIUM CL 10MEQ/50ML IVPB 50 ML IV SCH ×7 (04:19→09:51)
--- NOTE | 2018-03-03 04:43 | Pulmonary Progress Note ---
Subjective Time Seen by Provider: 04:40 Subjective/Events-last exam pt is sedated on vent. Focused Exam Lactate Level 03/02/18 06:05: Lactic Acid Level 4.85*H 03/02/18 09:50: Lactic Acid Level 1.52 Exam Exam Vital Signs Date Time Temp Pulse Resp B/P (MAP) Pulse Ox O2 Delivery O2 Flow Rate FiO2 03/03/18 04:00 99 Mechanical Ventilator 21 03/03/18 03:33 88 26 100 21 03/03/18 03:00 89 29 135/50 (78) 100 Mechanical Ventilator 21.00 03/03/18 02:00 87 24 122/46 (71) 100 Mechanical Ventilator 21.00 03/03/18 02:00 87 27 100 21 03/03/18 01:05 96 24 121/49 100 Mechanical Ventilator 24.00 03/03/18 01:00 91 28 121/49 (73) 100 Mechanical Ventilator 21.00 03/03/18 01:00 91 03/03/18 00:49 92 24 100 21 03/03/18 00:00 93 20 139/63 (88) 100 Mechanical Ventilator 21.00 03/03/18 00:00 100 Mechanical Ventilator 21 03/02/18 23:50 99.0 Mechanical Ventilator 21.00 03/02/18 23:00 90 23 123/56 (78) 100 Mechanical Ventilator 21.00 03/02/18 22:22 96 18 147/61 100 Mechanical Ventilator 21.00 03/02/18 22:12 100 23 100 21 03/02/18 21:00 98 27 124/52 (76) 100 Mechanical Ventilator 21.00 03/02/18 20:06 87 25 100 21 03/02/18 20:00 93 25 124/53 (76) 100 Mechanical Ventilator 21.00 03/02/18 20:00 100 Mechanical Ventilator 21 03/02/18 19:00 98.9 96 16 123/60 (81) 100 Mechanical Ventilator 21.00 03/02/18 19:00 88 03/02/18 18:55 92 113/57 03/02/18 18:31 87 23 100 21 03/02/18 18:00 90 20 99/53 (68) 100 Mechanical Ventilator 21.00 03/02/18 17:00 96 21 102/65 (77) 100 Mechanical Ventilator 21.00 03/02/18 16:11 99.5 03/02/18 16:00 98 20 110/53 (72) 100 Mechanical Ventilator 21.00 03/02/18 16:00 Mechanical Ventilator 21 03/02/18 15:57 96 106/48 03/02/18 15:56 97 24 100 21 03/02/18 15:00 97 18 108/54 (72) 100 Mechanical Ventilator 21.00 03/02/18 14:49 96 24 100 21 03/02/18 14:00 97 16 107/53 (71) 100 Mechanical Ventilator 21.00 03/02/18 13:04 101 110/40 03/02/18 13:00 100 03/02/18 13:00 99 16 105/51 (69) 100 Mechanical Ventilator 21.00 03/02/18 12:21 107 28 100 21 03/02/18 12:00 Mechanical Ventilator 21 03/02/18 12:00 103 18 115/58 (77) 100 Mechanical Ventilator 21.00 03/02/18 11:30 99.3 101 19 109/73 (85) 100 Mechanical Ventilator 21.00 03/02/18 11:00 105 19 124/56 (78) 100 Mechanical Ventilator 21.00 03/02/18 10:50 Mechanical Ventilator 21.00 03/02/18 10:44 104 26 100 21 03/02/18 10:07 112 144/62 03/02/18 10:00 99.4 114 29 144/62 (89) 100 Mechanical Ventilator 30.00 03/02/18 09:00 115 18 111/52 (71) 100 03/02/18 09:00 Mechanical Ventilator 30 03/02/18 08:43 112 26 100 30 03/02/18 08:31 109 22 100 30 03/02/18 08:07 104/64 03/02/18 08:00 115 116/56 (76) Mechanical Ventilator 30.00 03/02/18 08:00 120 31 100 03/02/18 07:50 145 03/02/18 07:30 Mechanical Ventilator 30.00 03/02/18 07:08 142 34 100 50 03/02/18 07:00 149 36 126/64 (84) 100 Nasal Cannula 2.00 03/02/18 06:45 149 40 116/62 (80) 100 Nasal Cannula 2.00 03/02/18 06:30 149 31 105/98 (100) 100 Nasal Cannula 2.00 03/02/18 06:15 149 41 117/88 (98) 100 Nasal Cannula 2.00 03/02/18 06:00 146 38 97/71 (80) 100 Nasal Cannula 2.00 03/02/18 05:45 142 27 100 Nasal Cannula 2.00 03/02/18 05:30 146 28 152/82 (105) Room Air 03/02/18 05:15 146 44 165/110 (128) 100 Room Air 03/02/18 05:00 142 34 139/76 (97) 100 Room Air 03/02/18 04:53 146 03/02/18 04:45 151 140/93 (109) Room Air I & O 03/03/18 07:00 Intake Total 7514 ml Output Total 3610 ml Balance 3904 ml General Appearance: Other (ill appearing elderly male) HEENT: PERRL/EOMI; No Scleral Icterus (L), No Scleral Icterus (R) Neck: No JVD, No Thyromegaly Respiratory: Lungs Clear, Other (intubated) Cardiovascular: Regular Rate, Rhythm, No Murmur Capillary Refill: Less Than 3 Seconds Peripheral Pulses: 2+ Dorsalis Pedis (R), 2+ Left Dors-Pedis (L), 2+ Radial Pulses (R), 2+ Radial Pulses (L) Gastrointestinal: non tender, soft Extremity: Normal Capillary Refill, No Calf Tenderness, No Pedal Edema Neurologic/Psychiatric: Other Skin: Normal Color, Warm/Dry Results Lab Laboratory Tests 03/01/18 19:51 03/02/18 04:00 03/02/18 06:05 03/02/18 09:50 03/02/18 11:39 03/02/18 14:00 03/02/18 16:05 03/02/18 18:09 03/02/18 20:20 03/02/18 22:15 03/03/18 00:50 03/03/18 03:00 Assessment/Plan Assessment/Plan Acute respiratory distress -continue ventilator therapy - will start to wean vent today -D/C Diprivan and start Precedex Severe acute DKA with dehydration -DKA protocol -Continue to follow DKA protocol. -Don't D/C insulin gtt until C02 on chemistry is normal. -D/C patients home insulin pump and start IV insulin -aggressive IVF -Repeat urine ketones. SIRS r/o sepsis -Dejesus cultures -Emperic Zosyn, Severe metabolic acidosis- improving -C02 is improving 233 Critical Care: Critically Ill Patient MANSOOR ZABALA DO March 03, 2018 04:43
[2018-03-03] MEDS ORDERED: SODIUM PHOSPHATE INJ 30 MM in NS (IVPB) 250 ML IV ONE (04:45)
[2018-03-03] MEDS: MAGNESIUM 1 GM/100 ML IVPB 100 ML IV SCH ×3 (05:00→12:30)
[2018-03-03] MEDS: KCL 20 MEQ TAB (K-DUR) PO SCH (05:01)
[2018-03-03] MEDS: CATHETER FLUSH 10 ML SYR IV SCH ×3 (05:26→20:55)
[2018-03-03] MEDS: raNItidine 50 MG/NS 100 ML IVP IV SCH ×6 (05:44→22:45)
[2018-03-03 05:51] LABS: BILIRUBIN,URINE NEGATIVE (NEGATIVE); CLARITY,URINE CLEAR; COLOR,URINE YELLOW; GLUCOSE, URINE (UA) NEGATIVE (NEGATIVE); KETONES,URINE NEGATIVE (NEGATIVE); LEUKOCYTE ESTERASE ,URINE 1+ (NEGATIVE); NITRITE,URINE NEGATIVE (NEGATIVE); PH,URINE 5 (5-9); PROTEIN,URINE NEGATIVE (NEGATIVE); UROBILINOGEN,URINE NORMAL (NORMAL)
[2018-03-03 06:24] LABS: BUN/CREATININE RATIO 15; CALCIUM 7.7 MG/DL (8.5-10.1); CARBON DIOXIDE 18 MMOL/L (21-32); CHLORIDE 116 MMOL/L (98-107); CREATININE SERUM 0.92 MG/DL (0.60-1.30); GFR ESTIMATED > 60; GLUCOSE 130 MG/DL (70-105); MAGNESIUM 1.9 MG/DL (1.8-2.4); PHOSPHORUS 1.2 MG/DL (2.3-4.7); POTASSIUM 3.6 MMOL/L (3.6-5.0); SODIUM 140 MMOL/L (135-145)
[2018-03-03] MEDS: DEXTROSE 50% 50 ML (IMS) SYR IV PRN (06:56)
[2018-03-03] MEDS: REGULAR inSUlin DRIP 250 UNITS/NS 250 ML IV SCH ×2 (07:17)
[2018-03-03] MEDS ORDERED: inSUlin DETERMIR 1 UNIT/0.01 ML (LEVEMIR) CHARGE PER UNIT SQ NR (07:41)
--- NOTE | 2018-03-03 07:45 | Progress Note-Hospitalist ---
Subjective HPI/CC On Admission Date Seen by Provider: March 03, 2018 Time Seen by Provider: 07:40 Pt is a 72yoCM with a PMH of IDDMI who presented to the ER last night due to persistent nausea. Currently he is intubated and sedated and I am unable to obtain a history. All history is obtained from records. He was seen in the ER 3 days ago for nausea and vomiting and was discharged home. His symptoms continued to worsen and he returned for evaluation last night. He was found to be very dehydrated and was admitted to the 4th floor. He continued to worse and per RN he had increased with of breathing and was transferred to the ICU. Dr Lainez evaluated him and deemed intubation necessary and he was intubated early this AM. Subjective/Events-last exam Pt is intubated and sedated. Unable to provide ROS. Discussed with RN. Given d50 this AM due to hypoglycemia. Focused Exam Lactate Level 03/02/18 06:05: Lactic Acid Level 4.85*H 03/02/18 09:50: Lactic Acid Level 1.52 03/03/18 04:15: Lactic Acid Level 1.33 Lactic Acid Level Objective Exam Vital Signs Vital Signs Date Time Temp Pulse Resp B/P (MAP) Pulse Ox O2 Delivery O2 Flow Rate FiO2 03/03/18 15:37 100 Room Air 03/03/18 15:33 98.2 90 20 115/60 (78) 03/03/18 07:47 21.00 03/03/18 07:43 21 Capillary Refill : Less Than 3 Seconds General Appearance: No Apparent Distress, WD/WN Respiratory: Lungs Clear, Other (intubated) Cardiovascular: Regular Rate, Rhythm, No Murmur Gastrointestinal: Normal Bowel Sounds, Non Tender, Soft Neurologic/Psychiatric: Other (sedated and intubated) Results/Procedures Lab Laboratory Tests 03/02/18 18:09 03/02/18 20:20 03/02/18 22:15 03/03/18 00:50 03/03/18 03:00 03/03/18 05:55 03/03/18 07:30 03/03/18 10:07 03/03/18 12:13 Patient resulted labs reviewed. Imaging: Reviewed Imaging Films, Reviewed Imaging Report Assessment/Plan Assessment and Plan Assess & Plan/Chief Complaint DKA Critical Care Critical Care: Critically Ill Patient Diagnosis/Problems Diagnosis/Problems (1) DKA, type 1 Status: Acute Assessment & Plan: Transition off insulin gtt this AM Levemir order 10U now then DC gtt in 2 hours A1c Gap resolved, acidosis likely iatrogenic from fluid resuscitation Qualifiers: Diabetes mellitus complication detail: with coma Qualified Codes: E10.11 - Type 1 diabetes mellitus with ketoacidosis with coma (2) Acute respiratory failure Status: Acute Assessment & Plan: Weaning currently, plan for extubation Qualifiers: Respiratory failure complication: unspecified whether with hypoxia or hypercapnia Qualified Codes: J96.00 - Acute respiratory failure, unspecified whether with hypoxia or hypercapnia (3) Acute renal failure Status: Resolved Assessment & Plan: Continue IVF Doan for accurate I/Os Qualifiers: Acute renal failure type: unspecified Qualified Codes: N17.9 - Acute kidney failure, unspecified (4) Leukocytosis Status: Acute Assessment & Plan: No source of infection so SIRS not due to sepsis Continue empiric antibiotics but likely reactive due to DKA and nausea and vomiting Blood cultures ordered (5) Essential (primary) hypertension Assessment & Plan: Well controlled Clinical Quality Measures DVT/VTE Risk/Contraindication: Risk Factor Score Per Nursin RFS Level Per Nursing on Admit: 4+=Very High SHAZIA MATTHEWS MD March 03, 2018 07:45
[2018-03-03 08:01] LABS: BUN/CREATININE RATIO 14; CALCIUM 7.3 MG/DL (8.5-10.1); CARBON DIOXIDE 20 MMOL/L (21-32); CHLORIDE 115 MMOL/L (98-107); GFR ESTIMATED > 60; GLUCOSE 198 MG/DL (70-105); MAGNESIUM 1.7 MG/DL (1.8-2.4); PHOSPHORUS 1.4 MG/DL (2.3-4.7); POTASSIUM 3.6 MMOL/L (3.6-5.0); SODIUM 139 MMOL/L (135-145)
--- NOTE | 2018-03-03 08:35 | Diagnostic Imaging Report ---
INDICATION: Acute renal failure. COMPARISON: 03/02/2018. FINDINGS: ET tube, NG tube and left central line remain unchanged in position. The lungs are well aerated. No infiltrates have developed. The heart is not enlarged. No pulmonary edema. No pneumothorax or pleural effusion. IMPRESSION: Stable portable chest with support lines as described, unchanged. Dictated by: Dictated on workstation # [id number]
[2018-03-03 08:47] LABS: ABG BASE EXCESS -9.5 MMOL/L (-2.5-2.5); ABG OXYGEN SATURATION 99 % (94-100); ABG PCO2 25 MMHG (35-45); ABG PH 7.38 (7.37-7.43); ABG PO2 96 MMHG (79-93); ABG TCO2 15.2 MMOL/L (21.0-31.0)
[2018-03-03 08:51] LABS: INSPIRED O2 0; PATIENT TEMP 100.1; VENTILATOR NO
[2018-03-03] MEDS: PIPERACILLIN SODIUM/TAZOBACTAM 4.5 GM in NS (IVPB) 100 ML IV SCH ×2 (08:57→16:02)
[2018-03-03] MEDS ORDERED: ACETAMINOPHEN 650 MG SUPP (TYLENOL) PR NR (09:11)
[2018-03-03] MEDS ORDERED: ZIPRASIDONE 20 MG INJ (GEODON) VIAL IM NR (09:14)
[2018-03-03] MEDS ORDERED: WATER (STERILE) FOR INJECTION 10 ML ONE (09:25)
[2018-03-03 10:36] LABS: BUN/CREATININE RATIO 13; CALCIUM 7.6 MG/DL (8.5-10.1); CARBON DIOXIDE 22 MMOL/L (21-32); CHLORIDE 116 MMOL/L (98-107); CREATININE SERUM 0.91 MG/DL (0.60-1.30); GFR ESTIMATED > 60; GLUCOSE 103 MG/DL (70-105); MAGNESIUM 1.7 MG/DL (1.8-2.4); PHOSPHORUS 1.4 MG/DL (2.3-4.7); POTASSIUM 3.9 MMOL/L (3.6-5.0); SODIUM 141 MMOL/L (135-145)
[2018-03-03] MEDS: inSUlin ASPART (NovoLOG) 1 UNIT/0.01 ML (CHARGE PER UNIT) SC SCH ×4 (11:01→20:29)
[2018-03-03] MEDS: 1/2 NS IV SOLUTION 1,000 ML IV SCH ×2 (11:07→20:22)
[2018-03-03 12:21] LABS: ABG BASE EXCESS -8.2 MMOL/L (-2.5-2.5); ABG OXYGEN SATURATION 83 % (94-100); ABG PCO2 28 MMHG (35-45); ABG PH 7.38 (7.37-7.43); ABG PO2 48 MMHG (79-93); ABG TCO2 16.7 MMOL/L (21.0-31.0)
[2018-03-03 12:23] LABS: ALLENS TEST POSITIVE; PATIENT TEMP 99.8; VENTILATOR NO
[2018-03-03 12:38] LABS: BUN/CREATININE RATIO 12; CALCIUM 7.5 MG/DL (8.5-10.1); CARBON DIOXIDE 19 MMOL/L (21-32); CHLORIDE 115 MMOL/L (98-107); CREATININE SERUM 0.93 MG/DL (0.60-1.30); GFR ESTIMATED > 60; GLUCOSE 194 MG/DL (70-105); MAGNESIUM 1.8 MG/DL (1.8-2.4); PHOSPHORUS 2.7 MG/DL (2.3-4.7); SODIUM 141 MMOL/L (135-145)
[2018-03-03 16:43] LABS: BUN/CREATININE RATIO 9; CALCIUM 7.6 MG/DL (8.5-10.1); CARBON DIOXIDE 21 MMOL/L (21-32); CHLORIDE 115 MMOL/L (98-107); CREATININE SERUM 0.95 MG/DL (0.60-1.30); GFR ESTIMATED > 60; GLUCOSE 207 MG/DL (70-105); MAGNESIUM 2.2 MG/DL (1.8-2.4); PHOSPHORUS 1.8 MG/DL (2.3-4.7); SODIUM 140 MMOL/L (135-145)
[2018-03-03 18:37] LABS: BUN/CREATININE RATIO 10; CALCIUM 7.6 MG/DL (8.5-10.1); CARBON DIOXIDE 21 MMOL/L (21-32); CHLORIDE 115 MMOL/L (98-107); CREATININE SERUM 0.86 MG/DL (0.60-1.30); GFR ESTIMATED > 60; GLUCOSE 171 MG/DL (70-105); MAGNESIUM 2.1 MG/DL (1.8-2.4); PHOSPHORUS 2.1 MG/DL (2.3-4.7); POTASSIUM 3.9 MMOL/L (3.6-5.0); SODIUM 141 MMOL/L (135-145)
[2018-03-03] MEDS ORDERED: inSUlin DETERMIR 1 UNIT/0.01 ML (LEVEMIR) CHARGE PER UNIT SQ SCH (21:00)
[2018-03-03] MEDS ORDERED: HALOPERIDOL 5 MG/ML (HALDOL) AMP ONE (21:10)
[2018-03-03] MEDS ORDERED: HALOPERIDOL 5 MG/ML (HALDOL) AMP IV ONE (21:15)
[2018-03-04] VITALS (12 sets, daily range): BP systolic 104–163; BP diastolic 53–94
[2018-03-04] MEDS ORDERED: 1/2 NS IV SOLUTION 1,000 ML IV ONE (00:04)
[2018-03-04] MEDS ORDERED: HALOPERIDOL 5 MG/ML (HALDOL) AMP ONE (00:04)
[2018-03-04] MEDS: PIPERACILLIN SODIUM/TAZOBACTAM 4.5 GM in NS (IVPB) 100 ML IV SCH ×2 (00:13→08:26)
[2018-03-04] MEDS: 1/2 NS IV SOLUTION 1,000 ML IV SCH ×2 (00:15→13:34)
[2018-03-04] MEDS ORDERED: HALOPERIDOL 5 MG/ML (HALDOL) AMP IM ONE (00:15)
[2018-03-04] MEDS: inSUlin ASPART (NovoLOG) 1 UNIT/0.01 ML (CHARGE PER UNIT) SC SCH ×7 (00:26→20:38)
[2018-03-04] MEDS: CATHETER FLUSH 10 ML SYR IV SCH ×3 (01:34→22:15)
[2018-03-04] MEDS: RT-ALBUTEROL SULF 2.5 MG/3 ML PRE-MIX VIAL INH SCH ×4 (03:19→18:53)
[2018-03-04 04:49] LABS: BASOPHILS # (AUTO) 0.2 10^3/uL (0.0-0.1); BASOPHILS % (AUTO) 2 % (0-10); EOSINOPHILS # (AUTO) 0.4 10^3/uL (0.0-0.3); EOSINOPHILS % (AUTO) 3 % (0-10); HEMATOCRIT 33 % (40-54); HEMOGLOBIN 10.4 G/DL (13.3-17.7); LYMPHOCYTES # (AUTO) 2.5 X 10^3 (1.0-4.0); LYMPHOCYTES % (AUTO) 22 % (12-44); MEAN CORPUSCULAR HEMOGLOBIN 30 PG (25-34); MEAN CORPUSCULAR HGB CONC 32 G/DL (32-36); MEAN CORPUSCULAR VOLUME 95 FL (80-99); MEAN PLATELET VOLUME 10.3 FL (7.4-10.4); MONOCYTES # (AUTO) 1.1 X 10^3 (0.0-1.0); MONOCYTES % (AUTO) 9 % (0-12); NEUTROPHILS # (AUTO) 7.5 X 10^3 (1.8-7.8); NEUTROPHILS % (AUTO) 64 % (42-75); PLATELET COUNT 231 10^3/uL (130-400); RED BLOOD COUNT 3.45 10^6/uL (4.35-5.85); RED CELL DISTRIBUTION WIDTH 14.9 % (10.0-14.5); WHITE BLOOD COUNT 11.7 10^3/uL (4.3-11.0)
[2018-03-04 05:20] LABS: BUN/CREATININE RATIO 8; CALCIUM 8.1 MG/DL (8.5-10.1); CARBON DIOXIDE 19 MMOL/L (21-32); CHLORIDE 112 MMOL/L (98-107); CREATININE SERUM 0.84 MG/DL (0.60-1.30); GFR ESTIMATED > 60; GLUCOSE 83 MG/DL (70-105); MAGNESIUM 2.3 MG/DL (1.8-2.4); PHOSPHORUS 1.8 MG/DL (2.3-4.7); POTASSIUM 3.9 MMOL/L (3.6-5.0); SODIUM 140 MMOL/L (135-145)
[2018-03-04] MEDS: POTASSIUM CL 10MEQ/50ML IVPB 50 ML IV SCH (05:23)
[2018-03-04] MEDS: KCL 20 MEQ TAB (K-DUR) PO SCH (05:24)
[2018-03-04] MEDS: MAGNESIUM 1 GM/100 ML IVPB 100 ML IV SCH (05:24)
[2018-03-04] MEDS: raNItidine 50 MG/NS 100 ML IVP IV SCH ×2 (06:33)
--- NOTE | 2018-03-04 07:53 | Diagnostic Imaging Report ---
Indication: Acute renal failure. Portable chest at 3:32 AM Findings: Left jugular central line tip projects over the left innominate vein. There is increased lung density at the lung bases bilaterally which could be some developing infiltrate or edema. Impression: Increasing density of the lung bases could be developing edema or infiltrate. Dictated by: Dictated on workstation # [id number]
--- NOTE | 2018-03-04 08:50 | Progress Note-Hospitalist ---
Subjective HPI/CC On Admission Date Seen by Provider: March 04, 2018 Time Seen by Provider: 08:00 Pt is a 72yoCM with a PMH of IDDMI who presented to the ER last night due to persistent nausea. Currently he is intubated and sedated and I am unable to obtain a history. All history is obtained from records. He was seen in the ER 3 days ago for nausea and vomiting and was discharged home. His symptoms continued to worsen and he returned for evaluation last night. He was found to be very dehydrated and was admitted to the 4th floor. He continued to worse and per RN he had increased with of breathing and was transferred to the ICU. Dr Lainez evaluated him and deemed intubation necessary and he was intubated early this AM. Subjective/Events-last exam Patient sitting in chair this morning. He is pleasantly confused but did recognize me as his doctor and call me by appropriate name. Other than concerns about the fact that he doesn't remember why he is here he voiced no other complaints other than feeling weak. He denies cough chest pain or shortness of breath at rest. Focused Exam Lactate Level 03/02/18 09:50: Lactic Acid Level 1.52 03/03/18 04:15: Lactic Acid Level 1.33 03/04/18 04:42: Lactic Acid Level 1.68 Objective Exam Vital Signs Vital Signs Date Time Temp Pulse Resp B/P (MAP) Pulse Ox O2 Delivery O2 Flow Rate FiO2 03/04/18 08:04 97 Room Air 03/04/18 08:00 98.8 86 22 146/81 (102) 03/03/18 07:47 21.00 03/03/18 07:43 21 Capillary Refill : Less Than 3 Seconds General Appearance: No Apparent Distress, Chronically ill Neck: Other (Small hematoma noted left IJ site central line due to the fact the patient pulled on his catheter earlier this noted.) Respiratory: No Accessory Muscle Use, No Respiratory Distress, Other (Few coarse basilar rales chest is clear otherwise.) Cardiovascular: Regular Rate, Rhythm, No Edema, No Gallop, No JVD, No Murmur Extremity: Other (Trace upper and lower extremity edema senile purpura) Neurologic/Psychiatric: Alert, Other (Patient moving all extremities admission generalized weakness but no focal neurologic findings are noted. Patient is pleasantly confused but answers questions appropriately) Skin: Pallor Results/Procedures Lab Laboratory Tests 03/03/18 10:07 03/03/18 12:13 03/03/18 16:03 03/03/18 18:00 03/04/18 04:42 Patient resulted labs reviewed. Imaging: Reviewed Imaging Films, Reviewed Imaging Report Assessment/Plan Assessment and Plan Assess & Plan/Chief Complaint 1. DKA resolved patient on basal bolus therapy. He is tolerating liquids and advance diet as tolerated tomorrow will likely switch to schedule bolus therapy and continue sliding scale. 2. ICU/critical illness delirium with agitation. Patient is still more confused than baseline less agitated thus far today continue to monitor with one -on-one care. 3. Bronchospasm and is growing staph aureus methicillin sensitive and Streptococcus agalactiae favor colonization over acute infection blood cultures negative defer antibiotics to Dr. Lainez 4. Will DC Olimpia as risks outweigh benefits of continued placement. Critical Care Critical Care: Critically Ill Patient Clinical Quality Measures DVT/VTE Risk/Contraindication: Risk Factor Score Per Nursin RFS Level Per Nursing on Admit: 4+=Very High EDEL GUTIERREZ MD March 04, 2018 08:50
[2018-03-04] MEDS: fentaNYL INJECTION 100 MCG/2 ML AMP IV PRN ×2 (11:03→22:41)
[2018-03-04] MEDS ORDERED: FAMOTIDINE 20 MG (PEPCID) TABLET PO PRN (13:30)
[2018-03-04] MEDS: D5 1/2 NS 1000 ML IV SOLUTION 1,000 ML IV SCH (13:58)
[2018-03-04] MEDS: cefTRIAXone INJECTION 1,000 MG in NS (IVPB) 100 ML IV SCH (13:58)
[2018-03-04] MEDS ORDERED: inSUlin ASPART (NovoLOG) 1 UNIT/0.01 ML (CHARGE PER UNIT) SC NR (19:00)
[2018-03-04] MEDS: inSUlin DETERMIR 1 UNIT/0.01 ML (LEVEMIR) CHARGE PER UNIT SQ SCH (20:38)
[2018-03-05] MEDS: inSUlin ASPART (NovoLOG) 1 UNIT/0.01 ML (CHARGE PER UNIT) SC SCH ×9 (00:06→20:59)
[2018-03-05 00:11] VITALS: BP 152/68
[2018-03-05] MEDS: fentaNYL INJECTION 100 MCG/2 ML AMP IV PRN (00:51)
[2018-03-05] MEDS: RT-ALBUTEROL SULF 2.5 MG/3 ML PRE-MIX VIAL INH SCH ×4 (03:18→19:44)
[2018-03-05] MEDS: D5 1/2 NS 1000 ML IV SOLUTION 1,000 ML IV SCH (03:31)
[2018-03-05 04:24] VITALS: BP 156/77
[2018-03-05] MEDS: POTASSIUM CL 10MEQ/50ML IVPB 50 ML IV SCH (04:57)
[2018-03-05] MEDS: MAGNESIUM 1 GM/100 ML IVPB 100 ML IV SCH (04:57)
[2018-03-05] MEDS: KCL 20 MEQ TAB (K-DUR) PO SCH (04:57)
[2018-03-05] MEDS: CATHETER FLUSH 10 ML SYR IV SCH ×3 (04:58→20:59)
[2018-03-05 06:22] LABS: BASOPHILS # (AUTO) 0.3 10^3/uL (0.0-0.1); BASOPHILS % (AUTO) 3 % (0-10); EOSINOPHILS # (AUTO) 0.5 10^3/uL (0.0-0.3); EOSINOPHILS % (AUTO) 5 % (0-10); HEMATOCRIT 36 % (40-54); HEMOGLOBIN 11.3 G/DL (13.3-17.7); LYMPHOCYTES # (AUTO) 1.9 X 10^3 (1.0-4.0); LYMPHOCYTES % (AUTO) 21 % (12-44); MEAN CORPUSCULAR HEMOGLOBIN 30 PG (25-34); MEAN CORPUSCULAR HGB CONC 32 G/DL (32-36); MEAN CORPUSCULAR VOLUME 96 FL (80-99); MEAN PLATELET VOLUME 10.5 FL (7.4-10.4); MONOCYTES # (AUTO) 0.5 X 10^3 (0.0-1.0); MONOCYTES % (AUTO) 6 % (0-12); NEUTROPHILS # (AUTO) 5.7 X 10^3 (1.8-7.8); NEUTROPHILS % (AUTO) 65 % (42-75); PLATELET COUNT 246 10^3/uL (130-400); RED BLOOD COUNT 3.72 10^6/uL (4.35-5.85); WHITE BLOOD COUNT 8.8 10^3/uL (4.3-11.0)
[2018-03-05 06:41] LABS: BUN/CREATININE RATIO 6; CALCIUM 8.5 MG/DL (8.5-10.1); CARBON DIOXIDE 22 MMOL/L (21-32); CHLORIDE 105 MMOL/L (98-107); GFR ESTIMATED > 60; GLUCOSE 181 MG/DL (70-105); POTASSIUM 3.8 MMOL/L (3.6-5.0); SODIUM 137 MMOL/L (135-145)
[2018-03-05 08:00] VITALS: BP 154/74
--- NOTE | 2018-03-05 08:00 | Diagnostic Imaging Report ---
INDICATION: Dehydration and acute renal failure. Comparison made with prior examination 03/04/2018 FINDINGS: There is mild cardiomegaly. There has been improvement in the central pulmonary venous congestion which is now minimal. There is no pleural effusion or pneumothorax. Mediastinum is unremarkable. IMPRESSION: Cardiomegaly and some minimal venous congestion which is markedly improved when compared to previous examination Dictated by: Dictated on workstation # [id number]
--- NOTE | 2018-03-05 08:04 | Physician Query Clarification ---
PQ-Present on Admission Admission/Discharge Admission Date: March 02, 2018 at 04:45 Discharge Date: Question: Acute Respiratory Distress with Kussmauls Respirations was listed on your consult and Acute Respiratory Failure was listed on your Pulmonary Procedure Note both from 03/02. Patient was admitted as an inpatient at 6:20 on 03/02, RR 34 on 03/02 @5:00, ABGs at 4:40 on 03/02 pH 7.13, pCO2 7, no pO2, patient was treated with 2 L nasal cannula from 5:45 to until intubation at 7:37. Acute Respiratory Failure was documented in the pulmonary procedure note of 03/02 07:37. Can you specify if this condition was present on admission? Please document a response below. Yes present on admission: Severe acute DKA with dehydration -DKA protocol -D/C patients home insulin pump and start IV insulin -aggressive IVF SIRS r/o sepsis -Dejesus cultures -Emperic Zosyn, Severe metabolic acidosis with HC03 of 2 -Give 2 amps of HCO3 Acute respiratory distress with Kussmauls respirations Sinus tachycardia -check EKG -Aggressive IVF PHYSICIAN RESPONSE Condition was Present on Admit: Yes In responding to this query, please exercise your independent professional judgment. The purpose of this communication is to more accurately reflect the complexity of your patients condition. The fact that a question is asked does not imply that any particular answer is desired or expected. Thank you for your timely response to this clarification. Requestors name: Rossy Mejia [facility] Phone # ext [phone] or [phone] THIS PHYSICIAN QUERY FORM IS A PERMANENT PART OF THE MEDICAL RECORD ROSSY MEJIA March 05, 2018 08:04 MANSOOR ZABALA DO March 18, 2018 07:32
[2018-03-05] MEDS: cefTRIAXone INJECTION 1,000 MG in NS (IVPB) 100 ML IV SCH (08:29)
[2018-03-05 12:00] VITALS: BP 148/63
--- NOTE | 2018-03-05 13:19 | Progress Note-Hospitalist ---
Subjective HPI/CC On Admission Date Seen by Provider: March 05, 2018 Time Seen by Provider: 13:13 Pt is a 72yoCM with a PMH of IDDMI who presented to the ER last night due to persistent nausea. Currently he is intubated and sedated and I am unable to obtain a history. All history is obtained from records. He was seen in the ER 3 days ago for nausea and vomiting and was discharged home. His symptoms continued to worsen and he returned for evaluation last night. He was found to be very dehydrated and was admitted to the 4th floor. He continued to worse and per RN he had increased with of breathing and was transferred to the ICU. Dr Lainez evaluated him and deemed intubation necessary and he was intubated early this AM. Subjective/Events-last exam Taken more alert somewhat slow to respond with flat affect. He denies depression just notes generalized weakness. He denies abdominal pain or nausea and is now tolerating solids. He has an occasional mild cough reportedly nonproductive with no chills or fever. Focused Exam Lactate Level 03/03/18 04:15: Lactic Acid Level 1.33 03/04/18 04:42: Lactic Acid Level 1.68 Objective Exam Vital Signs Vital Signs Date Time Temp Pulse Resp B/P (MAP) Pulse Ox O2 Delivery O2 Flow Rate FiO2 03/05/18 10:02 98 Room Air 03/05/18 08:00 97.9 68 18 154/74 (100) 03/03/18 07:47 21.00 03/03/18 07:43 21 Capillary Refill : Less Than 3 Seconds General Appearance: No Apparent Distress, Chronically ill Respiratory: No Accessory Muscle Use, No Respiratory Distress, Other (Basilar rales clear with deep inspiration no wheezing or rhonchi appreciated.) Cardiovascular: Regular Rate, Rhythm, No Gallop, No JVD, No Murmur, Other ( Trace lower extremity pedal and lower tibial edema.) Gastrointestinal: Normal Bowel Sounds, No Organomegaly, No Pulsatile Mass, Non Tender Results/Procedures Lab Laboratory Tests 03/05/18 06:00 03/05/18 06:05 Patient resulted labs reviewed. Imaging: Reviewed Imaging Films, Reviewed Imaging Report Assessment/Plan Assessment and Plan Assess & Plan/Chief Complaint 1. DKA resolved patient on basal bolus therapy. If it is determined that is insulin pump is in working order will initiate insulin pump therapy. To begin with 1.4 units per hour basal rate. Patient's usual rate is 1.7 units. We will start bolus therapy at 10 units before breakfast 8 units before lunch and 10 units before the evening meal and switched to before meals and at bedtime blood sugars from every 4. Will initiate basal rate if possible around 6 o' clock p.m. and DC Levemir. If his insulin pump is not in working order will discontinue current basal bolus therapy. 2. ICU/critical illness delirium with agitation. Patient is still more confused than baseline but is not been agitated his girlfriends at the bedside. He is oriented 2 and new my full name. 3. Bronchospasm and is growing staph aureus methicillin sensitive and Streptococcus agalactiae favor colonization over acute infection. Chest x-ray significantly improved we will discontinue Rocephin 4. The patient does have a history of depression but he exhibits no evidence for current withdrawal we will hold antidepressant therapy. He is requesting something for his chronic insomnia advised that this point we only added back melatonin is anything else is likely to precipitate delirium. 5. Deconditioning secondary to number 1 we will consult physical therapy. His multiple medical issues and the fact that he is not in a situation where he can be monitored 24 7 will likely need at least short-term [facility] care with some degree of underlying baseline dementia.. Critical Care Critical Care: Critically Ill Patient Clinical Quality Measures DVT/VTE Risk/Contraindication: Risk Factor Score Per Nursin RFS Level Per Nursing on Admit: 4+=Very High EDEL GUTIERREZ MD March 05, 2018 13:19
--- NOTE | 2018-03-05 14:07 | Physical Therapy Evaluation ---
PT Evaluation-General Medical Diagnosis Admission Date March 02, 2018 at 04:45 Medical Diagnosis: DKA Onset Date: March 02, 2018 Therapy Diagnosis Therapy Diagnosis: generalized weakness/debility Height/Weight Height (Feet): 5 Height (Inches): 11.00 Weight (Pounds): 215 Weight (Ounces): 6.0 Precautions Precautions/Isolations: Fall Prevention, Standard Precautions Weight Bear Status Right Lower Extremity: Right Full Weight Bearing Left Lower Extremity: Left Full Weight Bearing Referral Physician: Odalis Reason for Referral: Evaluation/Treatment Medical History Pertinent Medical History: DM, Dementia, HTN, Renal Insufficiency Additional Medical History bilateral TKR Current History ED x 2 visits for N&V Reviewed History: Yes Social History Home: Single Level Current Living Status: Prior/Core FIM Prior Level of Function Functional [place] Measure 0=Not Assessed/NA 4=Minimal Assistance 1=Total Assistance 5=Supervision or Setup 2=Maximal Assistance 6=Modified [place] 3=Moderate Assistance 7=Complete [place] Bed Mobility: 5 Transfers (B,C,W/C) (FIM): 5 Gait: 5 caregivers 25/05 PT Evaluation-Current Subjective Patient agrees to PT. Pain Numeric Pain Scale: 0-No Pain Location: No Pain Reported Objective Patient Orientation: Confused Problem Solving: Fair ROM/Strength ROM Lower Extremities bilateral LE WNL Strength Lower Extremities 4-/5 grossly bilaterally Integumentary/Posture Integumentary refer to nursing notes Bowel Incontinence: No Bladder Incontinence: No Posture trunk flexed posture in stand Neuromuscular (Tone, Coordination, Reflexes) diminished coordination due to dementia Sensory Vision: Wears Glasses Hearing: Functional Sensation Right Lower Extremit: Impaired Sensation Left Lower Extremity: Impaired Transfers Functional [place] Measure 0=Not Assessed/NA 4=Minimal Assistance 1=Total Assistance 5=Supervision or Setup 2=Maximal Assistance 6=Modified [place] 3=Moderate Assistance 7=Complete [place] Transfers (B, C, W/C) (FIM): 5 Scootin Sit to/from Stand: 5 close SBA for safety with gait belt in place Gait Mode of Locomotion: Walk Anticipated Mode of Locomotion: Walk Gait (FIM): 5 Distance (FIM): 3=150 ft Distance: 180' Gait Level of Assist: 5 Gait Assistive Device: FWW Comments/Gait Description NBOS, slow, decreased brenda Balance Sitting Static: Normal Sitting Dynamic: Normal Standing Static: Normal Standing Dynamic: Normal Assessment/Needs 72 y.o. male, will be seen short term by skilled PT to address functional strength and mobility to ensure safe return to home with caregivers. Rehab Potential: Fair PT Skilled Nursing Goals Avionic Technician Goals PT Skilled Nursing Goals Time Frame: March 12, 2018 Transfers (B,C,W/C) (FIM): 5 Gait (FIM): 5 Gait distance (FIM): 3=150 ft Gait Level of Assist: 5 Gait Assistive Device: FWW, Cane Single Point PT Plan Problem List Problem List: Activity Tolerance, Functional Strength, Safety Treatment/Plan Treatment Plan: Continue Plan of Care Treatment Plan: Bed Mobility, Education, Functional Activity Angelito, Functional Strength, Gait, Safety, Therapeutic Exercise, Transfers Treatment Duration: March 12, 2018 Frequency: 6 times per week Estimated Hrs Per Day: .25 hour per day Patient and/or Family Agrees t: Yes Discharge Recommendations Therapy D/C Recommendations: Home w/ Family Support Time/GCodes Time In: 1331 Time Out: 1350 Total Billed Treatment Time: 19 Total Billed Treatment 1 visit EVMod 19 min G Codes Necessary: No CE CUMMINGS PT March 05, 2018 14:07
[2018-03-05 15:52] VITALS: BP 159/80
[2018-03-05] MEDS: HYDROcodone/APAP 5 MG/325 MG (LORTAB) TAB PO PRN (18:46)
[2018-03-05 19:23] VITALS: BP 161/74
[2018-03-05] MEDS: MELATONIN 3 MG TABLET PO SCH (20:58)
[2018-03-05] MEDS: VENlafaxine 75 MG (EFFEXOR) TAB PO SCH (20:58)
[2018-03-05] MEDS: inSUlin DETERMIR 1 UNIT/0.01 ML (LEVEMIR) CHARGE PER UNIT SQ SCH (20:59)
[2018-03-06 00:21] VITALS: BP 155/85
[2018-03-06] MEDS: HYDROcodone/APAP 5 MG/325 MG (LORTAB) TAB PO PRN ×3 (03:11→15:10)
[2018-03-06 04:39] VITALS: BP 164/79
[2018-03-06] MEDS: inSUlin ASPART (NovoLOG) 1 UNIT/0.01 ML (CHARGE PER UNIT) SC SCH ×7 (06:17→22:19)
[2018-03-06] MEDS: MAGNESIUM 1 GM/100 ML IVPB 100 ML IV SCH (06:17)
[2018-03-06] MEDS: KCL 20 MEQ TAB (K-DUR) PO SCH (06:17)
[2018-03-06] MEDS: POTASSIUM CL 10MEQ/50ML IVPB 50 ML IV SCH (06:17)
[2018-03-06] MEDS: CATHETER FLUSH 10 ML SYR IV SCH ×3 (06:45→22:19)
--- NOTE | 2018-03-06 07:57 | Diagnostic Imaging Report ---
PATIENT HISTORY: Renal failure, altered mental status, dehydration, DKA. TECHNIQUE: Single frontal view of the chest COMPARISON: 03/05/2018 FINDINGS: Lung volumes are normal. No focal consolidation is seen. The cardiac silhouette is upper normal in size. There is mild central vascular congestion which appears stable since the prior study and markedly improved since 03/04/2018. No pleural effusion or pneumothorax is seen. There are deformities of the clavicles bilaterally, may be from remote trauma. IMPRESSION: 1. Mild central vascular congestion appears stable since 03/05/2018 markedly improved compared to 03/04/2018. Dictated by: Dictated on workstation # [id number]
[2018-03-06 08:00] VITALS: BP 155/81
[2018-03-06] MEDS: VENlafaxine 75 MG (EFFEXOR) TAB PO SCH ×2 (08:49→22:18)
[2018-03-06] MEDS: RT-ALBUTEROL SULF 2.5 MG/3 ML PRE-MIX VIAL INH SCH ×3 (09:11→18:42)
--- NOTE | 2018-03-06 11:21 | Progress Note-Hospitalist ---
Subjective HPI/CC On Admission Date Seen by Provider: March 06, 2018 Time Seen by Provider: 11:16 Pt is a 72yoCM with a PMH of IDDMI who was admitted for DKA. Subjective/Events-last exam Pt denies any complaints today. Awake and sitting in chair talking appropriately with friends. No concerns. Has been up and ambulating with walker. Focused Exam Lactate Level 03/04/18 04:42: Lactic Acid Level 1.68 Objective Exam Vital Signs Vital Signs Date Time Temp Pulse Resp B/P (MAP) Pulse Ox O2 Delivery O2 Flow Rate FiO2 03/06/18 09:11 96 Room Air 03/06/18 08:00 97.2 83 18 155/81 (105) 03/03/18 07:47 21.00 03/03/18 07:43 21 Capillary Refill : Less Than 3 Seconds General Appearance: No Apparent Distress, WD/WN Respiratory: Lungs Clear, No Respiratory Distress Cardiovascular: Regular Rate, Rhythm, No Murmur Gastrointestinal: Normal Bowel Sounds, Non Tender, Soft Neurologic/Psychiatric: Alert, Oriented x3 Results/Procedures Lab Patient resulted labs reviewed. Imaging: Reviewed Imaging Films, Reviewed Imaging Report Assessment/Plan Assessment and Plan Assess & Plan/Chief Complaint DKA Critical Care Critical Care: Critically Ill Patient Diagnosis/Problems Diagnosis/Problems (1) DKA, type 1 Status: Acute Assessment & Plan: Continue on current Levemir 15 units QHS and 10 units Novolog AC SSI A1c 7.7 Qualifiers: Diabetes mellitus complication detail: with coma Qualified Codes: E10.11 - Type 1 diabetes mellitus with ketoacidosis with coma (2) Acute respiratory failure Status: Resolved Assessment & Plan: resolved Qualifiers: Respiratory failure complication: unspecified whether with hypoxia or hypercapnia Qualified Codes: J96.00 - Acute respiratory failure, unspecified whether with hypoxia or hypercapnia (3) Acute renal failure Status: Resolved Assessment & Plan: Resolved Qualifiers: Acute renal failure type: unspecified Qualified Codes: N17.9 - Acute kidney failure, unspecified (4) Leukocytosis Status: Resolved Assessment & Plan: Resolved, no fever Antibiotics stopped yesterday (5) Essential (primary) hypertension Assessment & Plan: Well controlled (6) Debility Status: Acute Assessment & Plan: PT consulted May need SNF placement at discharge (7) Delirium Status: Resolved Assessment & Plan: Resolved, likely ICU psychosis Clinical Quality Measures DVT/VTE Risk/Contraindication: Risk Factor Score Per Nursin RFS Level Per Nursing on Admit: 4+=Very High SHAZIA MATTHEWS MD March 06, 2018 11:21
[2018-03-06 12:00] VITALS: BP 132/58
--- NOTE | 2018-03-06 12:42 | Physical Therapy Daily Note ---
PT Daily Note-Current Subjective Pt sitting in recliner visiting with Sp & other company upon arrival. Pt agrees to PT for ambulation. Pain Location: No Pain Reported Mental Status Patient Orientation: Person, Place, Time, Situation Transfers Functional [place] Measure 0=Not Assessed/NA 4=Minimal Assistance 1=Total Assistance 5=Supervision or Setup 2=Maximal Assistance 6=Modified [place] 3=Moderate Assistance 7=Complete IndependenceIRFPAI Quality Coding Scale 6 Independent with activity with or without an assistive device 5 Patient requires set up or clean up by helper. Patient completes activity by themselves 4 Supervision or touching assist (CGA). [place] provide cues , steadying assist 3 The helper provides less than half the effort to complete the activity 2 The helper provides more than half the effort to complete the activity 1 Dependent. The helper does all the effort to complete an activity 7 Patient refused to complete or attempt activity 9 The patient did not perform the activity before the current illness or injury 88 Not attempted due to Medical conditions or safety concerns Scootin Sit to/from Stand: 5 Weight Bearing Right Lower Extremity: Right Full Weight Bearing Left Lower Extremity: Left Full Weight Bearing Gait Training Distance (FIM): 3=150 ft Distance: 200' Gait Level of Assist: 5 Gait Persons Needed: 1 Gait Assistive Device: FWW Pt walks with slow brenda, otherwise normalized gait. Treatments Pt transfers to standing from recliner using FWW at SBA. Pt ambulates in hallway using FWW at SBA until fatigued. Pt rests in recliner, Aide takes Blood Sugar & pt prepares to eat lunch. Pt has all needs met at end of tx, is present. Assessment Current Status: Good Progress Pt ambulates better with no pain reported although does fatigue easily. PT Alf Goals Vice President Of Advertising Goals PT Alf Goals Time Frame: March 12, 2018 Transfers (B,C,W/C) (FIM): 5 Gait (FIM): 5 Gait distance (FIM): 3=150 ft Gait Level of Assist: 5 Gait Assistive Device: FWW, Cane Single Point PT Plan Problem List Problem List: Activity Tolerance, Safety, Balance, Gait Treatment/Plan Treatment Plan: Continue Plan of Care Treatment Plan: Bed Mobility, Education, Functional Activity Angelito, Functional Strength, Gait, Safety, Therapeutic Exercise, Transfers Treatment Duration: March 12, 2018 Frequency: 6 times per week Estimated Hrs Per Day: .25 hour per day Patient and/or Family Agrees t: Yes Safety Risks/Education Patient Education: Gait Training, Transfer Techniques, Correct Positioning, Safety Issues Teaching Recipient: Patient, Significant Other Teaching Methods: Discussion Response to Teaching: Verbalize Understanding Time/GCodes Time In: 1200 Time Out: 1220 Total Billed Treatment Time: 20 Total Billed Treatment 1, GT (20m) NITIN ULLOA YARDING AND FOLDING MACHINE OPERATOR March 06, 2018 12:41
[2018-03-06 16:00] VITALS: BP 163/75
[2018-03-06 20:00] VITALS: BP 142/78
[2018-03-06] MEDS: MELATONIN 3 MG TABLET PO SCH (22:18)
[2018-03-06] MEDS: inSUlin DETERMIR 1 UNIT/0.01 ML (LEVEMIR) CHARGE PER UNIT SQ SCH (22:19)
[2018-03-07 00:10] VITALS: BP 171/96
[2018-03-07] MEDS: HYDROcodone/APAP 5 MG/325 MG (LORTAB) TAB PO PRN ×2 (00:12→09:36)
[2018-03-07 04:00] VITALS: BP 171/82
[2018-03-07] MEDS: inSUlin ASPART (NovoLOG) 1 UNIT/0.01 ML (CHARGE PER UNIT) SC SCH ×2 (06:45→07:14)
[2018-03-07] MEDS: CATHETER FLUSH 10 ML SYR IV SCH (06:54)
[2018-03-07 07:50] LABS: BASOPHILS # (AUTO) 0.3 10^3/uL (0.0-0.1); BASOPHILS % (AUTO) 4 % (0-10); EOSINOPHILS # (AUTO) 0.9 10^3/uL (0.0-0.3); EOSINOPHILS % (AUTO) 10 % (0-10); HEMATOCRIT 38 % (40-54); HEMOGLOBIN 12.1 G/DL (13.3-17.7); LYMPHOCYTES # (AUTO) 2.3 X 10^3 (1.0-4.0); LYMPHOCYTES % (AUTO) 25 % (12-44); MEAN CORPUSCULAR HEMOGLOBIN 30 PG (25-34); MEAN CORPUSCULAR HGB CONC 32 G/DL (32-36); MEAN CORPUSCULAR VOLUME 96 FL (80-99); MEAN PLATELET VOLUME 10.3 FL (7.4-10.4); MONOCYTES # (AUTO) 0.5 X 10^3 (0.0-1.0); MONOCYTES % (AUTO) 6 % (0-12); NEUTROPHILS % (AUTO) 55 % (42-75); PLATELET COUNT 344 10^3/uL (130-400); RED BLOOD COUNT 3.99 10^6/uL (4.35-5.85); RED CELL DISTRIBUTION WIDTH 14.9 % (10.0-14.5); WHITE BLOOD COUNT 9.1 10^3/uL (4.3-11.0)
[2018-03-07 08:00] VITALS: BP 141/67
[2018-03-07 08:05] LABS: BUN/CREATININE RATIO 12; CALCIUM 9.3 MG/DL (8.5-10.1); CARBON DIOXIDE 27 MMOL/L (21-32); CHLORIDE 102 MMOL/L (98-107); CREATININE SERUM 0.81 MG/DL (0.60-1.30); GFR ESTIMATED > 60; GLUCOSE 121 MG/DL (70-105); SODIUM 139 MMOL/L (135-145)
[2018-03-07] MEDS: RT-ALBUTEROL SULF 2.5 MG/3 ML PRE-MIX VIAL INH SCH (08:23)
[2018-03-07] MEDS: VENlafaxine 75 MG (EFFEXOR) TAB PO SCH (09:34)
[2018-03-07] MEDS ORDERED: INSU100V16 SC (10:07)
[2018-03-07] MEDS ORDERED: PEN1DIS.48 MC (10:07)
[2018-03-07] MEDS ORDERED: INSU100V5 SQ (10:07)
[2018-03-07] MEDS ORDERED: SYRI-820 MC (10:07)
--- NOTE | 2018-03-07 10:13 | Discharge Inst-Simple/Standard ---
Discharge Inst-Standard Discharge Medications New, Converted or Re-Newed RX: Call to Patients Pharmacy Patient Instructions/Follow Up Plan of Care/Instructions/FU: Please continue to take your insulin as prescribed and check your blood sugars regularly. Please call and schedule an appointment with Dr Jacobo for the next 2-3 days to make sure that you're transitioning well to your insulin regimen. Activity as Tolerated: Yes Discharge Diet: ADA Diet Return to The Hospital For: Confusion, very high blood sugars, if you feel your are getting worse. SHAZIA MATTHEWS MD March 07, 2018 10:13 am
[2018-03-07] MEDS ORDERED: inSUlin ASPART (NovoLOG) 1 UNIT/0.01 ML (CHARGE PER UNIT) SC SCH (11:00)
[2018-03-07 11:10] VITALS: BP 141/67
--- NOTE | 2018-03-10 11:45 | Discharge Summary-Hospitalist ---
Diagnosis/Chief Complaint Date of Admission March 02, 2018 at 06:21 Date of Discharge March 07, 2018 at 11:15 Discharge Date: March 07, 2018 Discharge Time: 1200 Admission Diagnosis DKA Discharge Diagnosis DKA (1) DKA, type 1 Status: Acute Assessment & Plan: Continue on current Levemir 15 units QHS and 10 units Novolog AC SSI A1c 7.7 (2) Acute respiratory failure Status: Resolved Assessment & Plan: resolved (3) Acute renal failure Status: Resolved Assessment & Plan: Resolved (4) Leukocytosis Status: Resolved Assessment & Plan: Resolved, no fever Antibiotics stopped yesterday (5) Essential (primary) hypertension Assessment & Plan: Well controlled (6) Debility Status: Acute Assessment & Plan: PT consulted May need SNF placement at discharge (7) Delirium Status: Resolved Assessment & Plan: Resolved, likely ICU psychosis Discharge Summary Procedures/Consulations Pulm- Dr Lainez Discharge Physical Exam Allergies: Coded Allergies: No Known Drug Allergies (Verified , 02/27/18) Vitals & I&Os Vital Signs Date Time Temp Pulse Resp B/P (MAP) Pulse Ox O2 Delivery O2 Flow Rate FiO2 03/07/18 11:10 90 20 141/67 95 Room Air 21.00 03/07/18 08:00 97.4 General Appearance: Alert, Oriented X3 Respiratory: Clear to Auscultation Cardiovascular: Regular Rate Abdominal: Normal Bowel Sounds Psych/Mental Status: Mental Status NL, Mood NL Hospital Course Pt was admitted for DKA and ultimately required intubation for airway protection due to work of breathing. He was quickly extubated roughly 24 hours after intubation and was transitioned off his insulin gtt. He was started on basal and prandial insulin while we awaited him getting equipment for his insulin pump. He eventually decided that he would rather continue with prandial and basal insulin as that's what his girlfriend does and he has had 2 episodes of severe DKA due to pump failure. He was discharged home in stable condition. Labs (last 24 hrs) Microbiology 03/02/18 Blood Culture - Final, Complete No growth 03/02/18 Gram Stain - Final, Complete 03/02/18 Sputum Culture - Final, Complete Staphylococcus aureus Strep agalactiae Group B Patient resulted labs reviewed. Imaging: Reviewed Imaging Films, Reviewed Imaging Report Discussion & Recommendations Discharge Planning: >30 minutes discharge planning Discharge Home Medications: Active Scripts Active Insulin Syringe (Syring W-Ndl,Disp,Insul,0.5 ml) 1 Each Disp.syrin Each MC QID for use with insulin Insulin Pen Needle (Pen Needle, Diabetic) 1 Each Dis.needle Each MC QID for insulin injections Novolog (Insulin Aspart) 100 Unit/1 Ml Susp 12 Unit SC AC Levemir (Insulin Determir) 1,000 Units/10 Ml Soln 15 Unit SQ HS Reported Zofran Odt (Ondansetron) 8 Mg Tab.rapdis 4-8 Mg SL Q6H PRN Daily Multiple Vitamin (Multivitamin) 1 Each Tablet 1 Tab PO DAILY [Focus Extra Strenght] 1 Tab PO DAILY [Brain Enhancement] 1 Tab PO DAILY Vitamin D3 (Cholecalciferol (Vitamin D3)) 5,000 Unit Tablet 5,000 Unit PO DAILY Colace (Docusate Sodium) 100 Mg Capsule 100 Mg PO DAILY PRN Melatonin 5 Mg Tablet 5 Mg PO HS Miralax (Polyethylene Glycol 3350) 17 Gm Powd.pack 17 Gm PO DAILY PRN Aspirin EC (Aspirin) 81 Mg Tablet.dr 81 Mg PO DAILY Hydrocodone/Acetaminophen 5/325mg Tablet (Acetaminophen/Hydrocodone Bitart) 1 Each Tablet 1-2 Tab PO Q6H PRN Gabapentin 600 Mg Tablet 600 Mg PO TID Fluticasone Propionate 16 Gm [place].susp 2 Sprays NS HS Enalapril Maleate 20 Mg Tablet 20 Mg PO BID Venlafaxine HCl 75 Mg Tab 150 Mg PO BID TAKES 2 (75MG) TABLETS Instructions to patient/family Please see electronic discharge instructions given to patient. Clinical Quality Measures DVT/VTE Risk/Contraindication: Risk Factor Score Per Nursin RFS Level Per Nursing on Admit: 4+=Very High Problem Qualifiers (1) DKA, type 1: Diabetes mellitus complication detail: with coma Qualified Codes: E10.11 - Type 1 diabetes mellitus with ketoacidosis with coma (2) Acute respiratory failure: Respiratory failure complication: unspecified whether with hypoxia or hypercapnia Qualified Codes: J96.00 - Acute respiratory failure, unspecified whether with hypoxia or hypercapnia (3) Acute renal failure: Acute renal failure type: unspecified Qualified Codes: N17.9 - Acute kidney failure, unspecified SHAZIA MATTHEWS MD March 10, 2018 11:44
== END 2018-03-07 11:15 | disposition home or self-care (01) | DRG 208 ==
LOC: EDUNIT# 18:57 → ER 18:58 → 4TH 20:56 → UNDOADMOB 20:56 → 4TH 21:25 → ICU 03-02 04:45 → INTOOBSV 03-02 04:45 → OBSVTOIN 03-02 04:45 → 4TH 03-02 04:45 → OBSVTOIN 03-02 06:21 → ICU 03-04 14:20 → 4TH 03-04 14:20 → UNDODISIN 03-07 11:15
PROVIDERS: ADMIT Internal Medicine; ATTEND Internal Medicine
PROC: 5A1945Z Respiratory Ventilation, 24-96 Consecutive Hours (ICD-10-PCS; principal; 2018-03-02)
DX: J96.00 Acute respiratory failure, unspecified whether with hypoxia or hypercapnia (principal); E10.11 Type 1 diabetes mellitus with ketoacidosis with coma; N17.9 Acute kidney failure, unspecified; E86.0 Dehydration; R41.0 Disorientation, unspecified; R45.1 Restlessness and agitation; R11.2 Nausea with vomiting, unspecified; R10.84 Generalized abdominal pain; E10.649 Type 1 diabetes mellitus with hypoglycemia without coma; I10 Essential (primary) hypertension; D64.9 Anemia, unspecified; G47.30 Sleep apnea, unspecified; G47.00 Insomnia, unspecified; F03.90 Unspecified dementia, unspecified severity, without behavioral disturbance, psychotic disturbance, mood disturbance, and anxiety; D72.829 Elevated white blood cell count, unspecified; M25.511 Pain in right shoulder; M54.9 Dorsalgia, unspecified; M79.1 Myalgia; K59.09 Other constipation; F32.9 Major depressive disorder, single episode, unspecified; H91.93 Unspecified hearing loss, bilateral; Z87.891 Personal history of nicotine dependence; Z79.4 Long term (current) use of insulin; Z79.891 Long term (current) use of opiate analgesic; Z90.49 Acquired absence of other specified parts of digestive tract; Z96.653 Presence of artificial knee joint, bilateral; Z97.4 Presence of external hearing-aid; Z85.828 Personal history of other malignant neoplasm of skin
CPT/HCPCS: 36415; 36600; 71045; 74177; 80048; 80053; 80306; 81000; 81002; 82150; 82330; 82805; 82962; 83036; 83605; 83690; 83735; 84100; 84478; 84484; 85007; 85025; 85027; 86141; 87040; 87070; 87077; 87081; 87186; 87205; 94002; 94003; 94640; 94760; 96361; 96374; 96375; 96376; G0378

== ENCOUNTER 2018-07-02 13:29 | Outpatient (RCR) | payer MEDICARE, OTHER ==
[~2018-07-02 13:29] MED LIST changes: +CLON1TAB13 PO; +INSU100V16 SC; +INSU100V5 SQ; +ONDA8TAB9 SL; -OXYC-197 PO; +OXYC1TAB87 PO; +PEN1DIS.48 MC; +SYRI-820 MC
== END 2018-07-02 15:01 | disposition home or self-care (01) ==
PROVIDERS: ATTEND Internal Medicine
DX: E11.40 Type 2 diabetes mellitus with diabetic neuropathy, unspecified (principal); R53.1 Weakness; I10 Essential (primary) hypertension; F32.9 Major depressive disorder, single episode, unspecified; Z96.653 Presence of artificial knee joint, bilateral

== ENCOUNTER 2019-01-01 06:47 | Inpatient (IN) | payer MEDICARE, OTHER ==
[~2019-01-01] VITALS: Ht 177.8 cm; Wt 96.3 kg
[~2019-01-01 06:47] MED LIST changes: -GABA600T2 PO; +METR-145 PO; -METR500T21 PO
[2019-01-01 07:43] LABS: BASOPHILS # (AUTO) 0.5 10^3/uL (0.0-0.1); BASOPHILS % (AUTO) 4 % (0-10); EOSINOPHILS # (AUTO) 0.5 10^3/uL (0.0-0.3); EOSINOPHILS % (AUTO) 4 % (0-10); HEMATOCRIT 46 % (40-54); HEMOGLOBIN 14.5 G/DL (13.3-17.7); LYMPHOCYTES % (AUTO) 22 % (12-44); MEAN CORPUSCULAR HEMOGLOBIN 31 PG (25-34); MEAN CORPUSCULAR HGB CONC 32 G/DL (32-36); MEAN CORPUSCULAR VOLUME 97 FL (80-99); MEAN PLATELET VOLUME 10.2 FL (7.4-10.4); MONOCYTES # (AUTO) 0.6 X 10^3 (0.0-1.0); MONOCYTES % (AUTO) 5 % (0-12); NEUTROPHILS # (AUTO) 9.2 X 10^3 (1.8-7.8); NEUTROPHILS % (AUTO) 66 % (42-75); PLATELET COUNT 284 10^3/uL (130-400); WHITE BLOOD COUNT 13.8 10^3/uL (4.3-11.0)
--- NOTE | 2019-01-01 07:44 | ED GI ---
General Stated Complaint: NAUSEA,VOMITING Source of Information: Patient Exam Limitations: No Limitations History of Present Illness Date Seen by Provider: Jan 01, 2019 Time Seen by Provider: 07:40 Initial Comments This 73-year-old white male presents with a history of nausea for the last several days. The patient's oral intake has been inadequate. Patient is a diabetic with a history of similar presentations in the past leading to DKA. Patient denies associated fever, chills, hematemesis with a single episode of vomiting, associated diarrhea, dysuria, or flank pain. Patient sugars at home and been running 300. Allergies and Home Medications Allergies Coded Allergies: No Known Drug Allergies (Verified , 02/27/18) Home Medications Aspirin 81 Mg Tablet.dr, 81 MG PO DAILY, (Reported) Cholecalciferol (Vitamin D3) 5,000 Unit Tablet, 5,000 UNIT PO DAILY, (Reported) Docusate Sodium 100 Mg Capsule, 100 MG PO DAILY PRN for CONSTIPATION-1ST LINE, ( Reported) Enalapril Maleate 20 Mg Tablet, 20 MG PO BID, (Reported) Fluticasone Propionate 16 Gm [place].susp, 2 SPRAYS NS HS, (Reported) Gabapentin 600 Mg Tablet, 600 MG PO TID, (Reported) Hydrocodone Bit/Acetaminophen 1 Each Tablet, 1-2 TAB PO Q6H PRN for MODERATE PAIN, (Reported) Insulin Aspart 100 Unit/1 Ml Susp, 12 UNIT SC AC Prescribed by: SHAZIA CURRY on 03/07/18 1007 Insulin Determir 1,000 Units/10 Ml Soln, 15 UNIT SQ HS Prescribed by: SHAZIA CURRY on 03/07/18 1007 Melatonin 5 Mg Tablet, 5 MG PO HS, (Reported) Multivitamin 1 Each Tablet, 1 TAB PO DAILY, (Reported) Ondansetron 8 Mg Tab.rapdis, 4-8 MG SL Q6H PRN for NAUSEA/VOMITING-1ST LINE, ( Reported) Polyethylene Glycol 3350 17 Gm Powd.pack, 17 GM PO DAILY PRN for CONSTIPATION- 2ND LINE, (Reported) Venlafaxine HCl 75 Mg Tab, 150 MG PO BID, (Reported) TAKES 2 (75MG) TABLETS [Brain Enhancement] , 1 TAB PO DAILY, (Reported) [Focus Extra Strenght] , 1 TAB PO DAILY, (Reported) Patient Home Medication List Home Medication List Reviewed: Yes Review of Systems Review of Systems Constitutional: No chills, No fever EENTM: No Blurred Vision Respiratory: Denies Cough Cardiovascular: Denies Chest Pain Gastrointestinal: Denies Abdominal Pain, Denies Diarrhea; Nausea, Vomiting Genitourinary: Denies Burning Musculoskeletal: back pain (right lower back pain.) Skin: No change in color, No rash Psychiatric/Neurological: No Symptoms Reported Endocrine: No Symptoms Reported, Other (recent hyperglycemia.) Hematologic/Lymphatic: No Symptoms Reported Past Rdjdagd-Oqlqpv-Hxgoiv Hx Past Med/Social Hx: Reviewed Nursing Past Med/Soc Hx Patient Social History Type Used: Cigarettes Former Smoker, Quit: Nov 02, 1959 Recent Foreign Travel: No Contact w/Someone Who Travel: No Recent Hopitalizations: No Immunizations Up To Date Tetanus Booster (TDap): Less than 5yrs Date of Pneumonia Vaccine: Nov 02, 2008 Date of Influenza Vaccine: Aug 14, 2017 Seasonal Allergies Seasonal Allergies: No Past Medical History Surgeries: Yes (BILAT CARPAL TUNNEL, BILA KNEE REPLACE, COLON RESECTION, BILAT KNEE SCOPE, ) Abdominal, Orthopedic Respiratory: Yes (CPAP AT [facility]) Sleep Apnea Currently Using CPAP: Yes Currently Using BIPAP: No Cardiac: Yes Hypertension Neurological: Yes (CONFUSION W/ ILLNESSES) Dementia Reproductive Disorders: Yes Sexually Transmitted Disease: No Genitourinary: No Gastrointestinal: Yes (COLON RESSECTION) Obstructive Bowel, Chronic Constipation Musculoskeletal: Yes (ARTHRITIS) Back Injury Endocrine: Yes Diabetes, Insulin dep HEENT: Yes (insulin pump) Cataract 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 6.0oz. 97.114188md; 27.6 BMI Method:Stated General Appearance: WD/WN, no apparent distress HEENT: normal ENT inspection Neck: supple, normal inspection Respiratory: lungs clear Cardiovascular: regular rate, rhythm Gastrointestinal: non tender, soft Extremities: normal range of motion Back: normal inspection Neurologic/Psychiatric: no motor/sensory deficits, alert, normal mood/affect Skin: normal color, warm/dry; No rash Procedures/Interventions Date of ETT Placement: March 02, 2018 Time of ETT Placement: 707 Progress/Results/Core Measures Results/Orders Lab Results Laboratory Tests Test 01/01/19 07:34 01/01/19 07:35 01/01/19 08:35 Range/Units Glucometer 376 H 70-110 MG/DL White Blood Count 13.8 H 4.3-11.0 10^3/uL Red Blood Count 4.70 4.35-5.85 10^6/uL Hemoglobin 14.5 13.3-17.7 G/DL Hematocrit 46 40-54 % Mean Corpuscular Volume 97 80-99 FL Mean Corpuscular Hemoglobin 31 25-34 PG Mean Corpuscular Hemoglobin Concent 32 32-36 G/DL Red Cell Distribution Width 15.0 H 10.0-14.5 % Platelet Count 284 130-400 10^3/uL Mean Platelet Volume 10.2 7.4-10.4 FL Neutrophils (%) (Auto) 66 42-75 % Lymphocytes (%) (Auto) 22 12-44 % Monocytes (%) (Auto) 5 0-12 % Eosinophils (%) (Auto) 4 0-10 % Basophils (%) (Auto) 4 0-10 % Neutrophils # (Auto) 9.2 H 1.8-7.8 X 10^3 Lymphocytes # (Auto) 3.0 1.0-4.0 X 10^3 Monocytes # (Auto) 0.6 0.0-1.0 X 10^3 Eosinophils # (Auto) 0.5 H 0.0-0.3 10^3/uL Basophils # (Auto) 0.5 H 0.0-0.1 10^3/uL Neutrophils % (Manual) 76 % Lymphocytes % (Manual) 16 % Monocytes % (Manual) 5 % Eosinophils % (Manual) 3 % Stomatocytes SLIGHT Sodium Level 132 L 135-145 MMOL/L Potassium Level 5.1 H 3.6-5.0 MMOL/L Chloride Level 95 L 98-107 MMOL/L Carbon Dioxide Level 22 21-32 MMOL/L Anion Gap 15 H 5-14 MMOL/L Blood Urea Nitrogen 28 H 7-18 MG/DL Creatinine 1.29 0.60-1.30 MG/DL Estimat Glomerular Filtration Rate 55 BUN/Creatinine Ratio 22 Glucose Level 415 *H 70-105 MG/DL Calcium Level 10.7 H 8.5-10.1 MG/DL Corrected Calcium 8.5-10.1 MG/DL Total Bilirubin 0.7 0.1-1.0 MG/DL Aspartate Amino Transf (AST/SGOT) 15 5-34 U/L Alanine Aminotransferase (ALT/SGPT) 21 0-55 U/L Alkaline Phosphatase 93 40-136 U/L Total Protein 8.3 H 6.4-8.2 GM/DL Albumin 4.7 H 3.2-4.5 GM/DL Lipase < 4 L 8-78 U/L Urine Color YELLOW Urine Clarity SLIGHTLY CLOUDY Urine pH 5 5-9 Urine Specific Kirby 1.020 1.016-1.022 Urine Protein 3+ H NEGATIVE Urine Glucose (UA) 4+ H NEGATIVE Urine Ketones 3+ H NEGATIVE Urine Nitrite NEGATIVE NEGATIVE Urine Bilirubin NEGATIVE NEGATIVE Urine Urobilinogen NORMAL NORMAL MG/DL Urine Leukocyte Esterase NEGATIVE NEGATIVE Urine RBC (Auto) 2+ H NEGATIVE Urine RBC 0-2 /HPF Urine WBC 0-2 /HPF Urine Squamous Epithelial Cells 2-5 /HPF Urine Crystals NONE /LPF Urine Bacteria NEGATIVE /HPF Urine Casts PRESENT /LPF Urine Hyaline Casts 2-5 H /LPF Urine Mucus MODERATE H /LPF Urine Culture Indicated NO My Orders Orders - EDEL GROVER MD Cbc With Automated Diff (01/01/19 07:36) Comprehensive Metabolic Panel (01/01/19 07:36) Lipase (01/01/19 07:36) Ua Culture If Indicated (01/01/19 07:36) Ondansetron Injection (Zofran Injectio (01/01/19 07:45) Ns Iv 1000 Ml (Sodium Chloride 0.9%) (01/01/19 07:45) Chest 1 View, Ap/Pa Only (01/01/19 07:36) Manual Differential (01/01/19 07:35) Insulin Regular Tpn/Drip Only (Humulin R (01/01/19 08:15) Fentanyl Injection (Sublimaze Injection (01/01/19 09:00) Ct Abdomen/Pelvis Wo (01/01/19 08:51) Ns Iv 1000 Ml (Sodium Chloride 0.9%) (01/01/19 09:00) Medications Given in ED Current Medications Medications Dose Ordered Sig/Andrea Route Start Time Stop Time Status Last Admin Dose Admin Fentanyl Citrate 50 mcg ONCE ONCE IVP 01/01/19 09:00 01/01/19 09:01 DC 01/01/19 09:02 50 MCG Ondansetron HCl 4 mg ONCE ONCE IVP 01/01/19 07:45 01/01/19 07:46 DC 01/01/19 07:52 4 MG Vital Signs/I&O 01/01/19 07:20 Temp 96.9 Pulse 87 Resp 20 B/P (MAP) 149/81 (103) Pulse Ox 97 O2 Delivery Room Air Progress Progress Note : Time: 10:14 Progress Note The patient's CT the abdomen and pelvis were unremarkable. Patient's glucose was 415. I initiated a liter bolus of saline and placed the patient on a 5 unit per hour insulin drip. The patient was given Zofran for nausea. I visited with Dr. Curry who is kind enough to admit the patient. We will elected to discontinue the insulin pump and will try to treat the patient with injections of insulin on the floor. At 1020 a.m. the patient's glucose was approximately 375. Departure Communication (Admissions) Time/Spoke to Admitting Phy: 10:18 Dr. Curry Impression Primary Impression: Hyperglycemia Disposition: ADMITTED INPATIENT Condition: Improved Admissions Decision to Admit Reason: Admit from ER (General) Decision to Admit/Date: Jan 01, 2019 Time/Decision to Admit Time: 10:21 Departure-Patient Inst. Referrals: EDEL GUTIERREZ MD (PCP/Family) Primary Care Physician EDEL GROVER MD Jan 01, 2019 07:44
[2019-01-01] MEDS ORDERED: NS IV 1000 ML 1,000 ML IV SCH ×2 (07:45→09:00)
[2019-01-01] MEDS ORDERED: ONDANSETRON 4 MG/2 ML (SDV) Z0FRAN IVP ONE (07:45)
[2019-01-01 08:03] LABS: ALANINE AMINOTRANSFERASE 21 U/L (0-55); ALBUMIN 4.7 GM/DL (3.2-4.5); ALKALINE PHOSPHATASE 93 U/L (40-136); BILIRUBIN,TOTAL 0.7 MG/DL (0.1-1.0); BUN/CREATININE RATIO 22; CALCIUM 10.7 MG/DL (8.5-10.1); CARBON DIOXIDE 22 MMOL/L (21-32); CHLORIDE 95 MMOL/L (98-107); CREATININE SERUM 1.29 MG/DL (0.60-1.30); GFR ESTIMATED 55; LIPASE < 4 U/L (8-78); POTASSIUM 5.1 MMOL/L (3.6-5.0); SODIUM 132 MMOL/L (135-145); TOTAL PROTEIN 8.3 GM/DL (6.4-8.2)
[2019-01-01 08:06] LABS: GLUCOSE 415 MG/DL (70-105)
--- NOTE | 2019-01-01 08:10 | Diagnostic Imaging Report ---
CHEST 1 VIEW, AP/PA ONLY Indication: Nausea and vomiting Comparison: 03/06/2018 Findings: No focal airspace disease in the visualized lungs. Please note that the posterior lower lobes are poorly evaluated by portable radiography. No pleural effusion or pneumothorax. Normal cardiomediastinal silhouette. Impression: No acute cardiopulmonary process by portable radiography. Dictated by: Dictated on workstation # [id number]
[2019-01-01] MEDS ORDERED: inSUlin REGULAR TPN/DRIP ONLY 250 UNITS in NORMAL SALINE 250 ML IV SCH (08:15)
[2019-01-01 08:20] LABS: EOSINOPHILS % (MANUAL) 3 %; LYMPHOCYTES % (MANUAL) 16 %; MONOCYTES % (MANUAL) 5 %; NEUTROPHILS % (MANUAL) 76 %
[2019-01-01 08:21] LABS: STOMATOCYTES SLIGHT
[2019-01-01 08:42] LABS: BILIRUBIN,URINE NEGATIVE (NEGATIVE); CLARITY,URINE SLIGHTLY CLOUDY; COLOR,URINE YELLOW; GLUCOSE, URINE (UA) 4+ (NEGATIVE); KETONES,URINE 3+ (NEGATIVE); LEUKOCYTE ESTERASE ,URINE NEGATIVE (NEGATIVE); NITRITE,URINE NEGATIVE (NEGATIVE); PH,URINE 5 (5-9); PROTEIN,URINE 3+ (NEGATIVE); UROBILINOGEN,URINE NORMAL (NORMAL)
[2019-01-01 08:54] LABS: BACTERIA,URINE NEGATIVE /HPF; RBC,URINE 0-2 /HPF; WBC,URINE 0-2 /HPF
[2019-01-01] MEDS ORDERED: fentaNYL INJECTION 100 MCG/2 ML AMP IVP ONE (09:00)
--- NOTE | 2019-01-01 09:25 | Diagnostic Imaging Report ---
PROCEDURE: CT abdomen and pelvis without contrast. TECHNIQUE: Multiple contiguous axial images were obtained through the abdomen and pelvis without the use of intravenous contrast. INDICATION: Nausea and vomiting, elevated blood sugar. COMPARISON: 02/27/2018 FINDINGS: Evaluation of the abdominal viscera is mildly limited without contrast. Lower chest: The lung bases are clear. No pericardial or pleural effusion. Peritoneum: No free intraperitoneal air or fluid. Liver and biliary system: Unenhanced liver is normal. Cholecystectomy. No pathologic biliary ductal dilatation. Spleen and Pancreas: Spleen is normal. Diffuse fatty atrophy of the pancreas is present. Adrenals: Normal. tract: No renal or ureteral calculi. Vascular calcifications are present in the right renal hilum. No obstructive uropathy. Bilateral cortical based renal cysts are unchanged. GI tract: Stomach is decompressed. No bowel obstruction. No pericolonic inflammatory changes. A moderate amount of stool is present throughout the colon. There are surgical changes in the left hemicolon with anastomotic site present. Fatty replacement of the appendiceal wall is without surrounding inflammation. Vasculature and Lymph nodes: Normal caliber aorta. No abdominal or pelvic lymphadenopathy. Musculoskeletal: No concerning osseous lesion. Small fat-containing ventral hypogastric hernia is unchanged. IMPRESSION: 1. No obstructive or inflammatory process in the abdomen or pelvis. 2. No urinary tract calculi. Dictated by: Dictated on workstation # [id number]
--- NOTE | 2019-01-01 11:10 | NUR ---
YOSVANY MOSLEY admitted to room 425-1, with an admitting diagnosis of N/V ABD. PAIN AND BACK PAIN, on 01/01/19 from ER via W/C, accompanied by STAFF.YOSVANY MOSLEY JR introduced to surroundings, call light, bed controls, phone, TV, temperature control, lights, meal times, smoking policy, visitor policy, side rail policy, bathrooms and showers. Patient Rights given to patient in the handbook.YOSVANY MOSLEY JR verbalizes understanding that [facility] is not responsible for the loss or damage to any personal effects or valuables that are kept in the patients posession during their hospitalization. The following Patient Care Plans were discussed with the PT: Discharge Planning, PAIN CONTROL,IV THERAPY, and PROCEDURES AND TESTS. YOSVANY MOSLEY JR verbalizes understanding of Interdisciplinary Patient Education. Patient and/or family were informed about the Rapid Response Team and its purpose.
[2019-01-01 11:15] VITALS: BP 163/50
[2019-01-01] MEDS ORDERED: CATHETER FLUSH 10 ML SYR IV PRN (11:15)
[2019-01-01] MEDS: NS IV 1000 ML 1,000 ML IV SCH ×2 (11:45→16:57)
[2019-01-01 12:00] VITALS: BP 163/50
[2019-01-01] MEDS ORDERED: INSU100V5 SQ (12:13)
[2019-01-01] MEDS ORDERED: INSU100V16 SC (12:13)
--- NOTE | 2019-01-01 12:19 | History & Physical-Hospitalist ---
History of Present Illness HPI/Chief Complaint Pt is a 73yoCM with a PMH of IDDMI, HTN known to me from previous admissions who presented to the ER due to elevated blood sugars and nausea, vomiting, and abdominal pain. His states his symptoms started two days ago with nausea and vomiting and he had veyr poor oral intake. Despite this he tried to continue to take his insulin as he was able. His blood sugars started to trend up though and this morning they were in the 300s. His then prompt him to the ER for evaluation given his history of DKA. He was found to not be in DKA but was very hyperglycemic with an LEEROY and was admitted for further management. He states he is already feeling better and would like to try to eat something. Source: patient Exam Limitations: no limitations Date Seen 01/01/19 Time Seen by a Provider: 12:13 Attending Physician Viri Matthews MD PCP Dhruv Jacobo MD Referring Physician Date of Admission Jan 01, 2019 at 10:20 Home Medications & Allergies Home Medications Reviewed patient Home Medication Reconciliation performed by pharmacy medication reconciliations pump house technician and/or nursing. Patients Allergies have been reviewed. Allergies Allergies Coded Allergies No Known Drug Allergies (Verified02/27/18) Past Dvxldsb-Qgavhd-Tecfhm Hx Past Med/Social Hx: Reviewed Nursing Past Med/Soc Hx Patient Social History Alcohol Use: Denies Use Recreational Drug Use: No (has been on narcotics for the past 3 years) Smoking Status: Former Smoker Former Smoker, Quit: Nov 02, 1959 Type Used: Cigarettes Recent Foreign Travel: No Contact w/other who traveled: No Recent Hopitalizations: No Recent Infectious Disease Expo: No Immunizations Up To Date Tetanus Booster (TDap): Less than 5yrs Date of Pneumonia Vaccine: Nov 02, 2008 Date of Influenza Vaccine: Sep 02, 2018 Seasonal Allergies Seasonal Allergies: No Past Medical History Surgeries: Abdominal, Orthopedic Respiratory: Sleep Apnea Currently Using CPAP: Yes Currently Using BIPAP: No Cardiac: Hypertension Neurological: Dementia Reproductive: Yes Sexually Transmitted Disease: No Gastrointestinal: Obstructive Bowel, Chronic Constipation Musculoskeletal: Back Injury Endocrine: Diabetes, Insulin dep HEENT: Cataract 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, Hearing Aide Left Cancer: Skin Psychosocial: Depression History of Blood Disorders: No Family History Cancer 09 SISTER (BREAST) Hypertension 03 FATHER 03 MOTHER Parkinson's disease 03 MOTHER Seizure disorder 09 BROTHER Review of Systems Constitutional: No chills, No fever EENTM: no symptoms reported Cardiovascular: No chest pain Gastrointestinal: abdominal pain; No diarrhea, No dysphagia; nausea, vomiting Genitourinary: no symptoms reported Musculoskeletal: back pain Skin: no symptoms reported Psychiatric/Neurological: No Symptoms Reported Physical Exam Physical Exam Vital Signs Vital Signs - First Documented 01/01/19 07:20 Temp 96.9 Pulse 87 Resp 20 B/P (MAP) 149/81 (103) Pulse Ox 97 O2 Delivery Room Air Capillary Refill : Less Than 3 Seconds Height, Weight, BMI Height: 5'10.00" Weight: 212lbs. 6.0oz. 96.460656iv; 27.6 BMI Method:Stated General Appearance: No Apparent Distress Eyes: Right Eye Normal Inspection, Right Eye PERRL HEENT: PERRL/EOMI, Moist Mucous Membranes; No Scleral Icterus (L), No Scleral Icterus (R); Other (edentulous ) Neck: Normal Inspection, Supple Respiratory: Lungs Clear, No Accessory Muscle Use, No Respiratory Distress Cardiovascular: Regular Rate, Rhythm, No JVD, No Murmur Gastrointestinal: Normal Bowel Sounds, Non Tender, Soft; No Distended, No Guarding Extremity: Non Tender, No Calf Tenderness, No Pedal Edema Neurologic/Psychiatric: Alert, Oriented x3, No Motor/Sensory Deficits, Normal Mood/Affect Skin: Normal Color, Warm/Dry Results Results/Procedures Labs Laboratory Tests 01/01/19 07:35 Patient resulted labs reviewed. Imaging: Reviewed Imaging Report Assessment/Plan Admission Diagnosis Hyperglycemia Admission Status: Observation Diagnosis/Problems Diagnosis/Problems (1) Hyperglycemia Status: Acute Assessment & Plan: Not acidotic Not in DKA Will repeat BMP now Start sliding scale insulin Resume home levemir A1c ordered (2) Insulin dependent diabetes mellitus Assessment & Plan: Type 1 diabetic insulin as above diabetes education a1c (3) LEEROY (acute kidney injury) Assessment & Plan: Likely due to hypovolemia from vomiting Continue IVF trend (4) Nausea & vomiting Assessment & Plan: Zofran prn CT abd/pelvis negative Qualifiers: Vomiting type: unspecified Vomiting Intractability: non-intractable Qualified Codes: R11.2 - Nausea with vomiting, unspecified (5) Leukocytosis Status: Resolved Assessment & Plan: Likey reactive from vomiting No evidence of infection Resolution Date/Time: 03/06/18 @ 11:20 (6) Essential (primary) hypertension Assessment & Plan: Resume home BP meds when med rec available Clinical Quality Measures DVT/VTE Risk/Contraindication: Risk Factor Score Per Nursin RFS Level Per Nursing on Admit: 4+=Very High VIRI MATTHEWS MD Jan 01, 2019 12:19
[2019-01-01 12:55] LABS: BUN/CREATININE RATIO 23; CALCIUM 9.6 MG/DL (8.5-10.1); CARBON DIOXIDE 21 MMOL/L (21-32); CHLORIDE 100 MMOL/L (98-107); GFR ESTIMATED > 60; GLUCOSE 318 MG/DL (70-105); POTASSIUM 4.5 MMOL/L (3.6-5.0); SODIUM 134 MMOL/L (135-145)
[2019-01-01] MEDS ORDERED: HYDROcodone/APAP 5 MG/325 MG (LORTAB) TAB ONE (13:34)
[2019-01-01] MEDS ORDERED: HYDROcodone/APAP 5 MG/325 MG (LORTAB) TAB PO PRN (13:45)
[2019-01-01] MEDS ORDERED: NON-FORMULARY MEDICATION 1 EA EA (Polyethylene Glycol 3350 (Miralax) 17 GM) PO PRN (13:45)
[2019-01-01] MEDS ORDERED: POLYETHYLENE GLYCOL 17 GM (MIRALAX) PACK PO PRN (14:00)
[2019-01-01] MEDS: HYDROcodone/APAP 5 MG/325 MG (LORTAB) TAB PO PRN ×2 (14:26→20:52)
[2019-01-01] MEDS ORDERED: inSUlin ASPART (NovoLOG) 1 UNIT/0.01 ML (CHARGE PER UNIT) SC SCH ×2 (16:00)
[2019-01-01 16:12] VITALS: BP 147/61
[2019-01-01] MEDS ORDERED: inSUlin ASPART (NovoLOG) 1 UNIT/0.01 ML (CHARGE PER UNIT) SC NR (16:15)
[2019-01-01] MEDS: VENlafaxine 75 MG (EFFEXOR) TAB PO SCH (16:26)
[2019-01-01] MEDS: ASPIRIN E.C. 81 MG (ECOTRIN) TAB PO SCH (16:26)
[2019-01-01] MEDS ORDERED: VENlafaxine 75 MG (EFFEXOR) TAB PO SCH (17:00)
[2019-01-01] MEDS ORDERED: fentaNYL INJECTION 100 MCG/2 ML AMP ONE (17:28)
[2019-01-01] MEDS ORDERED: inSUlin ASPART (NovoLOG) 1 UNIT/0.01 ML (CHARGE PER UNIT) SC ONE (17:30)
[2019-01-01] MEDS: fentaNYL INJECTION 100 MCG/2 ML AMP IVP PRN ×2 (17:36→23:19)
[2019-01-01] MEDS ORDERED: ONDANSETRON 4 MG/2 ML (SDV) Z0FRAN ONE (17:44)
[2019-01-01] MEDS: ONDANSETRON 4 MG/2 ML (SDV) Z0FRAN IVP PRN ×2 (17:47→23:20)
[2019-01-01 19:15] VITALS: BP 120/70
[2019-01-01] MEDS: GABAPENTIN 600 MG (NEURONTIN) TAB PO SCH (20:52)
[2019-01-01] MEDS: inSUlin ASPART (NovoLOG) 1 UNIT/0.01 ML (CHARGE PER UNIT) SC SCH (20:53)
[2019-01-01] MEDS ORDERED: inSUlin DETERMIR 1 UNIT/0.01 ML (LEVEMIR) CHARGE PER UNIT SQ SCH (21:00)
[2019-01-01] MEDS ORDERED: inSUlin DETERMIR 1000 UNITS/10 ML VIAL (LEVEMIR) SQ SCH (21:00)
[2019-01-01] MEDS ORDERED: NON-FORMULARY MEDICATION 1 EA EA (Melatonin 5 MG) PO SCH (21:00)
[2019-01-01] MEDS ORDERED: GABAPENTIN 600 MG (NEURONTIN) TAB PO SCH (21:00)
[2019-01-01] MEDS ORDERED: MELATONIN 3 MG TABLET PO SCH (21:00)
[2019-01-01] MEDS ORDERED: FLUTICASONE NASAL SPRAY (FLONASE) 16 GM BTL NS SCH (21:00)
[2019-01-02] VITALS: BP 121/70
[2019-01-02] MEDS: HYDROcodone/APAP 5 MG/325 MG (LORTAB) TAB PO PRN ×2 (03:24→09:47)
[2019-01-02 04:00] VITALS: BP 105/63
[2019-01-02 05:14] LABS: BASOPHILS # (AUTO) 0.4 10^3/uL (0.0-0.1); BASOPHILS % (AUTO) 4 % (0-10); EOSINOPHILS # (AUTO) 0.9 10^3/uL (0.0-0.3); EOSINOPHILS % (AUTO) 8 % (0-10); HEMATOCRIT 39 % (40-54); HEMOGLOBIN 12.5 G/DL (13.3-17.7); LYMPHOCYTES # (AUTO) 2.2 X 10^3 (1.0-4.0); LYMPHOCYTES % (AUTO) 21 % (12-44); MEAN CORPUSCULAR HEMOGLOBIN 31 PG (25-34); MEAN CORPUSCULAR HGB CONC 32 G/DL (32-36); MEAN CORPUSCULAR VOLUME 97 FL (80-99); MONOCYTES # (AUTO) 0.5 X 10^3 (0.0-1.0); MONOCYTES % (AUTO) 4 % (0-12); NEUTROPHILS # (AUTO) 6.6 X 10^3 (1.8-7.8); NEUTROPHILS % (AUTO) 62 % (42-75); PLATELET COUNT 225 10^3/uL (130-400); RED CELL DISTRIBUTION WIDTH 14.9 % (10.0-14.5); WHITE BLOOD COUNT 10.6 10^3/uL (4.3-11.0)
[2019-01-02 05:22] LABS: SMEAR SCAN COMMENT YES
[2019-01-02 05:43] LABS: ALANINE AMINOTRANSFERASE 17 U/L (0-55); ALBUMIN 3.9 GM/DL (3.2-4.5); ALKALINE PHOSPHATASE 71 U/L (40-136); BILIRUBIN,TOTAL 0.6 MG/DL (0.1-1.0); BUN/CREATININE RATIO 20; CALCIUM 9.6 MG/DL (8.5-10.1); CARBON DIOXIDE 22 MMOL/L (21-32); CHLORIDE 105 MMOL/L (98-107); CREATININE SERUM 0.88 MG/DL (0.60-1.30); GFR ESTIMATED > 60; GLUCOSE 133 MG/DL (70-105); POTASSIUM 4.1 MMOL/L (3.6-5.0); SODIUM 137 MMOL/L (135-145); TOTAL PROTEIN 6.6 GM/DL (6.4-8.2)
[2019-01-02] MEDS: inSUlin ASPART (NovoLOG) 1 UNIT/0.01 ML (CHARGE PER UNIT) SC SCH ×2 (06:39→11:04)
[2019-01-02] MEDS: VENlafaxine 75 MG (EFFEXOR) TAB PO SCH (06:50)
[2019-01-02 08:00] VITALS: BP 136/68
[2019-01-02] MEDS: ASPIRIN E.C. 81 MG (ECOTRIN) TAB PO SCH (08:40)
[2019-01-02] MEDS: GABAPENTIN 600 MG (NEURONTIN) TAB PO SCH (08:40)
[2019-01-02] MEDS ORDERED: ASPIRIN E.C. 81 MG (ECOTRIN) TAB PO SCH (09:00)
[2019-01-02] MEDS ORDERED: ONDA4TAB11 PO (11:05)
--- NOTE | 2019-01-02 11:10 | Discharge Inst-Simple/Standard ---
Discharge Inst-Standard Discharge Medications New, Converted or Re-Newed RX: Transmitted to Pharmacy Patient Instructions/Follow Up Plan of Care/Instructions/FU: Please continue to take your medications as written. Please follow up with your PCP in the next week. Activity as Tolerated: Yes Discharge Diet: ADA Diet Return to The Hospital For: High blood sugar readings, nausea, vomiting, abdominal pain, fever, if you feel you are getting worse. SHAZIA MATTHEWS MD Jan 02, 2019 11:10
--- NOTE | 2019-01-02 11:11 | Discharge Summary-Hospitalist ---
Diagnosis/Chief Complaint Date of Admission Jan 01, 2019 at 10:20 Date of Discharge Discharge Date: Jan 02, 2019 Admission Diagnosis Hyperglycemia Discharge Diagnosis (1) Hyperglycemia Status: Acute Assessment & Plan: Not acidotic Not in DKA Will repeat BMP now Start sliding scale insulin Resume home levemir A1c ordered (2) Insulin dependent diabetes mellitus Assessment & Plan: Type 1 diabetic insulin as above diabetes education a1c (3) LEEROY (acute kidney injury) Assessment & Plan: Likely due to hypovolemia from vomiting Continue IVF trend (4) Nausea & vomiting Assessment & Plan: Zofran prn CT abd/pelvis negative (5) Leukocytosis Status: Resolved Assessment & Plan: Likey reactive from vomiting No evidence of infection (6) Essential (primary) hypertension Assessment & Plan: Resume home BP meds when med rec available Discharge Summary Discharge Physical Exam Allergies: Coded Allergies: No Known Drug Allergies (Verified , 02/27/18) Vitals & I&Os Vital Signs Date Time Temp Pulse Resp B/P (MAP) Pulse Ox O2 Delivery O2 Flow Rate FiO2 01/02/19 08:05 96 Room Air 01/02/19 08:00 98.5 79 20 136/68 (90) General Appearance: No Apparent Distress HEENT: PERRL/EOMI, Moist Mucous Membranes; No Scleral Icterus (L), No Scleral Icterus (R); Other (edentulous ) Respiratory: Lungs Clear, No Accessory Muscle Use, No Respiratory Distress Cardiovascular: Regular Rate, Rhythm, No JVD, No Murmur Gastrointestinal: Normal Bowel Sounds, Non Tender, Soft; No Distended, No Guarding Extremity: Non Tender, No Calf Tenderness, No Pedal Edema Skin: Normal Color, Warm/Dry Neurologic/Psychiatric: Alert, Oriented x3, No Motor/Sensory Deficits, Normal Mood/Affect Hospital Course Labs (last 24 hrs) Laboratory Tests 01/01/19 11:17: Glucometer 335H 01/01/19 12:33: Sodium Level 134L, Potassium Level 4.5, Chloride Level 100, Carbon Dioxide Level 21, Anion Gap 13, Blood Urea Nitrogen 25H, Creatinine 1.10, Estimat Glomerular Filtration Rate > 60, BUN/Creatinine Ratio 23, Glucose Level 318H, Calcium Level 9.6 01/01/19 17:16: Glucometer 443*H 01/01/19 20:07: Glucometer 195H 01/02/19 04:50: White Blood Count 10.6, Red Blood Count 4.06L, Hemoglobin 12.5L, Hematocrit 39L , Mean Corpuscular Volume 97, Mean Corpuscular Hemoglobin 31, Mean Corpuscular Hemoglobin Concent 32, Red Cell Distribution Width 14.9H, Platelet Count 225, Mean Platelet Volume 10.0, Neutrophils (%) (Auto) 62, Lymphocytes (%) (Auto) 21 , Monocytes (%) (Auto) 4, Eosinophils (%) (Auto) 8, Basophils (%) (Auto) 4, Neutrophils # (Auto) 6.6, Lymphocytes # (Auto) 2.2, Monocytes # (Auto) 0.5, Eosinophils # (Auto) 0.9H, Basophils # (Auto) 0.4H, Sodium Level 137, Potassium Level 4.1, Chloride Level 105, Carbon Dioxide Level 22, Anion Gap 10, Blood Urea Nitrogen 18, Creatinine 0.88, Estimat Glomerular Filtration Rate > 60, BUN/ Creatinine Ratio 20, Glucose Level 133H, Calcium Level 9.6, Corrected Calcium 9.7, Total Bilirubin 0.6, Aspartate Amino Transf (AST/SGOT) 14, Alanine Aminotransferase (ALT/SGPT) 17, Alkaline Phosphatase 71, Total Protein 6.6, Albumin 3.9, Smear Scan YES 01/02/19 10:55: Glucometer 375H Patient resulted labs reviewed. Pending Labs Laboratory Tests 01/02/19 04:50: White Blood Count 10.6, Red Blood Count 4.06, Hemoglobin 12.5, Hematocrit 39, Mean Corpuscular Volume 97, Mean Corpuscular Hemoglobin 31, Mean Corpuscular Hemoglobin Concent 32, Red Cell Distribution Width 14.9, Platelet Count 225, Mean Platelet Volume 10.0, Neutrophils (%) (Auto) 62, Lymphocytes (%) (Auto) 21 , Monocytes (%) (Auto) 4, Eosinophils (%) (Auto) 8, Basophils (%) (Auto) 4, Neutrophils # (Auto) 6.6, Lymphocytes # (Auto) 2.2, Monocytes # (Auto) 0.5, Eosinophils # (Auto) 0.9, Basophils # (Auto) 0.4, Sodium Level 137, Potassium Level 4.1, Chloride Level 105, Carbon Dioxide Level 22, Anion Gap 10, Blood Urea Nitrogen 18, Creatinine 0.88, Estimat Glomerular Filtration Rate > 60, BUN/ Creatinine Ratio 20, Glucose Level 133, Calcium Level 9.6, Corrected Calcium 9.7 , Total Bilirubin 0.6, Aspartate Amino Transf (AST/SGOT) 14, Alanine Aminotransferase (ALT/SGPT) 17, Alkaline Phosphatase 71, Total Protein 6.6, Albumin 3.9, Smear Scan YES 01/02/19 10:55: Glucometer 375 Imaging: Reviewed Imaging Report Discharge Home Medications: Active Scripts Active Ondansetron Odt (Ondansetron) 4 Mg Tab.rapdis 4 Mg PO Q4H PRN Novolog (Insulin Aspart) 100 Unit/1 Ml Susp 20 Unit SC AC 20-25 Units Tid With Meals ACCORDING TO CALORIES PER MEALS Levemir (Insulin Determir) 1,000 Units/10 Ml Soln 20 Unit SQ HS Reported Zofran Odt (Ondansetron) 8 Mg Tab.rapdis 4-8 Mg SL Q6H PRN Daily Multiple Vitamin (Multivitamin) 1 Each Tablet 1 Tab PO DAILY [Brain Enhancement] 1 Tab PO DAILY Vitamin D3 (Cholecalciferol (Vitamin D3)) 5,000 Unit Tablet 5,000 Unit PO DAILY Colace (Docusate Sodium) 100 Mg Capsule 100 Mg PO DAILY PRN Melatonin 5 Mg Tablet 5 Mg PO HS Miralax (Polyethylene Glycol 3350) 17 Gm Powd.pack 17 Gm PO DAILY PRN Aspirin EC (Aspirin) 81 Mg Tablet.dr 81 Mg PO DAILY Hydrocodone/Acetaminophen 5/325mg Tablet (Acetaminophen/Hydrocodone Bitart) 1 Each Tablet 1-2 Tab PO Q6H PRN Gabapentin 600 Mg Tablet 600 Mg PO TID Fluticasone Propionate 16 Gm [place].susp 2 Sprays NS HS Enalapril Maleate 20 Mg Tablet 20 Mg PO BID Venlafaxine HCl 75 Mg Tab 150 Mg PO BID TAKES 2 (75MG) TABLETS Instructions to patient/family Please see electronic discharge instructions given to patient. Clinical Quality Measures DVT/VTE Risk/Contraindication: Risk Factor Score Per Nursin RFS Level Per Nursing on Admit: 4+=Very High Problem Qualifiers (1) Nausea & vomiting: Vomiting type: unspecified Vomiting Intractability: non-intractable Qualified Codes: R11.2 - Nausea with vomiting, unspecified SHAZIA MATTHEWS MD Jan 02, 2019 11:11
[2019-01-02 11:39] VITALS: BP 136/68
== END 2019-01-02 11:30 | disposition home or self-care (01) | DRG 638 ==
LOC: EDUNIT# 06:47 → ER 06:51 → 4TH 10:20
PROVIDERS: ADMIT Family Medicine; ATTEND Family Medicine
DX: E10.65 Type 1 diabetes mellitus with hyperglycemia (principal); N17.9 Acute kidney failure, unspecified; D72.829 Elevated white blood cell count, unspecified; I10 Essential (primary) hypertension; G47.30 Sleep apnea, unspecified; F03.90 Unspecified dementia, unspecified severity, without behavioral disturbance, psychotic disturbance, mood disturbance, and anxiety; K59.09 Other constipation; F32.9 Major depressive disorder, single episode, unspecified; Z79.4 Long term (current) use of insulin; Z85.828 Personal history of other malignant neoplasm of skin; Z87.891 Personal history of nicotine dependence
CPT/HCPCS: 36415; 71045; 74176; 80048; 80053; 81000; 82962; 83036; 83690; 85007; 85025; 85027

== ENCOUNTER 2019-12-07 05:40 | Outpatient (CLI) | payer MEDICARE, OTHER ==
[~2019-12-07] VITALS: Ht 177.8 cm; Wt 98.6 kg
== END 2019-12-07 13:39 | disposition home or self-care (01) ==
LOC: PREOP 05:40
PROVIDERS: ATTEND Internal Medicine
DX: Z01.818 Encounter for other preprocedural examination (principal)

== ENCOUNTER 2019-12-24 16:58 | Emergency (ER) | payer MEDICARE, OTHER ==
[~2019-12-24] VITALS: Ht 177.8 cm; Wt 92.1 kg
[2019-12-24] MEDS ORDERED: NS IV 1000 ML 1,000 ML IV SCH ×2 (17:02→18:13)
[2019-12-24 17:50] LABS: BASOPHILS # (AUTO) 0.1 10^3/uL (0.0-0.1); BASOPHILS % (AUTO) 2 % (0-10); EOSINOPHILS % (AUTO) 0 % (0-10); HEMATOCRIT 31 % (40-54); HEMOGLOBIN 9.8 G/DL (13.3-17.7); LYMPHOCYTES # (AUTO) 0.8 X 10^3 (1.0-4.0); LYMPHOCYTES % (AUTO) 12 % (12-44); MEAN CORPUSCULAR HEMOGLOBIN 31 PG (25-34); MEAN CORPUSCULAR HGB CONC 32 G/DL (32-36); MEAN CORPUSCULAR VOLUME 97 FL (80-99); MEAN PLATELET VOLUME 10.2 FL (7.4-10.4); MONOCYTES # (AUTO) 0.3 X 10^3 (0.0-1.0); MONOCYTES % (AUTO) 5 % (0-12); NEUTROPHILS # (AUTO) 5.5 X 10^3 (1.8-7.8); NEUTROPHILS % (AUTO) 81 % (42-75); RED CELL DISTRIBUTION WIDTH 17.1 % (10.0-14.5); WHITE BLOOD COUNT 6.8 10^3/uL (4.3-11.0)
[2019-12-24 17:53] LABS: PLATELET COUNT 43 10^3/uL (130-400)
[2019-12-24] MEDS ORDERED: ONDANSETRON 4 MG/2 ML (SDV) Z0FRAN IVP ONE ×2 (18:00→21:45)
[2019-12-24 18:05] LABS: BILIRUBIN,TOTAL 0.9 MG/DL (0.1-1.0); CREATININE SERUM 1.24 MG/DL (0.60-1.30); POTASSIUM 5.2 MMOL/L (3.6-5.0); TOTAL PROTEIN 7.7 GM/DL (6.4-8.2)
[2019-12-24] MEDS ORDERED: fentaNYL INJECTION 100 MCG/2 ML AMP IVP ONE ×2 (18:15→21:45)
[2019-12-24] MEDS ORDERED: inSUlin (REGULAR) HUMAN 1 UNIT/0.01 ML (CHARGE PER UNIT) SC ONE ×2 (18:15→20:45)
--- NOTE | 2019-12-24 18:24 | ED GI ---
General Chief Complaint: Glucose Problems Stated Complaint: DIABETIC, NOT EATING X2 DAYS, HIGH SUGARS, DIAR Source of Information: Patient, Spouse Exam Limitations: No Limitations History of Present Illness Date Seen by Provider: Dec 24, 2019 Time Seen by Provider: 18:02 Initial Comments Patient arrives to the ER by private conveyance with chief complaint of diffuse abdominal discomfort, nausea vomiting and diarrhea for the past couple days after starting the steroid [address] Jacobo for multiple apthous, pharyngeal ulcers. He says he's had the ulcers for the past several weeks and he only getting worse. He does not recall having them ever before. He is not on any immunocompromise medications, chemotherapy etc. He says is noted his sugar today to be high above 500 and yesterday was above 300. Typically he runs 140-200. He is a type I diabetic. He takes 26 units of Levemir tonight and 20-25 units of Humalog 3 times a day before meals. He's having some diffuse allover abdominal crampiness. He's had a partial colectomy in the past due to bowel obstruction. He denies any fever cough shortness of breath chest pain and swelling about the feet or hands. No rash elsewhere on his body. Because of the ulcers in his mouth it's been very hard for him to eat or drink. He has had one scrambled egg today and sugar-free Gatorade. He has had colonoscopy in the past by Dr. Jacobo that was unremarkable. Allergies and Home Medications Allergies Coded Allergies: No Known Drug Allergies (Verified , 02/27/18) Home Medications Aspirin 81 Mg Tablet.dr, 81 MG PO DAILY, (Reported) Cholecalciferol (Vitamin D3) 5,000 Unit Tablet, 5,000 UNIT PO DAILY, (Reported) Ciprofloxacin HCl 500 Mg Tablet, 500 MG PO BID Prescribed by: RODRIGUEZ DAVILA on 12/24/192038 Enalapril Maleate 20 Mg Tablet, 20 MG PO BID, (Reported) Fluticasone Propionate 16 Gm Fay.susp, 2 SPRAYS NS HS, (Reported) Gabapentin 600 Mg Tablet, 600 MG PO TID, (Reported) Hydrocodone Bit/Acetaminophen 1 Each Tablet, 1-2 TAB PO Q6H PRN for MODERATE PAIN, (Reported) L.acidoph & Paracasei,B.lactis 1 Each Capsule, 1 EACH PO BID Prescribed by: RODRIGUEZ DAVILA on 12/24/192038 Melatonin 5 Mg Tablet, 5 MG PO HS, (Reported) Metronidazole 500 Mg Tablet, 500 MG PO TID Prescribed by: RODRIGUEZ DAVILA on 12/24/192038 Multivitamin 1 Each Tablet, 1 TAB PO DAILY, (Reported) Ondansetron 4 Mg Tab.rapdis, 4 MG PO Q6H PRN for NAUSEA/VOMITING Prescribed by: RODRIGUEZ DAVILA on 12/24/192038 Polyethylene Glycol 3350 17 Gm Powd.pack, 17 GM PO DAILY PRN for CONSTIPATION- 2ND LINE, (Reported) Venlafaxine HCl 75 Mg Tab, 150 MG PO BID, (Reported) TAKES 2 (75MG) TABLETS [Brain Enhancement] , 1 TAB PO DAILY, (Reported) [viscous lidocaine] 2% GEL, 15 ML PO Q6H PRN for PAIN-BREAKTHROUGH Prescribed by: RODRIGUEZ DAVILA on 12/24/192038 Patient Home Medication List Home Medication List Reviewed: Yes Review of Systems Review of Systems Constitutional: No chills, No diaphoresis, No fever; malaise EENTM: No Blurred Vision, No Double Vision Respiratory: Denies Cough, Denies Orthopnea, Denies Shortness of Air Cardiovascular: Denies Chest Pain, Denies Edema Gastrointestinal: See HPI; Denies Abdomen Distended; Abdominal Pain; Denies Constipated; Diarrhea, Nausea, Poor Fluid Intake, Vomiting Musculoskeletal: back pain (chronic); No joint pain Skin: No pruritus, No rash Psychiatric/Neurological: Denies Headache, Denies Numbness All Other Systems Reviewed Negative Unless Noted: Yes Past Nuvxdzh-Vrjywb-Abbzzy Hx Patient Social History Alcohol Use: Denies Use Recreational Drug Use: No Smoking Status: Former Smoker Type Used: Cigarettes Former Smoker, Quit: Nov 02, 1959 Recent Foreign Travel: No Contact w/Someone Who Travel: No Recent Hopitalizations: No Immunizations Up To Date Tetanus Booster (TDap): Less than 5yrs Date of Pneumonia Vaccine: Nov 02, 2008 Date of Influenza Vaccine: Sep 02, 2019 Seasonal Allergies Seasonal Allergies: No Past Medical History Surgeries: Yes (BILAT CARPAL TUNNEL, BILA KNEE REPLACE, COLON RESECTION, BILAT KNEE SCOPE, ) Abdominal, Orthopedic Respiratory: Yes (CPAP AT [facility]) Sleep Apnea Currently Using CPAP: Yes Currently Using BIPAP: No Cardiac: Yes Hypertension Neurological: Yes (CONFUSION W/ ILLNESSES) Dementia Reproductive Disorders: Yes Sexually Transmitted Disease: No Genitourinary: No Gastrointestinal: Yes (COLON RESSECTION) Obstructive Bowel, Chronic Constipation Musculoskeletal: Yes (ARTHRITIS) Back Injury Endocrine: Yes Diabetes, Insulin dep HEENT: Yes Cataract 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, Hearing Aide Left Cancer: Yes Skin What Type of Treatment Did You: Surgical Intervention Psychosocial: Yes Depression Integumentary: Yes (SKIN REAL THIN/EASILY BRUISES) Blood Disorders: No Family Medical History Cancer 09 SISTER (BREAST) Hypertension 03 FATHER 03 MOTHER Parkinson's disease 03 MOTHER Seizure disorder 09 BROTHER Physical Exam Vital Signs Vital Signs - First Documented 12/24/19 17:25 Temp 36.6 Pulse 97 Resp 18 B/P (MAP) 144/77 (99) Pulse Ox 99 O2 Delivery Room Air Capillary Refill : Height/Weight/BMI Height: 5'10.00" Weight: 212lbs. 6.0oz. 96.957312dd; 31.18 BMI Method:Stated General Appearance: WD/WN, mild distress HEENT: PERRL/EOMI, TMs normal, other (oropharynx with multiple, shallow, erythematous ring superficial ulcers on the tongue and oral mucosa. No pustules or bullae.) Neck: non-tender, full range of motion, supple, normal inspection Respiratory: lungs clear, normal breath sounds, no respiratory distress, no accessory muscle use Cardiovascular: normal peripheral pulses, regular rate, rhythm Peripheral Pulses: 2+ Dorsalis Pedis (R), 2+ Left Dors-Pedis (L) Gastrointestinal: normal bowel sounds, soft, tenderness (diffuse all 4 quadrants without mesenteric signs) Extremities: normal range of motion, non-tender, normal inspection, no pedal edema, no calf tenderness, normal capillary refill Neurologic/Psychiatric: no motor/sensory deficits, alert, normal mood/affect, oriented x 3 Skin: normal color, warm/dry; No rash Focused Exam Lactate Level 12/24/19 18:10: Lactic Acid Level 1.23 Lactic Acid Level Laboratory Tests Test 12/24/19 18:10 Lactic Acid Level 1.23 MMOL/L (0.50-2.00) Procedures/Interventions Date of ETT Placement: March 02, 2018 Time of ETT Placement: 707 Progress/Results/Core Measures Results/Orders Lab Results Laboratory Tests Test 12/24/19 17:40 12/24/19 17:41 12/24/19 18:10 12/24/19 19:49 Range/Units White Blood Count 6.8 4.3-11.0 10^3/uL Red Blood Count 3.21 L 4.35-5.85 10^6/uL Hemoglobin 9.8 L 13.3-17.7 G/DL Hematocrit 31 L 40-54 % Mean Corpuscular Volume 97 80-99 FL Mean Corpuscular Hemoglobin 31 25-34 PG Mean Corpuscular Hemoglobin Concent 32 32-36 G/DL Red Cell Distribution Width 17.1 H 10.0-14.5 % Platelet Count 43 L 130-400 10^3/uL Mean Platelet Volume 10.2 7.4-10.4 FL Neutrophils (%) (Auto) 81 H 42-75 % Lymphocytes (%) (Auto) 12 12-44 % Monocytes (%) (Auto) 5 0-12 % Eosinophils (%) (Auto) 0 0-10 % Basophils (%) (Auto) 2 0-10 % Neutrophils # (Auto) 5.5 1.8-7.8 X 10^3 Lymphocytes # (Auto) 0.8 L 1.0-4.0 X 10^3 Monocytes # (Auto) 0.3 0.0-1.0 X 10^3 Eosinophils # (Auto) 0.0 0.0-0.3 10^3/uL Basophils # (Auto) 0.1 0.0-0.1 10^3/uL Sodium Level 125 *L 135-145 MMOL/L Potassium Level 5.2 H 3.6-5.0 MMOL/L Chloride Level 92 L 98-107 MMOL/L Carbon Dioxide Level 14 L 21-32 MMOL/L Anion Gap 19 H 5-14 MMOL/L Blood Urea Nitrogen 29 H 7-18 MG/DL Creatinine 1.24 0.60-1.30 MG/DL Estimat Glomerular Filtration Rate 57 BUN/Creatinine Ratio 23 Glucose Level 416 *H 70-105 MG/DL Calcium Level 9.0 8.5-10.1 MG/DL Corrected Calcium 9.0 8.5-10.1 MG/DL Total Bilirubin 0.9 0.1-1.0 MG/DL Aspartate Amino Transf (AST/SGOT) 11 5-34 U/L Alanine Aminotransferase (ALT/SGPT) 15 0-55 U/L Alkaline Phosphatase 98 40-136 U/L Ammonia 26 11-32 UMOL/L Total Protein 7.7 6.4-8.2 GM/DL Albumin 4.0 3.2-4.5 GM/DL Glucometer 390 H 70-110 MG/DL Prothrombin Time 14.1 12.2-14.7 SEC INR Comment 1.0 0.8-1.4 Activated Partial Thromboplast Time 33 24-35 SEC Lactic Acid Level 1.23 0.50-2.00 MMOL/L Group A Streptococcus Screen NEGATIVE NEGATIVE Test 12/24/19 20:05 12/24/19 20:32 Range/Units Urine Color YELLOW Urine Clarity CLEAR Urine pH 5.5 5-9 Urine Specific [place] 1.015 L 1.016-1.022 Urine Protein TRACE H NEGATIVE Urine Glucose (UA) 3+ H NEGATIVE Urine Ketones 2+ H NEGATIVE Urine Nitrite NEGATIVE NEGATIVE Urine Bilirubin 1+ H NEGATIVE Urine Urobilinogen 0.2 < = 1.0 MG/DL Urine Leukocyte Esterase NEGATIVE NEGATIVE Urine RBC (Auto) 1+ H NEGATIVE Urine RBC 0-2 /HPF Urine WBC NONE /HPF Urine Crystals NONE /LPF Urine Bacteria NEGATIVE /HPF Urine Casts NONE /LPF Urine Mucus NEGATIVE /LPF Urine Culture Indicated NO Glucometer 366 H 70-110 MG/DL My Orders Orders - RODRIGUEZ DAVILA Syphilis Antibody Screen (12/24/19 18:08) Fentanyl Injection (Sublimaze Injection (12/24/19 18:15) Blood Culture (12/24/19 18:13) Sputum Culture (12/24/19 18:13) Protime With Inr (12/24/19 18:13) Partial Thromboplastin Time (12/24/19 18:13) Chest 1 View, Ap/Pa Only (12/24/19 18:13) Vital Signs Adult Sepsis Patie Q15M (12/24/19 18:13) O2 (12/24/19 18:13) Remove Rings In Anticipation O (12/24/19 18:13) Lactic Acid Analyzer (12/24/19 18:13) Ns Iv 1000 Ml (Sodium Chloride 0.9%) (12/24/19 18:13) Insulin (Regular) Human (Humulin R (Per (12/24/19 18:15) Rapid Strep A Screen (12/24/19 18:13) Ct Abdomen/Pelvis W (12/24/19 18:16) Iohexol Injection (Omnipaque 350 Mg/Ml 1 (12/24/19 19:30) Received Contrast (Hold Metformin- Contr (12/24/19 19:30) Ns (Ivpb) (Sodium Chloride 0.9% Ivpb Bag (12/24/19 19:30) Accucheck Stat ONCE (12/24/19 19:47) Metronidazole 500mg/100ml Ivpb (Flagyl 5 (12/24/19 20:00) Ciprofloxacin Iv 400mg/200ml (Cipro Iv S (12/24/19 20:00) Hydrocodone/Apap 5/325 Tablet (Lortab 5 (12/24/19 20:30) Insulin (Regular) Human (Humulin R (Per (12/24/19 20:45) Ondansetron Injection (Zofran Injectio (12/24/19 21:45) Medications Given in ED Current Medications Medications Dose Ordered Sig/Andrea Route Start Time Stop Time Status Last Admin Dose Admin Acetaminophen/ Hydrocodone Bitart 1 tab ONCE ONCE PO 12/24/19 20:30 12/24/19 20:31 DC 12/24/19 20:41 1 TAB Ciprofloxacin/ Dextrose 200 ml @ 200 mls/hr ONCE ONCE IV 12/24/19 20:00 12/24/19 20:59 DC 12/24/19 20:11 200 MLS/HR Fentanyl Citrate 50 mcg ONCE ONCE IVP 12/24/19 18:15 12/24/19 18:16 DC 12/24/19 18:44 50 MCG Insulin Human Regular 10 unit ONCE ONCE SC 12/24/19 18:15 12/24/19 18:16 DC 12/24/19 18:45 10 UNIT Insulin Human Regular 10 unit ONCE ONCE SC 12/24/19 20:45 12/24/19 20:46 DC 12/24/19 20:41 10 UNIT Iohexol 100 ml ONCE ONCE IV 12/24/19 19:30 12/24/19 19:31 DC 12/24/19 19:26 100 ML Metronidazole 100 ml @ 100 mls/hr ONCE ONCE IV 12/24/19 20:00 12/24/19 20:59 DC 12/24/19 20:11 100 MLS/HR Ondansetron HCl 4 mg ONCE ONCE IVP 12/24/19 18:00 12/24/19 18:01 DC 12/24/19 18:05 4 MG Sodium Chloride 100 ml ONCE ONCE IV 12/24/19 19:30 12/24/19 19:31 DC 12/24/19 19:26 80 ML Vital Signs/I&O 12/24/19 17:25 Temp 36.6 Pulse 97 Resp 18 B/P (MAP) 144/77 (99) Pulse Ox 99 O2 Delivery Room Air Progress Progress Note #1: Time: 18:22 Progress Note He appears to have multiple benign apthous ulcers which have decreased his oral intake and may cause some mild dehydration as evidenced by his tachycardia. Considerations could include is not eating drinking or taking medication she could be an acute opiate withdrawal which would cause diarrhea and further abdominal discomfort. Because of his history of type 1 diabetes plan to give him 10 units of insulin and recheck her sugar in about 30 minutes. Plan to give him 2 L of fluid and obtain blood cultures urine, chest x-ray and a CT abdomen and pelvis with IV contrast looking for acute pathology especially given his history of bowel obstruction. Between urine and blood we should be able to rule in or out diabetic ketoacidosis. We have offered him topical lidocaine for his oral ulcers and he has declined at this time saying he has benzocaine he can use. He is having significant pain in his lower back from his chronic back pain so we have offered 50 g of fentanyl. Progress Note #2: Time: 19:51 Progress Note After the fentanyl the pain in his back is much more tolerable. His abdominal discomfort is still very mild. He has some segmental inflammation in his proxi mal sigmoid colon. This could represent an inflammatory bowel versus infectious. Plan to give him Cipro and Flagyl. We will offer an overnight stay versus outpatient follow-up. Since he has aseptic vital signs now no white count and no fever he would be reasonable for him to trial outpatient therapy. On reexamination he still has a mild, benign abdominal exam without mesenteric signs. We discussed outpatient versus inpatient therapy and he would much prefer outpatient. We'll set him up with some Zofran, Flagyl and Cipro, probiotics and follow up with Dr. Jacobo who can continue his outpatient workup. We've given him strict return precautions. He still has another half hour plus or minus on his antibiotics. We'll going to give him some hydrocodone as the fentanyl has started to wear off. Nursing will obtain a repeat blood glucose. does not feel like steroid has helped so At this time we recommended he discontinue the oral topical steroids. We will give him some viscous lidocaine to trial for pain relief of his oral ulcers. Progress Note #3: Time: 20:35 Progress Note The second 10 units of regular insulin were given and he was encouraged to resume his normal regimen and expect to have high blood sugar for the next day or 2 related to steroid use. Progress Note #4: Time: 21:37 Progress Note Nursing reports the patient had another episode of cramping pain and some solid stool and nausea. 8 mg Zofran were ordered. The patient says the hydrocodone has not had a chance to help yet and he would really like some IV pain medicine. We have offered to let him stay in the hospital for pain management and IV antibiotics however he is still declined stating he would much rather go home. We'll give him 50 g of fentanyl and he has point pain meds at home. We'll make sure he goes home with some ondansetron. We have given him return precautions and the patient and are satisfied with this plan. Diagnostic Imaging Diagonstic Imaging: Xray Plain Films/CT/US/NM/MRI: chest (1v) Comments NAME: [facility] REC#: [id number] PT STATUS: REG ER : 1945 PHYSICIAN: RODRIGUEZ DAVILA MD ADMIT DATE: 12/24/19/ER Draft Date of Exam:12/24/19 CHEST 1 VIEW, AP/PA ONLY INDICATION: Hyperglycemia, nausea and diarrhea. COMPARISON: Prior examination from 01/01/2019. EXAMINATION: Single view of the chest was obtained. FINDINGS: The heart size, mediastinal configuration, and pulmonary vascularity are within normal limits. There is no pleural effusion, pneumothorax, or pneumonia. The osseous structures are unremarkable. IMPRESSION: No acute cardiopulmonary abnormality. Dictated on workstation # [id number] Dict: 12/24/191946 Trans: 12/24/191948 [facility] [id number] Interpreted by: JES LEMUS MD Electronically signed by: Reviewed: Reviewed by Me Diagonstic Imaging: CT (with IV contrast) Plain Films/CT/US/NM/MRI: abdomen, pelvis Comments [facility]. [place], [place] NAME: [facility] REC#: [id number] PT STATUS: REG ER : 1945 PHYSICIAN: RODRIGUEZ DAVILA MD ADMIT DATE: 12/24/19/ER Draft Date of Exam:12/24/19 CT ABDOMEN/PELVIS W PROCEDURE: CT abdomen and pelvis with contrast. TECHNIQUE: Multiple contiguous axial images were obtained through the abdomen and pelvis after administration of intravenous contrast. Auto Exposure Controls were utilized during the CT exam to meet ALARA standards for radiation dose reduction. INDICATION: Hyperglycemia, nausea and diarrhea. COMPARISON: Prior examination from 01/01/2019. FINDINGS: Heart size is normal. There is minimal scarring in the lung bases. The liver is normal in size and without focal lesions. Gallbladder is surgically absent. There is no biliary ductal dilatation. Spleen is normal. Some atrophy of the pancreas. The adrenal glands are unremarkable. There are bilateral renal cysts. There is some atherosclerotic calcification of the aorta, which is nonaneurysmal. Bowel gas pattern is nonspecific. Appendix is normal. There is an anterior abdominal wall hernia containing intraperitoneal fat. No free air. There is no ascites. There is some focal mucosal thickening in the upper sigmoid colon which is moderately distended with stool. Some focal colitis cannot be excluded. There is no pelvic mass or adenopathy. There are degenerative changes in the spine. IMPRESSION: 1. Moderate distention of the upper sigmoid colon with some mucosal thickening and mild surrounding inflammatory change. This is suspect for focal colitis. Interestingly, the colon was dilated in a similar fashion back on 01/01/2019. Recommend clinical correlation and, if warranted, follow up with colonoscopy. 2. Bilateral renal cysts. 3. Anterior abdominal wall hernia containing only omental fat. This is above the level of the umbilicus to the right of midline. Dictated on workstation # [id number] Dict: 12/24/191935 Trans: 12/24/191943 [facility] [id number] Interpreted by: JES LEMUS MD Electronically signed by: Reviewed: Reviewed by Me Departure Impression Primary Impression: Hyperglycemia Additional Impressions: Segmental colitis without complication Aphthous ulcer of pharynx or hypopharynx Disposition: 01 HOME, SELF-CARE Condition: Stable Departure-Patient Inst. Decision time for Depature: 20:45 Referrals: EDEL JACOBO MD (PCP/Family) Primary Care Physician Patient Instructions: Colitis (DC), Hyperglycemia, Adult (DC) Add. Discharge Instructions: As you stop using the steroids your blood glucose will return to normal over the next few days. Start taking the Flagyl 500 mg 3 times a day for the next 10 days. Start taking ciprofloxacin 500 mg twice a day for the next 10 days. Probiotics one capsule twice a day over the next 10 days. Viscous lidocaine 15 mL swish and spit every 6 hours as needed for mouth pain. Next week plan to follow up with Dr. Jacobo and discuss appropriate endoscopy and workup. Return to the ER if you have intractable pain, nausea or other worrisome symptoms. You may use your hydrocodone as prescribed. Ondansetron one tablet every 6 hours as needed for nausea or vomiting. All discharge instructions reviewed with patient and/or family. Voiced understanding. Scripts Ondansetron (Ondansetron Odt) 4 Mg Tab.rapdis 4 MG PO Q6H PRN for NAUSEA/VOMITING, #20 TAB 0 Refills Prov: RODRIGUEZ DAVILA 12/24/19 [viscous lidocaine] 2% GEL No Conflict Check 15 ML PO Q6H PRN for PAIN-BREAKTHROUGH, #100 GM 0 Refills Prov: RODRIGUEZ DAVILA 12/24/19 L.acidoph & Paracasei,B.lactis (Probiotic) 1 Each Capsule 1 EACH PO BID for 14 Days, #30 CAP 0 Refills Prov: RODRIGUEZ DAVILA 12/24/19 Metronidazole (Flagyl) 500 Mg Tablet 500 MG PO TID for 10 Days, #29 TAB 0 Refills Prov: RODRIGUEZ DAVILA 12/24/19 Ciprofloxacin HCl (Ciprofloxacin HCl) 500 Mg Tablet 500 MG PO BID, #19 TAB 0 Refills Prov: RODRIGUEZ DAVILA 12/24/19 RODRIGUEZ DAVILA Dec 24, 2019 18:23
[2019-12-24 18:41] LABS: PROTHROMBIN TIME PATIENT 14.1 SEC (12.2-14.7)
[2019-12-24] MEDS ORDERED: HOLD METFORMIN - RECEIVED CONTRAST 20 ML VIAL IV SCH (19:30)
[2019-12-24] MEDS ORDERED: NS 100 ML (IVPB) BAG IV ONE (19:30)
[2019-12-24] MEDS ORDERED: IOHEXOL 350 MG/ML 100 ML (OMNIPAQUE 350) VIAL IV ONE (19:30)
--- NOTE | 2019-12-24 19:46 | Diagnostic Imaging Report ---
PROCEDURE: CT abdomen and pelvis with contrast. TECHNIQUE: Multiple contiguous axial images were obtained through the abdomen and pelvis after administration of intravenous contrast. Auto Exposure Controls were utilized during the CT exam to meet ALARA standards for radiation dose reduction. INDICATION: Hyperglycemia, nausea and diarrhea. COMPARISON: Prior examination from 01/01/2019. FINDINGS: Heart size is normal. There is minimal scarring in the lung bases. The liver is normal in size and without focal lesions. Gallbladder is surgically absent. There is no biliary ductal dilatation. Spleen is normal. Some atrophy of the pancreas. The adrenal glands are unremarkable. There are bilateral renal cysts. There is some atherosclerotic calcification of the aorta, which is nonaneurysmal. Bowel gas pattern is nonspecific. Appendix is normal. There is an anterior abdominal wall hernia containing intraperitoneal fat. No free air. There is no ascites. There is some focal mucosal thickening in the upper sigmoid colon which is moderately distended with stool. Some focal colitis cannot be excluded. There is no pelvic mass or adenopathy. There are degenerative changes in the spine. IMPRESSION: 1. Moderate distention of the upper sigmoid colon with some mucosal thickening and mild surrounding inflammatory change. This is suspect for focal colitis. Interestingly, the colon was dilated in a similar fashion back on 01/01/2019. Recommend clinical correlation and, if warranted, follow up with colonoscopy. 2. Bilateral renal cysts. 3. Anterior abdominal wall hernia containing only omental fat. This is above the level of the umbilicus to the right of midline. Dictated by: Dictated on workstation # [id number]
--- NOTE | 2019-12-24 19:50 | Diagnostic Imaging Report ---
INDICATION: Hyperglycemia, nausea and diarrhea. COMPARISON: Prior examination from 01/01/2019. EXAMINATION: Single view of the chest was obtained. FINDINGS: The heart size, mediastinal configuration, and pulmonary vascularity are within normal limits. There is no pleural effusion, pneumothorax, or pneumonia. The osseous structures are unremarkable. IMPRESSION: No acute cardiopulmonary abnormality. Dictated by: Dictated on workstation # [id number]
[2019-12-24] MEDS ORDERED: metroNIDAZOLE 500MG/100ML IVPB 100 ML IV ONE (20:00)
[2019-12-24] MEDS ORDERED: CIPROFLOXACIN IV 400MG/200ML 200 ML IV ONE (20:00)
[2019-12-24] MEDS ORDERED: HYDROcodone/APAP 5 MG/325 MG (LORTAB) TAB PO ONE (20:30)
[2019-12-24] MEDS ORDERED: ONDA4TAB11 PO (20:39)
[2019-12-24] MEDS ORDERED: viscous lidocaine PO (20:39)
[2019-12-24] MEDS ORDERED: CIPR500T4 PO (20:39)
[2019-12-24] MEDS ORDERED: L.AC1CAP6 PO (20:39)
[2019-12-24] MEDS ORDERED: METR500T PO (20:39)
[2019-12-24 20:51] LABS: BILIRUBIN,URINE 1+ (NEGATIVE); CLARITY,URINE CLEAR; COLOR,URINE YELLOW; GLUCOSE, URINE (UA) 3+ (NEGATIVE); KETONES,URINE 2+ (NEGATIVE); LEUKOCYTE ESTERASE ,URINE NEGATIVE (NEGATIVE); NITRITE,URINE NEGATIVE (NEGATIVE); PH,URINE 5.5 (5-9); PROTEIN,URINE TRACE (NEGATIVE)
[2019-12-24 20:52] LABS: BACTERIA,URINE NEGATIVE /HPF; RBC,URINE 0-2 /HPF
[2019-12-24] MEDS ORDERED: RX-ONDANSETRON 4 MG ODT (ZOFRAN) PPK #4 PO STA (21:38)
[2019-12-24 22:10] VITALS: BP 134/87
== END 2019-12-24 22:10 | disposition home or self-care (01) ==
LOC: EDUNIT# 16:58 → ER 17:00
DX: E10.65 Type 1 diabetes mellitus with hyperglycemia (principal); K50.10 Crohn's disease of large intestine without complications; K12.0 Recurrent oral aphthae; I10 Essential (primary) hypertension; F32.9 Major depressive disorder, single episode, unspecified; G47.30 Sleep apnea, unspecified; Z85.828 Personal history of other malignant neoplasm of skin; Z99.89 Dependence on other enabling machines and devices; Z79.82 Long term (current) use of aspirin; Z79.51 Long term (current) use of inhaled steroids; Z87.891 Personal history of nicotine dependence; Z80.3 Family history of malignant neoplasm of breast
CPT/HCPCS: 36415; 71045; 74177; 80053; 81000; 82140; 82962; 83605; 85025; 85610; 85730; 86780; 87040; 87430

== ENCOUNTER → 2020-01-02 | Outpatient (CLI) | payer MEDICARE, OTHER ==
[~2020-01-02] MED LIST changes: +L.AC1CAP6 PO; +METR500T PO; +viscous lidocaine PO
[2020-01-02 14:37] LABS: BASOPHILS # (AUTO) 0.1 10^3/uL (0.0-0.1); BASOPHILS % (AUTO) 1 % (0-10); EOSINOPHILS % (AUTO) 0 % (0-10); HEMATOCRIT 29 % (40-54); HEMOGLOBIN 8.9 G/DL (13.3-17.7); LYMPHOCYTES # (AUTO) 1.3 X 10^3 (1.0-4.0); LYMPHOCYTES % (AUTO) 18 % (12-44); MEAN CORPUSCULAR HEMOGLOBIN 30 PG (25-34); MEAN CORPUSCULAR HGB CONC 31 G/DL (32-36); MEAN CORPUSCULAR VOLUME 97 FL (80-99); MEAN PLATELET VOLUME 11.2 FL (7.4-10.4); MONOCYTES # (AUTO) 0.5 X 10^3 (0.0-1.0); MONOCYTES % (AUTO) 7 % (0-12); NEUTROPHILS # (AUTO) 5.5 X 10^3 (1.8-7.8); NEUTROPHILS % (AUTO) 74 % (42-75); RED CELL DISTRIBUTION WIDTH 17.6 % (10.0-14.5); WHITE BLOOD COUNT 7.4 10^3/uL (4.3-11.0)
[2020-01-02 14:43] LABS: PLATELET COUNT 23 10^3/uL (130-400)
[2020-01-02 15:05] LABS: ALANINE AMINOTRANSFERASE 18 U/L (0-55); ALBUMIN 4.1 GM/DL (3.2-4.5); ALKALINE PHOSPHATASE 86 U/L (40-136); BUN/CREATININE RATIO 16; CARBON DIOXIDE 27 MMOL/L (21-32); CHLORIDE 93 MMOL/L (98-107); CREATININE SERUM 1.13 MG/DL (0.60-1.30); GFR ESTIMATED > 60; GLUCOSE 234 MG/DL (70-105); POTASSIUM 4.1 MMOL/L (3.6-5.0); SODIUM 129 MMOL/L (135-145); TOTAL PROTEIN 7.3 GM/DL (6.4-8.2)
== END ==
LOC: LAB 14:12
PROVIDERS: ATTEND Internal Medicine
DX: I95.9 Hypotension, unspecified (principal); E10.9 Type 1 diabetes mellitus without complications
CPT/HCPCS: 36415; 80053; 85025